=== PATIENT | female | born 1955 | race Caucasian/White ===

== ENCOUNTER → 2016-06-09 | Outpatient (CLI) | payer MEDICARE ==
--- NOTE | 2016-06-10 12:40 | MM ---
Reason for exam: screening (asymptomatic). Last mammogram was performed 1 year and 7 months ago. History: Patient is postmenopausal and history of other cancer. Family history of breast cancer in sister at age 51, breast cancer in maternal aunt at age 50, and breast cancer in maternal aunt at age 40. Physical Findings: A clinical breast exam by your physician is recommended on an annual basis and results should be correlated with mammographic findings. MG 3D Screening Mammo W/Cad Bilateral CC and MLO view(s) were taken. XCCL view(s) were taken of the right breast. Prior study comparison: October 30, 2014, bilateral MG screening mammo w CAD. May 06, 2013, bilateral digital screening mammo w/CAD. There are scattered fibroglandular densities. No significant changes when compared with prior studies. ASSESSMENT: Negative, BI-RAD 1 RECOMMENDATION: Routine screening mammogram of both breasts in 1 year.
== END | disposition home or self-care (01) ==
LOC: RADMAMWWP 07:53
PROVIDERS: ATTEND Internal Medicine
DX: Z12.31 Encounter for screening mammogram for malignant neoplasm of breast (principal)
CPT/HCPCS: 77063; G0202

== ENCOUNTER → 2016-10-27 | Outpatient (CLI) | payer MEDICARE ==
--- NOTE | 2016-10-27 09:38 | MR ---
EXAMINATION TYPE: MR shoulder LT wo con DATE OF EXAM: 10/27/2016 COMPARISON: Outside radiographs 10/12/2016 HISTORY: 61-year-old female with left shoulder pain TECHNIQUE: Multiplanar, multisequence imaging of the left shoulder is performed without contrast. FINDINGS: Intermediate signal within the intracapsular portion of the long head biceps tendon. Possible subtle split tear in the extracapsular portion, coronal image 9. Some heterogeneous signal within the subscapularis tendon which remains intact. Mild degenerative joint space narrowing with marginal spurring and capsular hypertrophy at the acromi oclavicular joint. There is diffuse thickening and heterogeneous signal of the supraspinatus tendon with a small 10 x 9 mm intrasubstance tear at the footprint of the anterior supraspinatus tendon, sagittal image 7 and co mary ann image 10. Some fluid is seen delaminating tear of the bursal sided fibers of the mid supraspina tus tendon. No definite extension to either the bursal or articular surface or full-thickness tear is seen. The infraspinatus tendon appears intact. No atrophy of the rotator cuff musculature. However, there is a moderate effusion within the subacromial/subdeltoid bursa. Evaluation of the glenohumeral joint shows some focal areas of degenerative cartilage loss suggested at the mid glenoid, coronal image. There is some degenerative signal within the superior labrum. No para labral cyst. No glenohumeral georges int effusion. No Hill-Sachs deformity or os acromiale. No suspicious bone marrow replacement. IMPRESSION: 1. Moderate supraspinatus tendinosis with a 10 x 9 mm intrasubstance tear at its anterior footprint. While some fluid delaminates along the bursal sided fibers, no clear communication to either bursal o r articular surface or full-thickness tear is seen at this time. 2. Intracapsular long head biceps tendinosis and possible small split tear of the extracapsular porti on. 3. Moderate subacromial/subdeltoid bursitis. 4. Mild AC joint and GH joint osteoarthrosis.
== END | disposition home or self-care (01) ==
LOC: RADMRIMAIN 08:12
PROVIDERS: ATTEND Orthopaedic Surgery
DX: M75.102 Unspecified rotator cuff tear or rupture of left shoulder, not specified as traumatic (principal); M75.52 Bursitis of left shoulder; M19.012 Primary osteoarthritis, left shoulder; M67.814 Other specified disorders of tendon, left shoulder

== ENCOUNTER → 2016-10-28 | Outpatient (CLI) | payer MEDICARE ==
--- NOTE | 2016-10-28 11:06 | P.BASOAP ---
Subjective Principal diagnosis: Esophageal spasm Patient known to our service. History of prior lap band. She had a 1 mL adjustment approximate 2 months ago. She was recent and started on oral steroids. Over the last 1-2 weeks she has had increased esophageal spasm-like pain. She is known to have these esophageal spasms however its normally when the band is loosened. Mild heartburn at times. No dysphagia. She is requesting the band the emptied. Objective - Exam Abdomen: Soft, nontender, nondistended Assessment/Plan (1) Esophageal spasm Narrative/Plan: Related to the patient's plan at this time. Patient likely not a candidate for future band adjustments because of her ongoing issues. Consider band removal. The patient's lap band port was palpated. The site was aseptically prepped. 1% lidocaine was infiltrated into the subcutaneous tissues through a diabetic syringe. The Santos needle was advanced into the port. Aspiration took place. A total of 1 ml of fluid was evacuated. Pressure was held and a sterile dressing was applied. Plan: Date: Initial Weight: Initial BMI: Current Weight: Current BMI: Type of Surgery: Total Volume in Band: Previous Volume: Volume Removed: Volume Added: Band Size:
[2016-10-28 11:28] VITALS: BP 137/84; PULSE 70; TEMP 97.8; BMI 39.4
== END | disposition home or self-care (01) ==
LOC: BARWHC3 10:49
PROVIDERS: ATTEND Surgery
DX: K22.4 Dyskinesia of esophagus (principal)
CPT/HCPCS: 99212

== ENCOUNTER 2016-12-21 07:54 | Day surgery (SDC) | payer MEDICARE ==
[2016-12-16 14:39] VITALS: BMI 35.4
--- NOTE | 2016-12-20 12:28 | HP ---
HISTORY AND PHYSICAL REASON FOR ADMISSION: Surgery is 12/21/2016. HISTORY OF PRESENT ILLNESS: Eulalia Armstrong is a 61-year-old patient seen with progressive left shoulder pain. We discussed treatment options. She elected to proceed with arthroscopy. Consent was obtained. Medical clearance was prior to Dr. Solis. PAST MEDICAL HISTORY: Hypertension, hyperlipidemia, gastroesophageal reflux disease, hypothyroidism. PAST SURGICAL HISTORY: Right foot surgery, left foot surgery, hysterectomy, left knee arthroscopy, thyroidectomy, tubal ligation. MEDICATIONS: Meloxicam, metoprolol, Prevacid, Synthroid, Xanax and Zomig ALLERGIES: CODEINE, SULFA, DEMEROL. SOCIAL HISTORY: Patient denies current tobacco use. PHYSICAL EXAMINATION: Evaluation of the left shoulder flexion 150 degrees, abduction 110 degrees, external rotation is 55 degrees with some pain and weakness. There is tenderness along the anterior lateral acromion rotator cuff insertion site. Impingement is positive at 90 degrees. Drop-arm sign is positive. Distal neurovascular exam is intact. RADIOGRAPHS: Of the left shoulder revealed a type 2 anterior acromion and cystic changes of the greater tuberosity. An MRI of the left shoulder revealed a partial rotator cuff tear and partial biceps tendon tear. IMPRESSION: Left shoulder impingement with partial rotator cuff tear, partial biceps tendon tear. PLAN: Left shoulder arthroscopy, subacromial decompression, possible arthroscopic rotator cuff repair, probable biceps tenotomy and debridement. Surgery 12/21/2016. MMODL / IJN: [id number] /
[~2016-12-21 07:54] MED LIST: DEXAMETHASONE SOD PHOSPHATE 10 MG/ML 1 ML VIAL IV ONE; HYDROmorphone 0.5 MG/0.5 ML SYRINGE IVP PRN; LACTATED RINGERS 1,000 ML IV SCH; MIDAZOLAM 2 MG/2 ML VIAL IV PRN; ONDANSETRON 4 MG/2 ML VIAL IVP ONE; ceFAZolin IN SWFI 2 GM/20 ML SYRINGE IVP ONE
[2016-12-21] MEDS ORDERED: SCOPOLAMINE 1.5MG/72HR PATCH TRANSDERM STA (08:21)
[2016-12-21] MEDS ORDERED: fentaNYL (PF) 50 MCG/ML 2 ML AMP IV ONE (08:41)
--- NOTE | 2016-12-21 09:05 | P.ONQ ---
Anesthesiology Proc Note - PNB - Peripheral Nerve Block Performed Left Interscalene Single Time Out Performed: Yes Procedure Start Time: 08:45 Indication: Acute Post-Operative Pain, Analgesia Specifically requested for management of pain by DrSelina: Sylvain Granda Sedation Type: Sedate with meaningful contact maintained Preparation: Sterile Prep Position: Supine Catheter: None Needle Types: Other (see comment) (Pajunk) Needle Size: 50mm (2") Needle Gauge: 21 Technique: Ultrasound Injectate: Other (see comment) (15cc 0.5% Ropivicaine+15cc 2% lidocaine) Adjunct: Epinephrine (see comment for dilution ratio) (1:200,000) Blood Aspirated: No Pain Paresthesia on Injection Noted: No Resistance on Injection: Normal Events: Uneventful and Well Tolerated
[2016-12-21] MEDS ORDERED: LIDOCAINE 1% INJ 10MG/ML (20 ML MDV) ONE (09:33)
[2016-12-21] MEDS ORDERED: ROPIVACAINE 5 MG/ML 30 ML VIAL ONE (09:33)
[2016-12-21] MEDS ORDERED: ePHEDrine SULFATE/0.9% NACL/PF 50 MG/5 ML SYRINGE IV ONE (09:33)
[2016-12-21] MEDS ORDERED: MIDAZOLAM 2 MG/2 ML VIAL ONE (09:33)
[2016-12-21] MEDS ORDERED: SUCCINYLCHOLINE CHLORIDE 100 MG/5 ML SYR IV ONE (09:33)
[2016-12-21] MEDS ORDERED: LIDOCAINE 2%-EPI 1:100,000 20 ML VIAL ONE (09:33)
[2016-12-21] MEDS ORDERED: fentaNYL (PF) 50 MCG/ML 2 ML AMP ONE (09:33)
[2016-12-21] MEDS ORDERED: PROPOFOL 10 MG/ML 20 ML VIAL IV ONE (09:33)
[2016-12-21] MEDS ORDERED: ONDANSETRON 4 MG/2 ML VIAL ONE (09:33)
[2016-12-21] MEDS ORDERED: SODIUM CHLORIDE 0.9% 50 ML with ceFAZolin 2,000 MG IV ONE ×2 (09:45)
[2016-12-21 11:29] VITALS: TEMP 96.9
[2016-12-21] MEDS ORDERED: LACTATED RINGERS 1,000 ML IV ONE (11:31)
--- NOTE | 2016-12-21 11:35 | P.OP ---
Date of Procedure: 12/21/16 Preoperative Diagnosis: Left shoulder impingement Postoperative Diagnosis: 1. Left shoulder rotator cuff tear 2. Left shoulder impingement 3. Left shoulder partial long head biceps tendon tear 4. Left shoulder superficial labral tear 5. 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 Left shoulder grade 2 chondromalacia glenoid fossa Procedure(s) Performed: 1. Left shoulder arthroscopic rotator cuff repair 2. Left shoulder arthroscopic subacromial decompression 3. Left shoulder arthroscopic biceps tenotomy 4. Left shoulder arthroscopic debridement labral tear 5. Left shoulder arthroscopic chondroplasty humeral head 6. Left shoulder arthroscopic chondroplasty glenoid fossa Implants: None Anesthesia: GETA, regional (Interscalene block) Surgeon: Sylvain Granda [employer] #1: Vitaliy Dennison Estimated Blood Loss (ml): 10 Pathology: none sent Condition: stable Disposition: PACU Indications for Procedure: 61-year-old patient seen with progressive left shoulder pain. After treatment options were discussed, she elected to proceed with arthroscopy. Operative Findings: see description of procedure Description of Procedure: Patient underwent a shoulder block by department of anesthesia. The patient was then taken to the operative suite. The patient underwent a general anesthetic by the department of anesthesia. The patient was placed into a lateral position and secured. There was appropriate padding of the bony prominence. Left shoulder was then prepped and draped in normal sterile orthopedic fashion. We placed the extremity in 10 pounds of longitudinal traction. A posterior incision was now made for a posterior working portal site. The trocar and cannula were inserted into the glenohumeral joint. Arthroscopy was initiated. Spinal needle was now inserted anteriorly, to ascertain the anterior working portal site. An incision was now made in that area, a trocar was inserted followed by a probe. There was grade 2-3 chondromalacia of the humeral head with osteochondral tears. There was grade 2 chondral malacia anterior aspect only fossa with some osteochondral tears. Superficial tearing of the anterior labrum was present. Partial tearing long head biceps tendon with hyperemia. No loose bodies. I performed a arthroscopic biceps tenotomy. I debrided the labral tears down to stable tissue. I performed a chondroplasty of the humeral head and glenoid fossa down to stable tissue. The residual labrum was probed and found to be stable. Instruments now removed from glenohumeral joint. Utilizing the posterior working portal site, the trocar and cannula were inserted into the subacromial space. Arthroscopy initiated. I made an incision 2 fingerbreadths lateral to the acromion. I introduced my trocar followed by my [employer] ablator. I now began ablating thick subacromial bursal tissue, which exposed the undersurface of the anterior acromion. This was diminished subacromial space. There was a very prominent anterior acromion. A motorized bur was introduced and a subacromial decompression was performed. I also excised some osteophytes off the inferior aspect of the distal clavicle. The AC joint was visualized and noted to be moderately arthritic. I did not think enough toward a Jose procedure. I turned my attention to the rotator cuff tendon. There appeared to be an intrasubstance tear supraspinatus. I debrided the margins down to stable tissue. I passed 2 simple sutures and a side-to- side repair. Residual suture limbs were clipped. The repair was probed and found to be stable. Instruments now removed from the portal sites. All portal sites were approximated with nylon suture. Sterile dressings were applied followed by a shoulder immobilizer. Cosmo LAGUNAS assisted with the procedure. The patient was awakened, transferred to a bed, and taken to recovery in stable condition.
[2016-12-21 13:14] VITALS: BP 136/77; PULSE 93; RESP 18
== END 2016-12-21 14:25 | disposition home or self-care (01) ==
LOC: OR 07:54
PROVIDERS: ATTEND Orthopaedic Surgery
DX: M75.112 Incomplete rotator cuff tear or rupture of left shoulder, not specified as traumatic (principal); S46.112A Strain of muscle, fascia and tendon of long head of biceps, left arm, initial encounter; S43.402A Unspecified sprain of left shoulder joint, initial encounter; X58.XXXA Exposure to other specified factors, initial encounter; M94.212 Chondromalacia, left shoulder; M19.012 Primary osteoarthritis, left shoulder; M25.712 Osteophyte, left shoulder; M75.42 Impingement syndrome of left shoulder; I10 Essential (primary) hypertension; E78.5 Hyperlipidemia, unspecified; I47.1 Supraventricular tachycardia; K21.9 Gastro-esophageal reflux disease without esophagitis; E03.9 Hypothyroidism, unspecified; Z85.850 Personal history of malignant neoplasm of thyroid; F39 Unspecified mood [affective] disorder; Z98.51 Tubal ligation status; Z79.82 Long term (current) use of aspirin; Z79.899 Other long term (current) drug therapy; Z88.2 Allergy status to sulfonamides; Z88.5 Allergy status to narcotic agent; Z88.8 Allergy status to other drugs, medicaments and biological substances
CPT/HCPCS: 64415; 29827; 29826; C1894; C1713; J2250; J1100; J2405; J0690; J2001; J3010; J2795; J0330; J2704

== ENCOUNTER → 2017-03-29 | Outpatient (CLI) | payer MEDICARE ==
--- NOTE | 2017-03-29 10:48 | FL ---
EXAMINATION: Single contrast Cervical and Thoracic Esophagram DATE OF EXAM: 03/29/2017 CLINICAL INDICATION: 61-year-old female with dysphagia, chronic sinusitis, cough, and intermittent se nsation of food sticking in throat since the summer. Lap band placed in 2002. COMPARISON: 01/27/2011 Total Flouroscopy Time: 1 minute 41 seconds. Total images: 78 (primarily last image hold save screens in order to decrease radiation dose) FINDINGS: The swallowing mechanism is normal. There is mild to moderate degenerative disc disease mid to lower cervical spine. Anterior endplate spondylosis minimally impresses on to the posterior wall of the cer vical esophagus but does not contribute to any significant narrowing. Otherwise, the hypopharyngeal a natomy is preserved. The cervical and thoracic portions have a normal course. This was a single contrast exam but there wa s enough air in the esophagus to allow for assessment of the mucosa. The mucosa is normal and no pers isting filling defect is encountered. However, the thoracic esophagus is mildly patulous and there are mild to moderate tertiary peristalti c contractions. When the patient is prone, we note marked blunting of the normal secondary stripping waves as contrast remains pooled in the thoracic esophagus with a intermittent episodes of intraesoph ageal reflux. When the patient is brought upright, contrast passes via gravity. Lap band is present and remains appropriately positioned. There is satisfactory passage of contrast a cross the lap band with only minimal restriction. A tiny sliding hiatal hernia is noted. IMPRESSION: 1. Mild to moderate cervical spondylosis. Endplate spurs minimally impress on the posterior wall of t he cervical the esophagus. There is no significant narrowing. 2. No evidence for lap band prolapse. The lap band provides only minimal restriction to the passage o f contrast. 3. Mildly patulous esophagus with marked blunting of the normal secondary stripping waves. This resul ts in persistent pooling of contrast in the esophagus when the patient is prone/supine. There are int ermittent episodes of intraesophageal reflux and contrast only passes via gravity after the patient i s brought upright. 4. Tiny sliding hiatal hernia.
--- NOTE | 2017-03-29 10:57 | CT ---
EXAMINATION TYPE: CT sinus wo con DATE OF EXAM: 03/29/2017 COMPARISON: NONE HISTORY: 61-year-old female dysphagia, chronic sinusitis, cough CT DLP: 596.5 mGycm Automated exposure control for dose reduction was used. TECHNIQUE: Noncontrast axial views of the paranasal sinuses were obtained. Coronal reconstructions pe rformed. FINDINGS: There is trace mucosal thickening along the floors of the bilateral maxillary sinuses and in the santos on of the left greater than right maxillary antrums. Otherwise, the sphenoid, frontal, and ethmoid sinuses are well pneumatized. There is no air-fluid level. Reactive cricket- osteogenesis is not seen. There is no destruction of the osseous jacob of the paranasal sinuses. There is slight rightward nasal septal deviation. The imaged brain and orbits are normal in appearance. Visualized mastoid air cells and middle ear cavities are well pneumatized. Reformatted images confirm above findings. IMPRESSION: 1. Mild mucosal thickening within the bilateral maxillary sinuses. 2. Slight rightward nasal septal deviation.
--- NOTE | 2017-03-29 13:20 | XR ---
EXAMINATION TYPE: XR chest 2V DATE OF EXAM: 03/29/2017 COMPARISON: Prior chest x-ray 01/26/2015 HISTORY: Cough and sinus congestion, dysphasia TECHNIQUE: Frontal and lateral views of the chest are obtained. FINDINGS: Patient is status post lap band. Cardiac mediastinal silhouette, pulmonary vascularity and zora are stable. No evident airspace disease, pneumothorax, or pleural effusion. The aorta is dense. IMPRESSION: Postop changes.
== END | disposition home or self-care (01) ==
LOC: RADFLWHC 09:46
PROVIDERS: ATTEND Otolaryngology
DX: J34.2 Deviated nasal septum (principal); J34.89 Other specified disorders of nose and nasal sinuses; R05 Cough; K21.9 Gastro-esophageal reflux disease without esophagitis; K44.9 Diaphragmatic hernia without obstruction or gangrene; K22.8 Other specified diseases of esophagus; Z98.890 Other specified postprocedural states
CPT/HCPCS: 70486; 71046; 74220

== ENCOUNTER → 2017-05-09 | Outpatient (CLI) | payer MEDICARE ==
[2017-05-09 14:27] VITALS: BP 138/88; PULSE 86; TEMP 98.2; BMI 40.8
--- NOTE | 2017-05-09 15:55 | P.BASOAP ---
Subjective Progress Note Date: 05/09/17 Principal diagnosis: Morbid obesity Patient returns for bariatric evaluation. Patient still having occasional episodes of dysphagia despite her band being empty. A recent upper GI showed some degree of esophageal dysmotility. The band site was providing minimal restriction. She is interested in gastric bypass. No heartburn currently. Objective - Vital Signs Vital signs: Vital Signs Temp 98.2 F 05/09/17 14:25 Pulse 86 05/09/17 14:25 Resp BP 138/88 05/09/17 14:25 Pulse Ox Intake & Output 05/08/17 05/09/17 05/09/17 18:59 06:59 18:59 Weight 102.92 kg - Exam Abdomen: Soft, nontender, nondistended Assessment/Plan (1) Morbid obesity Narrative/Plan: Given the patient's history of esophageal dilation and reflux with upper GI showing esophageal dysmotility support her decision to proceed with gastric bypass. Even with gastric bypass she is at risk of some degree of chronic reflux issues. Will make appointment for her to see Dr. Dahl. Plan: Date: 05/09/17 Initial Weight: Initial BMI: Current Weight: 102.92 kg Current BMI: 40.8 Type of Surgery: Total Volume in Band: 0 Previous Volume: Volume Removed: Volume Added: Band Size:
== END | disposition home or self-care (01) ==
LOC: BARWHC3 12:49
PROVIDERS: ATTEND Surgery
DX: E66.01 Morbid (severe) obesity due to excess calories (principal); Z68.41 Body mass index [BMI] 40.0-44.9, adult; K22.4 Dyskinesia of esophagus
CPT/HCPCS: 99211

== ENCOUNTER → 2017-05-25 | Outpatient (CLI) | payer MEDICARE ==
[2017-05-25 12:09] LABS: HCT 42.5 % (34.0-46.0); HGB 14.2 gm/dL (11.4-16.0); MCH 27.3 pg (25.0-35.0); MCHC 33.3 g/dL (31.0-37.0); MCV 81.8 fL (80.0-100.0); Platelet Count 312 k/uL (150-450); RBC 5.19 m/uL (3.80-5.40); RDW 13.7 % (11.5-15.5); WBC 7.8 k/uL (3.8-10.6)
[2017-05-25 12:27] LABS: Albumin 4.3 g/dL (3.5-5.0); Total Bilirubin 0.6 mg/dL (0.2-1.3); Total Protein 7.9 g/dL (6.3-8.2)
[2017-05-25 14:15] VITALS: BP 131/81; PULSE 67; TEMP 97.7; BMI 41.8
[2017-05-25 16:48] LABS: Iron Saturation 18.81 (12.00-45.00)
[2017-05-25 16:58] LABS: Vitamin D 25 Hydroxy 92.4 ng/mL (30.0-100.0)
[2017-05-25 17:35] LABS: Hemoglobin A1C 6.1 % (4.0-6.0)
--- NOTE | 2017-06-11 21:34 | P.HPBAR ---
Bariatric H&P - History & Physicial H&P Date: 05/25/17 History & Physicial: Visit/CC: Patient initial contact: Initial weight: Initial weight in pounds: Height: Initial BMI: Last weight: Current weight: Current weight in pounds: Current BMI: [place] body weight (based on NIH guidelines): Excess body weight loss: The patient is a 62 year-old F who presents for Bariatric Assessment. DATE OF SERVICE: 05/25/2017 REASON FOR CONSULTATION: Initial bariatric evaluation HISTORY OF PRESENT ILLNESS: Eulalia Armstrong is a 62-year-old female who comes in with long-standing morbid obesity. She comes in with history of esophageal spasms. She has an adjustable gastric band for over 15 years, 2002. Her highest weight was 220 pounds. Her lowest weight was 150 pounds. She has regained 78 pounds. She reports chronic back pain. She has gastroesophageal reflux disease. She reports trouble with swallowing. Now she presents for further evaluation and management. She reports all fluid out of her band. She has history of chronic pain. She is looking into the gastric bypass. At height of 5 feet 2 inches, her ideal body weight is 135 pounds. She comes in highest weight of 228 pounds. Body mass index is 41.8. She is 93 pounds overweight. PAST MEDICAL HISTORY: 1. Morbid obesity. 2. Body mass index of 41.8, initial. 3. Gastroesophageal reflux disease 4. Coronary artery disease 5. Hypothyroidism 6. Chronic pain syndrome 7. Dysphagia. 8. Hiatal hernia 9. Ischemic cardiomyopathy 10. Osteoarthritis bilateral hips 11. Osteoarthritis bilateral knees 12. Anxiety 13. Angina 14. Supraventricular tachycardia 15. Thyroid cancer 16. Vertigo 17. Migraines 18. Bilateral heel spurs 19. Dysphagia PAST SURGICAL HISTORY: 1. Right knee arthroplasty 2. Thyroidectomy 3. Back surgery 4. Band placement 5. Hysterectomy 6. Left knee arthroscopy 7. Heart catheterization 8. Tumor removed from eye HOME MEDICATIONS: 1. Restasis 2. Exforge 3. Zomig 4. Compazine 5. Zofran 6. Nitrostat 7. Toprol-XL 8. Meloxicam 9. Meclizine 10. Synthroid 11. Prevacid 12. [place] 13. Vitamin D 14. Soma 15. Aspirin 16. Xanax ALLERGIES: 1. Meperidine 2. Sulfa 3. Codeine SOCIAL HISTORY: History of tobacco abuse. FAMILY HISTORY: No family history of ulcerative colitis disease or Crohn's disease. Family history of morbid obesity. No lupus in the family. No reports of stomach or esophageal cancer. Family history of diabetes type 2. REVIEW OF ORGAN SYSTEMS: CONSTITUTIONAL: At height of 5 feet 2 inches, her ideal body weight is 135 pounds. She comes in highest weight of 228 pounds. Body mass index is 41.8. She is 93 pounds overweight. HEENT: Denies any active troubles with vision or hearing. Has troubles with swallowing. ENDOCRINE: No diabetes. Has hypothyroidism. CARDIOVASCULAR: Past heart attack. Has hypertension. RESPIRATORY: Has daytime somnolence. No asthma. Has obstructive sleep apnea. GI: Denies any bright red blood per rectum. No diarrhea or constipation. Has gastroesophageal reflux disease. MUSCULOSKELETAL: Has lower back pain and joint pain. Has osteoarthritis of the knees. NEURO: No headaches. No seizure disorders. PSYCH: Has depression. Has anxiety. No suicidal ideation. RHEUMATOLOGIC: No lupus. No rheumatoid arthritis. HEMATOLOGIC: Denies any abnormal bleeding or bruising. No personal history of DVTs. SKIN: No rash. No skin cancer. PHYSICAL EXAM: VITAL SIGNS: Height 5 foot 2 inches, weight 228 pounds. BMI 41.8 Vital Signs Temp 97.7 F 05/25/17 14:08 Pulse 67 05/25/17 14:08 Resp BP 131/81 05/25/17 14:08 Pulse Ox GENERAL: Well-developed in no acute distress. HEENT: No scleral icterus. Extraocular movements grossly intact. Hears conversational speech. No nasal drainage. NECK: Supple without lymphadenopathy. CHEST: Nonlabored respirations with equal bilateral excursions. CARDIOVASCULAR: Regular rate and regular rhythm. Distal 2+ pulses. ABDOMEN: Obese, soft, nontender, nondistended. MUSCULOSKELETAL: No clubbing, cyanosis. Gross strength 5/5 distal lower extremities. No pre-tibial pitting edema. NEURO: No focal or lateralizing signs. Cranial nerves 2 through 12 grossly within normal limits. PSYCH: Appropriate affect. Alert and oriented to person, place and time. SKIN: Good skin turgor. Well perfused. ASSESSMENT: 1. Morbid obesity. 2. Body mass index of 41.8, initial. 3. Gastroesophageal reflux disease 4. Coronary artery disease 5. Hypothyroidism 6. Chronic pain syndrome 7. Dysphagia. 8. Hiatal hernia 9. Ischemic cardiomyopathy 10. Osteoarthritis bilateral hips 11. Osteoarthritis bilateral knees 12. Anxiety 13. Angina 14. Supraventricular tachycardia 15. Thyroid cancer 16. Vertigo 17. Migraines 18. Bilateral heel spurs 19. Dysphagia PLAN: 1. Surgical options including gastric bypass, sleeve gastrectomy were described in detail. With her symptoms, she swallowing for the gastric bypass. 2. The [place] bariatric surgical collaborative data and outcomes calculator were described with surgical options. 3. Recommend a bariatric metabolic panel to evaluate for micro- including macronutrient deficiencies. 4. For history of daytime somnolence, recommend evaluation and treatment for sleep apnea. 5. Dietary surveillance and counseling was reviewed, I have asked increased protein intake to at least 65 grams daily. 6. Will need cardiac risk assessment. 7. Recommend medical risk assessment. 8. Psych assessment per insurance guidelines. 9. Recommend esophageal manometry for history of dysphagia. 10. Recommend 12-lead EKG with family history of hypertensive heart disease. 11. Recommend upper endoscopy after completion of esophagram. 12. Recommend right upper quadrant ultrasound and HIDA scan for gallbladder 13. Recommend bariatric dietitian evaluation. 14. Recommend esophagram Thank you for this consultation. Laboratory Last Values WBC 7.8 k/uL (3.8-10.6) 05/25/17 11:37 RBC 5.19 m/uL (3.80-5.40) 05/25/17 11:37 Hgb 14.2 gm/dL (11.4-16.0) 05/25/17 11:37 Hct 42.5 % (34.0-46.0) 05/25/17 11:37 MCV 81.8 fL (80.0-100.0) 05/25/17 11:37 MCH 27.3 pg (25.0-35.0) 05/25/17 11:37 MCHC 33.3 g/dL (31.0-37.0) 05/25/17 11:37 RDW 13.7 % (11.5-15.5) 05/25/17 11:37 Plt Count 312 k/uL (150-450) 05/25/17 11:37 Sodium 143 mmol/L (137-145) 05/25/17 11:37 Potassium 5.0 mmol/L (3.5-5.1) 05/25/17 11:37 Chloride 103 mmol/L (98-107) 05/25/17 11:37 Carbon Dioxide 24 mmol/L (22-30) 05/25/17 11:37 Anion Gap 16 mmol/L 05/25/17 11:37 BUN 19 mg/dL (7-17) H 05/25/17 11:37 Creatinine 1.00 mg/dL (0.52-1.04) 05/25/17 11:37 Est GFR (CKD-EPI)AfAm 69 (>60 ml/min/1.73 sqM) 05/25/17 11:37 Est GFR (CKD-EPI)NonAf 60 (>60 ml/min/1.73 sqM) 05/25/17 11:37 Glucose 99 mg/dL (74-99) 05/25/17 11:[address] Glu mg/dL 128 05/25/17 11:37 Hemoglobin A1c 6.1 % (4.0-6.0) H 05/25/17 11:37 Calcium 10.0 mg/dL (8.4-10.2) 05/25/17 11:37 Iron 63 ug/dL (50-170) 05/25/17 11:37 TIBC 335 ug/dL (228-460) 05/25/17 11:37 Iron Saturation 18.81 (12.00-45.00) 05/25/17 11:37 Ferritin 21.7 ng/mL (10.0-291.0) 05/25/17 11:37 Total Bilirubin 0.6 mg/dL (0.2-1.3) 05/25/17 11:37 AST 20 U/L (14-36) 05/25/17 11:37 ALT 22 U/L (9-52) 05/25/17 11:37 Alkaline Phosphatase 116 U/L (38-126) 05/25/17 11:37 Total Protein 7.9 g/dL (6.3-8.2) 05/25/17 11:37 Albumin 4.3 g/dL (3.5-5.0) 05/25/17 11:37 Triglycerides 128 mg/dL (<150) 05/25/17 11:37 Cholesterol 197 mg/dL (<200) 05/25/17 11:37 LDL Cholesterol, Calc 110 mg/dL (0-99) H 05/25/17 11:37 HDL Cholesterol 61 mg/dL (40-60) H 05/25/17 11:37 Vitamin B1 50 ug/L (38-122) 05/25/17 11:37 Vitamin B12 676.0 pg/mL (200.0-944.0) 05/25/17 11:37 Vitamin D 25-Hydroxy 92.4 ng/mL (30.0-100.0) 05/25/17 11:37 Folate 17.0 ng/mL 05/25/17 11:37 TSH 0.329 mIU/L (0.465-4.680) L 05/25/17 11:37 Hemoglobin A1c elevated LDL elevated HDL elevated TSH suppressed Findings consistent with diabetes type 2 Past Medical History Past Medical History: Cancer, Chest Pain / Angina, Hypertension, Supraventricular Tachycardia (SVT), Thyroid Disorder Additional Past Medical History / Comment(s): 02/16/15 Pt admitted to floor s/p total R knee arthroplasty. Other HX: esophagial spasms, thyroid cancer, MIGRAINES. DEGENERATIVE JOINT DISEASE. VERTIGO. History of Any Multi-Drug Resistant Organisms: None Reported Past Surgical History: Back Surgery, Bariatric Surgery, Hysterectomy, Joint Replacement, Orthopedic Surgery, Tubal Ligation Additional Past Surgical History / Comment(s): 02/16/15 Total R knee arthroplasty. Other sx: LAP BAND (2002). HEART CATH-CLEAR, THYROIDECTOMY D/ T CA/, DISCETOMY L5-S1, LT KNEE ARTHROSCOPY, BILATERAL HEEL SPURS. 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 Past Anesthesia/Blood Transfusion Reactions: No Reported Reaction Additional Past Anesthesia/Blood Transfusion Reaction / Comm: MOTHER AND DAUGHTER HAVE PONV Smoking Status: Never smoker - Past Family History Father Family Medical History: Cancer, Diabetes Mellitus, Hypertension Additional Family Medical History / Comment(s): Father had cancer below his eye. He from a MVA. Mother Family Medical History: No Reported History Additional Family Medical History / Comment(s): Mother is healthy and is 80 yrs old. Results - Labs 05/25/17 11:37 05/25/17 11:37 Bariatric Checklist Checklist: Plan: Checklist: EGD: 1. Hiatal hernia: 2. H. Pylori: HgbA1c: Vitamin D: Smoking: Never smoker Primary care physician referral: Psychiatry clearance: Cardiology clearance: Sleep study: Diet journal: VTE risk score: VTE risk level: Rehab needs at discharge:
== END | disposition home or self-care (01) ==
LOC: BARWHC3 09:45
PROVIDERS: ATTEND Surgery Plastic and Reconstructive Surgery
DX: Z09 Encounter for follow-up examination after completed treatment for conditions other than malignant neoplasm (principal); E66.01 Morbid (severe) obesity due to excess calories; K21.9 Gastro-esophageal reflux disease without esophagitis; I25.10 Atherosclerotic heart disease of native coronary artery without angina pectoris; E03.9 Hypothyroidism, unspecified; G89.4 Chronic pain syndrome; K44.9 Diaphragmatic hernia without obstruction or gangrene; I25.5 Ischemic cardiomyopathy; M17.0 Bilateral primary osteoarthritis of knee; M16.0 Bilateral primary osteoarthritis of hip; F41.9 Anxiety disorder, unspecified; I47.1 Supraventricular tachycardia; C73 Malignant neoplasm of thyroid gland; R42 Dizziness and giddiness; G43.909 Migraine, unspecified, not intractable, without status migrainosus; M77.52 Other enthesopathy of left foot and ankle; M77.51 Other enthesopathy of right foot and ankle; I10 Essential (primary) hypertension; E11.9 Type 2 diabetes mellitus without complications; E88.81 Metabolic syndrome and other insulin resistance; E44.0 Moderate protein-calorie malnutrition; E55.9 Vitamin D deficiency, unspecified; G47.30 Sleep apnea, unspecified; Z98.61 Coronary angioplasty status; Z79.899 Other long term (current) drug therapy; Z79.82 Long term (current) use of aspirin; Z79.891 Long term (current) use of opiate analgesic; Z88.2 Allergy status to sulfonamides; Z88.5 Allergy status to narcotic agent; Z98.84 Bariatric surgery status; Z88.8 Allergy status to other drugs, medicaments and biological substances; Z68.41 Body mass index [BMI] 40.0-44.9, adult; Z87.891 Personal history of nicotine dependence; Z79.84 Long term (current) use of oral hypoglycemic drugs
CPT/HCPCS: 84425; 80061; 80053; 82607; 82728; 82746; 83540; 83550; 84443; 85027; 82306; 83036; 36415; G0463; 99211

== ENCOUNTER → 2017-06-12 | Outpatient (CLI) | payer MEDICARE ==
--- NOTE | 2017-06-12 14:09 | MM ---
Reason for exam: screening (asymptomatic). Last mammogram was performed 1 year ago. History: Patient is postmenopausal and history of other cancer. Family history of breast cancer in sister at age 51, breast cancer in maternal aunt at age 50, and breast cancer in maternal aunt at age 40. Physical Findings: A clinical breast exam by your physician is recommended on an annual basis and results should be correlated with mammographic findings. MG 3D Screening Mammo W/Cad Bilateral CC and MLO view(s) were taken. Prior study comparison: June 09, 2016, bilateral MG 3d screening mammo w/cad. October 30, 2014, bilateral MG screening mammo w CAD. There are scattered fibroglandular densities. There is no discrete abnormality. ASSESSMENT: Negative, BI-RAD 1 RECOMMENDATION: Routine screening mammogram of both breasts in 1 year.
== END ==
LOC: RADMAMWWP 08:59
PROVIDERS: ATTEND Internal Medicine
DX: Z12.31 Encounter for screening mammogram for malignant neoplasm of breast (principal)
CPT/HCPCS: 77063; 77067

== ENCOUNTER → 2017-07-05 | Outpatient (CLI) | payer MEDICARE ==
[2017-07-05 15:17] VITALS: BP 118/78; PULSE 96; RESP 14; TEMP 97.8; BMI 41.8
--- NOTE | 2017-07-05 17:13 | P.PN ---
Subjective Progress Note Date: 07/05/17 HPI: The patient presents following history of complications from her adjustable gastric band. She has intolerance to adjustments. Features has been consistent with distal esophageal spasms despite attempts of adjustments. Patient now presents for follow-up. PLAN: 1. Manometry results also consistent with esophageal dysmotility secondary to her adjustable gastric band. 2. Recommend adjustable gastric band removal. 3. Surgical options for weight loss or described including alternatives of the sleeve versus gastric bypass. With her history of esophageal disorder, sleep is contraindicated. Recommendation includes revision to gastric bypass. Objective - Vital Signs Vital signs: Vital Signs Temp 97.8 F 07/05/17 15:06 Pulse 96 07/05/17 15:06 Resp 14 07/05/17 15:06 BP 118/78 07/05/17 15:06 Pulse Ox Intake & Output 07/04/17 07/05/17 07/05/17 18:59 06:59 18:59 Weight 103.873 kg
== END | disposition home or self-care (01) ==
LOC: BARWHC3 15:00
PROVIDERS: ATTEND Surgery Plastic and Reconstructive Surgery
DX: Z09 Encounter for follow-up examination after completed treatment for conditions other than malignant neoplasm (principal); K95.09 Other complications of gastric band procedure; K22.4 Dyskinesia of esophagus; Z98.84 Bariatric surgery status
CPT/HCPCS: 99211

== ENCOUNTER → 2017-08-04 | Outpatient (CLI) | payer MEDICARE ==
[2017-08-04 11:36] LABS: Basophils % (A) 1 %; Eosinophils # (A) 0.2 k/uL (0-0.7); Eosinophils % (A) 2 %; HCT 40.9 % (34.0-46.0); HGB 13.4 gm/dL (11.4-16.0); Lymphocytes # (A) 1.9 k/uL (1.0-4.8); Lymphocytes % (A) 27 %; MCH 27.4 pg (25.0-35.0); MCHC 32.8 g/dL (31.0-37.0); MCV 83.7 fL (80.0-100.0); Mean Platelet Volume 6.7; Monocytes # (A) 0.5 k/uL (0-1.0); Monocytes % (A) 7 %; Neutrophils # (A) 4.3 k/uL (1.3-7.7); Neutrophils % (A) 60 %; Platelet Count 290 k/uL (150-450); RBC 4.89 m/uL (3.80-5.40); RDW 14.1 % (11.5-15.5); WBC 7.1 k/uL (3.8-10.6)
[2017-08-04 12:07] LABS: Albumin 4.2 g/dL (3.5-5.0); Calcium 9.5 mg/dL (8.4-10.2); Potassium 4.9 mmol/L (3.5-5.1); Total Bilirubin 0.5 mg/dL (0.2-1.3); Total Protein 7.3 g/dL (6.3-8.2)
== END | disposition home or self-care (01) ==
LOC: LABPAT 11:04
PROVIDERS: ATTEND Internal Medicine
DX: Z01.812 Encounter for preprocedural laboratory examination (principal); K21.9 Gastro-esophageal reflux disease without esophagitis; R13.19 Other dysphagia; Z79.899 Other long term (current) drug therapy
CPT/HCPCS: 36415; 80053; 85025

== ENCOUNTER 2017-08-14 06:56 | Day surgery (SDC) | payer MEDICARE ==
[2017-08-02 09:49] VITALS: BMI 38.9
--- NOTE | 2017-08-13 16:42 | P.GSHP ---
History of Present Illness H&P Date: 08/14/17 DATE OF SERVICE: 08/14/2017 CHIEF COMPLAINT: Bariatric assessment HISTORY OF PRESENT ILLNESS: Eulalia Armstrong is a 62-year-old female who comes in with long-standing morbid obesity. She comes in with history of esophageal spasms. She has an adjustable gastric band for over 15 years, 2002. Her highest weight is 229 pounds. She reports chronic back pain. She has gastroesophageal reflux disease. She reports trouble with swallowing. She reports all fluid out of her band. She has history of chronic pain. She is looking into the gastric bypass. She presents following history of complications from her adjustable gastric band. She has intolerance to adjustments. Features has been consistent with distal esophageal spasms despite attempts of adjustments. Patient now presents for follow-up. At height of 5 feet 2 inches, her ideal body weight is 135 pounds. She comes in highest weight of 229 pounds, now down to 219 pounds. Body mass index is 42.0 down to 40.2. She is 83 pounds overweight. PAST MEDICAL HISTORY: 1. Morbid obesity. 2. Body mass index of 42.0, initial. 3. Gastroesophageal reflux disease 4. Coronary artery disease 5. Hypothyroidism 6. Chronic pain syndrome 7. Dysphagia. 8. Hiatal hernia 9. Ischemic cardiomyopathy 10. Osteoarthritis bilateral hips 11. Osteoarthritis bilateral knees 12. Anxiety 13. Angina 14. Supraventricular tachycardia 15. Thyroid cancer 16. Vertigo 17. Migraines 18. Bilateral heel spurs PAST SURGICAL HISTORY: 1. Right knee arthroplasty 2. Thyroidectomy 3. Back surgery 4. Band placement 5. Hysterectomy 6. Left knee arthroscopy 7. Heart catheterization 8. Tumor removed from eye HOME MEDICATIONS: 1. Restasis 2. Exforge 3. Zomig 4. Compazine 5. Zofran 6. Nitrostat 7. Toprol-XL 8. Meloxicam 9. Meclizine 10. Synthroid 11. Prevacid 12. [place] 13. Vitamin D 14. Soma 15. Aspirin 16. Xanax ALLERGIES: 1. Meperidine 2. Sulfa 3. Codeine SOCIAL HISTORY: History of tobacco abuse. FAMILY HISTORY: No family history of ulcerative colitis disease or Crohn's disease. Family history of morbid obesity. No lupus in the family. No reports of stomach or esophageal cancer. Family history of diabetes type 2. REVIEW OF ORGAN SYSTEMS: CONSTITUTIONAL: At height of 5 feet 2 inches, her ideal body weight is 135 pounds. She comes in highest weight of 229 pounds now down to 219. Body mass index is 42.0. She is 84 pounds overweight. Her lowest weight was 150 pounds. HEENT: Denies any active troubles with vision or hearing. Has troubles with swallowing. ENDOCRINE: Has hypothyroidism. Now developed diabetes type 2. CARDIOVASCULAR: Past heart attack. Has hypertension. RESPIRATORY: Has daytime somnolence. No asthma. Has obstructive sleep apnea. GI: Denies any bright red blood per rectum. No diarrhea or constipation. Has gastroesophageal reflux disease. MUSCULOSKELETAL: Has lower back pain and joint pain. Has osteoarthritis of the knees. NEURO: No headaches. No seizure disorders. PSYCH: Has depression. Has anxiety. No suicidal ideation. RHEUMATOLOGIC: No lupus. No rheumatoid arthritis. HEMATOLOGIC: Denies any abnormal bleeding or bruising. No personal history of DVTs. SKIN: No rash. No skin cancer. PHYSICAL EXAM: VITAL SIGNS: Height 5 foot 2 inches, weight 219 pounds. BMI 40.2 GENERAL: Well-developed in no acute distress. HEENT: No scleral icterus. Extraocular movements grossly intact. Hears conversational speech. No nasal drainage. NECK: Supple without lymphadenopathy. CHEST: Nonlabored respirations with equal bilateral excursions. CARDIOVASCULAR: Regular rate and regular rhythm. Distal 2+ pulses. ABDOMEN: Obese, soft, nontender, nondistended. MUSCULOSKELETAL: No clubbing, cyanosis. Gross strength 5/5 distal lower extremities. No pre-tibial pitting edema. NEURO: No focal or lateralizing signs. Cranial nerves 2 through 12 grossly within normal limits. PSYCH: Appropriate affect. Alert and oriented to person, place and time. SKIN: Good skin turgor. Well perfused. STUDIES: Manometry results reviewed consistent with ineffective esophageal motility including hypertensive upper esophageal sphincter. ASSESSMENT: 1. Morbid obesity. 2. Body mass index of 42.0 initial. 3. Gastroesophageal reflux disease 4. Coronary artery disease 5. Hypothyroidism 6. Chronic pain syndrome 7. Dysphagia. 8. Hiatal hernia 9. Ischemic cardiomyopathy 10. Osteoarthritis bilateral hips 11. Osteoarthritis bilateral knees 12. Anxiety 13. Angina 14. Supraventricular tachycardia 15. Thyroid cancer 16. Vertigo 17. Migraines 18. Bilateral heel spurs 19. Diabetes type 2, [id number]. 20. 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 Manometry results also consistent with esophageal dysmotility secondary to her adjustable gastric band. 2. Recommend adjustable gastric band removal. 3. She has complications from her gastric band, hence removal proposed. 4. DVT prophylaxis. 5. Antibiotic prophylaxis. 6. Recommend upper endoscopy for hypertensive upper esophageal sphincter. 7. Recommend esophageal bougie for hypertensive upper esophageal sphincter. Past Medical History Past Medical History: Cancer, Chest Pain / Angina, Hypertension, Supraventricular Tachycardia (SVT), Thyroid Disorder Additional Past Medical History / Comment(s): Other HX: esophagial spasms, thyroid cancer, MIGRAINES. DEGENERATIVE JOINT DISEASE. VERTIGO,Precancerous lesions removed from face History of Any Multi-Drug Resistant Organisms: None Reported Past Surgical History: Back Surgery, Bariatric Surgery, Hysterectomy, Joint Replacement, Orthopedic Surgery, Tubal Ligation Additional Past Surgical History / Comment(s): 02/16/15 Total R knee arthroplasty. Other sx: LAP BAND (2002). HEART CATH-CLEAR, THYROIDECTOMY D/ T CA/, DISCETOMY L5-S1, LT KNEE ARTHROSCOPY, BILATERAL HEEL SPURS. 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 MOTHER AND DAUGHTER HAVE PONV,no hx blood transfusion Smoking Status: Never smoker - Past Family History Father Family Medical History: Cancer, Diabetes Mellitus, Hypertension Additional Family Medical History / Comment(s): Father had cancer below his eye. He from a MVA. Mother Family Medical History: AFIB, Cancer, Thyroid Disorder Additional Family Medical History / Comment(s): skin CA Medications and Allergies Home Medications Medication Instructions Recorded Confirmed Type ALPRAZolam [Xanax] 0.5 mg PO BID PRN 06/17/13 08/02/17 History Ergocalciferol [Vitamin D2 50,000 units PO TUFR 06/17/13 08/02/17 History (DRISDOL)] Lansoprazole [Prevacid] 30 mg PO QAM 06/17/13 08/02/17 History Nitroglycerin Sl Tabs [Nitrostat] 0.4 mg PO Q5M PRN 06/17/13 08/02/17 History amLODIPine/VALSARTAN [Exforge 1 tab PO BID 06/17/13 08/02/17 History 5-160 mg Tablet] cycloSPORINE [Restasis] 1 drop BOTH EYES DAILY 06/17/13 08/02/17 History Carisoprodol [Soma] 350 mg PO DAILY PRN 02/09/15 08/02/17 History Levothyroxine Sodium [Synthroid] 100 mcg PO QAM 02/09/15 08/02/17 History Meclizine [Antivert] 25 mg PO DAILY PRN 02/09/15 08/02/17 History Prochlorperazine [Compazine] 10 mg PO DAILY PRN 02/09/15 08/02/17 History ZOLMitriptan [Zomig] 5 mg PO DAILY PRN 02/09/15 08/02/17 History Liothyronine Sodium [Cytomel] 10 mcg PO QAM 02/16/15 08/02/17 History Metoprolol Succinate [Toprol XL] 50 mg PO BID 02/16/15 08/02/17 History Aspirin 325 mg PO DAILY PRN 12/16/16 08/02/17 History Ondansetron HCl [Zofran] 4 mg PO DAILY PRN #20 tablet 12/21/16 08/02/17 Rx Allergies Allergy/AdvReac Type Severity Reaction Status Date / Time Sulfa (Sulfonamide Allergy Severe Rash/Hives Verified 08/02/17 09:35 Antibiotics) codeine AdvReac Severe Nausea & Verified 08/02/17 09:35 Vomiting meperidine HCl [From Demerol] AdvReac Nausea & Verified 08/02/17 09:35 Vomiting
[~2017-08-14 06:56] MED LIST changes: +ACETAMINOPHEN IV (For NPO) 1,000 MG in EMPTY BAG 1 BAG IVPB ONE; +CHLORHEXIDINE GLUCONATE 15 ML CUP MUCOUS MEM ONE; +ENOXAPARIN 40 MG/0.4 ML SYRINGE SQ STA; -HYDROmorphone 0.5 MG/0.5 ML SYRINGE IVP PRN; +PANTOPRAZOLE 40 MG/10 ML VIAL IV STA; +SCOPOLAMINE 1.5MG/72HR PATCH TRANSDERM ONE; +fentaNYL (PF) 50 MCG/ML 2 ML AMP IV PRN
[2017-08-14] MEDS ORDERED: LIDOCAINE 1% 20 ML VIAL (10MG/ML) FOR IV START INTRADERMA ONE (07:50)
[2017-08-14] MEDS ORDERED: ROCURONIUM BROMIDE 10 MG/ML 10 ML VIAL IV ONE (08:06)
[2017-08-14] MEDS ORDERED: GLYCOPYRROLATE 0.2 MG/ML 2 ML VIAL ONE (08:06)
[2017-08-14] MEDS ORDERED: NEOSTIGMINE 1 MG/ML 10 ML VIAL ONE (08:06)
[2017-08-14] MEDS ORDERED: SUCCINYLCHOLINE CHLORIDE 100 MG/5 ML SYR IV ONE (08:06)
[2017-08-14] MEDS ORDERED: PHENYLEPHRINE-0.9% NACL SYG 1 MG/10 ML SYRINGE ONE (08:06)
[2017-08-14] MEDS ORDERED: LIDOCAINE 1% INJ 10MG/ML (20 ML MDV) ONE (08:06)
[2017-08-14] MEDS ORDERED: ePHEDrine SULFATE/0.9% NACL/PF 50 MG/5 ML SYRINGE IV ONE (08:06)
[2017-08-14] MEDS ORDERED: PROPOFOL 10 MG/ML 20 ML VIAL IV ONE (08:06)
[2017-08-14] MEDS ORDERED: MIDAZOLAM 2 MG/2 ML VIAL ONE (08:06)
[2017-08-14] MEDS ORDERED: fentaNYL (PF) 50 MCG/ML 2 ML AMP ONE (08:06)
[2017-08-14] MEDS ORDERED: BUPIVACAINE (PF) 0.5% 30 ML VIAL SQ ONE (08:37)
--- NOTE | 2017-08-14 09:39 | P.OP ---
Date of Procedure: 08/14/17 Description of Procedure: SURGEON: LENNY OTT MD PREOPERATIVE DIAGNOSES: 1. Morbid obesity. 2. Body mass index of 42.0 initial. 3. Gastroesophageal reflux disease 4. Coronary artery disease 5. Hypothyroidism 6. Chronic pain syndrome 7. Dysphagia. 8. Hiatal hernia 9. Ischemic cardiomyopathy 10. Osteoarthritis bilateral hips 11. Osteoarthritis bilateral knees 12. Anxiety 13. Angina 14. Supraventricular tachycardia 15. Thyroid cancer 16. Vertigo 17. Migraines 18. Bilateral heel spurs 19. Diabetes type 2, [id number]. 20. Ineffective esophageal motility 21. Hypertensive upper esophageal sphincter POSTOPERATIVE DIAGNOSES: 1. Morbid obesity. 2. Body mass index of 42.0 initial. 3. Gastroesophageal reflux disease 4. Coronary artery disease 5. Hypothyroidism 6. Chronic pain syndrome 7. Dysphagia. 8. Hiatal hernia 9. Ischemic cardiomyopathy 10. Osteoarthritis bilateral hips 11. Osteoarthritis bilateral knees 12. Anxiety 13. Angina 14. Supraventricular tachycardia 15. Thyroid cancer 16. Vertigo 17. Migraines 18. Bilateral heel spurs 19. Diabetes type 2, [id number]. 20. Ineffective esophageal motility 21. Hypertensive upper esophageal sphincter 22. Intra-abdominal adhesions lower abdomen 23. Adjustable gastric band slippage OPERATION: 1. Laparoscopic removal of adjustable gastric band and all components. 2. Intraoperative esophagogastroduodenoscopy 3. Esophageal dilation using 56-Gambian bougie ANESTHESIA: General with 60mL 0.25% Sensorcaine with epinephrine. ESTIMATED BLOOD LOSS: 2 mL SPECIMENS REMOVED: Adjustable gastric band and components. COMPLICATIONS: None. INDICATIONS: The patient is a 62-year-old [place] who presents with prior history of adjustable gastric band. Diagnostic studies were consistent with complications from adjustable gastric band including esophageal dysmotility, gastroesophageal reflux disease, esophageal spasms, and epigastric abdominal pain. Surgical options were described including revision versus removal of the band. As she has persistent pain and discomfort from the band, she elected for removal of the adjustable gastric band and port including all components. Benefits and risks of the procedure were described. Informed consent was obtained. DESCRIPTION: The patient was brought into the operating room and laid in supine position. Chemical DVT prophylaxis and bilateral SCDs were given. Patient was brought into the operating room, transferred a split-leg table. After general induction, which was uncomplicated, the abdomen was prepped and draped in standard sterile fashion. The abdomen was prepped and draped in standard sterile fashion using ChloraPrep as well as Ioban draping. Prior to incision, a timeout protocol was confirmed with the surgical team regarding patient's name, procedure to be performed, including preoperative medications. A 0 degree 5 mm trocar entry was performed and entered into the peritoneal cavity at the left upper quadrant. The abdomen was insufflated to 15 mmHg pressure, which she tolerated well. Diagnostic laparoscopy demonstrated no hepatomegaly or fatty liver disease. The port was palpated at the lateral left costal margin and the band was found underneath the liver. A 15 mm port was placed along the left lateral costal margin. Next a 5 mm port was placed at the epigastrium. The patient was placed in steep reverse Trendelenburg position. The port was followed with its tubing to the actual band. The gastrohepatic ligament was actually scarred from her prior surgery. An old generation ALLERGAN band without labeling was identified with gastric band slippage. Using electro-Bovie cautery, the cicatrix of the port was incised. The band was then freed. The band was cut. The tubing was cut approximately 5 cm distal to the actual adapter. The band was removed in total without injury to the stomach. Hemostasis was excellent. The port was removed from the abdominal cavity via the 15 mm port. Next, attention was brought to the abdominal wall where the lap band port was palpated. An incision was made over the prominence of the port using a #11 blade. Skin was localized with anesthetic. Electro-Bovie cautery was used to enter the capsule around the port. The sutures were cut and the port was removed in total along with the tubing. Diagnostic laparoscopy demonstrated complete removal of all foreign body. I then went to the head of the bed to perform intraoperative esophagogastroduodenoscopy to evaluate for gastritis and any full thickness injury to the stomach. An Olympus gastroscope was passed from the posterior oropharynx down to the esophagus, where the squamocolumnar junction was found LA grade B erosive esophagitis, chronic changes. The stomach was entered and no bile reflux was found. Chronic gastritis was found along the antrum without gastric ulcers or duodenitis or duodenal ulcers. Retroflexion of the scope confirmed a Hill grade 2 lower esophageal valve. No full-thickness erosion from the prior band was encountered. No blood was found within the stomach. The scope was temporally removed and a 56-Gambian bougie was placed along the posterior oropharynx into the stomach to address her hypertensive upper esophageal sphincter. The scope was reentered into the stomach as the bougie was removed. The stomach was desufflated. The patient tolerated the procedure well. Again, no evidence of leak was encountered from the removal of the band. I then went back to the patient's bedside after re-scrubbing. All instruments and pneumoperitoneum were evacuated from the abdominal cavity. The port extraction site was hemostatic. The port site was irrigated using normal saline and hydrogen peroxide approximately, 50 mL. The rest of the incisions were reapproximated using 4-0 Monocryl in a subcuticular interrupted fashion. Optifoam dressing was placed over the port extraction site. At the end of the procedure, needle, sponge and instrument count was verified correct by the certified surgical first assistant. The patient had tolerated the procedure well. An abdominal binder was placed. The patient was transferred to Postanesthesia Care Unit in stable condition. Postoperative findings were discussed with the patient's family who were pleased with the level of care. FINDINGS: 1. Gastric band slippage 2. LA grade B erosive esophagitis chronic. 3. Hill grade 2 lower esophageal valve. 4. Diaphragmatic hiatal hernia, 3 cm 5. Chronic gastritis of the stomach and gastric polyp 6. Successful upper esophageal sphincter dilation using 56-Gambian bougie hypertensive upper esophageal sphincter 7. Intra-abdominal adhesions lower abdomen. Plan - Discharge Summary Discharge Rx Participant: Yes New Discharge Prescriptions: No Action Nitroglycerin Sl Tabs [Nitrostat] 0.4 mg PO Q5M PRN PRN Reason: Chest Pain Ergocalciferol [Vitamin D2 (DRISDOL)] 50,000 units PO TUFR ALPRAZolam [Xanax] 0.5 mg PO BID PRN PRN Reason: Anxiety cycloSPORINE [Restasis] 1 drop BOTH EYES DAILY Lansoprazole [Prevacid] 30 mg PO QAM amLODIPine/VALSARTAN [Exforge 5-160 mg Tablet] 1 tab PO BID Meclizine [Antivert] 25 mg PO DAILY PRN PRN Reason: Vertigo Carisoprodol [Soma] 350 mg PO DAILY PRN PRN Reason: Muscle Spasm Prochlorperazine [Compazine] 10 mg PO DAILY PRN PRN Reason: Nausea ZOLMitriptan [Zomig] 5 mg PO DAILY PRN PRN Reason: Migraine Headache Levothyroxine Sodium [Synthroid] 100 mcg PO QAM Metoprolol Succinate [Toprol XL] 50 mg PO BID Liothyronine Sodium [Cytomel] 10 mcg PO QAM Aspirin 325 mg PO DAILY PRN PRN Reason: Pain Ondansetron HCl [Zofran] 4 mg PO DAILY PRN #20 tablet PRN Reason: Nausea Discharge Medication List ALPRAZolam [Xanax] 0.5 mg PO BID PRN 06/17/13 [History] Ergocalciferol [Vitamin D2 (DRISDOL)] 50,000 units PO TUFR 06/17/13 [History] Lansoprazole [Prevacid] 30 mg PO QAM 06/17/13 [History] Nitroglycerin Sl Tabs [Nitrostat] 0.4 mg PO Q5M PRN 06/17/13 [History] amLODIPine/VALSARTAN [Exforge 5-160 mg Tablet] 1 tab PO BID 06/17/13 [History] cycloSPORINE [Restasis] 1 drop BOTH EYES DAILY 06/17/13 [History] Carisoprodol [Soma] 350 mg PO DAILY PRN 02/09/15 [History] Levothyroxine Sodium [Synthroid] 100 mcg PO QAM 02/09/15 [History] Meclizine [Antivert] 25 mg PO DAILY PRN 02/09/15 [History] Prochlorperazine [Compazine] 10 mg PO DAILY PRN 02/09/15 [History] ZOLMitriptan [Zomig] 5 mg PO DAILY PRN 02/09/15 [History] Liothyronine Sodium [Cytomel] 10 mcg PO QAM 02/16/15 [History] Metoprolol Succinate [Toprol XL] 50 mg PO BID 02/16/15 [History] Aspirin 325 mg PO DAILY PRN 12/16/16 [History] Ondansetron HCl [Zofran] 4 mg PO DAILY PRN #20 tablet 12/21/16 [Rx]
[2017-08-14 09:40] VITALS: TEMP 96.8
[2017-08-14 09:47] VITALS: RESP 16
[2017-08-14 10:51] VITALS: BP 107/72; PULSE 76
== END 2017-08-14 11:22 | disposition home or self-care (01) ==
LOC: OR 06:56
PROVIDERS: ATTEND Surgery Plastic and Reconstructive Surgery
DX: K95.09 Other complications of gastric band procedure (principal); K21.0 Gastro-esophageal reflux disease with esophagitis; K22.10 Ulcer of esophagus without bleeding; K44.9 Diaphragmatic hernia without obstruction or gangrene; K29.50 Unspecified chronic gastritis without bleeding; K31.7 Polyp of stomach and duodenum; E66.01 Morbid (severe) obesity due to excess calories; Z68.41 Body mass index [BMI] 40.0-44.9, adult; K22.8 Other specified diseases of esophagus; K66.0 Peritoneal adhesions (postprocedural) (postinfection); M54.9 Dorsalgia, unspecified; G89.4 Chronic pain syndrome; I25.5 Ischemic cardiomyopathy; M16.0 Bilateral primary osteoarthritis of hip; M17.0 Bilateral primary osteoarthritis of knee; F41.9 Anxiety disorder, unspecified; I25.119 Atherosclerotic heart disease of native coronary artery with unspecified angina pectoris; I47.1 Supraventricular tachycardia; I10 Essential (primary) hypertension; R42 Dizziness and giddiness; G43.909 Migraine, unspecified, not intractable, without status migrainosus; M77.32 Calcaneal spur, left foot; M77.31 Calcaneal spur, right foot; E11.9 Type 2 diabetes mellitus without complications; E89.0 Postprocedural hypothyroidism; Z85.850 Personal history of malignant neoplasm of thyroid; Z79.1 Long term (current) use of non-steroidal anti-inflammatories (NSAID); Z79.82 Long term (current) use of aspirin; Z79.890 Hormone replacement therapy; Z79.891 Long term (current) use of opiate analgesic; Z79.899 Other long term (current) drug therapy; Z88.5 Allergy status to narcotic agent; Z88.2 Allergy status to sulfonamides
CPT/HCPCS: 43245; 43774; J2250; J1100; J2710; J2405; J2001; J1650; J3010; J0131; J2370; J0330; J2704; C9113; J0690

== ENCOUNTER → 2017-09-27 | Outpatient (CLI) | payer MEDICARE ==
[2017-09-27 14:11] VITALS: BP 159/83; PULSE 85; TEMP 98.2; BMI 41.2
--- NOTE | 2017-09-27 15:10 | P.PN ---
Subjective Progress Note Date: 09/27/17 DATE OF SERVICE: 09/27/2017 CHIEF COMPLAINT: Status post adjustable gastric band removal HISTORY OF PRESENT ILLNESS: Eulalia Armstrong is a 62-year-old female status post adjustable gastric band removal 08/14/17 for complications of her adjustable gastric band including esophageal dysmotility. Dysphagia is resolved. She is feeling much better. She is 1.5 months out. At height of 5 feet 2 inches, her ideal body weight is 135 pounds. Her highest weight is 229 pounds. Body mass index was 41.3. Today she comes in when 229 pounds and unchanged. She is 94 pounds overweight. PHYSICAL EXAM: VITAL SIGNS: Height 5 foot 2 inches, weight 229 pounds. BMI 41.3 Vital Signs Temp 98.2 F 09/27/17 14:02 Pulse 85 09/27/17 14:02 Resp BP 159/83 09/27/17 14:02 Pulse Ox GENERAL: Well-developed in no acute distress. HEENT: No scleral icterus. Extraocular movements grossly intact. Hears conversational speech. No nasal drainage. NECK: Supple without lymphadenopathy. CHEST: Nonlabored respirations with equal bilateral excursions. CARDIOVASCULAR: Regular rate and regular rhythm. Distal 2+ pulses. ABDOMEN: Well healed incision. Obese, soft, nondistended. MUSCULOSKELETAL: No clubbing, cyanosis. Gross strength 5/5 distal lower extremities. No pre-tibial pitting edema. NEURO: No focal or lateralizing signs. Cranial nerves 2 through 12 grossly within normal limits. PSYCH: Appropriate affect. Alert and oriented to person, place and time. SKIN: Good skin turgor. Well perfused. ASSESSMENT: 1. Morbid obesity. 2. Body mass index of 41.3, initial. 3. Gastroesophageal reflux disease 4. Coronary artery disease 5. Hypothyroidism 6. Chronic pain syndrome 7. Dysphagia. 8. Hiatal hernia 9. Ischemic cardiomyopathy 10. Osteoarthritis bilateral hips 11. Osteoarthritis bilateral knees 12. Anxiety 13. Angina 14. Supraventricular tachycardia 15. Thyroid cancer 16. Vertigo 17. Migraines 18. Bilateral heel spurs 19. Diabetes type 2, [id number]. 20. Status post adjustable gastric band removal PLAN: 1. Recommend revision to gastric bypass. 2. Plan for 2 week protein diet. 3. Hiatal hernia findings reviewed. Gastric bypass risks and complications for revisional surgery were also reviewed. Objective - Vital Signs Vital signs: Vital Signs Temp 98.2 F 09/27/17 14:02 Pulse 85 09/27/17 14:02 Resp BP 159/83 09/27/17 14:02 Pulse Ox Intake & Output 09/26/17 09/27/17 09/27/17 18:59 06:59 18:59 Weight 103.963 kg
== END | disposition home or self-care (01) ==
LOC: BARWHC3 13:17
PROVIDERS: ATTEND Surgery Plastic and Reconstructive Surgery
DX: Z48.815 Encounter for surgical aftercare following surgery on the digestive system (principal); K22.4 Dyskinesia of esophagus; K95.09 Other complications of gastric band procedure; E66.01 Morbid (severe) obesity due to excess calories; K21.9 Gastro-esophageal reflux disease without esophagitis; I25.10 Atherosclerotic heart disease of native coronary artery without angina pectoris; E03.9 Hypothyroidism, unspecified; G89.4 Chronic pain syndrome; R13.10 Dysphagia, unspecified; K44.9 Diaphragmatic hernia without obstruction or gangrene; I25.5 Ischemic cardiomyopathy; M16.0 Bilateral primary osteoarthritis of hip; M17.0 Bilateral primary osteoarthritis of knee; F41.9 Anxiety disorder, unspecified; I47.1 Supraventricular tachycardia; C73 Malignant neoplasm of thyroid gland; R42 Dizziness and giddiness; G43.909 Migraine, unspecified, not intractable, without status migrainosus; M77.32 Calcaneal spur, left foot; M77.31 Calcaneal spur, right foot; E11.9 Type 2 diabetes mellitus without complications; Z98.84 Bariatric surgery status; Z68.41 Body mass index [BMI] 40.0-44.9, adult
CPT/HCPCS: 99211

== ENCOUNTER → 2017-11-20 | Outpatient (CLI) | payer MEDICARE ==
[2017-11-20 12:05] VITALS: BMI 43.2
== END | disposition home or self-care (01) ==
LOC: BARWHC3 08:37
PROVIDERS: ATTEND Surgery Plastic and Reconstructive Surgery
DX: E66.01 Morbid (severe) obesity due to excess calories (principal)
CPT/HCPCS: 97804

== ENCOUNTER → 2017-11-23 | Outpatient (CLI) | payer MEDICARE ==
[2017-11-23 10:49] VITALS: BP 150/78; PULSE 80; TEMP 98.2; BMI 43.2
--- NOTE | 2017-11-23 21:49 | P.PN ---
Subjective Progress Note Date: 11/23/17 HPI: She is s/p removal of adjustable gastric band. She has esophageal disorder. She is looking into the gastric bypass ABDOMEN: Unremarkable PLAN: 1. Risks of revisional surgery reviewed including leaks and strictures 2. Robotic approach described. Objective - Vital Signs Vital signs: Vital Signs Temp 98.2 F 11/23/17 10:46 Pulse 80 11/23/17 10:46 Resp BP 150/78 11/23/17 10:46 Pulse Ox Intake & Output 11/23/17 11/23/17 11/24/17 06:59 18:59 06:59 Weight 108.862 kg
== END | disposition home or self-care (01) ==
LOC: BARWHC3 09:47
PROVIDERS: ATTEND Surgery Plastic and Reconstructive Surgery
DX: Z48.815 Encounter for surgical aftercare following surgery on the digestive system (principal); K22.9 Disease of esophagus, unspecified; Z98.84 Bariatric surgery status
CPT/HCPCS: 99211

== ENCOUNTER → 2017-12-01 | Outpatient (CLI) | payer MEDICARE ==
[2017-12-01 14:18] LABS: Basophils # (A) 0.1 k/uL (0-0.2); Basophils % (A) 1 %; Eosinophils # (A) 0.1 k/uL (0-0.7); Eosinophils % (A) 1 %; HCT 41.9 % (34.0-46.0); HGB 14.1 gm/dL (11.4-16.0); Lymphocytes % (A) 26 %; MCH 28.2 pg (25.0-35.0); MCHC 33.7 g/dL (31.0-37.0); MCV 83.6 fL (80.0-100.0); Mean Platelet Volume 6.5; Monocytes # (A) 0.4 k/uL (0-1.0); Monocytes % (A) 6 %; Neutrophils % (A) 64 %; Platelet Count 340 k/uL (150-450); RBC 5.01 m/uL (3.80-5.40); RDW 13.7 % (11.5-15.5); WBC 7.8 k/uL (3.8-10.6)
[2017-12-01 14:30] LABS: INR 1.1 (<1.2); Partial Thromboplastin Time 24.6 sec (22.0-30.0); Prothrombin Time 10.6 sec (9.0-12.0)
[2017-12-01 15:10] LABS: Albumin 4.7 g/dL (3.5-5.0); Potassium 4.9 mmol/L (3.5-5.1); Total Bilirubin 0.9 mg/dL (0.2-1.3); Total Protein 8.4 g/dL (6.3-8.2)
== END | disposition home or self-care (01) ==
LOC: LABWHC1 12:07
PROVIDERS: ATTEND Surgery Plastic and Reconstructive Surgery
DX: Z01.818 Encounter for other preprocedural examination (principal); Z01.812 Encounter for preprocedural laboratory examination; E03.9 Hypothyroidism, unspecified; E55.9 Vitamin D deficiency, unspecified
CPT/HCPCS: 36415; 80053; 80061; 82306; 84443; 84481; 85025; 85610; 85730; 93005

== ENCOUNTER 2017-12-11 07:30 | Inpatient (IN) | payer MEDICARE ==
--- NOTE | 2017-12-11 06:51 | P.GSHP ---
History of Present Illness H&P Date: 12/11/17 CHIEF COMPLAINT: Morbid obesity HISTORY OF PRESENT ILLNESS: Eulalia Armstrong is a 62-year-old female who comes in with long-standing morbid obesity. She comes in with history of esophageal spasms. She had an adjustable gastric band for over 15 years, 2002 that is now removed. She reports chronic back pain. She has gastroesophageal reflux disease. She reports trouble with swallowing. She is looking into the gastric bypass. PAST MEDICAL HISTORY: 1. Morbid obesity. 2. Body mass index of 43.9, initial. 3. Gastroesophageal reflux disease 4. Coronary artery disease 5. Hypothyroidism 6. Chronic pain syndrome 7. Dysphagia. 8. Hiatal hernia 9. Ischemic cardiomyopathy 10. Osteoarthritis bilateral hips 11. Osteoarthritis bilateral knees 12. Anxiety 13. Angina 14. Supraventricular tachycardia 15. Thyroid cancer 16. Vertigo 17. Migraines 18. Bilateral heel spurs PAST SURGICAL HISTORY: 1. Right knee arthroplasty 2. Thyroidectomy 3. Back surgery 4. Band placement 5. Hysterectomy 6. Left knee arthroscopy 7. Heart catheterization 8. Tumor removed from eye HOME MEDICATIONS: 1. Restasis 2. Exforge 3. Zomig 4. Compazine 5. Zofran 6. Nitrostat 7. Toprol-XL 8. Meloxicam 9. Meclizine 10. Synthroid 11. Prevacid 12. [place] 13. Vitamin D 14. Soma 15. Aspirin 16. Xanax ALLERGIES: 1. Meperidine 2. Sulfa 3. Codeine SOCIAL HISTORY: History of tobacco abuse. FAMILY HISTORY: No family history of ulcerative colitis disease or Crohn's disease. Family history of morbid obesity. No lupus in the family. No reports of stomach or esophageal cancer. Family history of diabetes type 2. REVIEW OF ORGAN SYSTEMS: CONSTITUTIONAL: At height of 5 feet 2 inches, her ideal body weight is 135 pounds. She comes in highest weight of 239 pounds. Body mass index is 43.9. HEENT: Denies any active troubles with vision or hearing. Has troubles with swallowing. ENDOCRINE: No diabetes. Has hypothyroidism. CARDIOVASCULAR: Past heart attack. Has hypertension. RESPIRATORY: Has daytime somnolence. No asthma. Has obstructive sleep apnea. GI: Denies any bright red blood per rectum. No diarrhea or constipation. Has gastroesophageal reflux disease. MUSCULOSKELETAL: Has lower back pain and joint pain. Has osteoarthritis of the knees. NEURO: No headaches. No seizure disorders. PSYCH: Has depression. Has anxiety. No suicidal ideation. RHEUMATOLOGIC: No lupus. No rheumatoid arthritis. HEMATOLOGIC: Denies any abnormal bleeding or bruising. No personal history of DVTs. SKIN: No rash. No skin cancer. PHYSICAL EXAM: VITAL SIGNS: Height 5 foot 2 inches, weight 239 pounds. BMI 43.9 GENERAL: Well-developed in no acute distress. HEENT: No scleral icterus. Extraocular movements grossly intact. Hears conversational speech. No nasal drainage. NECK: Supple without lymphadenopathy. CHEST: Nonlabored respirations with equal bilateral excursions. CARDIOVASCULAR: Regular rate and regular rhythm. Distal 2+ pulses. ABDOMEN: Obese, soft, nontender, nondistended. MUSCULOSKELETAL: No clubbing, cyanosis. Gross strength 5/5 distal lower extremities. No pre-tibial pitting edema. NEURO: No focal or lateralizing signs. Cranial nerves 2 through 12 grossly within normal limits. PSYCH: Appropriate affect. Alert and oriented to person, place and time. SKIN: Good skin turgor. Well perfused. ASSESSMENT: 1. Morbid obesity. 2. Body mass index of 43.9, initial. 3. Gastroesophageal reflux disease 4. Coronary artery disease 5. Hypothyroidism 6. Chronic pain syndrome 7. Dysphagia. 8. Hiatal hernia 9. Ischemic cardiomyopathy 10. Osteoarthritis bilateral hips 11. Osteoarthritis bilateral knees 12. Anxiety 13. Angina 14. Supraventricular tachycardia 15. Thyroid cancer 16. Vertigo 17. Migraines 18. Bilateral heel spurs 19. Diabetes type 2, [id number]-tlimfnoan. PLAN: 1. Surgical options for weight loss were described including alternatives of the sleeve versus gastric bypass. With her history of esophageal disorder, sleeve gastrectomy is contraindicated. Recommendation includes revision to gastric bypass. 2. Bariatric options between a sleeve, band and a Renetta-en-Y gastric bypass were reviewed in detail. He elected for a sleeve gastrectomy. Robotic assisted approach described. 3. The [place] [facility] Data was also reviewed with benefits and risks as described. 4. An 8 page second-generation bariatric consent form was reviewed in detail including potential of bleeding, infection, leaks, adequate weight loss, nutritional deficiencies which he demonstrated understanding of the risks. 5. A 2 week high-protein low caloric 800 kcal diet described to address hepatomegaly. 6. Preoperative labs including complete metabolic panel and CBC with type and screen recommended. 7. DVT prophylaxis per [place] [facility]. 8. Antibiotic prophylaxis. 9. Inpatient hospitalization anticipated for more than 2 nights. 10. All questions and concerns were addressed with the patient. Past Medical History Past Medical History: Cancer, Chest Pain / Angina, Hypertension, Supraventricular Tachycardia (SVT), Thyroid Disorder Additional Past Medical History / Comment(s): Other HX: esophagial spasms, thyroid cancer, MIGRAINES. DEGENERATIVE JOINT DISEASE. VERTIGO,Precancerous lesions removed from face History of Any Multi-Drug Resistant Organisms: None Reported Past Surgical History: Back Surgery, Bariatric Surgery, Hysterectomy, Joint Replacement, Orthopedic Surgery, Tubal Ligation Additional Past Surgical History / Comment(s): 02/16/15 Total R knee arthroplasty. Other sx: LAP BAND (2002). HEART CATH-CLEAR, THYROIDECTOMY D/ T CA/, DISCETOMY L5-S1, LT KNEE ARTHROSCOPY, BILATERAL HEEL SPURS. BENIGN TUMOR REMOVED FROM LEFT EYE,Lt Rot Cuff,sinuplasty lap band removal 08-14-17 Past Anesthesia/Blood Transfusion Reactions: Motion Sickness, Postoperative Nausea & Vomiting (PONV) Additional Past Anesthesia/Blood Transfusion Reaction / Comment(s): Hx Esophageal spasms,. MOTHER AND DAUGHTER HAVE PONV,no hx blood transfusion Past Psychological History: No Psychological Hx Reported - Past Family History Father Family Medical History: Cancer, Diabetes Mellitus, Hypertension Additional Family Medical History / Comment(s): Father had cancer below his eye. He from a MVA. Mother Family Medical History: AFIB, Cancer, Thyroid Disorder Additional Family Medical History / Comment(s): skin CA Medications and Allergies Home Medications Medication Instructions Recorded Confirmed Type ALPRAZolam [Xanax] 0.5 mg PO BID PRN 06/17/13 11/30/17 History Ergocalciferol [Vitamin D2 50,000 units PO TUFR 06/17/13 11/30/17 History (DRISDOL)] Lansoprazole [Prevacid] 30 mg PO QAM 06/17/13 11/30/17 History Nitroglycerin Sl Tabs [Nitrostat] 0.4 mg PO Q5M PRN 06/17/13 11/30/17 History amLODIPine/VALSARTAN [Exforge 1 tab PO DAILY 06/17/13 11/30/17 History 5-160 mg Tablet] cycloSPORINE [Restasis] 1 drop BOTH EYES DAILY 06/17/13 11/30/17 History Carisoprodol [Soma] 350 mg PO DAILY PRN 02/09/15 11/30/17 History Levothyroxine Sodium [Synthroid] 100 mcg PO QAM 02/09/15 11/30/17 History Meclizine [Antivert] 25 mg PO DAILY PRN 02/09/15 11/30/17 History Prochlorperazine [Compazine] 10 mg PO DAILY PRN 02/09/15 11/30/17 History ZOLMitriptan [Zomig] 5 mg PO DAILY PRN 02/09/15 11/30/17 History Liothyronine Sodium [Cytomel] 10 mcg PO QAM 02/16/15 11/30/17 History Metoprolol Succinate [Toprol XL] 50 mg PO BID 02/16/15 11/30/17 History Aspirin 325 mg PO DAILY PRN 12/16/16 11/30/17 History Ondansetron HCl [Zofran] 4 mg PO DAILY PRN #20 tablet 12/21/16 11/30/17 Rx Allergies Allergy/AdvReac Type Severity Reaction Status Date / Time Sulfa (Sulfonamide Allergy Severe Rash/Hives Verified 11/30/17 14:04 Antibiotics) codeine AdvReac Severe Nausea & Verified 11/30/17 14:04 Vomiting meperidine HCl [From Demerol] AdvReac Nausea & Verified 11/30/17 14:04 Vomiting
[~2017-12-11 07:30] MED LIST changes: -ACETAMINOPHEN IV (For NPO) 1,000 MG in EMPTY BAG 1 BAG IVPB ONE; -LACTATED RINGERS 1,000 ML IV SCH
[2017-12-11] MEDS ORDERED: LIDOCAINE 1% 20 ML VIAL (10MG/ML) FOR IV START INTRADERMA ONE (10:27)
[2017-12-11] MEDS: LACTATED RINGERS 1,000 ML IV SCH (10:27)
[2017-12-11] MEDS ORDERED: LIDOCAINE 1% INJ 10MG/ML (20 ML MDV) ONE (12:01)
[2017-12-11] MEDS ORDERED: NEOSTIGMINE 1 MG/ML 10 ML VIAL ONE (12:01)
[2017-12-11] MEDS ORDERED: GLYCOPYRROLATE 0.2 MG/ML 2 ML VIAL ONE (12:01)
[2017-12-11] MEDS ORDERED: PROPOFOL 10 MG/ML 20 ML VIAL IV ONE (12:01)
[2017-12-11] MEDS ORDERED: DEXAMETHASONE SOD PHOS (MDV) 100 MG/10 ML VIAL ONE (12:01)
[2017-12-11] MEDS ORDERED: fentaNYL (PF) 50 MCG/ML 2 ML AMP ONE (12:01)
[2017-12-11] MEDS ORDERED: PHENYLEPHRINE-0.9% NACL SYG 1 MG/10 ML SYRINGE ONE (12:01)
[2017-12-11] MEDS ORDERED: MIDAZOLAM 2 MG/2 ML VIAL ONE (12:01)
[2017-12-11] MEDS ORDERED: ROCURONIUM BROMIDE 10 MG/ML 10 ML VIAL IV ONE (12:01)
[2017-12-11] MEDS ORDERED: BUPIVACAIN-EPI 0.25%-1:200,000 30 ML VIAL SQ ONE (12:32)
[2017-12-11] MEDS ORDERED: LACTATED RINGERS 1,000 ML IV ONE (13:08)
[2017-12-11] MEDS ORDERED: HYDROcodone/APAP 15 ML SOLUTION PO PRN (16:22)
[2017-12-11] MEDS ORDERED: NALOXONE 0.4 MG/ML 1 ML VIAL IV PRN (16:22)
--- NOTE | 2017-12-11 16:22 | P.OP ---
Date of Procedure: 12/11/17 Preoperative Diagnosis: Estimated Blood Loss (ml): 20 Condition: stable Description of Procedure: SURGEON: LENNY OTT MD PREOPERATIVE DIAGNOSES: 1. Morbid obesity. 2. Body mass index of 43.9, initial. 3. Gastroesophageal reflux disease 4. Coronary artery disease 5. Hypothyroidism 6. Chronic pain syndrome 7. Dysphagia. 8. Hiatal hernia 9. Ischemic cardiomyopathy 10. Osteoarthritis bilateral hips 11. Osteoarthritis bilateral knees 12. Anxiety 13. Angina 14. Supraventricular tachycardia 15. Thyroid cancer 16. Vertigo 17. Migraines 18. Bilateral heel spurs 19. Diabetes type 2, [id number]. POSTOPERATIVE DIAGNOSES: 1. Morbid obesity. 2. Body mass index of 43.9, initial. 3. Gastroesophageal reflux disease 4. Coronary artery disease 5. Hypothyroidism 6. Chronic pain syndrome 7. Dysphagia. 8. Hiatal hernia 9. Ischemic cardiomyopathy 10. Osteoarthritis bilateral hips 11. Osteoarthritis bilateral knees 12. Anxiety 13. Angina 14. Supraventricular tachycardia 15. Thyroid cancer 16. Vertigo 17. Migraines 18. Bilateral heel spurs 19. Diabetes type 2, [id number]-zpukoqhdh. 20. Peritoneal adhesions from prior adjustable gastric band, epigastrium 21. Large posterior gastric prolapse from previous adjustable gastric band OPERATION: 1. Robotic assisted da Mo Xi laparoscopic lysis of adhesions, over 30 minutes. 2. REVISIONAL Robotic assisted da Mo Xi laparoscopic Alfred-en-Y gastric bypass , 125 cm biliopancreatic limb with 75 cm Alfred limb antecolic antegastric Alfred limb, with 25 mm EEA. 3. Robotic assisted da Mo Xi laparoscopic reduction and repair of incarcerated diaphragmatic paraesophageal midline hiatal hernia 6 x 4 cm without mesh 4. Intraoperative esophagogastrojejunoscopy. ANESTHESIA: GETA and local ESTIMATED BLOOD LOSS: 20 mL SPECIMENS REMOVED: None. COMPLICATIONS: NONE. INDICATIONS: Eulalia Armstrong is a 62-year-old female who comes in with long- standing morbid obesity. She comes in with history of esophageal spasms. She had an adjustable gastric band for over 15 years, 2002 that is now removed. She reports chronic back pain. She has gastroesophageal reflux disease. She reports trouble with swallowing. She is looking into the gastric bypass. At height of 5 feet 2 inches, her ideal body weight is 135 pounds. Her highest weight was 239 pounds. Body mass index was 43.9. Today she comes in weighing 222 pounds. She has lost 17 pounds. She now presents to undergo robotic assisted gastric bypass. A second-generation bariatric consent form was described in detail including the possibility of protein malnutrition, leaks, gastrojejunal stricture, venous thrombosis, need for further surgery for which she demonstrated understanding. Benefits and risks of the procedure were described at length. Informed consent was obtained. DESCRIPTION: The patient was brought into the operating room theater. She was placed supine. She had received Lovenox subcutaneously for DVT prophylaxis. Additionally she Peridex oral solution as an oral decontaminant was placed per anesthesia. After general induction, the abdomen was prepped and draped in standard sterile fashion. Ioban draping was placed along the abdomen. A robotic da Mo Xi system was prepped and primed. The xiphoid to umbilicus was measured of 16 cm. Incisions were proposed at 15 cm from the xiphoid. Proposed port sites were marked with indelible marker along the anterior axillary line bilaterally, mid clavicular line bilaterally with each port marked 10 cm from each other. The robotic stapler port was marked for the right midclavicular line including along the left midclavicular line. A 5 mm 0 degrees laparoscopic trocar entry was performed along the left upper quadrant. The abdomen was insufflated to 15 mmHg pressure, which she tolerated well. Diagnostic laparoscopy demonstrated no injury to bowel, viscera, or mesentery. Moderate adhesions along the epigastrium and midline was identified from previous adjustable gastric band. An 8 mm camera port was placed left lateral to the umbilicus at the epigastrium , 15 cm distal to the xiphoid. Next, 12-mm robot stapler port was placed along the right mid abdomen. An 12 mm port was exchanged along the left upper quadrant. An 8 mm port was placed on the left lateral abdominal wall under direct visualization Please note that the ports were placed 18 to 20 cm away from the target anatomy of the stomach. Care was taken to check that each robotic arm was safely away from collision with the bed or the patient. At the epigastrium, a medium sized Shanon liver retractor was placed under direct visualization with the [employer] Helper placed under the right shoulder of the patient. The patient was repositioned in reverse Trendelenburg position at 14-degrees after lowering the bed. The robot was docked over the patient. Using grasper for arm 3, a grasper for arm 1, including vessel sealer for arm 4 , the robotic system was docked and primed as described. Instruments were interchanged by the inventory assistant including endoscissors, the needle regional flatbed truck driver, and stapler. I had sat at the console. Attention was made to the midline adhesions which were addressed using vessel sealer for over 30 minutes greater omentum to the anterior abdominal wall. No bowel involvement was identified. Evidence of transverse colon diverticulosis was identified. The transverse mesocolon was hypertrophic and thick from previous inflammation. Initially the jejunum was divided using 45 mm white staple loads at the left upper quadrant after elevating the dense transverse mesocolon. The divided jejunum was followed retrograde to the ligament of Treitz and 125 cm confirmed for the biliopancreatic limb and marked using 3-0 Silk. The Alfred limb was measured 75 cm in an antegrade fashion to avoid tension along the proposed gastrojejunal anastomosis. At 75 cm along the anti-mesenteric border of the Alfred limb, a jejunojejunostomy was proposed whereby enterotomies were created along the biliopancreatic limb including the Alfred limb using a Bovie cautery. A stay suture of 3-0 Slik was placed to align and create the anastomosis. The enterotomies along the anti-mesenteric borders were created followed by unidirectional fire from the patient's right side using 1 - 45 mm white load Smart technology robotic stapler. The jejunojejunostomy was found to be hemostatic. The enterotomy was closed after horizontal mattress stitch of 3-0 silk used to elevate the enterotomy followed by closure with the robotic stapler white load. The jejunal limb was temporarily tacked along the left upper quadrant. Attention was now brought to the creation of the gastrojejunostomy. A incarcerated fat-containing hiatal hernia was identified along the anterior hiatus. The gastrohepatic ligament was scarred from her previous adjustable gastric band. Next, the phrenoesophageal ligament was mobilized and the distal esophagus was mobilized with care of to the bilateral vagi nerves. The left and right crura was identified. A moderate sized midline large hiatal hernia and sac was found incarcerated into the mediastinum. Extended dissection occurred for at least another 1 hour as the superior iposterior axis of the stomach was densely adherent and causing moderate rotation of the stomach. The measured defect was consistent with 6 cm axial length and 4 cm in width. After extensive dissection, the distal esophagus at least 2 cm was brought into the abdominal cavity. Along the lesser curvature of the stomach between the second and third veins, dissection was made along the retrogastric space to allow first firing of the robotic staple. Next, along the greater curvature of the stomach window was created with direct transection of the gastric cardia from the rest of the stomach. Green loads of 45 mm staplers were used to divide the stomach to create the gastric pouch. Moderate redundancy of the superior pole of the stomach was confirmed from her adjustable gastric band including moderate sized posterior gastric prolapse which was mobilized using vessel sealer. The patient was then prepared for placement of a Orvil. The patient was Mallampati 2. A 25-mm Orvil was selected for placement by the nurse bulk station operator. The Orvil tubing was placed posterior to the staple line of the gastric pouch and brought out through the left inferior lateral port. I re-scrubbed into the case. The robotic arms were temporarily undocked. The Orvil was then carefully and successfully navigated with the help of the nurse bulk station operator into the gastric pouch. The sutures were identified and divided. The tubing was from the 25 mm anvil. As the Orvil had been placed, the blind jejunal limb was brought proximally into the upper abdomen. No torsion was found upon the Alfred limb. No tension was identified as the limb was brought along the upper abdomen. The blind jejunal limb was previously opened using endo -scissors with cautery. The 25-mm EEA stapler was brought through the left anterior lateral port site from the left side. The EEA stapler was brought through the open jejunal limb and its needle was deployed at the antimesenteric border where the anvil were mated for approximately 1 minute upon firing. The stapler was removed after irrigating the shaft of the instrument with warm normal saline. Donuts were found to be intact and on both sides. The Fluxi Xi robot arms were then re-docked. I sat at the console. The open jejunal limb defect was closed using 45 mm blue load after releasing any tension from the blind jejunal limb. Care was taken to avoid any long blind limb to avoid candycane syndrome. Reinforcement sutures were placed along the gastrojejunal anastomosis and placed along the 9:00 and 3 o'clock position. The Lujan and jejunojejunostomy mesenteric defects were obliterated by her intra-abdominal fat. The hiatus was reviewed still demonstrating a large diaphragmatic hiatal hernia. Once the hiatus and crura was dissected, 2-0 VLOC suture was placed initially with a vyrolp-[id number] suture to reapproximate the diaphragmatic hiatus anteriorly. I then went to the head of the bed to perform the esophagogastrojejunoscopy and a leak test. An Olympus gastroscope was passed along the posterior oropharynx which was unremarkable for any injury to the vocal cords. The scope was passed down to the proximal portion of the pouch, whereby no active bleeding was encountered. Excellent visualization of the gastrojejunostomy anastomosis, including the Alfred limb was encountered with endoscopic image obtained. The anastomosis was found to be patent. The gastrointestinal tract was desufflated. No evidence of intraoperative leak was encountered as the gastric pouch and anastomosis were submerged under normal saline solution. The robot was then undocked. I then went back to the bedside of the patient, whereby with coordinated effort of the inventory assistant, irrigation was aspirated from the upper abdominal cavity. Tisseel was placed circumferentially over the anastomosis of the gastrojejunostomy. The fascial defect of the EEA stapler was explored with less than 8 mm size fascial defect. All instruments and pneumoperitoneum were evacuated from the abdominal cavity. The port correlating with the EEA stapler device was cleansed with normal saline solution and hydrogen peroxide. The rest of incisions were reapproximated using 4-0 Monocryl in an interrupted subcuticular fashion. Local anesthetic was infiltrated along the skin for postop analgesia. Liquid glue was applied to the skin. OptiFoam dressing was placed along the EEA stapler site. At the end of the procedure, needle, sponge and instrument count had been verified correct by the certified surgical assistant. She had tolerated the procedure well and was extubated and taken to the postanesthesia unit in stable condition. Intraoperative findings were described to the patient's family who were very pleased with the level of care. Total console time 163 minutes Operative Findings: 1. Biliopancreatic limb 125 cm 2. Bypass performed using 75 cm alfred limb secondary to avoid increased tension at 150 cm. 3. Hale defect and jejunojejunostomy defect obliterated by moderate intra- abdominal fat. 4. Leak test negative with gastrojejunal anastomosis patent and hemostatic. 5. Robotic staplers total of 11 combined: Green 4 jacki for gastric pouch 6. Reinforcement sutures were placed along the gastrojejunal anastomosis 7. Severe adhesions along the midline 8. Paraesophageal hiatal hernia 9. Large posterior gastric prolapse 10. Lysis of adhesions from perigastric adhesions 11. Hiatal hernia closure 6 x 4 cm with 2-0 VLOC
[2017-12-11] MEDS ORDERED: ACETAMINOPHEN IV (For NPO) 1,000 MG in EMPTY BAG 1 BAG IVPB ONE (18:00)
[2017-12-11] MEDS: SIMETHICONE 40 MG/0.6 ML DROPS 2,000 MG/30 ML BOTTLE PO SCH (19:08)
[2017-12-11] MEDS: HYOSCYAMINE ORAL DROPS 1.875 MG/15 ML BOTTLE PO SCH (19:08)
[2017-12-11 19:38] VITALS: BMI 40.1
[2017-12-11] MEDS: AMPICILLIN-SULBACTAM 3 GM in SODIUM CHLORIDE 0.9% 100 ML IVPB SCH (19:39)
[2017-12-11] MEDS: 0.9% NACL WITH KCL 20 MEQ/L 1,000 ML IV SCH (19:39)
[2017-12-11] MEDS: ALBUTEROL NEBULIZED 2.5 MG/3 ML INHALATION SCH (20:48)
[2017-12-12] MEDS: SIMETHICONE 40 MG/0.6 ML DROPS 2,000 MG/30 ML BOTTLE PO SCH ×5 (00:25→23:56)
[2017-12-12] MEDS: HYOSCYAMINE ORAL DROPS 1.875 MG/15 ML BOTTLE PO SCH ×5 (00:25→23:56)
[2017-12-12] MEDS: ONDANSETRON 4 MG/2 ML VIAL IVP SCH ×4 (00:26→23:56)
[2017-12-12] MEDS: AMPICILLIN-SULBACTAM 3 GM in SODIUM CHLORIDE 0.9% 100 ML IVPB SCH (00:26)
[2017-12-12] MEDS: 0.9% NACL WITH KCL 20 MEQ/L 1,000 ML IV SCH ×4 (02:52→19:29)
[2017-12-12] MEDS: HYDROmorphone 1 MG/ML 1 ML SYRINGE IVP PRN ×4 (02:55→20:04)
[2017-12-12] MEDS: LACTATED RINGERS 1,000 ML IV SCH (07:25)
[2017-12-12] MEDS: PANTOPRAZOLE 40 MG/10 ML VIAL IV SCH (08:24)
[2017-12-12] MEDS: ENOXAPARIN 40 MG/0.4 ML SYRINGE SQ SCH (08:24)
[2017-12-12 08:27] LABS: Basophils % (A) 0 %; Eosinophils % (A) 0 %; HCT 36.3 % (34.0-46.0); HGB 11.6 gm/dL (11.4-16.0); Lymphocytes # (A) 0.8 k/uL (1.0-4.8); Lymphocytes % (A) 5 %; MCH 27.4 pg (25.0-35.0); MCV 85.4 fL (80.0-100.0); Mean Platelet Volume 7.2; Monocytes # (A) 0.6 k/uL (0-1.0); Monocytes % (A) 4 %; Neutrophils # (A) 14.1 k/uL (1.3-7.7); Neutrophils % (A) 90 %; Platelet Count 238 k/uL (150-450); RBC 4.25 m/uL (3.80-5.40); RDW 14.3 % (11.5-15.5); WBC 15.7 k/uL (3.8-10.6)
[2017-12-12 08:31] LABS: Calcium 9.2 mg/dL (8.4-10.2); Magnesium 1.9 mg/dL (1.6-2.3); Phosphorus 2.9 mg/dL (2.5-4.5); Potassium 4.9 mmol/L (3.5-5.1)
[2017-12-12] MEDS ORDERED: DEXAMETHASONE SOD PHOSPHATE 10 MG/ML 1 ML VIAL IV STA ×2 (09:23→19:35)
[2017-12-12] MEDS: ALBUTEROL NEBULIZED 2.5 MG/3 ML INHALATION SCH ×4 (09:26→21:05)
--- NOTE | 2017-12-12 19:22 | P.PN ---
Subjective Progress Note Date: 12/12/17 HISTORY OF PRESENT ILLNESS: The patient presents with history of morbid obesity. She reports doing fairly well. She is postop day 1 status post revision gastric bypass. She has mild nausea. She is tolerating ice chips. No reports of chest pain. GENERAL: Well developed and in no acute distress. Pleasant. HEENT: No sclera icterus. Extraocular movements grossly intact. Moist buccal mucosa. Head is atraumatic, normocephalic. Hears conversational speech. No nasal drainage. NECK: Supple without lymphadenopathy. CHEST: Non-labored respirations and equal bilateral excursions. CARDIOVASCULAR: Regular rate and rhythm. Palpable 2+ radial pulses. ABDOMEN: Dressing clean dry and intact. No peritonitis. MUSCULOSKELETAL: No clubbing, cyanosis or edema. NEUROLOGIC: No focal or lateralizing signs. PSYCH: Appropriate affect. Alert and oriented to person, place and time. SKIN: Good skin turgor. Well perfused. LABS: Reviewed Assessment: 1. Morbid obesity 2. Status post gastric bypass Plan: 1. She had a contaminated case continue with antibiotics beyond 24 hour 2. Blood pressure control. Hypertensive medications held. 3. Bariatric clear liquid diet. 4. Likely discharge tomorrow Objective - Vital Signs Vital signs: Vital Signs Temp 97.8 F 12/12/17 15:00 Pulse 90 12/12/17 17:11 Resp 16 12/12/17 17:11 BP 114/70 12/12/17 15:00 Pulse Ox 93 L 12/12/17 17:03 Intake & Output 12/12/17 12/12/17 12/13/17 06:59 18:59 06:59 Intake Total 1800 300 Output Total 750 450 Balance 1050 -150 Weight 101.1 kg 101.1 kg Intake: Intake, IV Titration 1800 300 Amount 0.9% NaCl with KCl 20 Meq 1200 300 /l 1,000 ml @ 150 mls/hr IV .[id number] [facility] Rx#: [id number] Ampicillin-Sulbactam 3 gm 600 In Sodium Chloride 0.9% 100 ml @ 200 mls/hr IVPB Q6HR [facility] Rx#:[id number] Output: Urine 750 450 Uretheral (Mena) 100 Other: Voiding Method Indwelling Catheter Toilet # Voids 1 - Labs CBC & Chem 7: 12/12/17 07:02 12/12/17 07:02 Labs: Abnormal Lab Results - Last 24 Hours (Table) 12/12/17 12/12/17 Range/Units 07:02 07:02 WBC 15.7 H (3.8-10.6) k/uL Neutrophils # 14.1 H (1.3-7.7) k/uL Lymphocytes # 0.8 L (1.0-4.8) k/uL Chloride 110 H (98-107) mmol/L Assessment and Plan (1) S/P gastric bypass Current Visit: Yes Status: Acute Code(s): Z98.84 - BARIATRIC SURGERY STATUS SNOMED Code(s): 964559739 (2) Migraine Current Visit: Yes Status: Acute Code(s): G43.909 - MIGRAINE, UNSP, NOT INTRACTABLE, WITHOUT STATUS MIGRAINOSUS SNOMED Code(s): 73572178 (3) Morbid obesity Current Visit: No Status: Acute Code(s): E66.01 - MORBID (SEVERE) OBESITY DUE TO EXCESS CALORIES SNOMED Code(s): 437060009
[2017-12-12] MEDS ORDERED: ACETAMINOPHEN TAB 325 MG TAB PO PRN (19:36)
[2017-12-12] MEDS ORDERED: NITROGLYCERIN SL TABS 0.4 MG TAB SUBLINGUAL PRN (19:40)
[2017-12-12] MEDS ORDERED: ALPRAZolam 0.5 MG TAB PO PRN (19:40)
[2017-12-12] MEDS ORDERED: ACETAMINOPHEN ORAL SUSP 160 MG/5 ML CUP PO PRN (19:42)
[2017-12-12] MEDS: PIPERACILLIN-TAZOBACTAM 3.375 GM in SODIUM CHLORIDE 0.9% 100 ML IVPB SCH (20:03)
[2017-12-13] MEDS: PIPERACILLIN-TAZOBACTAM 3.375 GM in SODIUM CHLORIDE 0.9% 100 ML IVPB SCH ×3 (03:39→23:50)
[2017-12-13] MEDS: 0.9% NACL WITH KCL 20 MEQ/L 1,000 ML IV SCH ×2 (03:39→13:57)
[2017-12-13] MEDS: HYOSCYAMINE ORAL DROPS 1.875 MG/15 ML BOTTLE PO SCH ×4 (05:42→23:50)
[2017-12-13] MEDS: SIMETHICONE 40 MG/0.6 ML DROPS 2,000 MG/30 ML BOTTLE PO SCH ×4 (05:43→23:50)
[2017-12-13] MEDS: LEVOTHYROXINE 100 MCG TAB PO SCH (05:43)
[2017-12-13] MEDS: ENOXAPARIN 40 MG/0.4 ML SYRINGE SQ SCH (07:09)
[2017-12-13] MEDS: ALBUTEROL NEBULIZED 2.5 MG/3 ML INHALATION SCH ×4 (07:09→20:02)
[2017-12-13] MEDS: LIOTHYRONINE SODIUM 5 MCG TAB PO SCH (07:10)
[2017-12-13] MEDS: PANTOPRAZOLE 40 MG/10 ML VIAL IV SCH (07:10)
[2017-12-13] MEDS: ONDANSETRON 4 MG/2 ML VIAL IVP SCH ×3 (07:11→23:49)
[2017-12-13] MEDS: cycloSPORINE 0.05% OPHTH 0.4 ML DROPERETTE BOTH EYES SCH (07:11)
[2017-12-13] MEDS: HYDROmorphone 1 MG/ML 1 ML SYRINGE IVP PRN ×2 (07:12→15:57)
[2017-12-13] MEDS: METOPROLOL TARTRATE 50 MG TAB PO SCH ×2 (08:56→20:23)
[2017-12-13 09:39] LABS: Basophils % (A) 0 %; Eosinophils % (A) 0 %; HCT 33.6 % (34.0-46.0); HGB 10.8 gm/dL (11.4-16.0); Lymphocytes # (A) 0.8 k/uL (1.0-4.8); Lymphocytes % (A) 6 %; MCH 27.7 pg (25.0-35.0); MCHC 32.2 g/dL (31.0-37.0); MCV 86.2 fL (80.0-100.0); Mean Platelet Volume 7.7; Monocytes # (A) 0.5 k/uL (0-1.0); Monocytes % (A) 4 %; Neutrophils # (A) 13.1 k/uL (1.3-7.7); Neutrophils % (A) 90 %; Platelet Count 211 k/uL (150-450); RBC 3.91 m/uL (3.80-5.40); RDW 15.2 % (11.5-15.5); WBC 14.5 k/uL (3.8-10.6)
--- NOTE | 2017-12-13 10:02 | XR ---
EXAMINATION TYPE: XR chest 2V DATE OF EXAM: 12/13/2017 COMPARISON: 03/29/2017 TECHNIQUE: PA and lateral views submitted. HISTORY: Shortness of breath FINDINGS: Bilateral subsegmental areas of consolidation are noted. No pleural effusion or pneumothorax. Mild pr ominence of interstitium. Heart size stable. Atherosclerotic change aorta. IMPRESSION: 1. Interval development of bilateral perihilar and lower lobe areas of infiltrate or atelectasis, cor relate clinically.
[2017-12-13 14:55] LABS: Basophils % (A) 0 %; Eosinophils % (A) 0 %; HCT 32.9 % (34.0-46.0); HGB 10.7 gm/dL (11.4-16.0); Lymphocytes # (A) 0.7 k/uL (1.0-4.8); Lymphocytes % (A) 4 %; MCH 27.9 pg (25.0-35.0); MCHC 32.3 g/dL (31.0-37.0); MCV 86.3 fL (80.0-100.0); Mean Platelet Volume 7.7; Monocytes # (A) 0.8 k/uL (0-1.0); Monocytes % (A) 5 %; Neutrophils # (A) 16.2 k/uL (1.3-7.7); Neutrophils % (A) 90 %; Platelet Count 239 k/uL (150-450); RBC 3.82 m/uL (3.80-5.40); RDW 15.2 % (11.5-15.5)
--- NOTE | 2017-12-13 21:51 | P.PN ---
Subjective Progress Note Date: 12/13/17 HISTORY OF PRESENT ILLNESS: The patient is a 62-year-old female postop day 2 following revisional gastric bypass surgery. She denies any palpitations. She does have pre-existing tachycardia and has been placed on beta blockers as a result. She reports increased fatigue today. She is tolerating diet. No reports of chest pain. No reports of dyspnea on exertion. She denies nausea. GENERAL: Well developed and in no acute distress. Pleasant. HEENT: No sclera icterus. Extraocular movements grossly intact. Moist buccal mucosa. Head is atraumatic, normocephalic. Hears conversational speech. No nasal drainage. NECK: Supple without lymphadenopathy. CHEST: Non-labored respirations and equal bilateral excursions. CARDIOVASCULAR: Regular rate and rhythm. Palpable 2+ radial pulses. ABDOMEN: Soft with mild distention. Nontender. Minimal distention. No peritonitis. No cellulitis. MUSCULOSKELETAL: No clubbing, cyanosis or edema. NEUROLOGIC: No focal or lateralizing signs. PSYCH: Appropriate affect. Alert and oriented to person, place and time. SKIN: Good skin turgor. Well perfused. LABS: Reviewed Assessment: 1. Morbid obesity 2. Status post gastric bypass Plan: 1. Chest x-ray obtaibed for oxygen desaturation. Incentive spirometry use advised to treat atelectasis. 2. Repeat CBC performed. 3. Recommend continue hospitalization and adjustment of antibiotics for contamination from small bowel enteric fluid. 4. Repeat evaluation in the evening demonstrates that she is passing flatus. Objective - Vital Signs Vital signs: Vital Signs Temp 98 F 12/13/17 15:31 Pulse 80 12/13/17 20:12 Resp 16 12/13/17 15:31 BP 116/75 12/13/17 15:31 Pulse Ox 91 L 12/13/17 15:31 Intake & Output 12/13/17 12/13/17 12/14/17 06:59 18:59 06:59 Intake Total 1200 470 Balance 1200 470 Intake: Intake, IV Titration 1200 350 Amount 0.9% NaCl with KCl 20 Meq 400 300 /l 1,000 ml @ 100 mls/hr IV .Q10H [facility] Rx#: [id number] Piperacillin-Tazobactam 3 800 50 .375 gm In Sodium Chloride 0.9% 100 ml @ 25 mls/hr IVPB Q8H [facility] Rx#: [id number] Oral 120 Other: Voiding Method Toilet Toilet # Voids 2 2 - Labs CBC & Chem 7: 12/13/17 14:35 12/12/17 07:02 Labs: Abnormal Lab Results - Last 24 Hours (Table) 12/13/17 12/13/17 Range/Units 07:47 14:35 WBC 14.5 H 18.0 H (3.8-10.6) k/uL Hgb 10.8 L 10.7 L (11.4-16.0) gm/dL Hct 33.6 L 32.9 L (34.0-46.0) % Neutrophils # 13.1 H 16.2 H (1.3-7.7) k/uL Lymphocytes # 0.8 L 0.7 L (1.0-4.8) k/uL - Imaging and Cardiology Chest x-ray: image reviewed (Bilateral atelectasis) Assessment and Plan (1) S/P gastric bypass Current Visit: Yes Status: Acute Code(s): Z98.84 - BARIATRIC SURGERY STATUS SNOMED Code(s): 865049371 (2) Migraine Current Visit: Yes Status: Acute Code(s): G43.909 - MIGRAINE, UNSP, NOT INTRACTABLE, WITHOUT STATUS MIGRAINOSUS SNOMED Code(s): 52236257 (3) Morbid obesity Current Visit: No Status: Acute Code(s): E66.01 - MORBID (SEVERE) OBESITY DUE TO EXCESS CALORIES SNOMED Code(s): 375188678 (4) Atelectasis of both lungs Current Visit: Yes Status: Acute Code(s): J98.11 - ATELECTASIS SNOMED Code (s): 05565853
[2017-12-13] MEDS: metroNIDAZOLE-NS PMX 500 MG in SALINE 1 100ML.BAG IVPB SCH (21:58)
[2017-12-14] MEDS: 0.9% NACL WITH KCL 20 MEQ/L 1,000 ML IV SCH ×3 (01:59→20:36)
[2017-12-14] MEDS: metroNIDAZOLE-NS PMX 500 MG in SALINE 1 100ML.BAG IVPB SCH ×5 (01:59→23:53)
[2017-12-14] MEDS: PIPERACILLIN-TAZOBACTAM 3.375 GM in SODIUM CHLORIDE 0.9% 100 ML IVPB SCH ×3 (03:31→20:36)
[2017-12-14] MEDS: LEVOTHYROXINE 100 MCG TAB PO SCH (05:39)
[2017-12-14] MEDS: LIOTHYRONINE SODIUM 5 MCG TAB PO SCH (05:40)
[2017-12-14] MEDS: SIMETHICONE 40 MG/0.6 ML DROPS 2,000 MG/30 ML BOTTLE PO SCH ×4 (05:47→23:53)
[2017-12-14] MEDS: HYOSCYAMINE ORAL DROPS 1.875 MG/15 ML BOTTLE PO SCH ×4 (05:47→23:52)
[2017-12-14 07:25] LABS: Basophils % (A) 0 %; Eosinophils % (A) 0 %; HCT 34.7 % (34.0-46.0); HGB 11.2 gm/dL (11.4-16.0); Lymphocytes # (A) 1.7 k/uL (1.0-4.8); Lymphocytes % (A) 11 %; MCH 27.9 pg (25.0-35.0); MCHC 32.2 g/dL (31.0-37.0); MCV 86.8 fL (80.0-100.0); Mean Platelet Volume 7.2; Monocytes # (A) 0.9 k/uL (0-1.0); Monocytes % (A) 6 %; Neutrophils # (A) 12.9 k/uL (1.3-7.7); Neutrophils % (A) 82 %; Platelet Count 233 k/uL (150-450); RDW 15.3 % (11.5-15.5); WBC 15.8 k/uL (3.8-10.6)
[2017-12-14] MEDS: ALBUTEROL NEBULIZED 2.5 MG/3 ML INHALATION SCH ×4 (08:20→22:08)
[2017-12-14] MEDS: METOPROLOL TARTRATE 50 MG TAB PO SCH ×2 (09:48→20:36)
[2017-12-14] MEDS: ENOXAPARIN 40 MG/0.4 ML SYRINGE SQ SCH (09:48)
[2017-12-14] MEDS: PANTOPRAZOLE 40 MG/10 ML VIAL IV SCH (09:48)
[2017-12-14] MEDS: ONDANSETRON 4 MG/2 ML VIAL IVP SCH ×3 (09:48→23:52)
[2017-12-14] MEDS: cycloSPORINE 0.05% OPHTH 0.4 ML DROPERETTE BOTH EYES SCH (09:49)
[2017-12-14] MEDS: HYDROmorphone 1 MG/ML 1 ML SYRINGE IVP PRN (10:02)
--- NOTE | 2017-12-14 13:09 | P.PN ---
<Vida Webstersmith Jarvis - Last Filed: 12/14/17 13:01> Subjective Progress Note Date: 12/14/17 62-year-old female seen at bedside. Patient states she did ambulate in the hallway this morning. Currently is taking bariatric clear diet and tolerating. Patient denies any dizziness lightheadedness shortness of breath or chest pain. Denies any nausea. Patient's postop day 3 revisional gastric bypass surgery The white count is down to 15.8 it was 18 the day before heart rate in the 70s currently on room air no wheezing noted Postop December 11 Robotic assisted da Mo Xi laparoscopic lysis of adhesions, over 30 minutes. REVISIONAL Robotic assisted da Mo Xi laparoscopic Renetta-en-Y gastric bypass, 125 cm biliopancreatic limb with 75 cm Renetta limb antecolic antegastric Renetta limb , with 25 mm EEA. Robotic assisted da Mo Xi laparoscopic reduction and repair of incarcerated diaphragmatic paraesophageal midline hiatal hernia 6 x 4 cm without mesh . Intraoperative esophagogastrojejunoscopy. Objective - Vital Signs Vital signs: Vital Signs Temp 98.4 F 12/14/17 08:10 Pulse 78 12/14/17 12:10 Resp 20 12/14/17 11:14 BP 128/80 12/14/17 08:10 Pulse Ox 90 L 12/14/17 03:03 Intake & Output 12/13/17 12/14/17 12/14/17 18:59 06:59 18:59 Intake Total 470 1000 Output Total 700 Balance 470 300 Intake: Intake, IV Titration 350 1000 Amount 0.9% NaCl with KCl 20 Meq 300 800 /l 1,000 ml @ 100 mls/hr IV .Q10H [facility] Rx#: [id number] Piperacillin-Tazobactam 3 50 100 .375 gm In Sodium Chloride 0.9% 100 ml @ 25 mls/hr IVPB Q8H [facility] Rx#: [id number] metroNIDAZOLE-NS PMX 500 100 mg In Saline 1 100ml.bag @ 100 mls/hr IVPB Q6HR [facility]AC[facility] Rx#:[id number] Oral 120 Output: Urine 700 Other: Voiding Method Toilet Toilet # Voids 2 - Exam Physical exam 62-year-old female sitting up taking a bariatric clear diet tolerating with no nausea vomiting lungs adequate air movement bilaterally no wheezing noted no shortness of breath Heart S1 S2 audible and regular heart rate 70s to 80s denies chest pain Abdomen obese soft surgical dressing sites dry surgical tenderness appropriate no nausea no vomiting states not passing gas no stool Extremities no edema - Labs CBC & Chem 7: 12/14/17 06:47 12/12/17 07:02 Labs: Abnormal Lab Results - Last 24 Hours (Table) 12/13/17 12/14/17 Range/Units 14:35 06:47 WBC 18.0 H 15.8 H (3.8-10.6) k/uL Hgb 10.7 L 11.2 L (11.4-16.0) gm/dL Hct 32.9 L (34.0-46.0) % Neutrophils # 16.2 H 12.9 H (1.3-7.7) k/uL Lymphocytes # 0.7 L (1.0-4.8) k/uL Assessment and Plan Assessment: Impression Morbid obesity BMI 40 Gastroesophageal reflux disease Type 2 diabetes [id number] Osteoarthritis bilateral hips and knees Supraventricular tachycardia Chronic pain syndrome Large posterior gastric prolapse from previous adjustable gastric band Robotic assisted da Mo Xi laparoscopic lysis of adhesions, over 30 minutes. Done on December 11 REVISIONAL Robotic assisted da Mo Xi laparoscopic Renetta-en-Y gastric bypass, 125 cm biliopancreatic limb with 75 cm Renetta limb antecolic antegastric Renetta limb , with 25 mm EEA. Done on December 11 . Robotic assisted da Mo Xi laparoscopic reduction and repair of incarcerated diaphragmatic paraesophageal midline hiatal hernia 6 x 4 cm without mesh . Done on December 11 Intraoperative esophagogastrojejunoscopy. Plan Continue postop bariatric care Continue hospitalization adjustment of antibiotics for contamination of small bowel enteric fluid Pain control Repeat labs in the morning DVT and GI prophylaxis further recommendations pending Encourage the use of incentive spirometer The above impression and plan of care have been discussed and directed by signing physician. Beatriz Webster nurse practitioner acting as scribe for signing physician. <Nadeen Gross - Last Filed: 12/15/17 03:29> Objective - Vital Signs Vital signs: Vital Signs Temp 98.1 F 12/15/17 00:12 Pulse 87 12/15/17 00:12 Resp 16 12/15/17 00:12 BP 122/76 12/15/17 00:12 Pulse Ox 90 L 12/15/17 00:12 Intake & Output 12/14/17 12/14/17 12/15/17 06:59 18:59 06:59 Intake Total 1000 900 400 Output Total 700 Balance 300 900 400 Weight 101.1 kg Intake: Intake, IV Titration 1000 900 400 Amount 0.9% NaCl with KCl 20 Meq 800 700 400 /l 1,000 ml @ 100 mls/hr IV .Q10H [facility] Rx#: [id number] Piperacillin-Tazobactam 3 100 100 .375 gm In Sodium Chloride 0.9% 100 ml @ 25 mls/hr IVPB Q8H [facility] Rx#: [id number] metroNIDAZOLE-NS PMX 500 100 100 mg In Saline 1 100ml.bag @ 100 mls/hr IVPB Q6HR [facility] Rx#:[id number] Output: Urine 700 Other: Voiding Method Toilet Toilet - Labs CBC & Chem 7: 12/14/17 06:47 12/12/17 07:02 Labs: Abnormal Lab Results - Last 24 Hours (Table) 12/14/17 Range/Units 06:47 WBC 15.8 H (3.8-10.6) k/uL Hgb 11.2 L (11.4-16.0) gm/dL Neutrophils # 12.9 H (1.3-7.7) k/uL Assessment and Plan (1) S/P gastric bypass Current Visit: Yes Status: Acute Code(s): Z98.84 - BARIATRIC SURGERY STATUS SNOMED Code(s): 317662400 (2) Migraine Current Visit: Yes Status: Acute Code(s): G43.909 - MIGRAINE, UNSP, NOT INTRACTABLE, WITHOUT STATUS MIGRAINOSUS SNOMED Code(s): 13915382 (3) Morbid obesity Current Visit: No Status: Acute Code(s): E66.01 - MORBID (SEVERE) OBESITY DUE TO EXCESS CALORIES SNOMED Code(s): 497110848 (4) Atelectasis of both lungs Current Visit: Yes Status: Acute Code(s): J98.11 - ATELECTASIS SNOMED Code (s): 96306379
[2017-12-15 01:07] VITALS: RESP 16
--- NOTE | 2017-12-15 03:29 | P.PN ---
Progress Note - Text Progress Note Date: 12/14/17 Abdominal distention is improved. She is passing flatus. No reports of abdominal pain. She is using her incentive spirometer. Plan to continue antibiotics post discharge for history of contaminated case due to small bowel enteric contents. Anticipated discharge in 24 hours. Follow-up in the bariatric center in 5 days. Medical reconciliation described and reviewed.
[2017-12-15] MEDS: PIPERACILLIN-TAZOBACTAM 3.375 GM in SODIUM CHLORIDE 0.9% 100 ML IVPB SCH (03:44)
[2017-12-15] MEDS: SIMETHICONE 40 MG/0.6 ML DROPS 2,000 MG/30 ML BOTTLE PO SCH (05:29)
[2017-12-15] MEDS: HYOSCYAMINE ORAL DROPS 1.875 MG/15 ML BOTTLE PO SCH (05:29)
[2017-12-15] MEDS: 0.9% NACL WITH KCL 20 MEQ/L 1,000 ML IV SCH (05:29)
[2017-12-15] MEDS: metroNIDAZOLE-NS PMX 500 MG in SALINE 1 100ML.BAG IVPB SCH (05:29)
[2017-12-15] MEDS: LEVOTHYROXINE 100 MCG TAB PO SCH (05:30)
[2017-12-15] MEDS: LIOTHYRONINE SODIUM 5 MCG TAB PO SCH (05:30)
[2017-12-15 07:02] LABS: Basophils % (A) 0 %; Eosinophils # (A) 0.2 k/uL (0-0.7); Eosinophils % (A) 3 %; HCT 33.9 % (34.0-46.0); HGB 10.7 gm/dL (11.4-16.0); Lymphocytes # (A) 1.3 k/uL (1.0-4.8); Lymphocytes % (A) 16 %; MCH 27.1 pg (25.0-35.0); MCHC 31.6 g/dL (31.0-37.0); MCV 85.8 fL (80.0-100.0); Mean Platelet Volume 7.3; Monocytes # (A) 0.5 k/uL (0-1.0); Monocytes % (A) 6 %; Neutrophils # (A) 6.2 k/uL (1.3-7.7); Neutrophils % (A) 74 %; Platelet Count 220 k/uL (150-450); RBC 3.95 m/uL (3.80-5.40); RDW 14.9 % (11.5-15.5); WBC 8.5 k/uL (3.8-10.6)
[2017-12-15] MEDS: ALBUTEROL NEBULIZED 2.5 MG/3 ML INHALATION SCH (08:34)
[2017-12-15] MEDS: PANTOPRAZOLE 40 MG/10 ML VIAL IV SCH (08:57)
[2017-12-15] MEDS: ONDANSETRON 4 MG/2 ML VIAL IVP SCH (08:57)
[2017-12-15] MEDS: METOPROLOL TARTRATE 50 MG TAB PO SCH (08:57)
[2017-12-15] MEDS: cycloSPORINE 0.05% OPHTH 0.4 ML DROPERETTE BOTH EYES SCH (08:58)
[2017-12-15] MEDS: ENOXAPARIN 40 MG/0.4 ML SYRINGE SQ SCH (08:59)
[2017-12-15 09:08] VITALS: BP 162/88; PULSE 73; TEMP 97.4
--- NOTE | 2017-12-15 09:15 | P.DS ---
Providers Date of admission: 12/11/17 09:20 Expected date of discharge: 12/15/17 Attending physician: Nadeen Gross Primary care physician: Randell Solis - Discharge Diagnosis(es) (1) S/P gastric bypass Status: Acute (2) Migraine Status: Acute (3) Morbid obesity Status: Acute (4) Atelectasis of both lungs Status: Acute (5) GERD (gastroesophageal reflux disease) Status: Acute (6) HTN (hypertension), benign Status: Acute Hospital Course: POSTOPERATIVE DIAGNOSES: 1. Morbid obesity. 2. Body mass index of 43.9, initial. 3. Gastroesophageal reflux disease 4. Coronary artery disease 5. Hypothyroidism 6. Chronic pain syndrome 7. Dysphagia. 8. Hiatal hernia 9. Ischemic cardiomyopathy 10. Osteoarthritis bilateral hips 11. Osteoarthritis bilateral knees 12. Anxiety 13. Angina 14. Supraventricular tachycardia 15. Thyroid cancer 16. Vertigo 17. Migraines 18. Bilateral heel spurs 19. Diabetes type 2, [id number]. 20. Peritoneal adhesions from prior adjustable gastric band, epigastrium 21. Large posterior gastric prolapse from previous adjustable gastric band INDICATIONS: Eulalia Armstrong is a 62-year-old female who comes in with long- standing morbid obesity. She comes in with history of esophageal spasms. She had an adjustable gastric band for over 15 years, 2002 that is now removed. She reports chronic back pain. She has gastroesophageal reflux disease. She reports trouble with swallowing. She is looking into the gastric bypass. At height of 5 feet 2 inches, her ideal body weight is 135 pounds. Her highest weight was 239 pounds. Body mass index was 43.9. Today she comes in weighing 222 pounds. She has lost 17 pounds. She now presents to undergo robotic assisted gastric bypass. A second-generation bariatric consent form was described in detail including the possibility of protein malnutrition, leaks, gastrojejunal stricture, venous thrombosis, need for further surgery for which she demonstrated understanding. Benefits and risks of the procedure were described at length. Informed consent was obtained. Postprocedure, she had low oxygen saturation. Incentive spirometry was addressed. Her case was contaminated due to small bowel enteric contents. Continue antibiotics was placed. Prior to discharge, she was tolerating diet. She was passing flatus. Bariatric diet was reviewed. Pertinent Studies: Chest x-ray demonstrated bilateral atelectasis Procedures: OPERATION: 1. Robotic assisted da Mo Xi laparoscopic lysis of adhesions, over 30 minutes. 2. REVISIONAL Robotic assisted da Mo Xi laparoscopic Renetta-en-Y gastric bypass , 125 cm biliopancreatic limb with 75 cm Renetta limb antecolic antegastric Renetta limb, with 25 mm EEA. 3. Robotic assisted da Mo Xi laparoscopic reduction and repair of incarcerated diaphragmatic paraesophageal midline hiatal hernia 6 x 4 cm without mesh 4. Intraoperative esophagogastrojejunoscopy. ANESTHESIA: GETA and local ESTIMATED BLOOD LOSS: 20 mL SPECIMENS REMOVED: None. COMPLICATIONS: NONE. Patient Condition at Discharge: Good Plan - Discharge Summary Discharge Rx Participant: Yes New Discharge Prescriptions: New Bisacodyl [Dulcolax] 5 mg PO DAILY PRN #10 tablet. PRN Reason: Constipation Fluconazole [Diflucan] 100 mg PO DAILY #7 tablet HYDROcodone/APAP 7.5-325MG [[place] 7.5-325] 1 tab PO Q4H PRN 3 Days #18 tab PRN Reason: Pain Ondansetron Odt [Zofran Odt] 4 mg PO Q8HR PRN #9 tab PRN Reason: Nausea Simethicone 40 mg/0.6 ml Drops [Mylicon Drops] 40 mg PO PCHS PRN #30 ml PRN Reason: Gas Omeprazole 40 mg PO DAILY #30 capsule.dr Ro-Elisa Clav 875-125Mg [Augmentin 875-125] 1 tab PO Q12HR #10 tablet Continue Nitroglycerin Sl Tabs [Nitrostat] 0.4 mg PO Q5M PRN PRN Reason: Chest Pain ALPRAZolam [Xanax] 0.5 mg PO BID PRN PRN Reason: Anxiety cycloSPORINE [Restasis] 1 drop BOTH EYES DAILY amLODIPine/VALSARTAN [Exforge 5-160 mg Tablet] 1 tab PO DAILY Meclizine [Antivert] 25 mg PO DAILY PRN PRN Reason: Vertigo Carisoprodol [Soma] 350 mg PO DAILY PRN PRN Reason: Muscle Spasm ZOLMitriptan [Zomig] 5 mg PO DAILY PRN PRN Reason: Migraine Headache Liothyronine Sodium [Cytomel] 10 mcg PO QAM amLODIPine BESYLATE 5 mg PO DAILY Levothyroxine Sodium [Synthroid] 100 mcg PO DAILY Metoprolol Tartrate [Lopressor] 50 mg PO BID Discontinued Ergocalciferol [Vitamin D2 (DRISDOL)] 50,000 units PO TUFR Lansoprazole [Prevacid] 30 mg PO QAM Prochlorperazine [Compazine] 10 mg PO DAILY PRN PRN Reason: Nausea Aspirin 325 mg PO DAILY PRN PRN Reason: Pain Ondansetron HCl [Zofran] 4 mg PO DAILY PRN #20 tablet PRN Reason: Nausea Discharge Medication List ALPRAZolam [Xanax] 0.5 mg PO BID PRN 06/17/13 [History] Nitroglycerin Sl Tabs [Nitrostat] 0.4 mg PO Q5M PRN 06/17/13 [History] amLODIPine/VALSARTAN [Exforge 5-160 mg Tablet] 1 tab PO DAILY 06/17/13 [History] cycloSPORINE [Restasis] 1 drop BOTH EYES DAILY 06/17/13 [History] Carisoprodol [Soma] 350 mg PO DAILY PRN 02/09/15 [History] Meclizine [Antivert] 25 mg PO DAILY PRN 02/09/15 [History] ZOLMitriptan [Zomig] 5 mg PO DAILY PRN 02/09/15 [History] Liothyronine Sodium [Cytomel] 10 mcg PO QAM 02/16/15 [History] Levothyroxine Sodium [Synthroid] 100 mcg PO DAILY 12/11/17 [History] Metoprolol Tartrate [Lopressor] 50 mg PO BID 12/11/17 [History] amLODIPine BESYLATE 5 mg PO DAILY 12/11/17 [History] Amoxic-Pot Clav 875-125Mg [Augmentin 875-125] 1 tab PO Q12HR #10 tablet [Rx] Bisacodyl [Dulcolax] 5 mg PO DAILY PRN #10 tablet. 12/15/17 [Rx] Fluconazole [Diflucan] 100 mg PO DAILY #7 tablet 12/15/17 [Rx] HYDROcodone/APAP 7.5-325MG [[place] 7.5-325] 1 tab PO Q4H PRN 3 Days #18 tab 12/15 [Rx] Omeprazole 40 mg PO DAILY #30 capsule. 12/15/17 [Rx] Ondansetron Odt [Zofran Odt] 4 mg PO Q8HR PRN #9 tab 12/15/17 [Rx] Simethicone 40 mg/0.6 ml Drops [Mylicon Drops] 40 mg PO PCHS PRN #30 ml [Rx] Follow up Appointment(s)/Referral(s): [facility]ric Center,. [NON-STAFF] - 12/18/17 2:20 pm Patient Instructions/Handouts: Nutrition after Bariatric Surgery (DC), Renetta-en- Y Gastric Bypass (DC) Activity/Diet/Wound Care/Special Instructions: No lifting over 4 pounds in 4 weeks. May shower. No bathtub soaks. Protein shake diet starts Monday. Please crush or open capsules for medications bigger than the size of a tic-tac. Discharge Disposition: HOME SELF-CARE
== END 2017-12-15 10:35 | disposition home or self-care (01) | DRG 620 ==
LOC: 2ORMAIN 09:20 → 4SSUR 17:15
PROVIDERS: ADMIT Surgery Plastic and Reconstructive Surgery; ATTEND Surgery Plastic and Reconstructive Surgery
PROC: 0D160ZA Bypass Stomach to Jejunum, Open Approach (ICD-10-PCS; principal; 2017-12-11 11:20)
PROC: 0DNU0ZZ Release Omentum, Open Approach (ICD-10-PCS; principal; 2017-12-11 11:20)
PROC: 0BQT0ZZ Repair Diaphragm, Open Approach (ICD-10-PCS; principal; 2017-12-11 11:20)
PROC: 8E0W0CZ Robotic Assisted Procedure of Trunk Region, Open Approach (ICD-10-PCS; principal; 2017-12-11 11:20)
PROC: 0DN60ZZ Release Stomach, Open Approach (ICD-10-PCS; principal; 2017-12-11 11:20)
DX: E66.01 Morbid (severe) obesity due to excess calories (principal); I47.1 Supraventricular tachycardia; J98.11 Atelectasis; K95.09 Other complications of gastric band procedure; E11.9 Type 2 diabetes mellitus without complications; E89.0 Postprocedural hypothyroidism; F41.9 Anxiety disorder, unspecified; G43.909 Migraine, unspecified, not intractable, without status migrainosus; G89.4 Chronic pain syndrome; I10 Essential (primary) hypertension; I25.119 Atherosclerotic heart disease of native coronary artery with unspecified angina pectoris; I25.5 Ischemic cardiomyopathy; K21.9 Gastro-esophageal reflux disease without esophagitis; K44.9 Diaphragmatic hernia without obstruction or gangrene; K57.30 Diverticulosis of large intestine without perforation or abscess without bleeding; K66.0 Peritoneal adhesions (postprocedural) (postinfection); M16.0 Bilateral primary osteoarthritis of hip; M17.0 Bilateral primary osteoarthritis of knee; M77.32 Calcaneal spur, left foot; M77.31 Calcaneal spur, right foot; Z96.651 Presence of right artificial knee joint; K31.89 Other diseases of stomach and duodenum; Z68.41 Body mass index [BMI] 40.0-44.9, adult; Z79.82 Long term (current) use of aspirin; Z80.9 Family history of malignant neoplasm, unspecified; Z82.49 Family history of ischemic heart disease and other diseases of the circulatory system; Z83.3 Family history of diabetes mellitus; Z85.850 Personal history of malignant neoplasm of thyroid; Z87.891 Personal history of nicotine dependence; Z90.710 Acquired absence of both cervix and uterus; Z79.890 Hormone replacement therapy; Z79.891 Long term (current) use of opiate analgesic; Z79.899 Other long term (current) drug therapy; Z88.5 Allergy status to narcotic agent; Z88.2 Allergy status to sulfonamides; Z88.8 Allergy status to other drugs, medicaments and biological substances
CPT/HCPCS: 71046; 80051; 82310; 82565; 83735; 84100; 84520; 85025; 86850; 86900; 86901; 94640; 94760; 94762

== ENCOUNTER → 2017-12-18 | Outpatient (CLI) | payer MEDICARE ==
[2017-12-18 15:28] VITALS: BMI 39.9
[2017-12-18 15:31] VITALS: BP 157/87; PULSE 87; TEMP 97.7
--- NOTE | 2017-12-18 15:47 | P.PN ---
Subjective Progress Note Date: 12/18/17 She reports diarrhea from her antibiotics otherwise she is tolerating liquids. Pain is well-controlled. Abdomen: Dressing discontinued. No signs of infection or cellulitis. Plan: Follow-up in 2 weeks. Finish course of antibiotics Objective - Vital Signs Vital signs: Vital Signs Temp 97.7 F 12/18/17 15:28 Pulse 87 12/18/17 15:28 Resp BP 157/87 12/18/17 15:28 Pulse Ox Intake & Output 12/17/17 12/18/17 12/18/17 18:59 06:59 18:59 Weight 100.652 kg
== END | disposition home or self-care (01) ==
LOC: BARWHC3 14:15
PROVIDERS: ATTEND Surgery Plastic and Reconstructive Surgery
DX: K52.1 Toxic gastroenteritis and colitis (principal); E66.01 Morbid (severe) obesity due to excess calories; Z98.890 Other specified postprocedural states; Z68.39 Body mass index [BMI] 39.0-39.9, adult
CPT/HCPCS: 97804; G0463; 99211

== ENCOUNTER → 2018-01-16 | Outpatient (CLI) | payer MEDICARE ==
[2018-01-16 09:08] LABS: INR 1.1 (<1.2); Partial Thromboplastin Time 24.4 sec (22.0-30.0); Prothrombin Time 10.6 sec (9.0-12.0)
[2018-01-16 09:14] LABS: MCH 28.3 pg (25.0-35.0); MCHC 33.5 g/dL (31.0-37.0); MCV 84.6 fL (80.0-100.0); Mean Platelet Volume 7.4; Platelet Count 232 k/uL (150-450); RBC 4.96 m/uL (3.80-5.40); RDW 15.3 % (11.5-15.5)
[2018-01-16 16:07] LABS: Parathyroid Hormone Intact 51.8 pg/mL (14.0-72.0)
[2018-01-16 17:01] LABS: Albumin 4.4 g/dL (3.80-4.90); Albumin/Globulin Ratio 1.69 (1.20-2.10); Calcium 9.7 mg/dL (8.7-10.3); Globulin 2.6 g/dL (2.1-3.7); LDL Cholesterol,Calculated 87.8 mg/dL (0.0-131.0); Magnesium 1.8 mg/dL (1.5-2.4); Phosphorus 3.3 mg/dL (2.4-5.1); VLDL Calculation 18.2 mg/dL (5.00-40.00)
[2018-01-16 18:12] LABS: Iron Saturation 22.91 (12.00-45.00)
[2018-01-16 18:34] LABS: Folate, Serum 14.4 ng/mL; Vitamin D 25 Hydroxy 109.9 ng/mL (30.0-100.0)
[2018-01-16 21:14] LABS: Hemoglobin A1C 5.6 % (4.0-6.0)
[2018-01-17 13:33] LABS: Zinc, Serum 92 ug/dL (60-130)
[2018-01-17 14:46] LABS: Vitamin A 25 ug/dL (38-106)
[2018-01-18 07:40] LABS: Vitamin B1 40 ug/L (38-122)
== END ==
LOC: LABWHC1 08:23
PROVIDERS: ATTEND Surgery Plastic and Reconstructive Surgery
DX: Z48.815 Encounter for surgical aftercare following surgery on the digestive system (principal); E66.01 Morbid (severe) obesity due to excess calories; E21.1 Secondary hyperparathyroidism, not elsewhere classified; E89.1 Postprocedural hypoinsulinemia; D50.8 Other iron deficiency anemias; K90.89 Other intestinal malabsorption; E55.9 Vitamin D deficiency, unspecified; K74.1 Hepatic sclerosis; T56.894A Toxic effect of other metals, undetermined, initial encounter; K90.9 Intestinal malabsorption, unspecified; Z98.84 Bariatric surgery status
CPT/HCPCS: 36415; 80053; 80061; 82306; 82525; 82607; 82728; 82746; 83036; 83540; 83550; 83735; 83970; 84100; 84134; 84255; 84425; 84443; 84590; 84630; 85027; 85610; 85730

== ENCOUNTER → 2018-02-28 | Outpatient (CLI) | payer MEDICARE ==
--- NOTE | 2018-02-28 13:44 | P.PN ---
Subjective Progress Note Date: 02/28/18 DATE OF SERVICE: 02/28/2018 CHIEF COMPLAINT: Status post gastric bypass HISTORY OF PRESENT ILLNESS: Eulalia Armstrong is a 62-year-old female status post gastric bypass 12/11/2017. She is less than 3 months out. No gastroesophageal reflux disease. She feels great. She has lost over 40+ pounds. She can eat more than before. At height of 5 feet 2 inches, her ideal body weight is 135 pounds. Her highest weight is 240 pounds. Today she comes in weighing, 197 pounds. She has lost 25 pounds in less than 3 months. Total weight loss is 43 pounds. Body mass index is reduced from 44.0 to 36.0. Percent excess weight loss is 41%. PHYSICAL EXAM: VITAL SIGNS: Height 5 foot 2 inches, weight 197 pounds. BMI 36.0 Vital Signs Temp 98.1 F 02/28/18 14:11 Pulse 67 02/28/18 14:11 Resp BP 145/87 02/28/18 14:11 Pulse Ox GENERAL: Well-developed in no acute distress. HEENT: No scleral icterus. Extraocular movements grossly intact. Hears conversational speech. No nasal drainage. NECK: Supple without lymphadenopathy. CHEST: Nonlabored respirations with equal bilateral excursions. CARDIOVASCULAR: Regular rate and regular rhythm. Distal 2+ pulses. ABDOMEN: Obese, soft, nondistended MUSCULOSKELETAL: No clubbing, cyanosis. Gross strength 5/5 distal lower extremities. No pre-tibial pitting edema. NEURO: No focal or lateralizing signs. Cranial nerves 2 through 12 grossly within normal limits. PSYCH: Appropriate affect. Alert and oriented to person, place and time. SKIN: Good skin turgor. Well perfused. ASSESSMENT: 1. Morbid obesity due to excess calories 2. Body mass index of 44.0 initial, now 36.0 3. Gastroesophageal reflux disease 4. Coronary artery disease 5. Hypothyroidism 6. Chronic pain syndrome 7. Dysphagia. 8. Hiatal hernia 9. Ischemic cardiomyopathy 10. Osteoarthritis bilateral hips 11. Osteoarthritis bilateral knees 12. Anxiety 13. Angina 14. Supraventricular tachycardia 15. Thyroid cancer 16. Vertigo 17. Migraines 18. Bilateral heel spurs 19. Diabetes type 2, [id number]. 20. Status post adjustable gastric band removal 21. Status post gastric bypass PLAN: 1. Labs reviewed. 2. Symptoms of stricture described 3. Follow up 6 months post op June 2018
[2018-02-28 14:13] VITALS: BP 145/87; PULSE 67; TEMP 98.1; BMI 35.4
== END ==
LOC: BARWHC3 12:44
PROVIDERS: ATTEND Surgery Plastic and Reconstructive Surgery
DX: Z48.815 Encounter for surgical aftercare following surgery on the digestive system (principal); E66.01 Morbid (severe) obesity due to excess calories; K21.9 Gastro-esophageal reflux disease without esophagitis; I25.10 Atherosclerotic heart disease of native coronary artery without angina pectoris; E03.9 Hypothyroidism, unspecified; G89.4 Chronic pain syndrome; R13.10 Dysphagia, unspecified; K44.9 Diaphragmatic hernia without obstruction or gangrene; M16.0 Bilateral primary osteoarthritis of hip; M17.0 Bilateral primary osteoarthritis of knee; F41.9 Anxiety disorder, unspecified; C73 Malignant neoplasm of thyroid gland; G43.909 Migraine, unspecified, not intractable, without status migrainosus; E11.9 Type 2 diabetes mellitus without complications; Z98.84 Bariatric surgery status; I25.5 Ischemic cardiomyopathy; I20.9 Angina pectoris, unspecified; I47.1 Supraventricular tachycardia; R42 Dizziness and giddiness; Z68.36 Body mass index [BMI] 36.0-36.9, adult
CPT/HCPCS: 97803; G0463; 99211

== ENCOUNTER → 2018-03-15 | Outpatient (CLI) | payer MEDICARE ==
[2018-03-15 10:26] LABS: HCT 42.2 % (34.0-46.0); HGB 13.8 gm/dL (11.4-16.0); MCH 28.2 pg (25.0-35.0); MCHC 32.7 g/dL (31.0-37.0); MCV 86.2 fL (80.0-100.0); Mean Platelet Volume 6.8; Platelet Count 307 k/uL (150-450); RDW 14.3 % (11.5-15.5); WBC 7.4 k/uL (3.8-10.6)
[2018-03-15 10:33] LABS: Partial Thromboplastin Time 25.6 sec (22.0-30.0); Prothrombin Time 10.7 sec (9.0-12.0)
[2018-03-15 16:46] LABS: Parathyroid Hormone Intact 48.4 pg/mL (14.0-72.0)
[2018-03-15 17:12] LABS: Albumin 4.5 g/dL (3.80-4.90); Albumin/Globulin Ratio 1.67 (1.20-2.10); Anion Gap 10.8 mmol/L (4.00-12.00); Calcium 9.6 mg/dL (8.7-10.3); Carbon Dioxide 25.2 mmol/L (21.6-31.8); Globulin 2.7 g/dL (1.6-3.3); Phosphorus 3.8 mg/dL (2.4-5.1); Total Bilirubin 0.8 mg/dL (0.2-1.2); Total Protein 7.2 g/dL (6.2-8.2)
[2018-03-15 17:15] LABS: Iron Saturation 22.38 (12.00-45.00)
[2018-03-15 17:42] LABS: Folate, Serum 15.9 ng/mL; Vitamin B12 >4000.0 pg/mL (211-911)
[2018-03-16 12:39] LABS: Vitamin A 45 ug/dL (38-106)
[2018-03-16 13:28] LABS: Zinc, Serum 78 ug/dL (60-130)
[2018-03-16 14:27] LABS: Hemoglobin A1C 5.9
[2018-03-19 09:37] LABS: Vit B1(Thiamine) 67 ug/L (38-122)
== END | disposition home or self-care (01) ==
LOC: LABWHC1 10:01
PROVIDERS: ATTEND Surgery Plastic and Reconstructive Surgery
DX: E66.01 Morbid (severe) obesity due to excess calories (principal); E21.1 Secondary hyperparathyroidism, not elsewhere classified; E89.1 Postprocedural hypoinsulinemia; D50.9 Iron deficiency anemia, unspecified; K90.9 Intestinal malabsorption, unspecified; E55.9 Vitamin D deficiency, unspecified; K74.1 Hepatic sclerosis; N19 Unspecified kidney failure; K50.90 Crohn's disease, unspecified, without complications
CPT/HCPCS: 36415; 80053; 80061; 82306; 82525; 82607; 82728; 82746; 83036; 83540; 83550; 83735; 83970; 84100; 84134; 84255; 84425; 84443; 84590; 84630; 85027; 85610; 85730

== ENCOUNTER → 2018-07-02 | Outpatient (CLI) | payer MEDICARE ==
--- NOTE | 2018-07-03 08:59 | BD ---
EXAMINATION TYPE: Axial Bone Density DATE OF EXAM: 07/02/2018 COMPARISON: 2013 exam CLINICAL HISTORY: Screening for osteoporosis Height: 5 FT 2 1/2 IN Weight: 182 FRAX RISK QUESTIONS: History of Fracture in Adulthood: YES Secondary Osteoporosis: 3. Menopause before 45: YES RISK FACTORS HISTORY OF: Surgery to Spine/Hip(right/left)/Wrist (right/left): LUMBAR SURG When: 1998 Family History of Osteoporosis: YES Active: YES Postmenopausal woman: TOTAL HYST AGE 37 MEDICATIONS: Thyroid Medications: YES Which medication: SYNTHROID, CYTOMEL How Lon Additional Medications: SYNTHROID, CYTOMEL Additional History: EXAM MEASUREMENTS: Bone mineral density about the R hip (g/cm2): 0.835 Bone mineral density about the L hip (g/cm2): 0.813 T Score values are as follows: -----R Neck: -1.5 -----L Neck: -1.6 -----R Total: -1.3 -----L Total: -1.1 Bone mineral density has: DECREASED -6.4 % SINCE STUDY OF 2013 Bone mineral density about the L Wrist (g/cm2): 0.500 T Score values are as follows: -----Dist. R+U: -3.8 -----Prox. R+U: -2.2 -----Radius total: -2.9 WRIST NOT DONE BEORE IMPRESSION: Osteoporosis (T Score less than -2.5). There is increased fracture risk and therapy is usually indicated based on age. Re-Screen 1-2 years. NOTE: T-SCORE=SD OF THE YOUNG ADULT MEAN.
--- NOTE | 2018-07-04 09:25 | MM ---
Reason for exam: screening (asymptomatic). Last mammogram was performed 1 year and 1 month ago. History: Patient is postmenopausal and has history of other cancer at age 53. Family history of breast cancer in sister at age 51, breast cancer in maternal aunt at age 50, and breast cancer in maternal aunt at age 40. Physical Findings: A clinical breast exam by your physician is recommended on an annual basis and results should be correlated with mammographic findings. MG 3D Screening Mammo W/Cad Bilateral CC and MLO view(s) were taken. Prior study comparison: June 12, 2017, bilateral MG 3d screening mammo w/cad. June 09, 2016, bilateral MG 3d screening mammo w/cad. There are scattered fibroglandular densities. There is chronic nodularity in the left breast. No significant changes when compared with prior studies. ASSESSMENT: Benign, BI-RAD 2 RECOMMENDATION: Routine screening mammogram of both breasts in 1 year.
== END ==
LOC: RADMAMWWP 10:06
PROVIDERS: ATTEND Obstetrics & Gynecology
DX: Z12.31 Encounter for screening mammogram for malignant neoplasm of breast (principal); M81.0 Age-related osteoporosis without current pathological fracture
CPT/HCPCS: 77063; 77067; 77080

== ENCOUNTER → 2018-07-26 | Outpatient (CLI) | payer MEDICARE ==
[2018-07-26 08:48] VITALS: BP 132/84; PULSE 83; TEMP 97.8; BMI 32.8
--- NOTE | 2018-07-26 09:15 | P.PN ---
Subjective Progress Note Date: 07/26/18 HPI: She reports low calcium and vitamin D. She reports low bone density. No issues otherwise. Protein daily is over 60 grams and not enough. ABDOMEN: No hernia. ASSESSMENT: 1. Osteoporosis 2. Morbid obesity PLAN: 1. Increase vitamin D and Calcium 2. Start weight training 3. Needs current labs 4. Prescription for the Y 5. Bariatric Advantage 6. Follow up in 3 months. 7. MyFitness Pal Objective - Vital Signs Vital signs: Vital Signs Temp 97.8 F 07/26/18 08:44 Pulse 83 07/26/18 08:44 Resp BP 132/84 07/26/18 08:44 Pulse Ox Intake & Output 07/25/18 07/26/18 07/26/18 18:59 06:59 18:59 Weight 82.735 kg
[2018-07-26 10:17] LABS: HCT 42.2 % (34.0-46.0); HGB 13.7 gm/dL (11.4-16.0); MCH 27.5 pg (25.0-35.0); MCHC 32.5 g/dL (31.0-37.0); MCV 84.6 fL (80.0-100.0); Mean Platelet Volume 6.7; Platelet Count 284 k/uL (150-450); RBC 4.99 m/uL (3.80-5.40); RDW 14.3 % (11.5-15.5); WBC 7.8 k/uL (3.8-10.6)
[2018-07-26 10:22] LABS: INR 0.9 (<1.2); Partial Thromboplastin Time 24.5 sec (22.0-30.0); Prothrombin Time 10.1 sec (9.0-12.0)
[2018-07-26 16:41] LABS: Parathyroid Hormone Intact 63.6 pg/mL (14.0-72.0)
[2018-07-26 16:59] LABS: Iron Saturation 28.99 (12.00-45.00)
[2018-07-26 17:09] LABS: Vitamin D 25 Hydroxy 74.4 ng/mL (30.0-100.0)
[2018-07-26 18:18] LABS: Folate, Serum >24.0 ng/mL; Vitamin B12 >4000.0 pg/mL (211-911)
[2018-07-26 18:47] LABS: African American GFR (CKD) 77.8 (60.0-200.0); Albumin 4.5 g/dL (3.80-4.90); Albumin/Globulin Ratio 1.45 (1.60-3.17); Anion Gap 10.6 mmol/L (4.00-12.00); Calcium 9.4 mg/dL (8.7-10.3); Carbon Dioxide 23.4 mmol/L (21.6-31.8); Globulin 3.1 g/dL (1.6-3.3); LDL Cholesterol,Calculated 97.8 mg/dL (0.0-131.0); Magnesium 2.2 mg/dL (1.5-2.4); Phosphorus 4.1 mg/dL (2.4-5.1); Potassium 4.2 mmol/L (3.5-5.5); Total Bilirubin 0.7 mg/dL (0.3-1.2); Total Protein 7.6 g/dL (6.2-8.2); VLDL Calculation 12.2 mg/dL (5.00-40.00)
[2018-07-26 19:06] LABS: Hemoglobin A1C 5.9 % (4.0-6.0)
[2018-07-27 14:10] LABS: Zinc, Serum 77 ug/dL (60-130)
== END | disposition home or self-care (01) ==
LOC: BARWHC3 08:21
PROVIDERS: ATTEND Surgery Plastic and Reconstructive Surgery
DX: E66.01 Morbid (severe) obesity due to excess calories (principal); M81.0 Age-related osteoporosis without current pathological fracture; E21.1 Secondary hyperparathyroidism, not elsewhere classified; E89.1 Postprocedural hypoinsulinemia; D50.9 Iron deficiency anemia, unspecified; K90.9 Intestinal malabsorption, unspecified; E55.9 Vitamin D deficiency, unspecified; K76.9 Liver disease, unspecified; N19 Unspecified kidney failure; K50.90 Crohn's disease, unspecified, without complications; Z68.32 Body mass index [BMI] 32.0-32.9, adult
CPT/HCPCS: 84255; 84134; 84425; 80061; 80053; 82607; 82728; 82525; 82746; 83540; 83550; 83735; 84100; 84443; 84590; 84630; 85027; 85610; 85730; 82306; 83970; 83036; 97803; G0463; 99211

== ENCOUNTER → 2018-08-23 | Outpatient (CLI) | payer MEDICARE ==
[2018-08-23 10:29] VITALS: BP 136/83; PULSE 65; TEMP 97.8; BMI 32.5
--- NOTE | 2018-08-23 11:44 | P.PN ---
Subjective Progress Note Date: 08/23/18 HPI: She comes in with new reflux. She has been taking NSAIDS for her pain. No dysphagia. No dark stools. She is 9 months out from her revision of band to bypass. PLAN: 1. EGD for upper scope 2. Recommend Tylenol for pain 3. Omeprazole Objective - Vital Signs Vital signs: Vital Signs Temp 97.8 F 08/23/18 10:22 Pulse 65 08/23/18 10:22 Resp BP 136/83 08/23/18 10:22 Pulse Ox Intake & Output 08/22/18 08/23/18 08/23/18 18:59 06:59 18:59 Weight 82.1 kg
== END ==
LOC: BARWHC3 09:49
PROVIDERS: ATTEND Surgery Plastic and Reconstructive Surgery
DX: K21.9 Gastro-esophageal reflux disease without esophagitis (principal); Z79.1 Long term (current) use of non-steroidal anti-inflammatories (NSAID); Z79.899 Other long term (current) drug therapy
CPT/HCPCS: 99211

== ENCOUNTER → 2018-09-07 | Outpatient (CLI) | payer MEDICARE ==
[2018-09-07 09:01] LABS: HCT 39.2 % (34.0-46.0); HGB 12.4 gm/dL (11.4-16.0); INR 0.9 (<1.2); MCH 27.1 pg (25.0-35.0); MCHC 31.5 g/dL (31.0-37.0); MCV 85.9 fL (80.0-100.0); Mean Platelet Volume 7.1; Platelet Count 271 k/uL (150-450); RBC 4.56 m/uL (3.80-5.40); RDW 14.7 % (11.5-15.5); WBC 7.8 k/uL (3.8-10.6)
[2018-09-07 17:09] LABS: Iron Saturation 19.82 (12.00-45.00)
[2018-09-07 17:18] LABS: Vitamin D 25 Hydroxy 56.3 ng/mL (30.0-100.0)
[2018-09-07 17:24] LABS: African American GFR (CKD) 68.5 (60.0-200.0); Albumin 4.3 g/dL (3.80-4.90); Albumin/Globulin Ratio 1.59 (1.60-3.17); Anion Gap 10.3 mmol/L (4.00-12.00); Calcium 9.5 mg/dL (8.7-10.3); Carbon Dioxide 26.7 mmol/L (21.6-31.8); Folate, Serum 22.2 ng/mL; Globulin 2.7 g/dL (1.6-3.3); LDL Cholesterol,Calculated 88.8 mg/dL (0.0-131.0); Magnesium 2.1 mg/dL (1.5-2.4); Phosphorus 4.2 mg/dL (2.4-5.1); Total Bilirubin 0.5 mg/dL (0.3-1.2); VLDL Calculation 18.2 mg/dL (5.00-40.00)
[2018-09-07 18:47] LABS: Hemoglobin A1C 5.8 % (4.0-6.0)
[2018-09-10 15:32] LABS: Zinc, Serum 69 ug/dL (60-130)
[2018-09-11 06:21] LABS: Vitamin A 50 ug/dL (38-106)
[2018-09-11 12:54] LABS: Vit B1(Thiamine) 78 ug/L (38-122)
== END | disposition home or self-care (01) ==
LOC: LABWHC1 08:21
PROVIDERS: ATTEND Surgery Plastic and Reconstructive Surgery
DX: E21.1 Secondary hyperparathyroidism, not elsewhere classified (principal); D50.9 Iron deficiency anemia, unspecified; K90.9 Intestinal malabsorption, unspecified; E44.0 Moderate protein-calorie malnutrition; E55.9 Vitamin D deficiency, unspecified; K74.1 Hepatic sclerosis; N19 Unspecified kidney failure; K50.90 Crohn's disease, unspecified, without complications
CPT/HCPCS: 36415; 80053; 80061; 82306; 82525; 82607; 82728; 82746; 83036; 83540; 83550; 83735; 83970; 84100; 84134; 84255; 84425; 84443; 84590; 84630; 85027; 85610; 85730

== ENCOUNTER 2018-09-10 06:19 | Inpatient (IN) | payer MEDICARE ==
[2018-09-10] MEDS ORDERED: LACTATED RINGERS 1,000 ML IV ONE (06:32)
[2018-09-10] MEDS ORDERED: LIDOCAINE 1% INJ 10MG/ML (20 ML MDV) ONE (07:01)
[2018-09-10] MEDS ORDERED: PROPOFOL 10 MG/ML 20 ML VIAL IV ONE (07:01)
--- NOTE | 2018-09-10 07:04 | P.GSHP ---
History of Present Illness H&P Date: 09/10/18 CHIEF COMPLAINT: GERD HISTORY OF PRESENT ILLNESS: The patient is a 63-year-old female who presents reports gastroesophageal reflux disease. Upper endoscopy was offered for further evaluation and management. PAST MEDICAL HISTORY: Please see list. PAST SURGICAL HISTORY: Please see list. MEDICATIONS: Please see list. ALLERGIES: Please see list. SOCIAL HISTORY: No illicit drug use FAMILY HISTORY: No reports of Crohn disease or ulcerative colitis. REVIEW OF ORGAN SYSTEMS: CONSTITUTIONAL: No reports of fevers or chills. GI: Denies any blood in stools or constipation. PHYSICAL EXAM: VITAL SIGNS: Stable GENERAL: Well-developed and pleasant in no acute distress. HEENT: No scleral icterus. Extraocular movements grossly intact. Moist buccal mucosa. NECK: Supple without lymphadenopathy. CHEST: Unlabored respirations. Equal bilateral excursions. CARDIOVASCULAR: Regular rate and rhythm. Distal 2+ pulses. ABDOMEN: Soft, nondistended. MUSCULOSKELETAL: No clubbing, cyanosis, or edema. ASSESSMENT: 1. Gastroesophageal reflux disease PLAN: 1. Recommend proceeding with an upper endoscopy Past Medical History Past Medical History: Cancer, Chest Pain / Angina, Hypertension, Supraventricular Tachycardia (SVT), Thyroid Disorder Additional Past Medical History / Comment(s): Other HX: esophagial spasms, thyroid cancer, MIGRAINES. DEGENERATIVE JOINT DISEASE. VERTIGO,Precancerous lesions removed from face History of Any Multi-Drug Resistant Organisms: None Reported Past Surgical History: Back Surgery, Bariatric Surgery, Hysterectomy, Joint Replacement, Orthopedic Surgery, Tubal Ligation Additional Past Surgical History / Comment(s): 02/16/15 Total R knee arthroplasty. Other sx: LAP BAND (2002). HEART CATH-CLEAR, THYROIDECTOMY D/T CA/, DISCETOMY L5-S1, LT KNEE ARTHROSCOPY, BILATERAL HEEL SPURS. BENIGN TUMOR REMOVED FROM LEFT EYE,Lt Rot Cuff,sinuplasty lap band removal 08-14-17 gastric bypass 12-11-17 Past Anesthesia/Blood Transfusion Reactions: Motion Sickness, Postoperative Nausea & Vomiting (PONV) Additional Past Anesthesia/Blood Transfusion Reaction / Comment(s): Hx Esophageal spasms,. MOTHER AND DAUGHTER HAVE PONV,no hx blood transfusion Past Psychological History: No Psychological Hx Reported Additional Psychological History / Comment(s): Pt resides with her spouse. She is independent. She drives. Smoking Status: Never smoker Past Alcohol Use History: None Reported Past Drug Use History: None Reported - Past Family History Father Family Medical History: Cancer, Diabetes Mellitus, Hypertension Additional Family Medical History / Comment(s): Father had cancer below his eye. He from a MVA. Mother Family Medical History: AFIB, Cancer, Thyroid Disorder Additional Family Medical History / Comment(s): skin CA Medications and Allergies Home Medications Medication Instructions Recorded Confirmed Type ALPRAZolam [Xanax] 0.5 mg PO BID PRN 06/17/13 09/10/18 History Nitroglycerin Sl Tabs [Nitrostat] 0.4 mg PO Q5M PRN 06/17/13 09/10/18 History cycloSPORINE [Restasis] 1 drop BOTH EYES DAILY 06/17/13 09/10/18 History Carisoprodol [Soma] 350 mg PO DAILY PRN 02/09/15 09/10/18 History Meclizine [Antivert] 25 mg PO DAILY PRN 02/09/15 09/10/18 History ZOLMitriptan [Zomig] 5 mg PO DAILY PRN 02/09/15 09/10/18 History Liothyronine Sodium [Cytomel] 10 mcg PO QAM 02/16/15 09/10/18 History Levothyroxine Sodium [Synthroid] 100 mcg PO DAILY 12/11/17 09/10/18 History Metoprolol Tartrate [Lopressor] 50 mg PO BID 12/11/17 09/10/18 History Calcium Citrate/Vitamin D3 600 mg PO BID 07/26/18 09/10/18 History [Calcitrate + Vit D Caplet] Omeprazole 40 mg PO DAILY #90 capsule. 08/23/18 09/10/18 Rx Allergies Allergy/AdvReac Type Severity Reaction Status Date / Time Sulfa (Sulfonamide Allergy Severe Rash/Hives Verified 09/10/18 06:44 Antibiotics) codeine AdvReac Severe Nausea & Verified 09/10/18 06:44 Vomiting meperidine HCl [From Demerol] AdvReac Nausea & Verified 09/10/18 06:44 Vomiting Surgical - Exam Vital Signs Temp Pulse Resp BP Pulse Ox 98.4 F 75 14 120/70 93 L 09/10/18 06:50 09/10/18 06:50 09/10/18 06:50 09/10/18 06:50 09/10/18 06:50
[2018-09-10] MEDS ORDERED: NALOXONE 0.4 MG/ML 1 ML VIAL IV PRN (07:25)
[2018-09-10] MEDS ORDERED: ONDANSETRON 4 MG/2 ML VIAL IVP PRN (07:25)
--- NOTE | 2018-09-10 07:25 | P.PCN ---
Date of Procedure: 09/10/18 Description of Procedure: PREOPERATIVE DIAGNOSIS: Gastroesophageal reflux disease. POSTOPERATIVE DIAGNOSIS: Gastric stenosis with complete obstruction Gastroesophageal reflux disease. Moderate retained food stuff OPERATION: Esophagogastrojejunoscopy SURGEON: Nadeen Gross MD ANESTHESIA: MAC. INDICATIONS: The patient is a 63-year-old female who presents with a history of reflux disease including gastric bypass. Benefits and risks of the procedure were described. Informed consent was obtained. DESCRIPTION: The patient was brought into the endoscopy suite and laid in the left lateral decubitus position. An Olympus gastroscope was passed along the posterior oropharynx down to the distal esophagus and into the gastric pouch where moderate retained bile and food stuff was identified. The gastric pouch were suctioned however moderate retained bile was still present. The lumen of the anastomosis was obscured by moderate bile and food. During the procedure, she had regurgitation. The scope was advanced into the gastric pouch with moderate suction of the gastric contents with still retained foodstuff. As a result of transient oxygen desaturation during the procedure and moderate retained food in the gastric pouch, the procedure was curtailed. Her O2 sat did improve to over 92%. Given the severity of obstruction, chest x-ray including admission advised. FINDINGS: Moderate retained food and bile and gastric pouch Regurgitation during procedure Obstruction of anastomosis from retained food RECOMMENDATIONS: 1. Admission with chest x-ray for aspiration precautions 2. Will keep nothing by mouth with IV fluid hydration
--- NOTE | 2018-09-10 07:31 | P.HPADDEND ---
H&P Addendum H&P Addendum Date: 09/10/18 Patient has acute gastric outlet obstruction with regurgitation of risk for aspiration. Admission advised. Nothing by mouth and placement of nasogastric tube also advised.
--- NOTE | 2018-09-10 08:15 | XR ---
EXAMINATION TYPE: XR chest 1V portable DATE OF EXAM: 09/10/2018 COMPARISON: Prior chest x-ray 12/13/2017 HISTORY: Aspiration TECHNIQUE: Single frontal view of the chest is obtained. FINDINGS: There is interval increased gastric bubble size in the left upper quadrant. Lumbar interve rtebral lobe, patient is rotated. No pneumothorax. Patchy density at the left lung base is improved s omewhat in the interval. Aorta is dense. Heart size is stable. IMPRESSION: Elevated left hemidiaphragm with prominence of the gastric air bubble. Difficult to excl ude lower lobe pneumonia or atelectasis, PA and lateral chest x-ray likely would be of benefit.
[2018-09-10] MEDS ORDERED: LIDOCAINE 1% 20 ML VIAL (10MG/ML) FOR IV START INTRADERMA PRN (08:54)
[2018-09-10 10:09] VITALS: BMI 32.5
[2018-09-10] MEDS: LACTATED RINGERS 1,000 ML IV SCH (11:21)
[2018-09-10] MEDS: 0.9% NACL WITH KCL 20 MEQ/L 1,000 ML IV SCH ×3 (12:04→22:34)
[2018-09-10] MEDS: BENZOCAINE/MENTHOL LOZENG 1 EACH LOZENGE MUCOUS MEM PRN ×2 (14:06→18:09)
--- NOTE | 2018-09-10 14:30 | XR ---
EXAMINATION TYPE: XR chest 2V DATE OF EXAM: 09/10/2018 COMPARISON: 09/10/2018 TECHNIQUE: PA and lateral views submitted. HISTORY: NG tube placement FINDINGS: The lungs are clear and there is no pneumothorax, pleural effusion, or focal pneumonia. NG tube see n with the tip near the region of the gastric fundus. No overt failure. Hypertrophic change of the sp ine. IMPRESSION: 1. NG tube seen with the tip in the region of the gastric fundus. 2. Mild prominence of the right suprahilar region. This could be related to the ascending aorta and c orrelation with CT chest recommended.
[2018-09-11] MEDS: BENZOCAINE/MENTHOL LOZENG 1 EACH LOZENGE MUCOUS MEM PRN ×2 (00:12→15:58)
[2018-09-11] MEDS: 0.9% NACL WITH KCL 20 MEQ/L 1,000 ML IV SCH ×4 (00:43→23:57)
[2018-09-11] MEDS: LACTATED RINGERS 1,000 ML IV SCH ×2 (07:29→15:57)
[2018-09-11 08:46] LABS: Basophils % (A) 0 %; Eosinophils # (A) 0.2 k/uL (0-0.7); Eosinophils % (A) 3 %; HCT 36.6 % (34.0-46.0); HGB 11.7 gm/dL (11.4-16.0); Lymphocytes # (A) 1.9 k/uL (1.0-4.8); Lymphocytes % (A) 23 %; MCH 27.2 pg (25.0-35.0); MCV 85.2 fL (80.0-100.0); Mean Platelet Volume 6.7; Monocytes # (A) 0.6 k/uL (0-1.0); Monocytes % (A) 7 %; Neutrophils # (A) 5.4 k/uL (1.3-7.7); Neutrophils % (A) 64 %; Platelet Count 267 k/uL (150-450); RDW 13.9 % (11.5-15.5); WBC 8.4 k/uL (3.8-10.6)
[2018-09-11] MEDS: DEXAMETHASONE SOD PHOSPHATE 4 MG/ML 1 ML VIAL IV SCH ×3 (12:02→23:56)
--- NOTE | 2018-09-11 12:24 | P.PN ---
Subjective Progress Note Date: 09/11/18 CHIEF COMPLAINT: Gastric obstruction HISTORY OF PRESENT ILLNESS: 63-year-old female who underwent EGD yesterday revealing gastric stenosis with complete obstruction. NG tube was placed. Currently with about 400cc light brownish tirado drainage with possible food particles in cannister. Denies abdominal pain. 3 BC 8.4. Hemoglobin 11.7. PHYSICAL EXAM: VITAL SIGNS: Currently stable. GENERAL: Well-developed in no acute distress. HEENT: NG tube to low intermittent suction. No sclera icterus. Extraocular movements grossly intact. Moist buccal mucosa. Head is atraumatic, normocephalic. Hears conversational speech. No nasal dr ainage. NECK: Supple without lymphadenopathy. CHEST: Non-labored respirations and equal bilateral excursions. CARDIOVASCULAR: Regular rate with regular rhythm. Palpable 2+ radial pulses. ABDOMEN: Soft. Nondistended. Nontender. MUSCULOSKELETAL: No clubbing, cyanosis or edema. NEUROLOGIC: No focal or lateralizing signs. Cranial nerves II through XII grossly intact. PSYCH: Appropriate affect. Alert and oriented to person, place and time. SKIN: Well perfused. Good skin turgor. ASSESSMENT: 1. Gastric stenosis with complete obstruction 2. History of lap band with subsequent removal and revision to gastric bypass PLAN: 1. Continue NG to LIS 2. NPO except for ice chips. Strict nothing by mouth after midnight. Continue IV fluids 3. Begin Decadron 4 mg IV every 6 hours 4. Patient to undergo repeat EGD tomorrow with dilation with Dr. Gross Nurse practitioner note has been reviewed by physician. Signing provider agrees with the documented findings, assessment, and plan of care. Objective - Vital Signs Vital signs: Vital Signs Temp 98.3 F 09/11/18 07:00 Pulse 78 09/11/18 07:00 Resp 16 09/11/18 07:00 BP 137/82 09/11/18 07:00 Pulse Ox 97 09/11/18 10:52 Intake & Output 09/10/18 09/11/18 09/11/18 18:59 06:59 18:59 Intake Total 750 700 Output Total 1350 700 500 Balance -600 -700 200 Weight 80.739 kg Intake: IV 750 0.9% NaCl with KCl 20 Meq 450 /l 1,000 ml @ 100 mls/hr IV .Q10H STACIA Rx#: [id number] Intake, IV Titration 700 Amount 0.9% NaCl with KCl 20 Meq 700 /l 1,000 ml @ 100 mls/hr IV .Q10H STACIA Rx#: [id number] Output: Gastric Drainage 150 350 Urine 1200 350 500 Other: Voiding Method Toilet - Labs CBC & Chem 7: 09/11/18 07:37 Assessment and Plan (1) Gastric outlet obstruction Current Visit: Yes Status: Acute Code(s): K31.1 - ADULT HYPERTROPHIC PYLORIC STENOSIS SNOMED Code(s): 784821759 (2) GERD (gastroesophageal reflux disease) Current Visit: No Status: Acute Code(s): K21.9 - GASTRO-ESOPHAGEAL REFLUX DISEASE WITHOUT ESOPHAGITIS SNOMED Code(s): 770404901
[2018-09-11] MEDS ORDERED: LIDOCAINE 1% 20 ML VIAL (10MG/ML) FOR IV START INTRADERMA PRN (12:38)
[2018-09-12] MEDS: DEXAMETHASONE SOD PHOSPHATE 4 MG/ML 1 ML VIAL IV SCH ×4 (05:11→23:19)
[2018-09-12] MEDS ORDERED: LIDOCAINE 1% INJ 10MG/ML (20 ML MDV) ONE (11:09)
[2018-09-12] MEDS ORDERED: SODIUM CHLORIDE 0.9% 500 ML 500 ML IV ONE (11:09)
[2018-09-12] MEDS ORDERED: PROPOFOL 10 MG/ML 20 ML VIAL IV ONE (11:09)
--- NOTE | 2018-09-12 11:17 | P.HPADDEND ---
H&P Addendum H&P Addendum Date: 09/12/18 Patient out of her nasogastric tube put out over 350 mL on initial case an additional 500 mL with moderate gastric reservoir. We'll proceed with upper endoscopy with attempted dilation of anastomosis otherwise will need revision of gastrojejunostomy
[2018-09-12] MEDS ORDERED: IOPAMIDOL-300 CONTRAST 30 ML VIAL (ORAL USE) PO PRN (11:34)
--- NOTE | 2018-09-12 11:34 | P.PCN ---
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 SURGEON: Nadeen Gross MD ANESTHESIA: MAC. INDICATIONS: The patient is a 63-year-old female who presents with a history of acute gastric obstruction with regurgitation. Benefits and risks of the procedure were described. Informed consent was obtained. DESCRIPTION: The patient was brought into the endoscopy suite and laid in the left lateral decubitus position. After a timeout was confirmed, the procedure was initiated. An Olympus gastroscope was passed along the posterior oropharynx down to the distal esophagus where the squamocolumnar junction was unremarkable. The gastric pouch was entered. A gastrojejunal stricture of 12 mm was found as the adult gastroscope was 9.5 mm in size. A Pinocular balloon dilator was placed through the scope. Final insufflation up to 20 mm was performed with a total of 2 minutes. The scope was advanced up to 60 cm from the incisors into the Renetta limb. The mucosa of the gastrojejunal anastomosis was intact. However chronic gastrojejunal marginal ulcer was encountered. No full-thickness injury was encountered. The GI tract was desufflated. The nasogastric tube was discontinued. The patient tolerated the procedure well. FINDINGS: Squamocolumnar junction unremarkable at 37 cm. Stricture of approximately 12 mm encountered. Chronic gastrojejunal ulceration encountered. Successful balloon dilatation to 20 mm. Diaphragmatic hiatus at 40 cm. Recurrent diaphragmatic hiatal hernia, 4 cm Moderately enlarged gastric pouch with retained gastric cardia and fundus RECOMMENDATIONS: Will need immediate revision of gastric pouch and gastrojejunal anastomosis for acute gastric obstruction
--- NOTE | 2018-09-12 13:07 | CT ---
EXAMINATION TYPE: CT abdomen pelvis w con DATE OF EXAM: 09/12/2018 COMPARISON: NONE HISTORY: 63-year-old female abdominal pain, Esophageal obstruction TECHNIQUE: Contiguous axial scanning of the abdomen and pelvis following administration of 100 ml Iso allen 300 IV contrast. Delayed images through the kidneys and coronal/sagittal reconstructions perform ed. CT DLP: 862.9 mGycm Automated exposure control for dose reduction was used. FINDINGS: Heart normal size without pericardial effusion. Strandy atelectasis lower lungs without pleural effus ion. Circumferential wall thickening distal esophagus could reflect underlying small hiatal hernia or wall thickening. Postsurgical changes of Renetta-en-Y gastric bypass. There is prominent distention of the stomach after the esophagus which may be normal in this patient. The gastrojejunostomy is seen on coronal series an d does not appear to be particularly narrowed. Gallbladder is borderline distended up to 3.8 cm without surrounding inflammation. No focal liver lesion Adrenal glands, left kidney, spleen with hilar splenule, and atrophic pancreas show no gross abnormal ity. Subcentimeter hypodensity lateral cortex right kidney too small for accurate CT characterization, lik howard cyst. Soft tissue nodularity along the left paramedian anterior abdominal wall probably corresponds to scar tissue at the site of a prior port. No dilated small bowel, free fluid, or free air. Mild stool in the right side of the abdomen. Normal appendix. Sigmoid diverticulosis. No pericolonic inflammatory change. Bladder partially distended. Uterus surgically absent. Some thickening along the pelvic sidewalls cou ld represent postsurgical change or small ovaries. Trace cul-de-sac free fluid is noted. Bones: Facet arthropathy and degenerative disc disease lower lumbar spine. IMPRESSION: 1. CIRCUMFERENTIAL WALL THICKENING DISTAL ESOPHAGUS COULD REFLECT UNDERLYING SMALL HIATAL HERNIA OR W ALL THICKENING SUCH RELATING TO ESOPHAGITIS. CORRELATE TO THE NEED FOR DIRECT VISUALIZATION. 2. POSTSURGICAL CHANGE OF RENETTA-EN-Y GASTRIC BYPASS. THE PORTION OF THE STOMACH PRIOR TO THE GASTROJEJ UNOSTOMY IS SOMEWHAT DISTENDED WITH AIR AND SOME LAYERING CONTRAST/FLUID. THIS MAY BE CHRONIC FOR THE PATIENT. A RELATIVE STENOSIS AT THE GASTROJEJUNOSTOMY IS ALSO A POSSIBILITY THOUGH THE ANASTOMOSIS A PPEARS TO BE RELATIVELY PATENT ON CORONAL SERIES. 3. SIGMOID DIVERTICULOSIS WITHOUT ACUTE DIVERTICULITIS. 4. TRACE CUL-DE-SAC FREE FLUID, ABNORMAL IN A POSTMENOPAUSAL FEMALE. QUERY ANY FLUID OVERLOAD STATE.
[2018-09-12] MEDS: LACTATED RINGERS 1,000 ML IV SCH ×2 (17:52)
[2018-09-12] MEDS: 0.9% NACL WITH KCL 20 MEQ/L 1,000 ML IV SCH ×2 (19:41→23:19)
--- NOTE | 2018-09-12 20:40 | P.PN ---
Progress Note - Text Progress Note Date: 09/12/18 Patient seen and reevaluated after upper endoscopy including dilation and computed tomography scan. No further ports of gastro esophageal reflux disease. She had her computed tomography scan. Computed tomography scan results reviewed with her demonstrating distended gastric pouch with small recurrent hiatal hernia. New finding of moderately distended gallbladder. Otherwise she denies any abdominal pain. Recommend ultrasound of the gallbladder. Start bariatric clear liquid diet with potential discharge in 24 hours. At some point, patient may benefit from revision of her gastric pouch. Previous operative records and findings confirmed moderate size gastric prolapse from her prior gastric band which resulted in a large gastric pouch for her bypass. These findings were shared with her. Will re-evaluate in the bariatric center for any further surgical intervention including possible cholecystectomy and revision of gastrojejunostomy.
--- NOTE | 2018-09-12 22:34 | US ---
EXAMINATION TYPE: US gallbladder DATE OF EXAM: 09/12/2018 COMPARISON: CT 2019 CLINICAL HISTORY: gallstones. R/O gallstones. Acid reflux. EXAM MEASUREMENTS: Liver Length: 13.3 cm Gallbladder Wall: 0.26 cm CBD: 0.42 cm Right Kidney: 9.5 x 5.0 x 5.1 cm Pancreas: appears wnl, slightly limited Liver: appears wnl Gallbladder: transverse diameter measures: 3.7 cm. appears anechoic. Evidence for sonographic Tian's sign: no CBD: appears wnl Right Kidney: No hydronephrosis or masses seen IMPRESSION: No acute process.
[2018-09-13 01:34] VITALS: TEMP 97.7
[2018-09-13] MEDS: DEXAMETHASONE SOD PHOSPHATE 4 MG/ML 1 ML VIAL IV SCH ×2 (05:24→12:06)
[2018-09-13 07:32] VITALS: BP 126/82; PULSE 79; RESP 16
--- NOTE | 2018-09-13 14:10 | P.DS ---
Providers Date of admission: 09/10/18 09:13 Expected date of discharge: 09/13/18 Attending physician: Nadeen Gross Primary care physician: Randell Solis - Discharge Diagnosis(es) (1) Gastric outlet obstruction Current Visit: Yes Status: Acute (2) GERD (gastroesophageal reflux disease) Current Visit: No Status: Acute Hospital Course: 63-year-old female who underwent EGD on 09/10/2018 secondary to gastric esophageal reflux disease. EGD revealed gastric stenosis with complete obstruction. NG tube was placed and patient was admitted to the hospital. Patient underwent repeat EGD on 09/12/2017 with balloon dilation from 12 to 20mm. Patient underwent computed tomography scan revealing distended gastric pouch with small recurrent hiatal hernia and new finding of moderately distended gallbladder. Ultrasound of gallbladder was completed which was negative for an acute process. No dilated common bile duct or gallbladder wall. No signs of acute cholecystitis. NG tube was discontinued and patient was started on liquid diet. She has been tolerating well without complaints of reflux. Patient is cleared for discharge today per Dr. Gross. She is to follow up next week in the bariatric center for further evaluation of possible revision of gastrojeju nostomy. Please see EMR for further hospital course details. Discharge Diagnosis: 1. Gastric stenosis with complete obstruction 2. History of lap band with subsequent removal and revision to gastric bypass Nurse practitioner note has been reviewed by physician. Signing provider agrees with the documented findings, assessment, and plan of care. Patient Condition at Discharge: Stable Plan - Discharge Summary Discharge Rx Participant: Yes New Discharge Prescriptions: Continue Nitroglycerin Sl Tabs [Nitrostat] 0.4 mg PO Q5M PRN PRN Reason: Chest Pain ALPRAZolam [Xanax] 0.5 mg PO BID PRN PRN Reason: Anxiety cycloSPORINE [Restasis] 1 drop BOTH EYES DAILY Meclizine [Antivert] 25 mg PO DAILY PRN PRN Reason: Vertigo Carisoprodol [Soma] 350 mg PO DAILY PRN PRN Reason: Muscle Spasm ZOLMitriptan [Zomig] 5 mg PO DAILY PRN PRN Reason: Migraine Headache Liothyronine Sodium [Cytomel] 10 mcg PO QAM Levothyroxine Sodium [Synthroid] 100 mcg PO DAILY Metoprolol Tartrate [Lopressor] 50 mg PO BID Calcium Citrate/Vitamin D3 [Calcitrate + Vit D Caplet] 600 mg PO BID Omeprazole 40 mg PO DAILY #90 capsule. Discharge Medication List ALPRAZolam [Xanax] 0.5 mg PO BID PRN 06/17/13 [History] Nitroglycerin Sl Tabs [Nitrostat] 0.4 mg PO Q5M PRN 06/17/13 [History] cycloSPORINE [Restasis] 1 drop BOTH EYES DAILY 06/17/13 [History] Carisoprodol [Soma] 350 mg PO DAILY PRN 02/09/15 [History] Meclizine [Antivert] 25 mg PO DAILY PRN 02/09/15 [History] ZOLMitriptan [Zomig] 5 mg PO DAILY PRN 02/09/15 [History] Liothyronine Sodium [Cytomel] 10 mcg PO QAM 02/16/15 [History] Levothyroxine Sodium [Synthroid] 100 mcg PO DAILY 12/11/17 [History] Metoprolol Tartrate [Lopressor] 50 mg PO BID 12/11/17 [History] Calcium Citrate/Vitamin D3 [Calcitrate + Vit D Caplet] 600 mg PO BID 07/26/18 [History] Omeprazole 40 mg PO DAILY #90 capsule. 08/23/18 [Rx] Follow up Appointment(s)/Referral(s): [facility],. [NON-STAFF] - 09/19/18 (please schedule appt for patient)
== END 2018-09-13 17:22 | disposition home or self-care (01) | DRG 381 ==
LOC: ORWHC2ENDO 06:19 → 4SSUR 09:13
PROVIDERS: ADMIT Surgery Plastic and Reconstructive Surgery; ATTEND Surgery Plastic and Reconstructive Surgery
PROC: 0DJ08ZZ Inspection of Upper Intestinal Tract, Via Natural or Artificial Opening Endoscopic (ICD-10-PCS; 2018-09-12)
PROC: 0D778ZZ Dilation of Stomach, Pylorus, Via Natural or Artificial Opening Endoscopic (ICD-10-PCS; principal; 2018-09-12 10:40)
DX: K31.1 Adult hypertrophic pyloric stenosis (principal); K44.0 Diaphragmatic hernia with obstruction, without gangrene; K28.7 Chronic gastrojejunal ulcer without hemorrhage or perforation; K82.8 Other specified diseases of gallbladder; E89.0 Postprocedural hypothyroidism; I10 Essential (primary) hypertension; K21.9 Gastro-esophageal reflux disease without esophagitis; Z79.890 Hormone replacement therapy; Z79.899 Other long term (current) drug therapy; Z80.9 Family history of malignant neoplasm, unspecified; Z82.49 Family history of ischemic heart disease and other diseases of the circulatory system; Z83.3 Family history of diabetes mellitus; Z85.850 Personal history of malignant neoplasm of thyroid; Z90.710 Acquired absence of both cervix and uterus; Z96.651 Presence of right artificial knee joint; Z98.84 Bariatric surgery status; R11.10 Vomiting, unspecified
CPT/HCPCS: 43235; 43249; 71045; 71046; 74177; 76705; 85025

== ENCOUNTER → 2018-09-19 | Outpatient (CLI) | payer MEDICARE ==
[2018-09-19 14:26] VITALS: BP 138/85; PULSE 72; RESP 16; TEMP 98.1; BMI 32.2
--- NOTE | 2018-09-19 14:52 | P.PN ---
Subjective Progress Note Date: 09/19/18 Principal diagnosis: HPI: She is doing well. No more reflux. No abdominal pain. ABDOMEN: No abdominal pain ASSESSMENT: 1. Morbid obesity PLAN: 1. Will need revision of gastrojenostomy Oct 22. 2. She is due for colon cancer screeing and has high risk family history. 3. Scope to be done prior to her procedure Objective - Vital Signs Vital signs: Vital Signs Temp 98.1 F 09/19/18 14:23 Pulse 72 09/19/18 14:23 Resp 16 09/19/18 14:23 BP 138/85 09/19/18 14:23 Pulse Ox Intake & Output 09/18/18 09/19/18 09/19/18 18:59 06:59 18:59 Weight 81.193 kg
== END ==
LOC: BARWHC3 13:35
PROVIDERS: ATTEND Surgery Plastic and Reconstructive Surgery
DX: E66.01 Morbid (severe) obesity due to excess calories (principal); Z68.32 Body mass index [BMI] 32.0-32.9, adult
CPT/HCPCS: 99211

== ENCOUNTER 2018-10-03 10:01 | Day surgery (SDC) | payer MEDICARE ==
[2018-10-01 10:50] VITALS: BMI 31.6
--- NOTE | 2018-10-03 09:21 | P.GSHP ---
History of Present Illness H&P Date: 10/03/18 CHIEF COMPLAINT: Colon screen HISTORY OF PRESENT ILLNESS: The patient is a 63-year-old female who presents for colon screen. Lower endoscopy was offered for further evaluation and management. PAST MEDICAL HISTORY: Please see list. PAST SURGICAL HISTORY: Please see list. MEDICATIONS: Please see list. ALLERGIES: Please see list. SOCIAL HISTORY: No illicit drug use FAMILY HISTORY: No reports of Crohn disease or ulcerative colitis. REVIEW OF ORGAN SYSTEMS: CONSTITUTIONAL: No reports of fevers or chills. PHYSICAL EXAM: VITAL SIGNS: Stable GENERAL: Well-developed pleasant in no acute distress. HEENT: No scleral icterus. Extraocular movements grossly intact. Moist buccal mucosa. NECK: Supple without lymphadenopathy. CHEST: Unlabored respirations. Equal bilateral excursions. CARDIOVASCULAR: Regular rate and rhythm. Distal 2+ pulses. ABDOMEN: Soft, nontender, nondistended. MUSCULOSKELETAL: No clubbing, cyanosis, or edema. ASSESSMENT: 1. Colon screen. PLAN: 1. Recommend proceeding with a lower endoscopy Past Medical History Past Medical History: Cancer, Chest Pain / Angina, Hypertension, Supraventricular Tachycardia (SVT), Thyroid Disorder Additional Past Medical History / Comment(s): Other HX: esophaeal spasms, thyroid cancer, MIGRAINES. DEGENERATIVE JOINT DISEASE. VERTIGO,Precancerous lesions removed from face, RECENT INPT FOR GASTRIC BYPASS OBSTRUCTION History of Any Multi-Drug Resistant Organisms: None Reported Past Surgical History: Back Surgery, Bariatric Surgery, Hysterectomy, Joint Replacement, Orthopedic Surgery, Tubal Ligation Additional Past Surgical History / Comment(s): 02/16/15 Total R knee arthroplasty. Other sx: LAP BAND (2002). HEART CATH-CLEAR X 2, THYROIDECTOMY D/T CA/, DISCETOMY L5-S1, LT KNEE ARTHROSCOPY, BILATERAL HEEL SPURS. BENIGN TUMOR REMOVED FROM LEFT EYE,Lt Rot Cuff,sinuplasty lap band removal 08-14-17 gastric bypass 12-11-17, EGD X 2 FOR GASTRIC OBSTRUCTION Past Anesthesia/Blood Transfusion Reactions: Motion Sickness, Postoperative Nausea & Vomiting (PONV) Additional Past Anesthesia/Blood Transfusion Reaction / Comment(s): Hx Esophageal spasms,. MOTHER AND DAUGHTER HAVE PONV,no hx blood transfusion Smoking Status: Never smoker - Past Family History Father Family Medical History: Cancer, Diabetes Mellitus, Hypertension Additional Family Medical History / Comment(s): Father had cancer below his eye. He from a MVA. Mother Family Medical History: AFIB, Cancer, Thyroid Disorder Additional Family Medical History / Comment(s): skin CA Medications and Allergies Home Medications Medication Instructions Recorded Confirmed Type ALPRAZolam [Xanax] 0.5 mg PO BID PRN 06/17/13 10/01/18 History Nitroglycerin Sl Tabs [Nitrostat] 0.4 mg PO Q5M PRN 06/17/13 10/01/18 History cycloSPORINE [Restasis] 1 drop BOTH EYES DAILY 06/17/13 10/01/18 History Carisoprodol [Soma] 350 mg PO DAILY PRN 02/09/15 10/01/18 History Meclizine [Antivert] 25 mg PO DAILY PRN 02/09/15 10/01/18 History ZOLMitriptan [Zomig] 5 mg PO DAILY PRN 02/09/15 10/01/18 History Metoprolol Tartrate [Lopressor] 50 mg PO BID 12/11/17 10/01/18 History Calcium Citrate/Vitamin D3 600 mg PO BID 07/26/18 10/01/18 History [Calcitrate + Vit D Caplet] Levothyroxine Sodium [Synthroid] 137 mcg PO DAILY 09/19/18 10/01/18 History Allergies Allergy/AdvReac Type Severity Reaction Status Date / Time Sulfa (Sulfonamide Allergy Severe Rash/Hives Verified 10/01/18 10:38 Antibiotics) codeine AdvReac Severe Nausea & Verified 10/01/18 10:38 Vomiting meperidine HCl [From Demerol] AdvReac Nausea & Verified 10/01/18 10:38 Vomiting
[~2018-10-03 10:01] MED LIST changes: -CHLORHEXIDINE GLUCONATE 15 ML CUP MUCOUS MEM ONE; -DEXAMETHASONE SOD PHOSPHATE 10 MG/ML 1 ML VIAL IV ONE; -ENOXAPARIN 40 MG/0.4 ML SYRINGE SQ STA; +LACTATED RINGERS 1,000 ML IV SCH; +LIDOCAINE 1% 20 ML VIAL (10MG/ML) FOR IV START INTRADERMA PRN; -MIDAZOLAM 2 MG/2 ML VIAL IV PRN; -ONDANSETRON 4 MG/2 ML VIAL IVP ONE; -PANTOPRAZOLE 40 MG/10 ML VIAL IV STA; -SCOPOLAMINE 1.5MG/72HR PATCH TRANSDERM ONE; -ceFAZolin IN SWFI 2 GM/20 ML SYRINGE IVP ONE; -fentaNYL (PF) 50 MCG/ML 2 ML AMP IV PRN
[2018-10-03 10:33] VITALS: TEMP 98.4
[2018-10-03] MEDS ORDERED: ONDANSETRON 4 MG/2 ML VIAL IVP ONE (10:48)
[2018-10-03] MEDS ORDERED: LIDOCAINE 1% INJ 10MG/ML (20 ML MDV) ONE (10:54)
[2018-10-03] MEDS ORDERED: PROPOFOL 10 MG/ML 20 ML VIAL IV ONE (10:54)
--- NOTE | 2018-10-03 11:29 | P.PCN ---
Date of Procedure: 10/03/18 Description of Procedure: PREOPERATIVE DIAGNOSIS: Colonoscopy screening Family history of colon polyps Personal history colon polyps POSTOPERATIVE DIAGNOSIS: Colonoscopy screening Family history of colon polyps Personal history colon polyps Severe sigmoid diverticulosis OPERATION: Colonoscopy to the ileocecal valve and appendiceal orifice. SURGEON: Nadeen Gross MD. ANESTHESIA: MAC. INDICATIONS: The patient is a 63-year-old female who presents for colonoscopy screening. Last colonoscopy 5 years ago. Benefits and risks were described and informed consent was obtained. DESCRIPTION OF PROCEDURE: The patient had undergone Suprep. She had been brought into the operating room and laid in the left lateral decubitus position. After adequate intravenous sedation, the rectum was examined with 2% lidocaine jelly. No external hemorrhoids were encountered. The rectal tone was within normal limits. No lesions were palpated in the rectal vault. An Olympus colonoscope was advanced until the ileocecal valve and appendiceal orifice were clearly viewed. The prep was excellent with clear visualization of the mucosal folds. Severe sigmoid diverticulosis was encountered. No colonic polyps were found. No evidence of focal colitis was found. Retroflexion of the scope demonstrated grade 1 internal hemorrhoids without active bleeding or inflammation. The colon was desufflated. The patient had tolerated the procedure well. Withdrawal time was over 6 minutes. FINDINGS: Aronchick preparation quality scale 1 (1-5) Internal hemorrhoids, grade 1 No external prolapsed hemorrhoids. No arteriovenous malformations. No adenomatous polyps. No focal colitis. Severe sigmoid diverticulosis 20 cm to 15 cm from the anal verge RECOMMENDATIONS: Lower endoscopy in 5 years, 2023 Plan - Discharge Summary Discharge Rx Participant: No New Discharge Prescriptions: No Action Nitroglycerin Sl Tabs [Nitrostat] 0.4 mg PO Q5M PRN PRN Reason: Chest Pain ALPRAZolam [Xanax] 0.5 mg PO BID PRN PRN Reason: Anxiety cycloSPORINE [Restasis] 1 drop BOTH EYES DAILY Meclizine [Antivert] 25 mg PO DAILY PRN PRN Reason: Vertigo Carisoprodol [Soma] 350 mg PO DAILY PRN PRN Reason: Muscle Spasm ZOLMitriptan [Zomig] 5 mg PO DAILY PRN PRN Reason: Migraine Headache Metoprolol Tartrate [Lopressor] 50 mg PO BID Calcium Citrate/Vitamin D3 [Calcitrate + Vit D Caplet] 600 mg PO BID Levothyroxine Sodium [Synthroid] 137 mcg PO DAILY Discharge Medication List ALPRAZolam [Xanax] 0.5 mg PO BID PRN 06/17/13 [History] Nitroglycerin Sl Tabs [Nitrostat] 0.4 mg PO Q5M PRN 06/17/13 [History] cycloSPORINE [Restasis] 1 drop BOTH EYES DAILY 06/17/13 [History] Carisoprodol [Soma] 350 mg PO DAILY PRN 02/09/15 [History] Meclizine [Antivert] 25 mg PO DAILY PRN 02/09/15 [History] ZOLMitriptan [Zomig] 5 mg PO DAILY PRN 02/09/15 [History] Metoprolol Tartrate [Lopressor] 50 mg PO BID 12/11/17 [History] Calcium Citrate/Vitamin D3 [Calcitrate + Vit D Caplet] 600 mg PO BID 07/26/18 [History] Levothyroxine Sodium [Synthroid] 137 mcg PO DAILY 09/19/18 [History] Follow up Appointment(s)/Referral(s): Nadeen Gross MD [STAFF PHYSICIAN] - As Needed Patient Instructions/Handouts: Diverticulosis Diet (GEN), Diverticulosis (GEN) Activity/Diet/Wound Care/Special Instructions: Repeat colonoscopy 5 years, 2023 Discharge Disposition: HOME SELF-CARE
[2018-10-03 11:50] VITALS: BP 110/68; PULSE 68; RESP 16
== END 2018-10-03 12:10 | disposition home or self-care (01) ==
LOC: ORWHC2ENDO 10:01
PROVIDERS: ATTEND Surgery Plastic and Reconstructive Surgery
DX: Z12.11 Encounter for screening for malignant neoplasm of colon (principal); Z83.71 Family history of colonic polyps; Z86.010 Personal history of colon polyps; K57.30 Diverticulosis of large intestine without perforation or abscess without bleeding; K64.0 First degree hemorrhoids; Z88.5 Allergy status to narcotic agent; I10 Essential (primary) hypertension; Z85.850 Personal history of malignant neoplasm of thyroid; Z98.84 Bariatric surgery status; Z79.890 Hormone replacement therapy; Z79.899 Other long term (current) drug therapy; Z96.651 Presence of right artificial knee joint; E89.0 Postprocedural hypothyroidism
CPT/HCPCS: J2405; J2001; J2704; G0105

== ENCOUNTER → 2018-10-17 | Outpatient (CLI) | payer MEDICARE ==
[2018-10-17 10:54] LABS: Basophils # (A) 0.1 k/uL (0-0.2); Basophils % (A) 1 %; Eosinophils # (A) 0.2 k/uL (0-0.7); Eosinophils % (A) 2 %; HCT 40.2 % (34.0-46.0); HGB 12.8 gm/dL (11.4-16.0); Lymphocytes # (A) 1.8 k/uL (1.0-4.8); Lymphocytes % (A) 21 %; MCH 27.1 pg (25.0-35.0); MCHC 31.8 g/dL (31.0-37.0); MCV 85.5 fL (80.0-100.0); Mean Platelet Volume 7.1; Monocytes # (A) 0.5 k/uL (0-1.0); Monocytes % (A) 5 %; Neutrophils # (A) 5.9 k/uL (1.3-7.7); Neutrophils % (A) 69 %; Platelet Count 287 k/uL (150-450); RDW 14.2 % (11.5-15.5); WBC 8.6 k/uL (3.8-10.6)
[2018-10-17 11:08] LABS: Calcium 9.4 mg/dL (8.4-10.2); Potassium 4.4 mmol/L (3.5-5.1); Total Bilirubin 0.5 mg/dL (0.2-1.3); Total Protein 7.2 g/dL (6.3-8.2)
== END | disposition home or self-care (01) ==
LOC: LABPAT 08:52
PROVIDERS: ATTEND Surgery Plastic and Reconstructive Surgery
DX: Z01.812 Encounter for preprocedural laboratory examination (principal); K28.9 Gastrojejunal ulcer, unspecified as acute or chronic, without hemorrhage or perforation
CPT/HCPCS: 36415; 80053; 85025

== ENCOUNTER 2018-10-22 07:21 | Inpatient (IN) | payer MEDICARE ==
--- NOTE | 2018-10-21 17:54 | P.GSHP ---
History of Present Illness H&P Date: 10/22/18 DATE: 10/22/2018 CHIEF COMPLAINT: Morbid obesity HISTORY OF PRESENT ILLNESS: Eulalia Armstrong is a 63-year-old female who had an adjustable gastric band for over 15 years, 2002 that is removed. Then, she had a gastric bypass 1 year ago. 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 She had symptoms of dysphagia including epigastric abdominal pain. Now she presents for revision of her gastric pouch. She has lost 63 pounds lifetime. Her percent excess weight loss is 61%. Her current BMI is 32.2 from 43.9. PAST MEDICAL HISTORY: 1. Morbid obesity. 2. Body mass index of 43.9, initial. 3. Gastroesophageal reflux disease 4. Coronary artery disease 5. Hypothyroidism 6. Chronic pain syndrome 7. Dysphagia. 8. Hiatal hernia 9. Ischemic cardiomyopathy 10. Osteoarthritis bilateral hips 11. Osteoarthritis bilateral knees 12. Anxiety 13. Angina 14. Supraventricular tachycardia 15. Thyroid cancer 16. Vertigo 17. Migraines 18. Bilateral heel spurs PAST SURGICAL HISTORY: 1. Right knee arthroplasty 2. Thyroidectomy 3. Back surgery 4. Band placement 5. Hysterectomy 6. Left knee arthroscopy 7. Heart catheterization 8. Tumor removed from eye 9. Gastric bypass HOME MEDICATIONS: ALLERGIES: Home Medications Medication Instructions Recorded Confirmed ALPRAZolam [Xanax] 0.5 mg PO BID PRN 06/17/13 10/11/18 cycloSPORINE [Restasis] 1 drop BOTH EYES DAILY 06/17/13 10/11/18 Carisoprodol [Soma] 350 mg PO DAILY PRN 02/09/15 10/11/18 Meclizine [Antivert] 25 mg PO DAILY PRN 02/09/15 10/11/18 ZOLMitriptan [Zomig] 5 mg PO DAILY PRN 02/09/15 10/11/18 Metoprolol Tartrate [Lopressor] 50 mg PO BID 12/11/17 10/11/18 Calcium Citrate/Vitamin D3 600 mg PO BID 07/26/18 10/11/18 [Calcitrate + Vit D Caplet] Levothyroxine Sodium [Synthroid] 137 mcg PO QAM 09/19/18 10/11/18 Omeprazole [PriLOSEC] 40 mg PO QAM PRN 10/11/18 10/11/18 Allergies Allergy/AdvReac Type Severity Reaction Status Date / Time Sulfa (Sulfonamide Allergy Severe Rash/Hives Verified 10/11/18 12:21 Antibiotics) codeine AdvReac Severe Nausea & Verified 10/11/18 12:21 Vomiting meperidine HCl [From Demerol] AdvReac Nausea & Verified 10/11/18 12:21 Vomiting SOCIAL HISTORY: History of tobacco abuse. FAMILY HISTORY: No family history of ulcerative colitis disease or Crohn's disease. Family history of morbid obesity. No lupus in the family. No reports of stomach or esophageal cancer. Family history of diabetes type 2. REVIEW OF ORGAN SYSTEMS: CONSTITUTIONAL: At height of 5 feet 2 inches, her ideal body weight is 135 pounds. She comes in highest weight of 239 pounds. Body mass index was 43.9. HEENT: Denies any active troubles with vision or hearing. Has troubles with swallowing. ENDOCRINE: No diabetes. Has hypothyroidism. CARDIOVASCULAR: Past heart attack. Has hypertension. RESPIRATORY: Has daytime somnolence. No asthma. Has obstructive sleep apnea. GI: Denies any bright red blood per rectum. No diarrhea or constipation. Has gastroesophageal reflux disease. MUSCULOSKELETAL: Has lower back pain and joint pain. Has osteoarthritis of the knees. NEURO: No headaches. No seizure disorders. PSYCH: Has depression. Has anxiety. No suicidal ideation. RHEUMATOLOGIC: No lupus. No rheumatoid arthritis. HEMATOLOGIC: Denies any abnormal bleeding or bruising. No personal history of DVTs. SKIN: No rash. No skin cancer. PHYSICAL EXAM: VITAL SIGNS: Height 5 foot 2 inches, weight 176 pounds. BMI 43.9 GENERAL: Well-developed in no acute distress. HEENT: No scleral icterus. Extraocular movements grossly intact. Hears conversational speech. No nasal drainage. NECK: Supple without lymphadenopathy. CHEST: Nonlabored respirations with equal bilateral excursions. CARDIOVASCULAR: Regular rate and regular rhythm. Distal 2+ pulses. ABDOMEN: Obese, soft, nontender, nondistended. MUSCULOSKELETAL: No clubbing, cyanosis. Gross strength 5/5 distal lower extremities. No pre-tibial pitting edema. NEURO: No focal or lateralizing signs. Cranial nerves 2 through 12 grossly within normal limits. PSYCH: Appropriate affect. Alert and oriented to person, place and time. SKIN: Good skin turgor. Well perfused. ASSESSMENT: 1. Morbid obesity. 2. Body mass index of 43.9, initial. 3. Gastroesophageal reflux disease 4. Coronary artery disease 5. Hypothyroidism 6. Chronic pain syndrome 7. Dysphagia. 8. Hiatal hernia 9. Ischemic cardiomyopathy 10. Osteoarthritis bilateral hips 11. Osteoarthritis bilateral knees 12. Anxiety 13. Angina 14. Supraventricular tachycardia 15. Thyroid cancer 16. Vertigo 17. Migraines 18. Bilateral heel spurs 19. Diabetes type 2, [id number]. PLAN: 1. Recommend revision of her gastric bypass at the gastrojejunal anastomosis. A 2 week high-protein low caloric 800 kcal diet described to address hepatomegaly. 2. Preoperative labs including complete metabolic panel and CBC with type and screen recommended. 3. DVT prophylaxis per [place] [facility]. 4. Antibiotic prophylaxis. 5. Inpatient hospitalization anticipated for more than 2 nights. 6. She presents with increased elias-operative risks with multiple abdominal surgeries. Past Medical History Past Medical History: Cancer, Chest Pain / Angina, Hypertension, Supraventricular Tachycardia (SVT), Thyroid Disorder Additional Past Medical History / Comment(s): Other HX: esophagial spasms, thyroid cancer, MIGRAINES. DEGENERATIVE JOINT DISEASE. VERTIGO,Precancerous lesions removed from face History of Any Multi-Drug Resistant Organisms: None Reported Past Surgical History: Back Surgery, Bariatric Surgery, Hysterectomy, Joint Replacement, Orthopedic Surgery, Tubal Ligation Additional Past Surgical History / Comment(s): 02/16/15 Total R knee arthroplasty. Other sx: LAP BAND (2002). HEART CATH-CLEAR X 2, THYROIDECTOMY D/T CA/, DISCETOMY L5-S1, LT KNEE ARTHROSCOPY, BILATERAL HEEL SPURS. BENIGN TUMOR REMOVED FROM LEFT EYE,Lt Rot Cuff,sinuplasty lap band removal 08-14-17 gastric bypass 12-11-17 Past Anesthesia/Blood Transfusion Reactions: Motion Sickness, Postoperative Nausea & Vomiting (PONV) Additional Past Anesthesia/Blood Transfusion Reaction / Comment(s): Hx Esophageal spasms,. MOTHER AND DAUGHTER HAVE PONV,no hx blood transfusion Smoking Status: Never smoker - Past Family History Father Family Medical History: Cancer, Diabetes Mellitus, Hypertension Additional Family Medical History / Comment(s): Father had cancer below his eye. He from a MVA. Mother Family Medical History: AFIB, Cancer, Thyroid Disorder Additional Family Medical History / Comment(s): skin CA Medications and Allergies Home Medications Medication Instructions Recorded Confirmed Type ALPRAZolam [Xanax] 0.5 mg PO BID PRN 06/17/13 10/11/18 History cycloSPORINE [Restasis] 1 drop BOTH EYES DAILY 06/17/13 10/11/18 History Carisoprodol [Soma] 350 mg PO DAILY PRN 02/09/15 10/11/18 History Meclizine [Antivert] 25 mg PO DAILY PRN 02/09/15 10/11/18 History ZOLMitriptan [Zomig] 5 mg PO DAILY PRN 02/09/15 10/11/18 History Metoprolol Tartrate [Lopressor] 50 mg PO BID 12/11/17 10/11/18 History Calcium Citrate/Vitamin D3 600 mg PO BID 07/26/18 10/11/18 History [Calcitrate + Vit D Caplet] Levothyroxine Sodium [Synthroid] 137 mcg PO QAM 09/19/18 10/11/18 History Omeprazole [PriLOSEC] 40 mg PO QAM PRN 10/11/18 10/11/18 History Allergies Allergy/AdvReac Type Severity Reaction Status Date / Time Sulfa (Sulfonamide Allergy Severe Rash/Hives Verified 10/11/18 12:21 Antibiotics) codeine AdvReac Severe Nausea & Verified 10/11/18 12:21 Vomiting meperidine HCl [From Demerol] AdvReac Nausea & Verified 10/11/18 12:21 Vomiting
[~2018-10-22 07:21] MED LIST changes: +CHLORHEXIDINE GLUCONATE 15 ML CUP MUCOUS MEM ONE; +DEXAMETHASONE SOD PHOSPHATE 10 MG/ML 1 ML VIAL IV ONE; +HEPARIN SODIUM,PORCINE 5,000 UNIT/ML 1 ML VIAL SQ ONE; -LACTATED RINGERS 1,000 ML IV SCH; -LIDOCAINE 1% 20 ML VIAL (10MG/ML) FOR IV START INTRADERMA PRN; +MIDAZOLAM 2 MG/2 ML VIAL IV PRN; +PANTOPRAZOLE 40 MG/10 ML VIAL IV ONE
[2018-10-22] MEDS: LACTATED RINGERS 1,000 ML IV SCH (07:47)
[2018-10-22] MEDS: ONDANSETRON 4 MG/2 ML VIAL IVP ONE ×2 (07:48→15:41)
[2018-10-22] MEDS ORDERED: LIDOCAINE 1% 20 ML VIAL (10MG/ML) FOR IV START INTRADERMA ONE (07:48)
[2018-10-22] MEDS ORDERED: SCOPOLAMINE 1.5MG/72HR PATCH TRANSDERM ONE (07:49)
[2018-10-22] MEDS ORDERED: ePHEDrine SULFATE/0.9% NACL/PF 50 MG/5 ML SYRINGE IV ONE (07:51)
[2018-10-22] MEDS ORDERED: KETOROLAC 30 MG/ML 1 ML VIAL ONE (07:51)
[2018-10-22] MEDS ORDERED: fentaNYL (PF) 50 MCG/ML 2 ML AMP ONE (07:51)
[2018-10-22] MEDS ORDERED: LIDOCAINE 1% INJ 10MG/ML (20 ML MDV) ONE (07:51)
[2018-10-22] MEDS ORDERED: PROPOFOL 10 MG/ML 20 ML VIAL IV ONE (07:51)
[2018-10-22] MEDS ORDERED: SUCCINYLCHOLINE CHLORIDE 100 MG/5 ML SYR IV ONE (07:51)
[2018-10-22] MEDS ORDERED: VECURONIUM 10 MG VIAL IV ONE (07:51)
[2018-10-22] MEDS ORDERED: HYDROmorphone (PF) 1 MG/ML ONE (07:51)
[2018-10-22] MEDS ORDERED: NEOSTIGMINE 1 MG/ML 10 ML VIAL ONE (07:51)
[2018-10-22] MEDS ORDERED: GLYCOPYRROLATE 0.2 MG/ML 2 ML VIAL ONE (07:51)
[2018-10-22] MEDS ORDERED: MIDAZOLAM 2 MG/2 ML VIAL ONE (07:51)
[2018-10-22] MEDS ORDERED: BUPIVACAIN-EPI 0.25%-1:200,000 30 ML VIAL SQ ONE (08:31)
[2018-10-22] MEDS ORDERED: LACTATED RINGERS 1,000 ML IV ONE ×3 (08:52→12:25)
[2018-10-22] MEDS ORDERED: NALOXONE 0.4 MG/ML 1 ML VIAL IV PRN ×2 (12:53→18:26)
[2018-10-22] MEDS ORDERED: diphenhydrAMINE 50 MG/ML 1 ML VIAL IVP PRN (12:53)
[2018-10-22] MEDS: fentaNYL (PF) 50 MCG/ML 2 ML AMP IV PRN ×2 (14:16→14:57)
[2018-10-22] MEDS ORDERED: ACETAMINOPHEN IV (For NPO) 1,000 MG in EMPTY BAG 1 BAG IVPB ONE (16:00)
[2018-10-22] MEDS: ALBUTEROL NEBULIZED 2.5 MG/3 ML INHALATION SCH ×2 (16:32→20:25)
[2018-10-22] MEDS: SIMETHICONE 40 MG/0.6 ML DROPS 2,000 MG/30 ML BOTTLE PO SCH ×2 (17:36→23:17)
--- NOTE | 2018-10-22 18:31 | P.PCN ---
Date of Procedure: 10/22/18 Description of Procedure: Date of Procedure: 10/22/18 SURGEON: LENNY OTT MD PREOPERATIVE DIAGNOSES: 1. Gastrojejunal outlet obstruction 2. Morbid obesity due to excess calories 3. Body mass index of 43.9, initial to 32.0. 4. Gastroesophageal reflux disease 5. Coronary artery disease 6. Hypothyroidism 7. Chronic pain syndrome 8. Dysphagia. 9. Ischemic cardiomyopathy 10. Osteoarthritis bilateral hips 11. Osteoarthritis bilateral knees 12. Anxiety 13. Angina 14. Supraventricular tachycardia 15. History of thyroid cancer 16. Vertigo 17. Migraines 18. Bilateral heel spurs POSTOPERATIVE DIAGNOSES: 1. Gastrojejunal outlet obstruction 2. Morbid obesity due to excess calories 3. Body mass index of 43.9, initial to 32.0. 4. Gastroesophageal reflux disease 5. Coronary artery disease 6. Hypothyroidism 7. Chronic pain syndrome 8. Dysphagia. 9. Ischemic cardiomyopathy 10. Osteoarthritis bilateral hips 11. Osteoarthritis bilateral knees 12. Anxiety 13. Angina 14. Supraventricular tachycardia 15. History of thyroid cancer 16. Vertigo 17. Migraines 18. Bilateral heel spurs OPERATION: 1. Robotic assisted da Mo Xi laparoscopic revision of gastrojejunal anastomosis with 21 mm EEA 2. Robotic assisted da Mo Xi laparoscopic partial gastrecotmy 3. Intraoperative esophagogastrojejunoscopy. Anesthesia: GETA, local Estimated Blood Loss (ml): 100 Pathology: none sent Condition: stable Disposition: floor COMPLICATIONS: NONE. Operative Findings: 1. Large gastric pouch resected for partial gastrectomy 2. Revision of gastrojejunostomy to 21 mm anvil 3. Mechanical failure of stapler requiring revision of gastrojejunal anastomosis 4. No recurrent hiatal hernia 5. Negative leak test 6. Reinforcement of anastomosis at 9, 12 and 3-o'clock INDICATIONS: The patient is a 63-year-old female who comes in with gastric outlet obstruction of her gastrojejunal anastomosis. She presents for revision of her gastrojejunostomy. Benefits and risks of the procedure were described at length. Informed consent was obtained. DESCRIPTION: The patient was brought into the operating room theater. She was placed supine. She had received heparin subcutaneously for DVT prophylaxis. Additionally she Peridex oral solution as an oral decontaminant was placed per anesthesia. After general induction, the abdomen was prepped and draped in standard sterile fashion. Ioban draping was placed along the abdomen. A robotic da Mo Xi system was prepped and primed. Incisions were proposed at 15 cm from the xiphoid. Proposed port sites were marked with indelible marker along the anterior axillary line bilaterally, mid clavicular line bilaterally with each port marked 10 cm from each other. The robotic stapler port was marked for the right midclavicular line including along the left midclavicular line. A 5 mm 0 degrees laparoscopic trocar entry was performed along the left upper quadrant. The abdomen was insufflated to 15 mmHg pressure, which she tolerated well. Diagnostic laparoscopy demonstrated no injury to bowel, viscera, or mesentery. The liver was smooth and unremarkable. An 8 mm camera port was placed left lateral to the umbilicus at the epigastrium, 15 cm distal to the xiphoid. Next, 12-mm robot stapler port was placed along the right mid abdomen. An 12 mm port was exchanged along the left upper quadrant. An 8 mm port was placed on the left lateral abdominal wall under direct visualization. Please note that the ports were placed 18 to 20 cm away from the target anatomy of the stomach. Care was taken to check that each robotic arm was safely away from collision with the bed or the patient. At the epigastrium, a medium sized Shanon liver retractor was placed under direct visualization with the Iron Dat Instructor placed over the right shoulder of the patient. The patient was repositioned in reverse Trendelenburg position at 16-degrees after lowering the bed. The robot was docked over the patient. Using grasper for arm 3, a grasper for arm 1, including vessel sealer for arm 4, the robotic system was docked and primed as described. Instruments were interchanged by the assistant reading teacher including endoscissors, the needle maintenance truck driver, and stapler. I had sat at the console. Attention was now brought to the gastrojejunostomy. The alfred limb was resected at the gastrojejunal anastomosis after dissecting free from the surrounding tissues. A 60-mm blue staple load was fired. The alfred limb was tagged to the left upper abdomen. The gastric pouch was dissected free and re-sized. The extra gastric pouch was resected using 60-mm green staple loads. The patient was then prepared for placement of a Orvil. The patient was Mallampati 2. A 21-mm Orvil was prepared for placement by the nurse processing lead. The Orvil tubing was placed anterior to the staple line of the gastric pouch and brought out through the left inferior lateral port. I re-scrubbed into the case. The robotic arms were temporarily undocked. The Orvil was then carefully and successfully navigated with the help of the nurse processing lead into the gastric pouch. The sutures were identified and divided. The tubing was from the anvil. As the Orvil had been placed, the blind jejunal limb was brought proximally into the upper abdomen after being opened. No torsion was found upon the Alfred limb. The blind jejunal limb was previously opened using cautery. The 25-mm EEA stapler was brought through the left anterior lateral port site from the left side. The EEA stapler was brought through the open jejunal limb and its needle was deployed at the antimesenteric border where the anvil were mated for approximately 1 minute upon firing. A mis-fire was identified as the anastomosis was not completed. The anvil and stapler were resected from the surrounding tissue with bleeding controlled with vessel sealer. I re-sat at the console. The gastric pouch was re-fashioned and resected using 60-mm green staple loads. Additionally, the blind jejunal limb was also re-fashioned and resected. A 21-mm Orvil was placed anterior to the staple line. The Orvil tubing was placed anterior to the staple line of the gastric pouch and brought out through the left inferior lateral port. I re-scrubbed into the case. The robotic arms were temporarily undocked. The Orvil was then carefully and successfully navigated with the help of the nurse processing lead into the gastric pouch. The sutures were identified and divided. The tubing was from the 21 mm anvil. As the Orvil had been placed, the blind jejunal limb was brought proximally into the upper abdomen. The stapler was removed after irrigating the shaft of the instrument with warm normal saline. Donuts were intact on the jejunum side but thin along the stomach side. The da Om Xi robot arms were then re-docked. I sat at the console. The open jejunal limb defect was closed using 45 mm white load after releasing a ny tension from the blind jejunal limb. Care was taken to avoid any long blind limb to avoid candycane syndrome. Reinforcement sutures were placed along the gastrojejunal anastomosis and placed along the 9:00, 12:00 and 3 o'clock position using 3-0 Vicryl. I then went to the head of the bed to perform the esophagogastrojejunoscopy and a leak test. An Olympus gastroscope was passed along the posterior oropharynx which was unremarkable for any injury to the vocal cords. The scope was passed down to the proximal portion of the pouch, whereby no active bleeding was encountered. Excellent visualization of the gastrojejunostomy anastomosis, including the Alfred limb was encountered with endoscopic image obtained. The anastomosis was found to be patent. The gastrointestinal tract was desufflated. No evidence of intraoperative leak was encountered as the gastric pouch and anastomosis were submerged under normal saline solution. The robot was then undocked. I then went back to the bedside of the patient, whereby with coordinated effort of the assistant reading teacher, irrigation was aspirated from the upper abdominal cavity. Tisseel was placed circumferentially over the anastomosis of the gastrojej unostomy. The fascial defect of the EEA stapler was closed using Pacheco Britton and 0 Vicryl. All instruments and pneumoperitoneum were evacuated from the abdominal cavity. The port correlating with the EEA stapler device was cleansed with normal saline solution and hydrogen peroxide. The rest of incisions were reapproximated using 4-0 Monocryl in an interrupted subcuticular fashion. Local anesthetic was infiltrated along the skin for postop analgesia. Liquid glue was applied to the skin. OptiFoam dressing was placed along the EEA stapler site. At the end of the procedure, needle, sponge and instrument count had been verified correct by the surgical scrub technologist. He had tolerated the procedure well and was extubated and taken to the postanesthesia unit in stable condition. Intraoperative findings were described to the patient's family.
[2018-10-22] MEDS ORDERED: ONDANSETRON 4 MG/2 ML VIAL IVP PRN (18:44)
[2018-10-22] MEDS ORDERED: HYDROmorphone 1 MG/ML 1 ML SYRINGE IVP PRN (18:45)
[2018-10-22] MEDS: ONDANSETRON 4 MG/2 ML VIAL IVP PRN (19:13)
[2018-10-22] MEDS: 0.9% NACL WITH KCL 20 MEQ/L 1,000 ML IV SCH ×2 (20:00→21:59)
[2018-10-22] MEDS: HEPARIN SODIUM,PORCINE 5,000 UNIT/ML 1 ML VIAL SQ SCH (20:00)
[2018-10-22] MEDS: fentaNYL PCA 500 MCG/50 ML BAG IV PRN (20:01)
[2018-10-22] MEDS ORDERED: METOPROLOL TARTRATE 50 MG TAB PO SCH (21:00)
[2018-10-22] MEDS: HYOSCYAMINE ORAL DROPS 1.875 MG/15 ML BOTTLE PO PRN (23:34)
[2018-10-23] MEDS: ONDANSETRON 4 MG/2 ML VIAL IVP PRN ×4 (01:57→22:15)
[2018-10-23] MEDS: 0.9% NACL WITH KCL 20 MEQ/L 1,000 ML IV SCH ×4 (04:16→22:50)
[2018-10-23] MEDS: LACTATED RINGERS 1,000 ML IV SCH (04:16)
[2018-10-23] MEDS: SIMETHICONE 40 MG/0.6 ML DROPS 2,000 MG/30 ML BOTTLE PO SCH ×3 (06:08→16:43)
[2018-10-23] MEDS: HYOSCYAMINE ORAL DROPS 1.875 MG/15 ML BOTTLE PO PRN (06:08)
[2018-10-23 07:05] LABS: HCT 35.6 % (34.0-46.0); HGB 11.6 gm/dL (11.4-16.0); MCH 27.8 pg (25.0-35.0); MCHC 32.6 g/dL (31.0-37.0); MCV 85.2 fL (80.0-100.0); Mean Platelet Volume 6.7; Platelet Count 241 k/uL (150-450); RBC 4.18 m/uL (3.80-5.40); RDW 14.3 % (11.5-15.5); WBC 7.1 k/uL (3.8-10.6)
[2018-10-23 07:34] LABS: Calcium 8.6 mg/dL (8.4-10.2); Magnesium 1.8 mg/dL (1.6-2.3); Phosphorus 3.2 mg/dL (2.5-4.5)
[2018-10-23] MEDS: PANTOPRAZOLE 40 MG/10 ML VIAL IV SCH (08:03)
[2018-10-23] MEDS: HEPARIN SODIUM,PORCINE 5,000 UNIT/ML 1 ML VIAL SQ SCH ×2 (08:03→20:35)
[2018-10-23] MEDS: cycloSPORINE 0.05% OPHTH 0.4 ML DROPERETTE BOTH EYES SCH (08:03)
[2018-10-23] MEDS: ALBUTEROL NEBULIZED 2.5 MG/3 ML INHALATION SCH ×4 (08:41→19:21)
[2018-10-23 09:09] VITALS: BMI 31.9
[2018-10-23 10:45] LABS: Band Neutrophils % 13 %; Lymphocytes # (M) 0.71 k/uL (1.0-4.8); Monocytes # (M) 0.14 k/uL (0-1.0); Neutrophils % (M) 76 %; Nucleated Red Blood Cells 0 /100 WBC (0-0); Total Cells Counted 200
[2018-10-23] MEDS ORDERED: ACETAMINOPHEN IV (For NPO) 1,000 MG in EMPTY BAG 1 BAG IVPB PRN (13:16)
--- NOTE | 2018-10-23 13:24 | P.PN ---
<Sun Brian A - Last Filed: 10/23/18 13:22> Subjective Progress Note Date: 10/23/18 CHIEF COMPLAINT: morbid obesity HISTORY OF PRESENT ILLNESS: Patient is s/p robotic revision of gastrojejunal anastomosis and partial gastrectomy performed on 10/22/18. POD #1. Patient examined at the bedside this morning. Her pain is controlled with Fentanyl PILE DRIVING SETTER pump and Tylenol. Denies nausea. Vital signs are stable. Heart rate mildly elevated this morning. She is afebrile. Tolerating ice chips. PHYSICAL EXAM: VITAL SIGNS: Reviewed. GENERAL: Well-developed in no acute distress. HEENT: No sclera icterus. Extraocular movements grossly intact. Moist buccal mucosa. Head is atraumatic, normocephalic. Hears conversational speech. No nasal drainage. NECK: Supple without lymphadenopathy. CHEST: Non-labored respirations and equal bilateral excursions. CARDIOVASCULAR: Regular rate with regular rhythm. Palpable 2+ radial pulses. ABDOMEN: Soft. Nondistended. Appropriate surgical tenderness. Surgical incision sites clean dry intact without drainage or signs of infection. MUSCULOSKELETAL: No clubbing, cyanosis or edema. NEUROLOGIC: No focal or lateralizing signs. Cranial nerves II through XII grossly intact. PSYCH: Appropriate affect. Alert and oriented to person, place and time. SKIN: Well perfused. Good skin turgor. ASSESSMENT: 1. Morbid obesity, s/p robotic revision of gastrojejunal anastomosis and partial gastrectomy 2. Body mass index of 43.9, initial. 3. Gastroesophageal reflux disease 4. Coronary artery disease 5. Hypothyroidism 6. Chronic pain syndrome 7. Dysphagia. 8. Hiatal hernia 9. Ischemic cardiomyopathy 10. Osteoarthritis bilateral hips 11. Osteoarthritis bilateral knees 12. Anxiety 13. Angina 14. Supraventricular tachycardia 15. Thyroid cancer 16. Vertigo 17. Migraines 18. Bilateral heel spurs 19. Diabetes type 2, [id number]. PLAN: 1. NPO except ice chips today. No oral medications. Continue IV fluids. Will re- eval tomorrow for possible liquid diet 2. Pain control. Continue Fentanyl PILE DRIVING SETTER pump and IV Tylenol PRN 3. Incentive spirometer 10 times an hour 4. Activity as tolerated 5. Discontinue urinary catheter Nurse practitioner note has been reviewed by physician. Signing provider agrees with the documented findings, assessment, and plan of care. Objective - Vital Signs Vital signs: Vital Signs Temp 98.6 F 10/23/18 07:00 Pulse 110 H 10/23/18 07:00 Resp 16 10/23/18 07:00 BP 129/82 10/23/18 07:00 Pulse Ox 94 L 10/23/18 08:34 Intake & Output 10/22/18 10/23/18 10/23/18 18:59 06:59 18:59 Intake Total 2350 1840 Output Total 375 800 Balance 1975 1040 Weight 80.603 kg Intake: IV 2350 Intake, IV Titration 1500 Amount 0.9% NaCl with KCl 20 Meq 1500 /l 1,000 ml @ 150 mls/hr IV .[id number] [facility] Rx#: [id number] Oral 340 Output: Urine 300 800 Estimated Blood Loss 75 Other: Voiding Method Indwelling Catheter Indwelling Catheter - Labs CBC & Chem 7: 10/23/18 06:22 10/23/18 06:22 Labs: Abnormal Lab Results - Last 24 Hours (Table) 10/23/18 Range/Units 06:22 Lymphocytes # (Manual) 0.71 L (1.0-4.8) k/uL Assessment and Plan (1) S/P gastric surgery Current Visit: Yes Status: Acute Code(s): Z98.890 - OTHER SPECIFIED POSTPROCEDURAL STATES SNOMED Code(s): 595268641 (2) GERD (gastroesophageal reflux disease) Current Visit: No Status: Acute Code(s): K21.9 - GASTRO-ESOPHAGEAL REFLUX DISEASE WITHOUT ESOPHAGITIS SNOMED Code(s): 475750023 (3) Morbid obesity Current Visit: No Status: Acute Code(s): E66.01 - MORBID (SEVERE) OBESITY DUE TO EXCESS CALORIES SNOMED Code(s): 368871491 (4) S/P gastric bypass Current Visit: No Status: Acute Code(s): Z98.84 - BARIATRIC SURGERY STATUS SNOMED Code(s): 813772538 <Nadeen Gross - Last Filed: 10/24/18 00:55> Subjective Continue hospitalization. Urine dark. May need more fluids. Continue NPO for now. Objective - Vital Signs Vital signs: Vital Signs Temp 98.5 F 10/23/18 19:33 Pulse 121 H 10/24/18 00:50 Resp 18 10/23/18 19:33 BP 145/83 10/23/18 19:33 Pulse Ox 93 L 10/23/18 19:33 Intake & Output 10/23/18 10/23/18 10/24/18 06:59 18:59 06:59 Intake Total 1840 Output Total 800 700 Balance 1040 -700 Weight 80.603 kg Intake: Intake, IV Titration 1500 Amount 0.9% NaCl with KCl 20 Meq 1500 /l 1,000 ml @ 150 mls/hr IV .Q6H40M [facility] Rx#: [id number] Oral 340 Output: Urine 800 700 Other: Voiding Method Indwelling Catheter Indwelling Catheter - Labs CBC & Chem 7: 10/23/18 23:37 10/24/18 00:16 Labs: Abnormal Lab Results - Last 24 Hours (Table) 10/23/18 10/23/18 10/23/18 Range/Units 06:22 23:37 23:37 RBC 3.54 L (3.80-5.40) m/uL Hgb 10.3 L (11.4-16.0) gm/dL Hct 30.4 L (34.0-46.0) % Lymphocytes # (Manual) 0.71 L 0.36 L (1.0-4.8) k/uL D-Dimer 7.25 H (<0.60) mg/L FEU Sodium (137-145) mmol/L Chloride (98-107) mmol/L Carbon Dioxide (22-30) mmol/L Glucose (74-99) mg/dL Plasma Lactic Acid Hubert (0.7-2.0) mmol/L Calcium (8.4-10.2) mg/dL 10/23/18 10/24/18 Range/Units 23:37 00:16 RBC (3.80-5.40) m/uL Hgb (11.4-16.0) gm/dL Hct (34.0-46.0) % Lymphocytes # (Manual) (1.0-4.8) k/uL D-Dimer (<0.60) mg/L FEU Sodium 135 L (137-145) mmol/L Chloride 108 H (98-107) mmol/L Carbon Dioxide 19 L (22-30) mmol/L Glucose 117 H (74-99) mg/dL Plasma Lactic Acid Hubert 2.9 H* (0.7-2.0) mmol/L Calcium 7.8 L (8.4-10.2) mg/dL
[2018-10-23] MEDS: METOPROLOL TARTRATE 50 MG TAB PO SCH (20:35)
[2018-10-23] MEDS: fentaNYL PCA 500 MCG/50 ML BAG IV PRN (23:09)
[2018-10-23] MEDS ORDERED: SODIUM CHLORIDE 0.9% 2,000 ML IV ONE (23:52)
[2018-10-24 00:02] LABS: Glucose,Whole Blood 95 mg/dL (75-99)
[2018-10-24 00:10] LABS: HCT 30.4 % (34.0-46.0); HGB 10.3 gm/dL (11.4-16.0); Hypochromasia Slight; MCH 29.2 pg (25.0-35.0); MCHC 33.9 g/dL (31.0-37.0); MCV 85.9 fL (80.0-100.0); Mean Platelet Volume 8.6; Platelet Count 220 k/uL (150-450); Poikilocytosis Slight; RBC 3.54 m/uL (3.80-5.40); RDW 15.4 % (11.5-15.5); WBC 4.5 k/uL (3.8-10.6)
[2018-10-24 00:51] LABS: Band Neutrophils % 21 %; Lymphocytes # (M) 0.36 k/uL (1.0-4.8); Monocytes # (M) 0.05 k/uL (0-1.0); Neutrophils % (M) 71 %; Nucleated Red Blood Cells 0 /100 WBC (0-0); Total Cells Counted 200
[2018-10-24 00:53] LABS: Calcium 7.8 mg/dL (8.4-10.2); Magnesium 1.7 mg/dL (1.6-2.3)
--- NOTE | 2018-10-24 01:01 | P.PN ---
Progress Note - Text Progress Note Date: 10/24/18 Overnight events communicated with nursing. Studies personally reviewed with my personally findings of moderate compressive bilateral atelectasis. Presence of post-surgical changes including pneumoperitoneum consistent with recent surgery. No pulmonary embolism found. Lactic acid elevated. Incentive spirometry education. IV fluid bolus for dehydration. Continue Metoprolol home medications. Continue bedrest. Continue NPO.
[2018-10-24] MEDS: SIMETHICONE 40 MG/0.6 ML DROPS 2,000 MG/30 ML BOTTLE PO SCH ×5 (02:06→23:57)
[2018-10-24 03:56] LABS: HCT 31.7 % (34.0-46.0); HGB 10.2 gm/dL (11.4-16.0); MCH 28.6 pg (25.0-35.0); MCHC 32.3 g/dL (31.0-37.0); MCV 88.7 fL (80.0-100.0); Platelet Count 235 k/uL (150-450); RBC 3.57 m/uL (3.80-5.40); RDW 15.5 % (11.5-15.5); WBC 6.8 k/uL (3.8-10.6)
[2018-10-24 04:07] LABS: African American GFR (CKD) >90 (>60 ml/min/1.73 sqM); Anion Gap 8 mmol/L; Blood Urea Nitrogen 13 mg/dL (7-17); Calcium 8.1 mg/dL (8.4-10.2); Carbon Dioxide 19 mmol/L (22-30); Chloride 110 mmol/L (98-107); Glucose 106 mg/dL (74-99); Potassium 3.9 mmol/L (3.5-5.1); Sodium 137 mmol/L (137-145)
--- NOTE | 2018-10-24 04:16 | CT ---
EXAM: CT Angiography Chest With Intravenous Contrast CLINICAL HISTORY: ITS.REASON CT Reason: ATEAM TECHNIQUE: Axial computed tomographic angiography images of the chest with intravenous contrast using pulmonary embolism protocol. CTDI is 12.3 mGy and DLP is 434.2 mGy-cm. This CT exam was performed using one or more of the following dose reduction techniques: automated exposure control, adjustment of the mA and/or kV according to patient size, and/or use of iterative reconstruction technique. MIP reconstructed images were created and reviewed. COMPARISON: No relevant prior studies available. FINDINGS: Limitations: Suboptimal bolus timing limits evaluation. Pulmonary arteries: No definitive evidence of PE. Main pulmonary artery measures up to 3.6 cm suggesting pulmonary hypertension. Aorta: No acute findings. No thoracic aortic aneurysm. Lungs: Consolidations involving both lower lobes and the lingula. Pleural space: Trace bilateral pleural effusions. No pneumothorax. Heart: Heart is at upper limits of normal. No significant pericardial effusion. No evidence of RV dysfunction. Bones/joints: No acute fracture. No dislocation. Soft tissues: Unremarkable. Lymph nodes: Shotty mediastinal and bilateral hilar lymph nodes, likely reactive. IMPRESSION: 1. No definitive evidence of PE. Main pulmonary artery measures up to 3. 6 cm suggesting pulmonary hypertension. 2. Consolidations involving both lower lobes and the lingula. Attention on follow-up after treatment is suggested to assure resolution. 3. Trace bilateral pleural effusions. <MYCVCSECTION> Critical Value Communications 10/24/18 04:28 Call Doctor Regarding Bowel Perforation with Free Air, called Dr. Anderson on 10/24 04:28 (-04:00)
--- NOTE | 2018-10-24 04:32 | CT ---
EXAM: CT Angiography Abdomen With Intravenous Contrast CLINICAL HISTORY: ITS.REASON CT Reason: ATEAM TECHNIQUE: Axial computed tomographic angiography images of the abdomen with intravenous contrast. CTDI is 15.3 mGy and DLP is 668.1 mGy-cm. This CT exam was performed using one or more of the following dose reduction techniques: automated exposure control, adjustment of the mA and/or kV according to patient size, and/or use of iterative reconstruction technique. 3D and MIP reconstructed images were created and reviewed. COMPARISON: CT of the abdomen/pelvis dated 09/12/2018. Abdominal ultrasound dated 09/12/2018. FINDINGS: Aorta: Mild vascular calcifications involving the intra-abdominal aorta. No abdominal aortic aneurysm. No dissection. Celiac trunk and mesenteric arteries: No acute findings. No occlusion or significant stenosis. Renal arteries: No acute findings. No occlusion or significant stenosis. Inferior vena cava: Flattening of the IVC suggesting hypovolemia. Liver: Hepatomegaly, measuring up to 17.8 cm in greatest craniocaudad dimension, with steatosis. Gallbladder and bile ducts: The gallbladder is distended, which may reactive. No calcified stones. No ductal dilation. Pancreas: Unremarkable. No ductal dilation. No mass. Spleen: Unremarkable. No splenomegaly. Adrenals: Unremarkable. No mass. Kidneys and ureters: Unremarkable. No hydronephrosis. No solid mass. Stomach and bowel: Patient appears to be status post gastric bypass surgery with associated postoperative changes noted in the left hemiabdomen. Small/moderate amount of intra-abdominal free air, which may be postoperative, although bowel perforation cannot be definitively excluded. Fluid is seen throughout the visualized bowel with multisegmental areas of wall thickening involving the small bowel and colon raising concern for infectious versus inflammatory enterocolitis. Colonic diverticulosis. No obstruction. Intraperitoneal space: Small/moderate amount of intra-abdominal free fluid. Bones/joints: No acute fracture. No dislocation. Soft tissues: Unremarkable. No mass. Lymph nodes: No significant lymphadenopathy. IMPRESSION: 1. Patient appears to be status post gastric bypass surgery with associated postoperative changes noted in the left hemiabdomen. Small/moderate amount of intra-abdominal free air, which may be postoperative, although bowel perforation cannot be definitively excluded. Correlate clinically. 2. Fluid is seen throughout the visualized bowel with multisegmental areas of wall thickening involving the small bowel and colon raising concern for infectious versus inflammatory enterocolitis. 3. Small/moderate amount of intra-abdominal free fluid. 4. The gallbladder is distended, which may reactive. Right upper quadrant ultrasound recommended for further evaluation, if clinically indicated. 5. Colonic diverticulosis. 6. Flattening of the IVC suggesting hypovolemia. 7. Hepatomegaly with steatosis. <MYCVCSECTION> Critical Value Communications 10/24/18 04:28 Call Doctor Regarding Bowel Perforation with Free Air, called Dr. Anderson on 10/24 04:28 (-04:00)
[2018-10-24 04:44] LABS: Band Neutrophils % 14 %; Lymphocytes # (M) 0.68 k/uL (1.0-4.8); Monocytes # (M) 0.34 k/uL (0-1.0); Neutrophils % (M) 71 %; Nucleated Red Blood Cells 0 /100 WBC (0-0); Total Cells Counted 200
[2018-10-24] MEDS ORDERED: SODIUM CHLORIDE 0.9% 2,000 ML IV ONE (05:44)
[2018-10-24] MEDS: ACETAMINOPHEN IV (For NPO) 1,000 MG in EMPTY BAG 1 BAG IVPB SCH ×4 (06:01→22:59)
[2018-10-24] MEDS: ALBUTEROL NEBULIZED 2.5 MG/3 ML INHALATION SCH ×4 (08:47→20:30)
[2018-10-24] MEDS: cycloSPORINE 0.05% OPHTH 0.4 ML DROPERETTE BOTH EYES SCH (09:00)
[2018-10-24] MEDS: HEPARIN SODIUM,PORCINE 5,000 UNIT/ML 1 ML VIAL SQ SCH ×2 (09:00→20:22)
[2018-10-24] MEDS: PANTOPRAZOLE 40 MG/10 ML VIAL IV SCH (09:00)
[2018-10-24] MEDS: METOPROLOL TARTRATE 50 MG TAB PO SCH ×2 (09:01→20:22)
[2018-10-24] MEDS: MAGNESIUM SULFATE-D5W PMX 1 GM in DEXTROSE/WATER 1 100ML.BAG IVPB SCH ×2 (09:55→11:04)
--- NOTE | 2018-10-24 13:38 | P.PN ---
<Sun Brian A - Last Filed: 10/24/18 13:26> Subjective Progress Note Date: 10/24/18 CHIEF COMPLAINT: morbid obesity HISTORY OF PRESENT ILLNESS: Patient is s/p robotic revision of gastrojejunal anastomosis and partial gastrectomy performed on 10/22/18. POD #2. Patient developed respiratory distress yesterday evening. She underwent CTA negative for PE, but did reveal bilateral atelectasis. Patient examined this morning at the bedside. She reports feeling better than yesterday evening but still unwell this morning. She complains of pain 5/10. Using Fentanyl PHYSICAL INTEGRATION PRACTITIONER pump along with IV Tylenol. Denies nausea or vomiting. Tolerating ice chips. She states she has no appetite and is not interested in advancing her diet at this time. She is currently on 4L NC. She is receiving albuterol nebulizer treatments QID. She is using incentive spirometer. Pulling 500cc. Encouraged use 10 times an hour. Patient states she has been ambulating to the bathroom. She is going to get into the chair later this morning. Vital signs stable. She is afebrile. Heart rate low 90s. Receiving Metoprolol 50mg PO BID. PHYSICAL EXAM: VITAL SIGNS: Reviewed. GENERAL: Well-developed in no acute distress. Slightly diaphoretic. HEENT: No sclera icterus. Extraocular movements grossly intact. Moist buccal mucosa. Head is atraumatic, normocephalic. Hears conversational speech. No nasal drainage. NECK: Supple without lymphadenopathy. CHEST: Non-labored respirations and equal bilateral excursions. On 4L NC. CARDIOVASCULAR: Regular rate with regular rhythm. Palpable 2+ radial pulses. ABDOMEN: Soft. Nondistended. Appropriate surgical tenderness. Surgical incision sites clean dry intact without drainage or signs of infection. MUSCULOSKELETAL: No clubbing, cyanosis or edema. NEUROLOGIC: No focal or lateralizing signs. Cranial nerves II through XII grossly intact. PSYCH: Appropriate affect. Alert and oriented to person, place and time. SKIN: Well perfused. Good skin turgor. ASSESSMENT: 1. Morbid obesity, s/p robotic revision of gastrojejunal anastomosis and partial gastrectomy 2. Body mass index of 43.9, initial. 3. Gastroesophageal reflux disease 4. Coronary artery disease 5. Hypothyroidism 6. Chronic pain syndrome 7. Dysphagia. 8. Hiatal hernia 9. Ischemic cardiomyopathy 10. Osteoarthritis bilateral hips 11. Osteoarthritis bilateral knees 12. Anxiety 13. Angina 14. Supraventricular tachycardia 15. Thyroid cancer 16. Vertigo 17. Migraines 18. Bilateral heel spurs 19. Diabetes type 2, [id number] 20. Acute hypoxic respiratory failure requiring supplemental oxygen secondary to postoperative bilateral atelectasis PLAN: 1. NPO except ice chips and medications today. UGI tomorrow morning. 2. Pain control. Continue Fentanyl PHYSICAL INTEGRATION PRACTITIONER pump and IV Tylenol PRN 3. Incentive spirometer 10 times an hour. RN and RT to re-educate patient on proper use of IS. Wean oxygen as tolerated to maintain O2 greater than 92%. Continue Albuterol treatments 4. Activity as tolerated 5. 2L fluid bolus ordered this AM. Continue maintenance IV fluids 6. Strict I&O 7. Replace magnesium 2 gram Nurse practitioner note has been reviewed by physician. Signing provider agrees with the documented findings, assessment, and plan of care. Objective - Vital Signs Vital signs: Vital Signs Temp 98 F 10/24/18 08:07 Pulse 92 10/24/18 11:52 Resp 16 10/24/18 08:07 BP 114/73 10/24/18 08:07 Pulse Ox 92 L 10/24/18 11:55 Intake & Output 10/23/18 10/24/18 10/24/18 18:59 06:59 18:59 Output Total 700 Balance -700 Weight 80.603 kg Output: Urine 700 Other: Voiding Method Indwelling Catheter # Voids 2 - Labs CBC & Chem 7: 10/24/18 03:38 10/24/18 03:38 Labs: Abnormal Lab Results - Last 24 Hours (Table) 10/23/18 10/23/18 10/23/18 Range/Units 23:37 23:37 23:37 RBC 3.54 L (3.80-5.40) m/uL Hgb 10.3 L (11.4-16.0) gm/dL Hct 30.4 L (34.0-46.0) % Lymphocytes # (Manual) 0.36 L (1.0-4.8) k/uL D-Dimer 7.25 H (<0.60) mg/L FEU Sodium (137-145) mmol/L Chloride (98-107) mmol/L Carbon Dioxide (22-30) mmol/L Glucose (74-99) mg/dL Plasma Lactic Acid Hubert 2.9 H* (0.7-2.0) mmol/L Calcium (8.4-10.2) mg/dL 10/24/18 10/24/18 10/24/18 Range/Units 00:16 03:38 03:38 RBC 3.57 L (3.80-5.40) m/uL Hgb 10.2 L (11.4-16.0) gm/dL Hct 31.7 L (34.0-46.0) % Lymphocytes # (Manual) 0.68 L (1.0-4.8) k/uL D-Dimer (<0.60) mg/L FEU Sodium 135 L (137-145) mmol/L Chloride 108 H 110 H (98-107) mmol/L Carbon Dioxide 19 L 19 L (22-30) mmol/L Glucose 117 H 106 H (74-99) mg/dL Plasma Lactic Acid Hubert (0.7-2.0) mmol/L Calcium 7.8 L 8.1 L (8.4-10.2) mg/dL Assessment and Plan (1) S/P gastric surgery Current Visit: Yes Status: Acute Code(s): Z98.890 - OTHER SPECIFIED POSTPROCEDURAL STATES SNOMED Code(s): 875037665 (2) GERD (gastroesophageal reflux disease) Current Visit: No Status: Acute Code(s): K21.9 - GASTRO-ESOPHAGEAL REFLUX DISEASE WITHOUT ESOPHAGITIS SNOMED Code(s): 409840445 (3) Morbid obesity Current Visit: No Status: Acute Code(s): E66.01 - MORBID (SEVERE) OBESITY DUE TO EXCESS CALORIES SNOMED Code(s): 850786698 (4) S/P gastric bypass Current Visit: No Status: Acute Code(s): Z98.84 - BARIATRIC SURGERY STATUS SNOMED Code(s): 474270562 <Nadeen Gross - Last Filed: 10/24/18 17:09> Subjective Patient seen and evaluated and feeling better today than yesterday. Nausea now resolved. Fever curve improved. Patient asked to demonstrate incentive spirometry use with some difficulty with performance. More education advised. CT of the chest, abdomen, and pelvis personally reviewed and discussed with radiologist. At the time of the study, radiologist was not aware of recent laparoscopic surgery for which residual pneumoperitoneum is expected. Patient has responded to IV fluid boluses consistent with moderate dehydration. She had reflexive tachycardia for missed dose of metoprolol over 2 days. No peritonitis on exam. Plan for UGI tomorrow prior to start of bariatric clears. Hold Heparin for history of diffuse oozing during surgery. Mechanical DVT prophylaxis. Objective - Vital Signs Vital signs: Vital Signs Temp 97.5 F L 10/24/18 14:50 Pulse 100 10/24/18 16:59 Resp 15 10/24/18 14:50 BP 95/58 10/24/18 14:50 Pulse Ox 95 10/24/18 14:50 Intake & Output 10/23/18 10/24/18 10/24/18 18:59 06:59 18:59 Output Total 700 200 Balance -700 -200 Weight 80.603 kg Output: Urine 700 200 Other: Voiding Method Indwelling Catheter # Voids 2 - Labs CBC & Chem 7: 10/24/18 03:38 10/24/18 03:38 Labs: Abnormal Lab Results - Last 24 Hours (Table) 10/23/18 10/23/18 10/23/18 Range/Units 23:37 23:37 23:37 RBC 3.54 L (3.80-5.40) m/uL Hgb 10.3 L (11.4-16.0) gm/dL Hct 30.4 L (34.0-46.0) % Lymphocytes # (Manual) 0.36 L (1.0-4.8) k/uL D-Dimer 7.25 H (<0.60) mg/L FEU Sodium (137-145) mmol/L Chloride (98-107) mmol/L Carbon Dioxide (22-30) mmol/L Glucose (74-99) mg/dL Plasma Lactic Acid Hubert 2.9 H* (0.7-2.0) mmol/L Calcium (8.4-10.2) mg/dL 10/24/18 10/24/18 10/24/18 Range/Units 00:16 03:38 03:38 RBC 3.57 L (3.80-5.40) m/uL Hgb 10.2 L (11.4-16.0) gm/dL Hct 31.7 L (34.0-46.0) % Lymphocytes # (Manual) 0.68 L (1.0-4.8) k/uL D-Dimer (<0.60) mg/L FEU Sodium 135 L (137-145) mmol/L Chloride 108 H 110 H (98-107) mmol/L Carbon Dioxide 19 L 19 L (22-30) mmol/L Glucose 117 H 106 H (74-99) mg/dL Plasma Lactic Acid Hubert (0.7-2.0) mmol/L Calcium 7.8 L 8.1 L (8.4-10.2) mg/dL
--- NOTE | 2018-10-24 14:42 | CDI ---
Documentation Clarification Form Date: 10/24/2018 2:15:06 PM From: Odette Madrigal CCS, CCDS Admit Date: 10/22/2018 7:21:00 AM Patient Name: Eulalia Armstrong Visit Number: [id number] Discharge Date: ATTENTION: The Clinical Documentation Specialists (CDI) and [facility] Coding Staff appreciate your assistance in clarifying documentation. Please respond to the clarification below the line at the bottom and electronically sign. The CDI & [facility] Coding staff will review the response and follow-up if needed. Please note: Queries are made part of the Legal Health Record. If you have any questions, please contact the author of this message via ITS. Dr. Nadeen Gross: On POD #2, the patient developed respiratory distress yesterday evening. CT chest revealed bilateral atelectasis. Per the 911 Surgery Progress Note: Acute hypoxic respiratory failure requiring supplemental oxygen secondary to postoperative bilateral atelectasis. Patients Admitting Diagnosis: Morbid Obesity Post-Operative Diagnosis: Same Procedure performed: Robotic revision of gastrojejunal anastomosis & partial gastrectomy. History/Risk Factors: Morbid obesity w/prev BMI 43.9, GERD, CAD, Hypothyroidism, Chronic pain syndrome, Hiatal hernia, Ischemic Cardiomyopathy, OA bilateral hips & knees, Anxiety, Angina, SVT, Thyroid CA, Migraines, NIDDM II. Clinical Indicators: VS: PO 91 on 911 on 8L high flow O2, Temp 100.2^, P 122^, R 17 (shallow) Treatment: O2 high flow 6-8L nc, IV Tylenol, IV fluid bolus, IV Mag/Sulfate, IV Iron In order to accurately reflect this patients severity of illness, please clarify if the post-operative acute hypoxic respiratory failure is: An expected post-procedural or post-surgical condition, please specify reason or related comorbidity. An unexpected post-procedural or post-surgical condition related to surgical care (a complication of care) An unexpected post-procedural or post-surgical condition, related to the patients underlying medical comorbidities Other, please specify Unable to determine (Last Revision: May 2018) A pO2 less than 60 mm Hg measured by arterial blood gas (ABG) on room air is the gold standard for the diagnosis of acute hypoxemic respiratory failure (excluding patients with chronic respiratory failure whose baseline pO2 is often less than 60 mm Hg) ABG was not obtained. Patient is not mechanically ventilated I DO NOT AGREE WITH ABOVE DIAGNOSIS ABOVE. Atelectasis is common elias-operative especially when patient's do not use their incentive spirometer as prescribed. Atelectasis risk associated with patient condition not using incentive spirometry and consistent with risks of morbid obesity. RADHA 10/24/18 17:40 ELANAD
[2018-10-24] MEDS: SODIUM FERRIC GLUCONAT-SUCROSE 125 MG in SODIUM CHLORIDE 0.9% 100 ML IVPB SCH (15:28)
[2018-10-24] MEDS: 0.9% NACL WITH KCL 20 MEQ/L 1,000 ML IV SCH ×2 (15:29→23:49)
[2018-10-24] MEDS: LACTATED RINGERS 1,000 ML IV SCH (19:46)
[2018-10-24] MEDS: fentaNYL PCA 500 MCG/50 ML BAG IV PRN (23:16)
[2018-10-25] MEDS: 0.9% NACL WITH KCL 20 MEQ/L 1,000 ML IV SCH ×2 (02:51→12:48)
--- NOTE | 2018-10-25 03:56 | P.PN ---
Progress Note - Text Progress Note Date: 10/25/18 patient was asleep at time of evaluation, i spoke with RN, currently patient seems to be resting , and oxygen saturation is stable with high flow oxygen at 6-7 Lpm patient will be reevaluated in AM by morning team
[2018-10-25] MEDS: SIMETHICONE 40 MG/0.6 ML DROPS 2,000 MG/30 ML BOTTLE PO SCH ×3 (05:43→17:53)
[2018-10-25] MEDS: PANTOPRAZOLE 40 MG/10 ML VIAL IV SCH (07:30)
[2018-10-25] MEDS: HEPARIN SODIUM,PORCINE 5,000 UNIT/ML 1 ML VIAL SQ SCH (07:31)
[2018-10-25] MEDS: METOPROLOL TARTRATE 50 MG TAB PO SCH ×2 (07:31→20:39)
[2018-10-25 07:34] LABS: Basophils % (A) 0 %; Eosinophils % (A) 0 %; HCT 28.2 % (34.0-46.0); HGB 9.3 gm/dL (11.4-16.0); Lymphocytes # (A) 0.5 k/uL (1.0-4.8); Lymphocytes % (A) 5 %; MCH 28.7 pg (25.0-35.0); MCV 87.1 fL (80.0-100.0); Mean Platelet Volume 7.6; Monocytes # (A) 0.3 k/uL (0-1.0); Monocytes % (A) 3 %; Neutrophils # (A) 7.8 k/uL (1.3-7.7); Neutrophils % (A) 89 %; Platelet Count 200 k/uL (150-450); RBC 3.24 m/uL (3.80-5.40); RDW 15.1 % (11.5-15.5); WBC 8.8 k/uL (3.8-10.6)
[2018-10-25 08:00] LABS: African American GFR (CKD) >90 (>60 ml/min/1.73 sqM); Anion Gap 6 mmol/L; Blood Urea Nitrogen 13 mg/dL (7-17); Calcium 8.1 mg/dL (8.4-10.2); Carbon Dioxide 20 mmol/L (22-30); Chloride 113 mmol/L (98-107); Glucose 92 mg/dL (74-99); Potassium 4.2 mmol/L (3.5-5.1); Sodium 139 mmol/L (137-145)
[2018-10-25] MEDS ORDERED: PIPERACILLIN-TAZOBACTAM 3.375 GM in SODIUM CHLORIDE 0.9% 100 ML IVPB SCH (08:00)
[2018-10-25] MEDS: ALBUTEROL NEBULIZED 2.5 MG/3 ML INHALATION SCH ×4 (08:04→19:17)
[2018-10-25] MEDS ORDERED: SODIUM FERRIC GLUCONAT-SUCROSE 125 MG in SODIUM CHLORIDE 0.9% 100 ML IVPB SCH (09:00)
--- NOTE | 2018-10-25 09:59 | FL ---
EXAMINATION TYPE: FL UGI w esophagus DATE OF EXAM: 10/25/2018 COMPARISON: CTA abdomen and pelvis [address] September 12, 2018 HISTORY: Complex history of lap band for 16 years. Lap band removed August last year with gastric bypas s surgery November last year. Patient had surgical revision of bypass 3 days ago due to prominent pouc h. Only symptoms of weakness currently. TECHNIQUE: A single contrast UGI study is performed. A total of 56 seconds of fluoroscopic time was utilized during procedure. Isovue 370 is given. 60 images are saved. FINDINGS: Generation Engineer image of the abdomen was not performed. The esophagus shows some dysmotility with diffuse dilatation and suboptimal peristalsis. There is goo d flow of contrast at diaphragmatic hiatus as site of surgery into gastric remnant. There is good sara w of contrast through anastomosis into the efferent small bowel loop study. There is no evidence of l eak. Small amount of pneumoperitoneum below right hemidiaphragm correlates with history of recent umberto oral 3 days earlier and correlates with CT 2 days earlier. IMPRESSION: No evidence of leak or obstruction status post gastric bypass revision 3 days earlier.
[2018-10-25] MEDS: SODIUM FERRIC GLUCONAT-SUCROSE 125 MG in SODIUM CHLORIDE 0.9% 100 ML IVPB SCH (10:04)
[2018-10-25] MEDS: ONDANSETRON 4 MG/2 ML VIAL IVP PRN (10:12)
--- NOTE | 2018-10-25 11:20 | XR ---
EXAMINATION TYPE: XR chest 1V portable DATE OF EXAM: 10/25/2018 COMPARISON: CT 10/23/2018 HISTORY: Shortness of breath TECHNIQUE: Single frontal view of the chest is obtained. FINDINGS: Bibasilar increased density persists, there is blunting of the costophrenic angles. No frank dent pneumothorax. Heart is obscured, there are air bronchograms in the retrocardiac region. Aorta is dense. Pneumoperitoneum is thought to persist. IMPRESSION: Pneumoperitoneum. Bibasilar effusions and associated atelectasis, correlate to exclude pn eumonia.
--- NOTE | 2018-10-25 11:51 | P.CONS ---
History of Present Illness - Reason for Consult Consult date: 10/25/18 Medical management Requesting physician: Nadeen Gross - Chief Complaint Shortness of breath - History of Present Illness 63-year-old female with history of obesity status post gastric sleeve with removal and revision, GERD, history of SVT, thyroid cancer on Synthroid presents to [facility] for revision of her gastric pouch. 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 Patient underwent robotic revision of gastrojejunal anastomosis and partial gastrectomy on 10/22/2018. [facility] has been consulted for medical management of this patient. Patient was seen and examined. No acute events overnight. Patient reports shortness of breath since getting her procedure. Patient reports feeling dyspneic during her previous 2 surgical admissions as well due to aspiration and atelectasis. Patient states that her breathing is worsened with exertion. Patient also complains of left-sided abdominal pain, 5 out of 10 in severity. She is currently nothing by mouth on ice chips. Patient denies any headache or lower extremity edema. She reports some nausea but no vomiting. Patient reports fever that was on Monday night along with chills but no further episodes since. She denies any cough, chest pain or palpitations. No problems with urination. Patient reports no bowel movement since Monday, neither passing gas. She describes some lightheadedness when standing up too quickly. Review of Systems Pertinent positives and negatives as discussed in HPI, a complete review of systems was performed and all other systems are negative. Past Medical History Past Medical History: Cancer, Chest Pain / Angina, Hypertension, Supraventricular Tachycardia (SVT), Thyroid Disorder Additional Past Medical History / Comment(s): Other HX: esophagial spasms, thyroid cancer, MIGRAINES. DEGENERATIVE JOINT DISEASE. VERTIGO,Precancerous lesions removed from face History of Any Multi-Drug Resistant Organisms: None Reported Past Surgical History: Back Surgery, Bariatric Surgery, Hysterectomy, Joint Replacement, Orthopedic Surgery, Tubal Ligation Additional Past Surgical History / Comment(s): 02/16/15 Total R knee arthroplasty. Other sx: LAP BAND (2002). HEART CATH-CLEAR X 2, THYROIDECTOMY D/T CA/, DISCETOMY L5-S1, LT KNEE ARTHROSCOPY, BILATERAL HEEL SPURS. BENIGN TUMOR REMOVED FROM LEFT EYE,Lt Rot Cuff,sinuplasty lap band removal 08-14-17 gastric bypass 12-11-17 Past Anesthesia/Blood Transfusion Reactions: Motion Sickness, Postoperative Nausea & Vomiting (PONV) Additional Past Anesthesia/Blood Transfusion Reaction / Comm: Hx Esophageal spasms,. MOTHER AND DAUGHTER HAVE PONV,no hx blood transfusion Past Psychological History: No Psychological Hx Reported Additional Psychological History / Comment(s): Pt resides with her spouse. She is independent. She drives. Smoking Status: Never smoker Past Alcohol Use History: None Reported Past Drug Use History: None Reported - Past Family History Father Family Medical History: Cancer, Diabetes Mellitus, Hypertension Additional Family Medical History / Comment(s): Father had cancer below his eye. He from a MVA. Mother Family Medical History: AFIB, Cancer, Thyroid Disorder Additional Family Medical History / Comment(s): skin CA Medications and Allergies Home Medications Medication Instructions Recorded Confirmed Type ALPRAZolam [Xanax] 0.5 mg PO BID PRN 06/17/13 10/22/18 History cycloSPORINE [Restasis] 1 drop BOTH EYES DAILY 06/17/13 10/22/18 History Carisoprodol [Soma] 350 mg PO DAILY PRN 02/09/15 10/22/18 History Meclizine [Antivert] 25 mg PO DAILY PRN 02/09/15 10/22/18 History ZOLMitriptan [Zomig] 5 mg PO DAILY PRN 02/09/15 10/22/18 History Metoprolol Tartrate [Lopressor] 50 mg PO BID 12/11/17 10/22/18 History Calcium Citrate/Vitamin D3 600 mg PO BID 07/26/18 10/22/18 History [Calcitrate + Vit D Caplet] Levothyroxine Sodium [Synthroid] 137 mcg PO QAM 09/19/18 10/22/18 History Omeprazole [PriLOSEC] 40 mg PO QAM PRN 10/11/18 10/22/18 History Allergies Allergy/AdvReac Type Severity Reaction Status Date / Time Sulfa (Sulfonamide Allergy Severe Rash/Hives Verified 10/22/18 18:29 Antibiotics) codeine AdvReac Severe Nausea & Verified 10/22/18 18:29 Vomiting meperidine HCl [From Demerol] AdvReac Nausea & Verified 10/22/18 18:29 Vomiting Physical Exam Vitals: Vital Signs Temp Pulse Pulse Resp BP Pulse Ox 10/25/18 10:13 107 H 96 10/25/18 08:15 88 10/25/18 08:04 88 96 10/25/18 07:46 110 H 10/25/18 07:37 107 H 94 L 10/25/18 07:00 97.5 F L 125 H 16 122/76 92 L 10/25/18 01:06 97.7 F 92 16 99/65 92 L 10/24/18 23:59 106 H 10/24/18 23:58 96 10/24/18 22:39 92 L 10/24/18 22:38 92 L 10/24/18 20:50 115 H 10/24/18 20:32 117 H 10/24/18 19:04 97.5 F L 120 H 20 111/68 88 L 10/24/18 17:59 97.9 F 124 H 18 104/66 92 L 10/24/18 17:46 93 L 10/24/18 16:59 100 10/24/18 16:41 100 10/24/18 14:50 97.5 F L 110 H 15 95/58 95 10/24/18 12:05 101 H 10/24/18 11:55 92 L 10/24/18 11:52 99 Intake and Output 10/24/18 10/25/18 10/25/18 22:59 06:59 14:59 Intake Total 240 Output Total 500 400 Balance -500 240 -400 Intake: Oral 240 Output: Urine 500 400 Other: Voiding Method Toilet # Voids 1 2 General: [non toxic], [mild distress on 4 L NC], [appears at stated age] Derm: [warm], [dry] Head: [atraumatic], [normocephalic], [symmetric] Eyes: [EOMI], [no lid lag], [anicteric sclera] Mouth: [no lip lesion], [mucus membranes moist] Cardiovascular: [S1S2 reg], [tachycardia], [positive DP pulse bilateral], Lungs: [CTA bilateral], [no rhonchi, no rales] , [no accessory muscle use] Abdominal: [soft], [tenderness to palpation in the left lower quadrant without rebound], [no guarding], [no appreciable organomegaly] Ext: [no gross muscle atrophy], [no edema], [no contractures] Neuro: [no focal neuro deficits] Psych: [Alert], [oriented], [appropriate affect] Results CBC & Chem 7: 10/25/18 06:53 10/25/18 06:53 Labs: Abnormal Lab Results - Last 24 Hours (Table) 10/25/18 10/25/18 Range/Units 06:53 06:53 RBC 3.24 L (3.80-5.40) m/uL Hgb 9.3 L (11.4-16.0) gm/dL Hct 28.2 L (34.0-46.0) % Neutrophils # 7.8 H (1.3-7.7) k/uL Lymphocytes # 0.5 L (1.0-4.8) k/uL Chloride 113 H (98-107) mmol/L Carbon Dioxide 20 L (22-30) mmol/L Calcium 8.1 L (8.4-10.2) mg/dL Microbiology - Last 24 Hours (Table) 10/24/18 00:22 Blood Culture - Preliminary Blood No Growth after 24 hours Assessment and Plan Assessment: Assessment and Plan Hypoxia post surgery likely related to atelectasis Tachycardia likely related to pain and hypoxia, history of SVT Fever of 100.2 Fahrenheit on 10/24/2018, afebrile since Hypothyroidism Status post robotic revision of gastrojejunal anastomosis and partial gastrectomy Resolved: Lactic acidosis Currently mid 90s on 4 L NC. Elevated d-dimer, CTA chest rules out PE. Chest x-ray this morning shows bibasilar effusions and associated atelectasis. Plans: Albuterol neb scheduled. Incentive spirometry. Will discontinue IVF and encourage hydration. O2 per NC to maintain O2 saturation greater than 92%. Attempt to wean oxygen. Follow pulmonology consultation. Heart rate 107. History of SVT. Plans: Adequate pain management. Continue metoprolol. Follow EKG. T-max 100.2 10/24/2018, afebrile since. Tachycardic during admission. No leukocytosis. Lactic acid 2.9-0.9. CT abdomen and pelvis shows wall thickening concerns for enterocolitis, distention of gallbladder may be reactive. Does not meet sepsis criteria. On Cefazolin over the last 3 days, switched to Zosyn today. Blood cultures prelim negative at 24 hours. Plans: Possibly reactive and not related to infection. Continue Zosyn, antibiotics per surgery. Follow final blood cultures. Plans: Resume Synthroid when able to eat. POD 3. Barium swallow done today shows no evidence of leak or obstruction. Plans: Management as per surgery. Zofran as needed for nausea or vomiting. Continue Protonix IV. Simethicone for bloating. Patient names her Conrad Armstrong decision-maker in the case that she can't make decisions for himself. Patient reiterates wanting to remain full code at this time. Thank you for this consult. Please call with any additional questions or concerns.
--- NOTE | 2018-10-25 12:30 | P.PN ---
<Sun Brian A - Last Filed: 10/25/18 12:25> Subjective Progress Note Date: 10/25/18 CHIEF COMPLAINT: morbid obesity HISTORY OF PRESENT ILLNESS: Patient is s/p robotic revision of gastrojejunal anastomosis and partial gastrectomy performed on 10/22/18. POD #3. Patient examined this morning. She is sitting up in the chair. She reports feeling slightly better than yesterday. Pain controlled with Fentanyl SAS DEVELOPER ANALYST and IV Tylenol. Rating pain 4 or 5 out of 10. She remains on NC. Currently on 5L. Using IS. Pulling 500cc. Voiding without difficulty. Esophagram completed this mornin g negative for leak or obstruction. She's been tolerating ice chips. Denies nausea or vomiting. WBC 8.8. Hemoglobin 9.3. Potassium 4.2. PHYSICAL EXAM: VITAL SIGNS: Reviewed. GENERAL: Well-developed in no acute distress. HEENT: No sclera icterus. Extraocular movements grossly intact. Moist buccal mucosa. Head is atraumatic, normocephalic. Hears conversational speech. No nasal drainage. NECK: Supple without lymphadenopathy. CHEST: Non-labored respirations and equal bilateral excursions. On 5L NC. CARDIOVASCULAR: Regular rate with regular rhythm. Palpable 2+ radial pulses. ABDOMEN: Soft. Nondistended. Appropriate surgical tenderness. Surgical incision sites clean dry intact without drainage or signs of infection. MUSCULOSKELETAL: No clubbing, cyanosis or edema. NEUROLOGIC: No focal or lateralizing signs. Cranial nerves II through XII grossly intact. PSYCH: Appropriate affect. Alert and oriented to person, place and time. SKIN: Well perfused. Good skin turgor. ASSESSMENT: 1. Morbid obesity, s/p robotic revision of gastrojejunal anastomosis and partial gastrectomy 2. Body mass index of 43.9, initial. 3. Gastroesophageal reflux disease 4. Coronary artery disease 5. Hypothyroidism 6. Chronic pain syndrome 7. Dysphagia. 8. Hiatal hernia 9. Ischemic cardiomyopathy 10. Osteoarthritis bilateral hips 11. Osteoarthritis bilateral knees 12. Anxiety 13. Angina 14. Supraventricular tachycardia 15. Thyroid cancer 16. Vertigo 17. Migraines 18. Bilateral heel spurs 19. Diabetes type 2, [id number] 20. Hypoxia requiring supplemental oxygen secondary to postoperative bilateral atelectasis PLAN: 1. Begin bariatric clear liquid diet 2. Pain control. Continue Fentanyl SAS DEVELOPER ANALYST pump and IV Tylenol PRN 3. Incentive spirometer 10 times an hour. Wean oxygen as tolerated to maintain O2 greater than 92%. Continue Albuterol treatments. Pulmonary consulted for further evaluation. 4. Activity as tolerated 5. Continue maintenance IV fluids 6. Strict I&O Nurse practitioner note has been reviewed by physician. Signing provider agrees with the documented findings, assessment, and plan of care. Objective - Vital Signs Vital signs: Vital Signs Temp 97.5 F L 10/25/18 07:00 Pulse 107 H 10/25/18 10:13 Resp 16 10/25/18 07:00 BP 122/76 10/25/18 07:00 Pulse Ox 96 10/25/18 10:13 Intake & Output 10/24/18 10/25/18 10/25/18 18:59 06:59 18:59 Intake Total 240 Output Total 200 300 400 Balance -200 -60 -400 Intake: Oral 240 Output: Urine 200 300 400 Other: Voiding Method Toilet # Voids 2 - Labs CBC & Chem 7: 10/25/18 06:53 10/25/18 06:53 Labs: Abnormal Lab Results - Last 24 Hours (Table) 10/25/18 10/25/18 Range/Units 06:53 06:53 RBC 3.24 L (3.80-5.40) m/uL Hgb 9.3 L (11.4-16.0) gm/dL Hct 28.2 L (34.0-46.0) % Neutrophils # 7.8 H (1.3-7.7) k/uL Lymphocytes # 0.5 L (1.0-4.8) k/uL Chloride 113 H (98-107) mmol/L Carbon Dioxide 20 L (22-30) mmol/L Calcium 8.1 L (8.4-10.2) mg/dL Microbiology - Last 24 Hours (Table) 10/24/18 00:22 Blood Culture - Preliminary Blood No Growth after 24 hours Assessment and Plan (1) S/P gastric surgery Current Visit: Yes Status: Acute Code(s): Z98.890 - OTHER SPECIFIED POSTPROCEDURAL STATES SNOMED Code(s): 149355279 (2) GERD (gastroesophageal reflux disease) Current Visit: No Status: Acute Code(s): K21.9 - GASTRO-ESOPHAGEAL REFLUX DISEASE WITHOUT ESOPHAGITIS SNOMED Code(s): 762721535 (3) Morbid obesity Current Visit: No Status: Acute Code(s): E66.01 - MORBID (SEVERE) OBESITY DUE TO EXCESS CALORIES SNOMED Code(s): 281536354 (4) S/P gastric bypass Current Visit: No Status: Acute Code(s): Z98.84 - BARIATRIC SURGERY STATUS SNOMED Code(s): 120127909 <Nadeen Gross N - Last Filed: 10/25/18 23:35> Subjective Additional consultants obtained including medicine and pulmonary for medical care. Antibiotics switched to Zosyn. Incentive spirometry education advised. Objective - Vital Signs Vital signs: Vital Signs Temp 98.4 F 10/25/18 20:10 Pulse 135 H 10/25/18 20:10 Resp 16 10/25/18 20:10 BP 141/82 10/25/18 20:10 Pulse Ox 91 L 10/25/18 20:10 Intake & Output 10/25/18 10/25/18 10/26/18 06:59 18:59 06:59 Intake Total 240 480 Output Total 300 1100 Balance -60 -1100 480 Intake: Oral 240 480 Output: Urine 300 1100 Other: Voiding Method Toilet Toilet # Voids 2 - Labs CBC & Chem 7: 10/25/18 06:53 10/25/18 06:53 Labs: Abnormal Lab Results - Last 24 Hours (Table) 10/25/18 10/25/18 Range/Units 06:53 06:53 RBC 3.24 L (3.80-5.40) m/uL Hgb 9.3 L (11.4-16.0) gm/dL Hct 28.2 L (34.0-46.0) % Neutrophils # 7.8 H (1.3-7.7) k/uL Lymphocytes # 0.5 L (1.0-4.8) k/uL Chloride 113 H (98-107) mmol/L Carbon Dioxide 20 L (22-30) mmol/L Calcium 8.1 L (8.4-10.2) mg/dL Microbiology - Last 24 Hours (Table) 10/24/18 00:22 Blood Culture - Preliminary Blood No Growth after 24 hours
[2018-10-25] MEDS: PIPERACILLIN-TAZOBACTAM 3.375 GM in SODIUM CHLORIDE 0.9% 100 ML IVPB SCH ×2 (12:40→20:39)
--- NOTE | 2018-10-25 15:52 | P.CNPUL ---
History of Present Illness Consult date: 10/25/18 Requesting physician: Nadeen Gross Reason for consult: dyspnea, hypoxemia, abnormal CXR/CT Chief complaint: Shortness of breath, hypoxemia History of present illness: This is a 63-year-old white female patient with past medical history of morbid obesity, previous history of lab banding and subsequent removal, gastric bypass surgery 1 year ago, and patient has recently developed gastrojejunal stricture with large retained gastric pouch and complete gastric obstruction requiring gastric decompression and balloon dilation. On 10/22/2018 patient underwent robotic revision of gastrojejunal anastomosis and partial gastrectomy. In the postoperative period patient had developed shortness of breath, and acute hypoxemic respiratory failure requiring supplemental oxygen. Denied any chest pain, and there has only been one episode of low-grade fever of 100.2F, it was an isolated event. CTA chest showed suboptimal bolus timing which limited evaluation, however there was no evidence of pulmonary embolism, did show extensive atelectasis involving both lower lobes and the lingula and trace bilateral pleural effusions, no pneumothorax. Her lab work is without any evidence of leukocytosis, today's white blood cell count is 8.8, it was 6.8 yesterday. Hemoglobin today is 9.3, serum sodium is 139, potassium is 4.2, chloride is 113, CO2 is 20, BUN is 13, creatinine 0.72, possible lactic acid was drawn yesterday and came back normal at 0.9, troponin was negative at 0.012. Since and says spirometer effort is suboptimal, and patient is only achieving 500 mL. No fever or chills, no cough or congestion, no hemoptysis. Breathing treatments have been added, and patient is on fentanyl HEEL COVERER MACHINE OPERATOR for pain control. She has been covered with the empiric antibiotics in the form of Zosyn. Review of Systems All systems: negative Constitutional: Denies chills, Denies fever Eyes: denies blurred vision, denies pain Ears, nose, mouth and throat: Denies headache, Denies sore throat Cardiovascular: Denies chest pain, Denies shortness of breath Respiratory: Reports dyspnea, Denies cough Gastrointestinal: Reports bloating, Denies abdominal pain, Denies diarrhea, Denies nausea, Denies vomiting Genitourinary: Denies dysuria, Denies hematuria Musculoskeletal: Denies myalgias Integumentary: Denies pruritus, Denies rash Neurological: Denies numbness, Denies weakness Psychiatric: Denies anxiety, Denies depression Endocrine: Denies fatigue, Denies weight change Past Medical History Past Medical History: Cancer, Chest Pain / Angina, Hypertension, Supraventricular Tachycardia (SVT), Thyroid Disorder Additional Past Medical History / Comment(s): Other HX: esophagial spasms, thyroid cancer, MIGRAINES. DEGENERATIVE JOINT DISEASE. VERTIGO,Precancerous lesions removed from face History of Any Multi-Drug Resistant Organisms: None Reported Past Surgical History: Back Surgery, Bariatric Surgery, Hysterectomy, Joint Replacement, Orthopedic Surgery, Tubal Ligation Additional Past Surgical History / Comment(s): 02/16/15 Total R knee arthroplasty. Other sx: LAP BAND (2002). HEART CATH-CLEAR X 2, THYROIDECTO MY D/T CA/, DISCETOMY L5-S1, LT KNEE ARTHROSCOPY, BILATERAL HEEL SPURS. BENIGN TUMOR REMOVED FROM LEFT EYE,Lt Rot Cuff,sinuplasty lap band removal 08-14-17 gastric bypass 12-11-17 Past Anesthesia/Blood Transfusion Reactions: Motion Sickness, Postoperative Nausea & Vomiting (PONV) Additional Past Anesthesia/Blood Transfusion Reaction / Comment(s): Hx Esophageal spasms,. MOTHER AND DAUGHTER HAVE PONV,no hx blood transfusion Past Psychological History: No Psychological Hx Reported Additional Psychological History / Comment(s): Pt resides with her spouse. She is independent. She drives. Smoking Status: Never smoker Past Alcohol Use History: None Reported Past Drug Use History: None Reported - Past Family History Father Family Medical History: Cancer, Diabetes Mellitus, Hypertension Additional Family Medical History / Comment(s): Father had cancer below his eye. He from a MVA. Mother Family Medical History: AFIB, Cancer, Thyroid Disorder Additional Family Medical History / Comment(s): skin CA Medications and Allergies Home Medications Medication Instructions Recorded Confirmed Type ALPRAZolam [Xanax] 0.5 mg PO BID PRN 06/17/13 10/22/18 History cycloSPORINE [Restasis] 1 drop BOTH EYES DAILY 06/17/13 10/22/18 History Carisoprodol [Soma] 350 mg PO DAILY PRN 02/09/15 10/22/18 History Meclizine [Antivert] 25 mg PO DAILY PRN 02/09/15 10/22/18 History ZOLMitriptan [Zomig] 5 mg PO DAILY PRN 02/09/15 10/22/18 History Metoprolol Tartrate [Lopressor] 50 mg PO BID 12/11/17 10/22/18 History Calcium Citrate/Vitamin D3 600 mg PO BID 07/26/18 10/22/18 History [Calcitrate + Vit D Caplet] Levothyroxine Sodium [Synthroid] 137 mcg PO QAM 09/19/18 10/22/18 History Omeprazole [PriLOSEC] 40 mg PO QAM PRN 10/11/18 10/22/18 History Allergies Allergy/AdvReac Type Severity Reaction Status Date / Time Sulfa (Sulfonamide Allergy Severe Rash/Hives Verified 10/22/18 18:29 Antibiotics) codeine AdvReac Severe Nausea & Verified 10/22/18 18:29 Vomiting meperidine HCl [From Demerol] AdvReac Nausea & Verified 10/22/18 18:29 Vomiting Physical Exam Vitals: Vital Signs Temp Pulse Pulse Resp BP Pulse Ox 10/25/18 15:00 98.2 F 114 H 15 126/75 90 L 10/25/18 12:55 119 H 10/25/18 12:45 108 H 10/25/18 10:13 107 H 96 10/25/18 08:15 88 10/25/18 08:04 88 96 10/25/18 07:46 110 H 10/25/18 07:37 107 H 94 L 10/25/18 07:00 97.5 F L 125 H 16 122/76 92 L 10/25/18 01:06 97.7 F 92 16 99/65 92 L 10/24/18 23:59 106 H 10/24/18 23:58 96 10/24/18 22:39 92 L 10/24/18 22:38 92 L 10/24/18 20:50 115 H 10/24/18 20:32 117 H 10/24/18 19:04 97.5 F L 120 H 20 111/68 88 L 10/24/18 17:59 97.9 F 124 H 18 104/66 92 L 10/24/18 17:46 93 L 10/24/18 16:59 100 10/24/18 16:41 100 Intake and Output 10/25/18 10/25/18 10/25/18 06:59 14:59 22:59 Intake Total 240 Output Total 700 Balance 240 -700 Intake: Oral 240 Output: Urine 700 Other: # Voids 2 GENERAL EXAM: Alert, pleasant, obese 63-year-old white female on 4 L of oxygen comfortable in no apparent distress. HEAD: Normocephalic/atraumatic. EYES: Normal reaction of pupils, equal size. Conjunctiva pink, sclera white. NOSE: Clear with pink turbinates. THROAT: No erythema or exudates. NECK: No masses, no JVD, no thyroid enlargement, no adenopathy. CHEST: No chest wall deformity. Symmetrical expansion. LUNGS: Diminished air entry with no crackles, wheeze, rhonchi or dullness. CVS: Regular rate and rhythm, normal S1 and S2, no gallops, no murmurs, no rubs ABDOMEN: Soft, nontender. No hepatosplenomegaly, normal bowel sounds, no guarding or rigidity. EXTREMITIES: No clubbing, no edema, no cyanosis, 2+ pulses and upper and lower extremities. MUSCULOSKELETAL: Muscle strength and tone normal. SPINE: No scoliosis or deformity SKIN: No rashes CENTRAL NERVOUS SYSTEM: Alert and oriented -3. No focal deficits, tone is normal in all 4 extremities. PSYCHIATRIC: Alert and oriented -3. Appropriate affect. Intact judgment and insight. Results - Laboratory Findings CBC and BMP: 10/25/18 06:53 10/25/18 06:53 PT/INR, D-dimer D-Dimer 7.25 mg/L FEU (<0.60) H 10/23/18 23:37 Abnormal lab findings: Abnormal Labs 10/23/18 10/23/18 10/23/18 06:22 23:37 23:37 RBC 3.54 L Hgb 10.3 L Hct 30.4 L Neutrophils # Lymphocytes # Lymphocytes # (Manual) 0.71 L 0.36 L D-Dimer 7.25 H Sodium Chloride Carbon Dioxide Glucose Plasma Lactic Acid Hubert Calcium 10/23/18 10/24/18 10/24/18 23:37 00:16 03:38 RBC 3.57 L Hgb 10.2 L Hct 31.7 L Neutrophils # Lymphocytes # Lymphocytes # (Manual) 0.68 L D-Dimer Sodium 135 L Chloride 108 H Carbon Dioxide 19 L Glucose 117 H Plasma Lactic Acid Hubert 2.9 H* Calcium 7.8 L 10/24/18 10/25/18 10/25/18 03:38 06:53 06:53 RBC 3.24 L Hgb 9.3 L Hct 28.2 L Neutrophils # 7.8 H Lymphocytes # 0.5 L Lymphocytes # (Manual) D-Dimer Sodium Chloride 110 H 113 H Carbon Dioxide 19 L 20 L Glucose 106 H Plasma Lactic Acid Hubert Calcium 8.1 L 8.1 L - Diagnostic Findings Chest x-ray: report reviewed, image reviewed CT scan - chest: report reviewed, image reviewed Assessment and Plan Plan: Assessment: #1. Acute hypoxemic respiratory failure related to atelectasis involving bilateral lower bases and the lingula #2. Gastrojejunal stricture status post robotic version of gastrojejunal anastomosis, and partial gastrectomy, postop day 3 #3. Morbid obesity, status post lap banding and subsequent removal of the LAP- BAND, gastric bypass surgery in 2018 #4. Thyroidism #5. GERD/reflux #6. Osteoarthritis #7. Possible underlying sleep apnea #8. Migraine headaches #9. History of supraventricular tachycardia Plan: Continue aggressive pulmonary toileting, and deep breathing and coughing, incentive spirometry use, may use BiPAP with pressures of 12/5 if need be. CTA chest has been reviewed by Dr. Velazquez, patient has been seen and evaluated by Dr. Velazquez, patient has already been empirically covered by Zosyn, doubt underlying pneumonia, but extensive atelectasis involving both lower lobes and the lingula. Continue breathing treatments. Weaning FiO2, will follow I performed a history & physical examination of the patient and discussed their management with my nurse practitioner, Marylu Ferreira. I reviewed the nurse gadiel todd's note and agree with the documented findings and plan of care. Lung sounds are positive for diminished breath sounds throughout the lung rojas. The findings and the impression was discussed with the patient. I attest to the documentation by the nurse practitioner. Time with Patient: Greater than 30
[2018-10-25] MEDS: cycloSPORINE 0.05% OPHTH 0.4 ML DROPERETTE BOTH EYES SCH (17:53)
[2018-10-25] MEDS ORDERED: METOPROLOL TARTRATE 25 MG TAB PO SCH (21:00)
[2018-10-25] MEDS: fentaNYL PCA 500 MCG/50 ML BAG IV PRN (23:37)
[2018-10-26] MEDS: SIMETHICONE 40 MG/0.6 ML DROPS 2,000 MG/30 ML BOTTLE PO SCH ×5 (02:09→23:30)
[2018-10-26] MEDS: PIPERACILLIN-TAZOBACTAM 3.375 GM in SODIUM CHLORIDE 0.9% 100 ML IVPB SCH ×3 (04:29→21:14)
[2018-10-26 07:08] LABS: Anisocytosis Slight; Basophils % (A) 0 %; Eosinophils # (A) 0.1 k/uL (0-0.7); Eosinophils % (A) 1 %; HCT 27.6 % (34.0-46.0); Lymphocytes # (A) 0.8 k/uL (1.0-4.8); Lymphocytes % (A) 6 %; MCH 28.2 pg (25.0-35.0); MCHC 32.4 g/dL (31.0-37.0); MCV 86.8 fL (80.0-100.0); Mean Platelet Volume 7.3; Monocytes # (A) 0.5 k/uL (0-1.0); Monocytes % (A) 3 %; Neutrophils # (A) 12.6 k/uL (1.3-7.7); Neutrophils % (A) 89 %; Platelet Count 238 k/uL (150-450); RBC 3.18 m/uL (3.80-5.40); WBC 14.2 k/uL (3.8-10.6)
[2018-10-26 07:10] LABS: Calcium 8.1 mg/dL (8.4-10.2)
[2018-10-26] MEDS: ALBUTEROL NEBULIZED 2.5 MG/3 ML INHALATION SCH ×4 (07:26→20:01)
[2018-10-26] MEDS: METOPROLOL TARTRATE 50 MG TAB PO SCH ×3 (08:18→21:14)
[2018-10-26] MEDS: PANTOPRAZOLE 40 MG/10 ML VIAL IV SCH (08:22)
[2018-10-26] MEDS ORDERED: METOPROLOL TARTRATE 25 MG TAB PO SCH (09:00)
[2018-10-26] MEDS: LEVOTHYROXINE 137 MCG TAB PO SCH (09:45)
[2018-10-26] MEDS: SODIUM FERRIC GLUCONAT-SUCROSE 125 MG in SODIUM CHLORIDE 0.9% 100 ML IVPB SCH (09:48)
--- NOTE | 2018-10-26 11:22 | P.PN ---
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 On 10/22/2018 patient underwent robotic revision of gastrojejunal anastomosis and partial gastrectomy. In the postoperative period patient had developed shortness of breath, and acute hypoxemic respiratory failure requiring supplemental oxygen. Denied any chest pain, and there has only been one episode of low-grade fever of 100.2F, it was an isolated event. CTA chest showed suboptimal bolus timing which limited evaluation, however there was no evidence of pulmonary embolism, did show extensive atelectasis involving both lower lobes and the lingula and trace bilateral pleural effusions, no pneumothorax. Her lab work is without any evidence of leukocytosis, today's white blood cell count is 8.8, it was 6.8 yesterday. Hemoglobin today is 9.3, serum sodium is 139, potassium is 4.2, chloride is 113, CO2 is 20, BUN is 13, creatinine 0.72, possible lactic acid was drawn yesterday and came back normal at 0.9, troponin was negative at 0.012. Since and says spirometer effort is suboptimal, and patient is only achieving 500 mL. No fever or chills, no cough or congestion, no hemoptysis. Breathing treatments have been added, and patient is on fentanyl IP ATTORNEY for pain control. She has been covered with the empiric antibiotics in the form of Zosyn. On 10/26/2018 patient seen in follow-up on medical surgical floor. She states her breathing is easier today, her incentive spirometry effort is still very suboptimal, at times patient is able to achieve 750, most of the time she is only doing about 500 mL. Lung sounds are diminished at the bases, with scattered rales, occasional cough, with no significant sputum production. She is on 4 L of oxygen her pulse ox is 92%, she still tachycardic at 120, afebrile. She is covered with Zosyn for empiric antibiotic coverage, breathing treatments. No hemoptysis, no significant chest congestion. She states she is fairly comfortable at rest, some slight incisional discomfort abdominal discomfort with moving around, and for the most part her pain is well controlled, incisions are clean dry and intact. She is passing bowel movements, passing gas, tolerating oral diet. His labs reviewed, showing white blood cell count of 14.2, hemoglobin of 9.0, sodium of 140, potassium 4.0, chloride is 110, CO2 is 22, BUN was 14. And creatinine is 0.82. Blood culture showed no growth. Yesterday upper GI series showed no evidence of leak or obstruction status post gastric bypass revision Objective - Vital Signs Vital signs: Vital Signs Temp 98.1 F 10/26/18 07:00 Pulse 120 H 10/26/18 07:00 Resp 15 10/26/18 07:45 BP 127/78 10/26/18 07:00 Pulse Ox 92 L 10/26/18 07:00 Intake & Output 10/25/18 10/26/18 10/26/18 18:59 06:59 18:59 Intake Total 480 Output Total 1100 Balance -1100 480 Intake: Oral 480 Output: Urine 1100 Other: Voiding Method Toilet Toilet # Voids 1 - Exam GENERAL EXAM: Alert, pleasant, obese 63-year-old white female on 4 L of oxygen comfortable in no apparent distress. HEAD: Normocephalic/atraumatic. EYES: Normal reaction of pupils, equal size. Conjunctiva pink, sclera white. NOSE: Clear with pink turbinates. THROAT: No erythema or exudates. NECK: No masses, no JVD, no thyroid enlargement, no adenopathy. CHEST: No chest wall deformity. Symmetrical expansion. LUNGS: Diminished air entry with no crackles, wheeze, rhonchi or dullness. CVS: Regular rate and rhythm, normal S1 and S2, no gallops, no murmurs, no rubs ABDOMEN: Soft, nontender. No hepatosplenomegaly, normal bowel sounds, no guarding or rigidity. EXTREMITIES: No clubbing, no edema, no cyanosis, 2+ pulses and upper and lower extremities. MUSCULOSKELETAL: Muscle strength and tone normal. SPINE: No scoliosis or deformity SKIN: No rashes CENTRAL NERVOUS SYSTEM: Alert and oriented -3. No focal deficits, tone is normal in all 4 extremities. PSYCHIATRIC: Alert and oriented -3. Appropriate affect. Intact judgment and insight. - Labs CBC & Chem 7: 10/26/18 06:43 10/26/18 06:43 Labs: Abnormal Lab Results - Last 24 Hours (Table) 10/26/18 10/26/18 Range/Units 06:43 06:43 WBC 14.2 H (3.8-10.6) k/uL RBC 3.18 L (3.80-5.40) m/uL Hgb 9.0 L (11.4-16.0) gm/dL Hct 27.6 L (34.0-46.0) % RDW 16.0 H (11.5-15.5) % Neutrophils # 12.6 H (1.3-7.7) k/uL Lymphocytes # 0.8 L (1.0-4.8) k/uL Chloride 110 H (98-107) mmol/L Calcium 8.1 L (8.4-10.2) mg/dL Microbiology - Last 24 Hours (Table) 10/24/18 00:22 Blood Culture - Preliminary Blood No Growth after 48 hours Assessment and Plan Plan: Assessment: #1. Acute hypoxemic respiratory failure related to atelectasis involving bilateral lower bases and the lingula #2. 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 Morbid obesity, status post lap banding and subsequent removal of the LAP- BAND, gastric bypass surgery in 2018 #4. Hypothyroidism #5. GERD/reflux #6. Osteoarthritis #7. Possible underlying sleep apnea #8. Migraine headaches #9. History of supraventricular tachycardia Plan: Continue current medical treatment, antibiotics, nebulized bronchodilators, continue aggressive pulmonary toileting, GERD incentive spirometry use, ambulation. Follow-up chest x-ray tomorrow morning. We'll continue to follow. I performed a history & physical examination of the patient and discussed their management with my nurse practitioner, Marylu Ferreira. I reviewed the nurse practitioner's note and agree with the documented findings and plan of care. Lung sounds are positive for diminished breath sounds throughout the lung rojas. The findings and the impression was discussed with the patient. I attest to the documentation by the nurse practitioner. Time with Patient: Less than 30
[2018-10-26] MEDS ORDERED: ACETAMINOPHEN TAB 325 MG TAB PO PRN (11:54)
--- NOTE | 2018-10-26 12:01 | ECHOF ---
Referral Reason:lv function, tachycardia MEASUREMENTS -------- HEIGHT: 158.8 cm WEIGHT: 80.3 kg BP: 127/78 RVIDd: 3.0 cm (< 3.3) IVSd: 1.2 cm (0.6 - 1.1) LVIDd: 4.1 cm (3.9 - 5.3) LVPWd: 1.1 cm (0.6 - 1.1) IVSs: 1.4 cm LVIDs: 3.0 cm LVPWs: 1.6 cm LA Diam: 3.4 cm (2.7 - 3.8) LAESV Index (A-L): 29.76 ml/m Ao Diam: 3.3 cm (2.0 - 3.7) AV Cusp: 2.3 cm (1.5 - 2.6) MV EXCURSION: 14.273 mm (> 18.000) MV EF SLOPE: 88 mm/s (70 - 150) EPSS: 0.7 cm MV E Cristian: 1.14 m/s MV DecT: 175 ms MV A Cristian: 1.06 m/s MV E/A Ratio: 1.08 RAP: 5.00 mmHg RVSP: 39.79 mmHg FINDINGS -------- Sinus rhythm. This was a technically adequate study. The left ventricular size is normal. There is borderline concentric left ventricular hypertrophy. Overall left ventricular systolic function is low-normal with, an EF between 50 - 55 %. The right ventricle is normal in size. LA is midly dilated 29-33ml/m2. The right atrium is normal in size. Interatrial and interventricular septum intact. The aortic valve is trileaflet and appears structurally normal. Mild mitral regurgitation is present. Moderate tricuspid regurgitation present. There is mild pulmonary hypertension. The right ventric ular systolic pressure, as measured by Doppler, is 39.79mmHg. Trace/mild (physiologic) pulmonic regurgitation. The aortic root size is normal. IVC Not well visulized. There is no pericardial effusion. CONCLUSIONS -------- 1. Sinus rhythm. 2. This was a technically adequate study. 3. The left ventricular size is normal. 4. There is borderline concentric left ventricular hypertrophy. 5. Overall left ventricular systolic function is low-normal with, an EF between 50 - 55 %. 6. The right ventricle is normal in size. 7. LA is midly dilated 29-33ml/m2. 8. The right atrium is normal in size. 9. Interatrial and interventricular septum intact. 10. The aortic valve is trileaflet and appears structurally normal. 11. Mild mitral regurgitation is present. 12. Moderate tricuspid regurgitation present. 13. There is mild pulmonary hypertension. 14. The right ventricular systolic pressure, as measured by Doppler, is 39.79mmHg. 15. Trace/mild (physiologic) pulmonic regurgitation. 16. The aortic root size is normal. 17. IVC Not well visulized. 18. There is no pericardial effusion. CARDIAC REHABILITATION PROGRAM DIRECTOR: Isadora Guevara RDCS
--- NOTE | 2018-10-26 12:06 | P.PN ---
<Sun Brian Christelle - Last Filed: 10/26/18 12:05> Subjective Progress Note Date: 10/26/18 CHIEF COMPLAINT: morbid obesity HISTORY OF PRESENT ILLNESS: Patient is s/p robotic revision of gastrojejunal anastomosis and partial gastrectomy performed on 10/22/18. POD #4. Patient examined this morning. She is sitting up in the chair. She reports she took a shower this morning and overall feels better today compared to yesterday. Pain controlled with Fentanyl VISUAL MERCHANDISING COORDINATOR and Tylenol. She remains on 5L NC. Using incentive spirometer. Only pulling 500cc. Tolerating clear liquid diet. Denies nausea. Passing flatus. Reports two loose bowel movements this morning. WBC 14.2. Hemoglobin 9.0. PHYSICAL EXAM: VITAL SIGNS: Reviewed. GENERAL: Well-developed in no acute distress. HEENT: No sclera icterus. Extraocular movements grossly intact. Moist buccal mucosa. Head is atraumatic, normocephalic. Hears conversational speech. No nasal drainage. NECK: Supple without lymphadenopathy. CHEST: Non-labored respirations and equal bilateral excursions. On 5L NC. CARDIOVASCULAR: Tachycardic. Regular rate with regular rhythm. Palpable 2+ radial pulses. ABDOMEN: Soft. Nondistended. Appropriate surgical tenderness. Surgical incision sites clean dry intact without drainage or signs of infection. MUSCULOSKELETAL: No clubbing, cyanosis or edema. NEUROLOGIC: No focal or lateralizing signs. Cranial nerves II through XII grossly intact. PSYCH: Appropriate affect. Alert and oriented to person, place and time. SKIN: Well perfused. Good skin turgor. ASSESSMENT: 1. Morbid obesity, s/p robotic revision of gastrojejunal anastomosis and parti al gastrectomy 2. Body mass index of 43.9, initial. 3. Gastroesophageal reflux disease 4. Coronary artery disease 5. Hypothyroidism 6. Chronic pain syndrome 7. Dysphagia. 8. Hiatal hernia 9. Ischemic cardiomyopathy 10. Osteoarthritis bilateral hips 11. Osteoarthritis bilateral knees 12. Anxiety 13. Angina 14. Supraventricular tachycardia 15. Thyroid cancer 16. Vertigo 17. Migraines 18. Bilateral heel spurs 19. Diabetes type 2, [id number] 20. Hypoxia requiring supplemental oxygen secondary to postoperative bilateral atelectasis PLAN: 1. Continue bariatric clear liquid diet 2. Pain control. Continue Fentanyl VISUAL MERCHANDISING COORDINATOR. Continue Tylenol. Will switch Tylenol to oral 3. Incentive spirometer 10 times an hour. Wean oxygen as tolerated to maintain O2 greater than 92%. Continue Albuterol treatments. Pulmonary following. CXR ordered for tomorrow morning. 4. Activity as tolerated 5. Metroprolol increased again secondary to persistent tachycardia. Will obtain Echo and consult cardiology for further evaluation 6. Resume home dose of Synthroid 7. Monitor WBC. Repeat in AM. Continue antibiotics Nurse practitioner note has been reviewed by physician. Signing provider agrees with the documented findings, assessment, and plan of care. Objective - Vital Signs Vital signs: Vital Signs Temp 98.1 F 10/26/18 07:00 Pulse 120 H 10/26/18 11:30 Resp 15 10/26/18 07:45 BP 127/78 10/26/18 07:00 Pulse Ox 92 L 10/26/18 07:00 Intake & Output 10/25/18 10/26/18 10/26/18 18:59 06:59 18:59 Intake Total 480 Output Total 1100 Balance -1100 480 Intake: Oral 480 Output: Urine 1100 Other: Voiding Method Toilet Toilet # Voids 1 - Labs CBC & Chem 7: 10/26/18 06:43 10/26/18 06:43 Labs: Abnormal Lab Results - Last 24 Hours (Table) 10/26/18 10/26/18 Range/Units 06:43 06:43 WBC 14.2 H (3.8-10.6) k/uL RBC 3.18 L (3.80-5.40) m/uL Hgb 9.0 L (11.4-16.0) gm/dL Hct 27.6 L (34.0-46.0) % RDW 16.0 H (11.5-15.5) % Neutrophils # 12.6 H (1.3-7.7) k/uL Lymphocytes # 0.8 L (1.0-4.8) k/uL Chloride 110 H (98-107) mmol/L Calcium 8.1 L (8.4-10.2) mg/dL Microbiology - Last 24 Hours (Table) 10/24/18 00:22 Blood Culture - Preliminary Blood No Growth after 48 hours Assessment and Plan (1) S/P gastric surgery Current Visit: Yes Status: Acute Code(s): Z98.890 - OTHER SPECIFIED POSTPROCEDURAL STATES SNOMED Code(s): 652678338 (2) GERD (gastroesophageal reflux disease) Current Visit: No Status: Acute Code(s): K21.9 - GASTRO-ESOPHAGEAL REFLUX DISEASE WITHOUT ESOPHAGITIS SNOMED Code(s): 993311232 (3) Morbid obesity Current Visit: No Status: Acute Code(s): E66.01 - MORBID (SEVERE) OBESITY DUE TO EXCESS CALORIES SNOMED Code(s): 406940888 (4) S/P gastric bypass Current Visit: No Status: Acute Code(s): Z98.84 - BARIATRIC SURGERY STATUS SNOMED Code(s): 676624726 <Nadeen Gross N - Last Filed: 10/26/18 17:08> Subjective She reports feeling better in the last several days. She is passing flatus and having multiple bowel movements. Bowel movements happened after lab draws this morning. No further ports of abdominal pain. She reports some difficulty with breathing. Pulmonary is seeing her. Separately, with history of supraventricular tachycardia, cardiology consultation was obtained. Repeat lactic acid level is normal and negative for sepsis. Continue with pulmonary toilet. We'll slowly restart medications. Appreciate consultants recommendations. Also, patient had increase in white count following switch of antibiotics, request for infections disease evaluation discussed. Objective - Vital Signs Vital signs: Vital Signs Temp 97.9 F 10/26/18 14:48 Pulse 116 H 10/26/18 17:03 Resp 15 10/26/18 14:48 BP 128/75 10/26/18 14:48 Pulse Ox 93 L 10/26/18 14:48 Intake & Output 10/25/18 10/26/18 10/26/18 18:59 06:59 18:59 Intake Total 480 Output Total 1100 Balance -1100 480 Weight 80.603 kg Intake: Oral 480 Output: Urine 1100 Other: Voiding Method Toilet Toilet # Voids 1 3 # Bowel Movements 2 - Labs CBC & Chem 7: 10/26/18 06:43 10/26/18 06:43 Labs: Abnormal Lab Results - Last 24 Hours (Table) 10/26/18 10/26/18 10/26/18 Range/Units 06:43 06:43 06:43 WBC 14.2 H (3.8-10.6) k/uL RBC 3.18 L (3.80-5.40) m/uL Hgb 9.0 L (11.4-16.0) gm/dL Hct 27.6 L (34.0-46.0) % RDW 16.0 H (11.5-15.5) % Neutrophils # 12.6 H (1.3-7.7) k/uL Lymphocytes # 0.8 L (1.0-4.8) k/uL D-Dimer (<0.60) mg/L FEU Chloride 110 H (98-107) mmol/L Calcium 8.1 L (8.4-10.2) mg/dL TSH 4.780 H (0.465-4.680) mIU/L Free T4 0.74 L (0.78-2.19) ng/dL 10/26/18 Range/Units 11:26 WBC (3.8-10.6) k/uL RBC (3.80-5.40) m/uL Hgb (11.4-16.0) gm/dL Hct (34.0-46.0) % RDW (11.5-15.5) % Neutrophils # (1.3-7.7) k/uL Lymphocytes # (1.0-4.8) k/uL D-Dimer 4.81 H (<0.60) mg/L FEU Chloride (98-107) mmol/L Calcium (8.4-10.2) mg/dL TSH (0.465-4.680) mIU/L Free T4 (0.78-2.19) ng/dL Microbiology - Last 24 Hours (Table) 10/24/18 00:22 Blood Culture - Preliminary Blood No Growth after 48 hours
[2018-10-26 12:35] LABS: T4, Free (Free Thyroxine) 0.74 ng/dL (0.78-2.19)
--- NOTE | 2018-10-26 12:59 | P.CRDCN ---
History of Present Illness History of present illness: This is a pleasant 63-year-old female past medical history significant for hypertension and hypothyroidism. She denies coronary artery disease. She has undergone a cardiac catheterization in the past with Dr. Sykes in 2008 revealing normal coronary arteries with no obstuctive disease and normal LVEDP and LV systolic function. She does not follow in the office. We have been asked to see her in consultation for post-operative tachycardia. The patient is seen and examined sitting up in the chair. She complains of shortness of breath and cough. She states she has been told in the past she has SVT and is maintained on lopressor. She underwent robotic revision of gastrojejunal anastomosis and partial gastrectomy. She has an episode of hypoxia and was requiring high flow oxygen post-operatively. Currently maintained on IV zosyn, Chest xray obtained yesterday reveals pneumoperitoneum with bibasilar effusions and atelectasis. She denies chest pain, dizziness or palpitations. EKG reveals Laboratory data reviewed, WBC 14.2, hgb 9.0, plt 238, sodium 140, potassium 4.0, creatinine 0.82. Currently maintained on lopressor 75 mg TID. At the time of my exam: CONSTITUTIONAL: Denies fever. Denies chills. EYES: Denies blurred vision. Denies vision changes. Denies eye pain. EARS, NOSE, MOUTH & THROAT: Denies headache. Denies sore throat. Denies ear pain. CARDIOVASCULAR: Denies chest pain. Complains of shortness of breath. Denies orthopnea. Denies PND. Denies palpitations. RESPIRATORY: Complains of cough. GASTROINTESTINAL: Denies abdominal pain. Denies diarrhea. Denies constipation. Denies nausea. Denies vomiting. MUSCULOSKELETAL: Denies myalgias. INTEGUMENTARY: Denies pruitis. Denies rash. NEUROLOGIC: Denies numbness. Denies tingling. Denies weakness. PSYCHIATRIC: Denies anxiety. Denies depression. ENDOCRINE: Denies fatigue. Denies weight change. Denies polydipsia. Denies polyurina. GENITOURINARY: Denies burning, hematuria or urgency with micturation. HEMATOLOGIC: Denies history of anemia. Denies bleeding. Blood pressure 127/78 heart rate 120 afebrile maintaining oxygen saturation on nasal cannula. GENERAL: This is a 63-year-old female in no apparent distress at the time of my examination. HEENT: Head is atraumatic, normocephalic. Pupils are equal, round. Sclerae anicteric. Conjunctivae are clear. Mucous membranes of the mouth are moist. Neck is supple. There is no jugular venous distention. No carotid bruit is heard. LUNGS: Clear to auscultation no wheezes, rales or rhonchi. No chest wall tenderness is noted on palpation or with deep breathing. HEART: Regular rate and rhythm without murmurs, rubs or gallops. S1 and S2 heard. Diminished bilaterally. ABDOMEN: Soft, nontender. Bowel sounds are heard. No organomegaly noted. EXTREMITIES: No evidence of peripheral edema and no calf tenderness noted. VASCULAR: Radial and dorsalis pedis pulses palpated, no evidence of clubbing. NEUROLOGIC: Patient is awake, alert and oriented x3. ASSESSMENT Sinus tachycardia Febrile illness Leukocytosis Hypertension Hypothyroidism PLAN Echocardiogram has been obtained per surgery and reveals preserved LV systolic function with ejection fraction 50-55%, moderate tricuspid regurgitation and mild pulmonary hypertension with an RVSP of 39 mmHg. There is no documented coronary artery disease or cardiomyopathy in the past. Will request records from Dr. Gross regarding these diagnoses documented in her H&P. The patient denies prior history of stent placement or bypass surgery as well. Check thyroid function and proBNP. Also would recommend consideration for post- op PE. Will check d-dimer. Decrease metoprolol to 50 mg 3 times a day. Sinus tachycardia secondary to underlying infectious process with leukocytosis, fever and cough. Thank you kindly for this consultation. Nurse Practitioner note has been reviewed, I agree with a documented findings and plan of care. Patient was seen and examined. Past Medical History Past Medical History: Cancer, Chest Pain / Angina, Hypertension, Supraventric ular Tachycardia (SVT), Thyroid Disorder Additional Past Medical History / Comment(s): Other HX: esophagial spasms, thyroid cancer, MIGRAINES. DEGENERATIVE JOINT DISEASE. VERTIGO,Precancerous lesions removed from face History of Any Multi-Drug Resistant Organisms: None Reported Past Surgical History: Back Surgery, Bariatric Surgery, Hysterectomy, Joint Replacement, Orthopedic Surgery, Tubal Ligation Additional Past Surgical History / Comment(s): 02/16/15 Total R knee arthroplasty. Other sx: LAP BAND (2002). HEART CATH-CLEAR X 2, THYROIDECTOMY D/T CA/, DISCETOMY L5-S1, LT KNEE ARTHROSCOPY, BILATERAL HEEL SPURS. BENIGN TUMOR REMOVED FROM LEFT EYE,Lt Rot Cuff,sinuplasty lap band removal 08-14-17 gastric bypass 12-11-17 Past Anesthesia/Blood Transfusion Reactions: Motion Sickness, Postoperative Nausea & Vomiting (PONV) Additional Past Anesthesia/Blood Transfusion Reaction / Comment(s): Hx Esophageal spasms,. MOTHER AND DAUGHTER HAVE PONV,no hx blood transfusion Past Psychological History: No Psychological Hx Reported Additional Psychological History / Comment(s): Pt resides with her spouse. She is independent. She drives. Smoking Status: Never smoker Past Alcohol Use History: None Reported Past Drug Use History: None Reported - Past Family History Father Family Medical History: Cancer, Diabetes Mellitus, Hypertension Additional Family Medical History / Comment(s): Father had cancer below his eye. He from a MVA. Mother Family Medical History: AFIB, Cancer, Thyroid Disorder Additional Family Medical History / Comment(s): skin CA Medications and Allergies Home Medications Medication Instructions Recorded Confirmed Type ALPRAZolam [Xanax] 0.5 mg PO BID PRN 06/17/13 10/22/18 History cycloSPORINE [Restasis] 1 drop BOTH EYES DAILY 06/17/13 10/22/18 History Carisoprodol [Soma] 350 mg PO DAILY PRN 02/09/15 10/22/18 History Meclizine [Antivert] 25 mg PO DAILY PRN 02/09/15 10/22/18 History ZOLMitriptan [Zomig] 5 mg PO DAILY PRN 02/09/15 10/22/18 History Metoprolol Tartrate [Lopressor] 50 mg PO BID 12/11/17 10/22/18 History Calcium Citrate/Vitamin D3 600 mg PO BID 07/26/18 10/22/18 History [Calcitrate + Vit D Caplet] Levothyroxine Sodium [Synthroid] 137 mcg PO QAM 09/19/18 10/22/18 History Omeprazole [PriLOSEC] 40 mg PO QAM PRN 10/11/18 10/22/18 History Allergies Allergy/AdvReac Type Severity Reaction Status Date / Time Sulfa (Sulfonamide Allergy Severe Rash/Hives Verified 10/22/18 18:29 Antibiotics) codeine AdvReac Severe Nausea & Verified 10/22/18 18:29 Vomiting meperidine HCl [From Demerol] AdvReac Nausea & Verified 10/22/18 18:29 Vomiting Physical Exam Vitals: Vital Signs Temp Pulse Pulse Resp BP Pulse Ox 10/26/18 07:00 98.1 F 120 H 15 127/78 92 L 10/26/18 02:34 98.1 F 122 H 20 138/84 92 L 10/25/18 20:10 98.4 F 135 H 16 141/82 91 L 10/25/18 19:34 128 H 10/25/18 19:19 117 H 10/25/18 17:59 133 H 22 90 L 10/25/18 16:23 119 H 10/25/18 16:09 123 H 10/25/18 16:00 15 10/25/18 15:00 98.2 F 114 H 15 126/75 90 L 10/25/18 12:55 119 H 10/25/18 12:45 108 H Intake and Output 10/25/18 10/26/18 10/26/18 22:59 06:59 14:59 Intake Total 480 Output Total 400 Balance 80 Intake: Oral 480 Output: Urine 400 Other: Voiding Method Toilet # Voids 1 Results 10/26/18 06:43 10/26/18 06:43 CBC 10/26/18 Range/Units 06:43 WBC 14.2 H (3.8-10.6) k/uL RBC 3.18 L (3.80-5.40) m/uL Hgb 9.0 L (11.4-16.0) gm/dL Hct 27.6 L (34.0-46.0) % Plt Count 238 (150-450) k/uL Comprehensive Metabolic Panel 10/26/18 Range/Units 06:43 Sodium 140 (137-145) mmol/L Potassium 4.0 (3.5-5.1) mmol/L Chloride 110 H (98-107) mmol/L Carbon Dioxide 22 (22-30) mmol/L BUN 14 (7-17) mg/dL Creatinine 0.82 (0.52-1.04) mg/dL Glucose 91 (74-99) mg/dL Calcium 8.1 L (8.4-10.2) mg/dL Current Medications Generic Name Dose Route Start Last Admin Trade Name Freq PRN Reason Stop Dose Admin Albuterol Sulfate 2.5 mg 10/22/18 16:00 10/25/18 19:17 Ventolin Nebulized INHALATION 2.5 mg RT-QID STACIA Administration Cyclosporine 1 drops 10/25/18 21:00 10/25/18 17:53 Restasis 0.05% Ophth Soln BOTH EYES 1 drops HS STACIA Administration Diphenhydramine HCl 25 mg 10/22/18 12:53 Benadryl IVP Q6HR PRN Itching Fentanyl Citrate 500 mcg 10/22/18 18:26 10/25/18 23:37 Fentanyl Calculator Operator IV 500 mcg PER PROTOCOL PRN Administration Pain Control Protocol Piperacillin Sod/Tazobactam 100 mls @ 25 mls/hr 10/25/18 12:00 10/26/18 04:29 Sod 3.375 gm/ Sodium Chloride IVPB 25 mls/hr Q8H STACIA Administration Levothyroxine Sodium 137 mcg 10/26/18 09:00 10/26/18 09:45 Synthroid PO 137 mcg DAILY@0630 STACIA Administration Metoprolol Tartrate 50 mg 10/25/18 22:00 10/26/18 08:18 Lopressor PO 50 mg TID STACIA Administration Metoprolol Tartrate 25 mg 10/26/18 09:00 10/26/18 08:18 Lopressor PO 25 mg TID STACIA Administration Naloxone HCl 0.2 mg 10/22/18 12:53 Narcan IV Q2M PRN Opioid Reversal Ondansetron HCl 4 mg 10/22/18 18:25 10/25/18 10:12 Zofran IVP 4 mg Q6HR PRN Administration Nausea And Vomiting Ondansetron HCl 4 mg 10/22/18 18:44 Zofran IVP Q6HR PRN Nausea And Vomiting Pantoprazole Sodium 40 mg 10/23/18 09:00 10/26/18 08:22 Protonix IV 40 mg DAILY STACIA Administration Simethicone 40 mg 10/22/18 18:00 10/26/18 05:20 Mylicon Drops PO 40 mg Q6HR STACIA Administration Intake and Output 10/25/18 10/26/18 10/26/18 22:59 06:59 14:59 Intake Total 480 Output Total 400 Balance 80 Intake: Oral 480 Output: Urine 400 Other: Voiding Method Toilet # Voids 1 10/26/18 06:43 10/26/18 06:43
--- NOTE | 2018-10-26 13:48 | P.PN ---
Subjective Progress Note Date: 10/26/18 Principal diagnosis: Shortness of breath Patient was seen and examined. No acute events overnight. Patient reports no changes in her overall condition since yesterday. She continues to complain of shortness of breath. States that she has been using her incentive spirometer r egularly but can only get upwards of 750, usually 500. She denies any chest pain or palpitations. No nausea or vomiting. No fever or chills. Objective - Vital Signs Vital signs: Vital Signs Temp 98.1 F 10/26/18 07:00 Pulse 120 H 10/26/18 11:30 Resp 15 10/26/18 07:45 BP 127/78 10/26/18 07:00 Pulse Ox 92 L 10/26/18 07:00 Intake & Output 10/25/18 10/26/18 10/26/18 18:59 06:59 18:59 Intake Total 480 Output Total 1100 Balance -1100 480 Intake: Oral 480 Output: Urine 1100 Other: Voiding Method Toilet Toilet # Voids 1 - Exam General: [non toxic], [mild distress on 4 L NC], [appears at stated age] Derm: [warm], [dry] Head: [atraumatic], [normocephalic], [symmetric] Eyes: [EOMI], [no lid lag], [anicteric sclera] Mouth: [no lip lesion], [mucus membranes moist] Cardiovascular: [S1S2 reg], [tachycardia], [positive DP pulse bilateral], Lungs: [CTA bilateral, decreased breath sounds at the bases], [no rhonchi, no rales] , [no accessory muscle use] Abdominal: [soft], [no tenderness to palpation], [no guarding], [no appreciable organomegaly] Ext: [no gross muscle atrophy], [no edema], [no contractures] Neuro: [no focal neuro deficits] Psych: [Alert], [oriented], [appropriate affect] - Labs CBC & Chem 7: 10/26/18 06:43 10/26/18 06:43 Labs: Abnormal Lab Results - Last 24 Hours (Table) 10/26/18 10/26/18 10/26/18 Range/Units 06:43 06:43 06:43 WBC 14.2 H (3.8-10.6) k/uL RBC 3.18 L (3.80-5.40) m/uL Hgb 9.0 L (11.4-16.0) gm/dL Hct 27.6 L (34.0-46.0) % RDW 16.0 H (11.5-15.5) % Neutrophils # 12.6 H (1.3-7.7) k/uL Lymphocytes # 0.8 L (1.0-4.8) k/uL D-Dimer (<0.60) mg/L FEU Chloride 110 H (98-107) mmol/L Calcium 8.1 L (8.4-10.2) mg/dL TSH 4.780 H (0.465-4.680) mIU/L Free T4 0.74 L (0.78-2.19) ng/dL 10/26/18 Range/Units 11:26 WBC (3.8-10.6) k/uL RBC (3.80-5.40) m/uL Hgb (11.4-16.0) gm/dL Hct (34.0-46.0) % RDW (11.5-15.5) % Neutrophils # (1.3-7.7) k/uL Lymphocytes # (1.0-4.8) k/uL D-Dimer 4.81 H (<0.60) mg/L FEU Chloride (98-107) mmol/L Calcium (8.4-10.2) mg/dL TSH (0.465-4.680) mIU/L Free T4 (0.78-2.19) ng/dL Microbiology - Last 24 Hours (Table) 10/24/18 00:22 Blood Culture - Preliminary Blood No Growth after 48 hours Assessment and Plan Assessment: Assessment and Plan Hypoxia post surgery likely related to atelectasis Tachycardia likely related to pain and hypoxia, history of SVT Fever of 100.2 Fahrenheit on 10/24/2018, with new leukocytosis Hypothyroidism Status post robotic revision of gastrojejunal anastomosis and partial gastrectomy Resolved: Lactic acidosis Currently mid 90s on 5 L NC. Elevated d-dimer, CTA chest rules out PE. Chest x-ray this morning yesterday shows bibasilar effusions and associated atelectasis. Plans: Albuterol neb scheduled. Incentive spirometry. Pulmonology consulted, recommends BiPAP, patient would rather stick with incentive spirometry. O2 per NC to maintain O2 saturation greater than 92%. Attempt to wean oxygen. Follow pulmonology consultation. Follow chest x-ray in the morning. Heart rate 120. History of SVT. Plans: Adequate pain management. Continue metoprolol. EKG shows sinus tachycardia. Echocardiogram ordered shows EF 50- 55%. Plans: Metoprolol increased from twice a day to 3 times a day. Follow cardiology consultation. T-max 100.2 10/24/2018, afebrile since. Tachycardic with new leukocytosis of 14 this morning. Lactic acid 2.9-0.9. CT abdomen and pelvis shows wall thickening concerns for enterocolitis, distention of gallbladder may be reactive. Does not meet sepsis criteria. On Cefazolin over the last 3 days, switched to Zosyn yesterday. Blood cultures prelim negative at 48 hours. Plans: Possibly reactive and not related to infection. Continue Zosyn, antibiotics per surgery. Follow final blood cultures. Follow ID consultation. Plans: Resume Synthroid. POD 4. Barium swallow done today shows no evidence of leak or obstruction. Plans: Management as per surgery. Zofran as needed for nausea or vomiting. Continue Protonix IV. Simethicone for bloating.
--- NOTE | 2018-10-26 15:17 | XR ---
EXAMINATION TYPE: XR chest 1V portable DATE OF EXAM: 10/26/2018 COMPARISON: Prior chest x-ray 09/10/2018 HISTORY: Shortness of breath TECHNIQUE: Single frontal view of the chest is obtained. FINDINGS: Lung volumes are low. Heart is thought to be possibly enlarged. Bibasilar increased densit y is noted, there is blunting of the costophrenic angles. No evident pneumothorax. Central vascularit y appears prominently. Aorta is dense. IMPRESSION: Possible bibasilar effusions and associated edema versus atelectasis or pneumonia, corre late to exclude congestive heart failure.
[2018-10-26] MEDS: fentaNYL PCA 500 MCG/50 ML BAG IV PRN (15:31)
[2018-10-26] MEDS ORDERED: FUROSEMIDE 10 MG/ML 2 ML VIAL IV STA (16:07)
[2018-10-26] MEDS: cycloSPORINE 0.05% OPHTH 0.4 ML DROPERETTE BOTH EYES SCH (21:14)
--- NOTE | 2018-10-26 23:37 | P.CONS ---
History of Present Illness - Reason for Consult Consult date: 10/26/18 - Chief Complaint recurrent nausea - History of Present Illness 63-year-old woman who has a history of prior obesity who had a LAP-BAND procedure performed years ago. She difficulties with that and that was removed. Afterward she did undergo a gastric bypass which is allowed her to have some we ight loss and was doing relatively well until a year ago she started having some difficulties and interventions were required, it appears that she did have dilatations performed. Did have an episode of what appeared to be obstruction with aspiration pneumonia which resolved. During the summer she again was ill required NG tube to be placed and likely aspirated again. She now presents with more complete obstruction of the need for surgical correction. She's had a revision of the gastrojejunostomy in general he is feeling better since procedure but has been having some ongoing shortness of breath. She's been evaluated in this had a CT angiogram without evidence of pulmonary emboli. Echocardiogram reveals evidence of preserved LV function, but likely has some excessive fluid and likely has pulmonary hypertension. Receiving some diuresis and feeling slightly better but did have a fever and with her ongoing discomfort and leukocytosis consultation was requested. Review of Systems HEENT:Denies headache or acute visual change. Denies sinus or mouth discom forts. Denies neck stiffness or pain. Denies significant oral cavity pain. Denies difficulty on swallowing. Lungs: As noted has some shortness of breath no significant coughand production or hemoptysis Cardiovascular: Denies chest pain, chest wall pain, orthopnea,or syncope, does have dyspnea with exertion Gastrointestinal:He has nausea without emesis, abdominal pain is improved, passing flatus, no hematemesis melena or hematochezia. Musculoskeletal: denies significant myalgias or arthralgias. No new joint swelling. Denies new back pain. Skin: Denies new rash or lesions. No new ulcers or wounds are related.. Neuro: Denies headache or visual change. Denies any new onset weakness or difficulty with ambulation. Denies falls or seizures. Psychiatric:Denies anxiety or depression. Endocrine: Denies significant fatigue, denies significant weight loss or weight gain. Past Medical History Past Medical History: Cancer, Chest Pain / Angina, Hypertension, Supraventricular Tachycardia (SVT), Thyroid Disorder Additional Past Medical History / Comment(s): Other HX: esophagial spasms, thyroid cancer, MIGRAINES. DEGENERATIVE JOINT DISEASE. VERTIGO,Precancerous lesions removed from face History of Any Multi-Drug Resistant Organisms: None Reported Past Surgical History: Back Surgery, Bariatric Surgery, Hysterectomy, Joint Replacement, Orthopedic Surgery, Tubal Ligation Additional Past Surgical History / Comment(s): 02/16/15 Total R knee arthroplasty. Other sx: LAP BAND (2002). HEART CATH-CLEAR X 2, THYROIDECTOMY D/T CA/, DISCETOMY L5-S1, LT KNEE ARTHROSCOPY, BILATERAL HEEL SPURS. BENIGN TUMOR REMOVED FROM LEFT EYE,Lt Rot Cuff,sinuplasty lap band removal 08-14-17 gastric bypass 12-11-17 Past Anesthesia/Blood Transfusion Reactions: Motion Sickness, Postoperative Nausea & Vomiting (PONV) Additional Past Anesthesia/Blood Transfusion Reaction / Comm: Hx Esophageal spasms,. MOTHER AND DAUGHTER HAVE PONV,no hx blood transfusion Past Psychological History: No Psychological Hx Reported Additional Psychological History / Comment(s): Pt resides with her spouse. She is independent. She drives. retired. No experience. No animals at home. No other change in the home environ Smoking Status: Never smoker Past Alcohol Use History: None Reported Past Drug Use History: None Reported - Past Family History Father Family Medical History: Cancer, Diabetes Mellitus, Hypertension Additional Family Medical History / Comment(s): Father had cancer below his eye. He from a MVA. Mother Family Medical History: AFIB, Cancer, Thyroid Disorder Additional Family Medical History / Comment(s): skin CA Medications and Allergies Home Medications and Allergies Comment(s): Laboratory Results WBC 14.2 k/uL (3.8-10.6) H 10/26/18 06:43 RBC 3.18 m/uL (3.80-5.40) L 10/26/18 06:43 Hgb 9.0 gm/dL (11.4-16.0) L 10/26/18 06:43 Hct 27.6 % (34.0-46.0) L 10/26/18 06:43 MCV 86.8 fL (80.0-100.0) 10/26/18 06:43 MCH 28.2 pg (25.0-35.0) 10/26/18 06:43 MCHC 32.4 g/dL (31.0-37.0) 10/26/18 06:43 RDW 16.0 % (11.5-15.5) H 10/26/18 06:43 Plt Count 238 k/uL (150-450) 10/26/18 06:43 Neutrophils % 89 % 10/26/18 06:43 Neutrophils % (Manual) 71 % 10/24/18 03:38 Band Neutrophils % 14 % 10/24/18 03:38 Lymphocytes % 6 % 10/26/18 06:43 Lymphocytes % (Manual) 10 % 10/24/18 03:38 Monocytes % 3 % 10/26/18 06:43 Monocytes % (Manual) 5 % 10/24/18 03:38 Eosinophils % 1 % 10/26/18 06:43 Basophils % 0 % 10/26/18 06:43 Neutrophils # 12.6 k/uL (1.3-7.7) H 10/26/18 06:43 Neutrophils # (Manual) 5.70 k/uL (1.3-7.7) 10/24/18 03:38 Lymphocytes # 0.8 k/uL (1.0-4.8) L 10/26/18 06:43 Lymphocytes # (Manual) 0.68 k/uL (1.0-4.8) L 10/24/18 03:38 Monocytes # 0.5 k/uL (0-1.0) 10/26/18 06:43 Monocytes # (Manual) 0.34 k/uL (0-1.0) 10/24/18 03:38 Eosinophils # 0.1 k/uL (0-0.7) 10/26/18 06:43 Basophils # 0.0 k/uL (0-0.2) 10/26/18 06:43 Nucleated RBCs 0 /100 WBC (0-0) 10/24/18 03:38 Manual Slide Review Performed 10/24/18 03:38 RBC Morphology Normal 10/23/18 06:22 Hypochromasia Slight 10/23/18 23:37 Poikilocytosis Slight 10/23/18 23:37 Anisocytosis Slight 10/26/18 06:43 D-Dimer 4.81 mg/L FEU (<0.60) H 10/26/18 11:26 Sodium 140 mmol/L (137-145) 10/26/18 06:43 Potassium 4.0 mmol/L (3.5-5.1) 10/26/18 06:43 Chloride 110 mmol/L (98-107) H 10/26/18 06:43 Carbon Dioxide 22 mmol/L (22-30) 10/26/18 06:43 Anion Gap 8 mmol/L 10/26/18 06:43 BUN 14 mg/dL (7-17) 10/26/18 06:43 Creatinine 0.82 mg/dL (0.52-1.04) 10/26/18 06:43 Est GFR (CKD-EPI)AfAm 87 (>60 ml/min/1.73 sqM) 10/26/18 06:43 Est GFR (CKD-EPI)NonAf 75 (>60 ml/min/1.73 sqM) 10/26/18 06:43 Glucose 91 mg/dL (74-99) 10/26/18 06:43 POC Glucose (mg/dL) 95 mg/dL (75-99) 10/23/18 23:32 POC Glu Optical Assistant ID Marleen Jiang 10/23/18 23:32 Lactic Ac Sepsis Rflx Y 10/24/18 00:18 Plasma Lactic Acid Hubert 0.9 mmol/L (0.7-2.0) 10/26/18 11:26 Calcium 8.1 mg/dL (8.4-10.2) L 10/26/18 06:43 Phosphorus 3.2 mg/dL (2.5-4.5) 10/23/18 06:22 Magnesium 1.8 mg/dL (1.6-2.3) 10/24/18 08:33 Troponin I 0.012 ng/mL (0.000-0.034) 10/23/18 23:47 NT-Pro-B Natriuret Pep 1140 pg/mL 10/26/18 06:43 TSH 4.780 mIU/L (0.465-4.680) H 10/26/18 06:43 Free T4 0.74 ng/dL (0.78-2.19) L 10/26/18 06:43 Blood Type O Negative 10/17/18 09:20 Blood Type Recheck O Neg 10/17/18 09:20 Bld Type Recheck Status No 10/17/18 09:20 Antibody Screen NEGATIVE 10/17/18 09:20 Spec Expiration Date 10/24/2018 10/17/18 09:20 Home Medications Medication Instructions Recorded Confirmed Type ALPRAZolam [Xanax] 0.5 mg PO BID PRN 06/17/13 10/22/18 History cycloSPORINE [Restasis] 1 drop BOTH EYES DAILY 06/17/13 10/22/18 History Carisoprodol [Soma] 350 mg PO DAILY PRN 02/09/15 10/22/18 History Meclizine [Antivert] 25 mg PO DAILY PRN 02/09/15 10/22/18 History ZOLMitriptan [Zomig] 5 mg PO DAILY PRN 02/09/15 10/22/18 History Metoprolol Tartrate [Lopressor] 50 mg PO BID 12/11/17 10/22/18 History Calcium Citrate/Vitamin D3 600 mg PO BID 07/26/18 10/22/18 History [Calcitrate + Vit D Caplet] Levothyroxine Sodium [Synthroid] 137 mcg PO QAM 09/19/18 10/22/18 History Omeprazole [PriLOSEC] 40 mg PO QAM PRN 10/11/18 10/22/18 History Allergies Allergy/AdvReac Type Severity Reaction Status Date / Time Sulfa (Sulfonamide Allergy Severe Rash/Hives Verified 10/22/18 18:29 Antibiotics) codeine AdvReac Severe Nausea & Verified 10/22/18 18:29 Vomiting meperidine HCl [From Demerol] AdvReac Nausea & Verified 10/22/18 18:29 Vomiting Physical Exam Vitals: Vital Signs Temp Pulse Pulse Resp BP BP Pulse Ox 10/26/18 20:14 88 10/26/18 20:02 88 10/26/18 19:13 99.1 F 109 H 18 117/72 95 10/26/18 17:15 110 H 10/26/18 17:03 116 H 10/26/18 14:48 97.9 F 119 H 15 128/75 93 L 10/26/18 11:30 120 H 10/26/18 11:16 114 H 10/26/18 07:45 15 10/26/18 07:00 98.1 F 120 H 15 127/78 92 L 10/26/18 02:34 98.1 F 122 H 20 138/84 92 L Intake and Output 0910/26/18 10/27/18 14:59 22:59 06:59 Other: Voiding Method Toilet Toilet # Voids 3 1 # Bowel Movements 2 Weight 80.603 kg HEENT: Anicteric conjunctiva are pink and moist nasal mucosa grossly intact without significant lesions, there is no thrush. Neck: The neck is supple without significant lymphadenopathy or thyromegaly. Lungs: symmetrical bilateral air entry is noted, basilar crackles Heart: Regular rate and rhythm with an audible S1-S2, no S3 no S4. There is no significant murmur click or rub, PMI was nondisplaced. Abdomen: Abdomen is postoperative, and surgical incisions have been glued and her healing well without erythema, crepitance or tenderness. The abdomen is generally nontender. There is no palpable mass or organomegaly. Extremities: The upper extremities have excellent pulses they are symmetric, no significant petechiae or telangiectasia. No splinter hemorrhages were noted. The lower extremities are free from significant edema. The peripheral pulses were 2+ and symmetric. Neuro: Awake alert oriented to person place and time. There are no acute new gross focal sensory motor deficits. Results CBC & Chem 7: 10/26/18 06:43 10/26/18 06:43 Labs: Abnormal Lab Results - Last 24 Hours (Table) 10/26/18 10/26/18 10/26/18 Range/Units 06:43 06:43 06:43 WBC 14.2 H (3.8-10.6) k/uL RBC 3.18 L (3.80-5.40) m/uL Hgb 9.0 L (11.4-16.0) gm/dL Hct 27.6 L (34.0-46.0) % RDW 16.0 H (11.5-15.5) % Neutrophils # 12.6 H (1.3-7.7) k/uL Lymphocytes # 0.8 L (1.0-4.8) k/uL D-Dimer (<0.60) mg/L FEU Chloride 110 H (98-107) mmol/L Calcium 8.1 L (8.4-10.2) mg/dL TSH 4.780 H (0.465-4.680) mIU/L Free T4 0.74 L (0.78-2.19) ng/dL 10/26/18 Range/Units 11:26 WBC (3.8-10.6) k/uL RBC (3.80-5.40) m/uL Hgb (11.4-16.0) gm/dL Hct (34.0-46.0) % RDW (11.5-15.5) % Neutrophils # (1.3-7.7) k/uL Lymphocytes # (1.0-4.8) k/uL D-Dimer 4.81 H (<0.60) mg/L FEU Chloride (98-107) mmol/L Calcium (8.4-10.2) mg/dL TSH (0.465-4.680) mIU/L Free T4 (0.78-2.19) ng/dL Microbiology - Last 24 Hours (Table) 10/24/18 00:22 Blood Culture - Preliminary Blood No Growth after 48 hours Laboratory Results WBC 14.2 k/uL (3.8-10.6) H 10/26/18 06:43 RBC 3.18 m/uL (3.80-5.40) L 10/26/18 06:43 Hgb 9.0 gm/dL (11.4-16.0) L 10/26/18 06:43 Hct 27.6 % (34.0-46.0) L 10/26/18 06:43 MCV 86.8 fL (80.0-100.0) 10/26/18 06:43 MCH 28.2 pg (25.0-35.0) 10/26/18 06:43 MCHC 32.4 g/dL (31.0-37.0) 10/26/18 06:43 RDW 16.0 % (11.5-15.5) H 10/26/18 06:43 Plt Count 238 k/uL (150-450) 10/26/18 06:43 Neutrophils % 89 % 10/26/18 06:43 Neutrophils % (Manual) 71 % 10/24/18 03:38 Band Neutrophils % 14 % 10/24/18 03:38 Lymphocytes % 6 % 10/26/18 06:43 Lymphocytes % (Manual) 10 % 10/24/18 03:38 Monocytes % 3 % 10/26/18 06:43 Monocytes % (Manual) 5 % 10/24/18 03:38 Eosinophils % 1 % 10/26/18 06:43 Basophils % 0 % 10/26/18 06:43 Neutrophils # 12.6 k/uL (1.3-7.7) H 10/26/18 06:43 Neutrophils # (Manual) 5.70 k/uL (1.3-7.7) 10/24/18 03:38 Lymphocytes # 0.8 k/uL (1.0-4.8) L 10/26/18 06:43 Lymphocytes # (Manual) 0.68 k/uL (1.0-4.8) L 10/24/18 03:38 Monocytes # 0.5 k/uL (0-1.0) 10/26/18 06:43 Monocytes # (Manual) 0.34 k/uL (0-1.0) 10/24/18 03:38 Eosinophils # 0.1 k/uL (0-0.7) 10/26/18 06:43 Basophils # 0.0 k/uL (0-0.2) 10/26/18 06:43 Nucleated RBCs 0 /100 WBC (0-0) 10/24/18 03:38 Manual Slide Review Performed 10/24/18 03:38 RBC Morphology Normal 10/23/18 06:22 Hypochromasia Slight 10/23/18 23:37 Poikilocytosis Slight 10/23/18 23:37 Anisocytosis Slight 10/26/18 06:43 D-Dimer 4.81 mg/L FEU (<0.60) H 10/26/18 11:26 Sodium 140 mmol/L (137-145) 10/26/18 06:43 Potassium 4.0 mmol/L (3.5-5.1) 10/26/18 06:43 Chloride 110 mmol/L (98-107) H 10/26/18 06:43 Carbon Dioxide 22 mmol/L (22-30) 10/26/18 06:43 Anion Gap 8 mmol/L 10/26/18 06:43 BUN 14 mg/dL (7-17) 10/26/18 06:43 Creatinine 0.82 mg/dL (0.52-1.04) 10/26/18 06:43 Est GFR (CKD-EPI)AfAm 87 (>60 ml/min/1.73 sqM) 10/26/18 06:43 Est GFR (CKD-EPI)NonAf 75 (>60 ml/min/1.73 sqM) 10/26/18 06:43 Glucose 91 mg/dL (74-99) 10/26/18 06:43 POC Glucose (mg/dL) 95 mg/dL (75-99) 10/23/18 23:32 POC Glu Optical Assistant ID Marleen Jiang 10/23/18 23:32 Lactic Ac Sepsis Rflx Y 10/24/18 00:18 Plasma Lactic Acid Hubert 0.9 mmol/L (0.7-2.0) 10/26/18 11:26 Calcium 8.1 mg/dL (8.4-10.2) L 10/26/18 06:43 Phosphorus 3.2 mg/dL (2.5-4.5) 10/23/18 06:22 Magnesium 1.8 mg/dL (1.6-2.3) 10/24/18 08:33 Troponin I 0.012 ng/mL (0.000-0.034) 10/23/18 23:47 NT-Pro-B Natriuret Pep 1140 pg/mL 10/26/18 06:43 TSH 4.780 mIU/L (0.465-4.680) H 10/26/18 06:43 Free T4 0.74 ng/dL (0.78-2.19) L 10/26/18 06:43 Blood Type O Negative 10/17/18 09:20 Blood Type Recheck O Neg 10/17/18 09:20 Bld Type Recheck Status No 10/17/18 09:20 Antibody Screen NEGATIVE 10/17/18 09:20 Spec Expiration Date 10/24/2018 10/17/18 09:20 Microbiology 10/24/18 00:22 Blood Blood Culture - Preliminary No Growth after 48 hours Assessment and Plan (1) S/P gastric surgery Current Visit: Yes Status: Acute Code(s): Z98.890 - OTHER SPECIFIED POSTPROCEDURAL STATES SNOMED Code(s): 086669329 (2) Atelectasis of both lungs Narrative/Plan: 63 -year-old woman presents to Hospital with ongoing difficulties of her gastrojejunostomy stricture and need for revision which has now occurred. Postoperatively she developed some shortness of breath and no is developed an increasing leukocytosis. CT angiogram without evidence of pulmonary embolus but does have evidence of infiltrates. With prior history of aspiration this is of concern and antibiotic therapy has been initiated. Zosyn is an excellent choice as it covers intra-abdominal as well as pulmonary pathogens. She [place] is not having high-grade fever although she had a fever earlier. Leukocytosis will be monitored. Cultures will help further direct therapy but hopefully will be able to de-escalate relatively quickly as she improves. Importance of her incentive spirometry and ambulation are again stressed as well as protein intake to help her healing. Current Visit: No Status: Acute Code(s): J98.11 - ATELECTASIS SNOMED Code(s): 23974757
[2018-10-27] MEDS: PIPERACILLIN-TAZOBACTAM 3.375 GM in SODIUM CHLORIDE 0.9% 100 ML IVPB SCH ×3 (04:23→21:35)
[2018-10-27] MEDS: LEVOTHYROXINE 137 MCG TAB PO SCH (05:19)
[2018-10-27] MEDS: SIMETHICONE 40 MG/0.6 ML DROPS 2,000 MG/30 ML BOTTLE PO SCH ×3 (05:19→17:04)
--- NOTE | 2018-10-27 07:46 | XR ---
EXAMINATION TYPE: XR chest 2V DATE OF EXAM: 10/27/2018 HISTORY: shortness of breath. REFERENCE: Previous study dated 10/26/2018. FINDINGS: There is bibasilar atelectasis. There are small, bilateral effusions. The heart does not ap pear enlarged. IMPRESSION: NO SIGNIFICANT INTERVAL CHANGE IN THE APPEARANCE OF THE CHEST.
[2018-10-27] MEDS: METOPROLOL TARTRATE 50 MG TAB PO SCH ×3 (07:52→21:35)
[2018-10-27] MEDS: PANTOPRAZOLE 40 MG/10 ML VIAL IV SCH (07:52)
[2018-10-27 08:12] LABS: Basophils # (A) 0.2 k/uL (0-0.2); Basophils % (A) 1 %; Eosinophils # (A) 0.1 k/uL (0-0.7); Eosinophils % (A) 1 %; HCT 27.1 % (34.0-46.0); HGB 8.5 gm/dL (11.4-16.0); Lymphocytes # (A) 0.6 k/uL (1.0-4.8); Lymphocytes % (A) 5 %; MCH 26.9 pg (25.0-35.0); MCHC 31.6 g/dL (31.0-37.0); MCV 85.3 fL (80.0-100.0); Mean Platelet Volume 7.1; Monocytes # (A) 0.7 k/uL (0-1.0); Monocytes % (A) 6 %; Neutrophils # (A) 10.4 k/uL (1.3-7.7); Neutrophils % (A) 85 %; Platelet Count 238 k/uL (150-450); RBC 3.18 m/uL (3.80-5.40); RDW 15.4 % (11.5-15.5); WBC 12.2 k/uL (3.8-10.6)
[2018-10-27] MEDS: ALBUTEROL NEBULIZED 2.5 MG/3 ML INHALATION SCH ×4 (09:37→19:41)
[2018-10-27] MEDS: fentaNYL PCA 500 MCG/50 ML BAG IV PRN (10:15)
--- NOTE | 2018-10-27 12:37 | P.PN ---
Subjective Progress Note Date: 10/27/18 Principal diagnosis: Shortness of breath Patient was seen and examined. No acute events overnight. Patient reports considerable improvement in her breathing since yesterday. States that she is finally starting to feel better. Complains of fatigue likely related to the increased work of breathing. She denies any chest pain or palpitations. No nausea or vomiting. No fever or chills. Objective - Vital Signs Vital signs: Vital Signs Temp 98.2 F 10/27/18 07:00 Pulse 89 10/27/18 09:49 Resp 16 10/27/18 09:49 BP 109/65 10/27/18 07:00 Pulse Ox 96 10/27/18 09:37 Intake & Output 10/26/18 10/27/18 10/27/18 18:59 06:59 18:59 Intake Total 480 Balance 480 Weight 80.603 kg Intake: Oral 480 Other: Voiding Method Toilet Toilet # Voids 3 4 1 # Bowel Movements 2 - Exam General: [non toxic], [no distress on 4 L NC], [appears at stated age] Derm: [warm], [dry] Head: [atraumatic], [normocephalic], [symmetric] Eyes: [EOMI], [no lid lag], [anicteric sclera] Mouth: [no lip lesion], [mucus membranes moist] Cardiovascular: [S1S2 reg], [no murmur], [positive DP pulse bilateral], Lungs: [CTA bilateral, decreased breath sounds at the bases], [no rhonchi, no rales] , [no accessory muscle use] Abdominal: [soft], [no tenderness to palpation], [no guarding], [no appreciable organomegaly] Ext: [no gross muscle atrophy], [no edema], [no contractures] Neuro: [no focal neuro deficits] Psych: [Alert], [oriented], [appropriate affect] - Labs CBC & Chem 7: 10/27/18 07:25 10/26/18 06:43 Labs: Abnormal Lab Results - Last 24 Hours (Table) 10/26/18 10/27/18 Range/Units 06:43 07:25 WBC 12.2 H (3.8-10.6) k/uL RBC 3.18 L (3.80-5.40) m/uL Hgb 8.5 L (11.4-16.0) gm/dL Hct 27.1 L (34.0-46.0) % Neutrophils # 10.4 H (1.3-7.7) k/uL Lymphocytes # 0.6 L (1.0-4.8) k/uL Free T4 0.74 L (0.78-2.19) ng/dL Microbiology - Last 24 Hours (Table) 10/24/18 00:22 Blood Culture - Preliminary Blood No Growth after 72 hours Assessment and Plan Assessment: Assessment and Plan Hypoxia post surgery likely related to atelectasis Tachycardia likely related to pain and hypoxia, history of SVT Fever of 100.2 Fahrenheit on 10/24/2018, with new leukocytosis Hypothyroidism Status post robotic revision of gastrojejunal anastomosis and partial gastrectomy Resolved: Lactic acidosis Currently mid 90s on 5 L NC. Elevated d-dimer, CTA chest rules out PE. Chest x-ray this morning yesterday shows bibasilar effusions and associated atelectasis. Plans: Albuterol neb scheduled. Incentive spirometry. P ulmonology consulted, recommends BiPAP, patient would rather stick with incentive spirometry. O2 per NC to maintain O2 saturation greater than 92%. Attempt to wean oxygen. Follow pulmonology consultation. Follow chest x-ray in the morning. Heart rate 120, within normal limits today. History of SVT. Plans: Adequate pain management. EKG shows sinus tachycardia. Echocardiogram ordered shows EF 50-55%. Plans: Metoprolol increased from twice a day to 3 times a day. Follow cardiology consultation. T-max 100.2 10/24/2018, afebrile since. Tachycardic with new leukocytosis of 14.2-12.2 this morning. Lactic acid 2.9-0.9. CT abdomen and pelvis shows wall thickening concerns for enterocolitis, distention of gallbladder may be reactive. Does not meet sepsis criteria. On Cefazolin over the last 3 days, switched to Zosyn. Blood cultures prelim negative at 72 hours. Plans: Possibly reactive and not related to infection. Continue Zosyn, antibiotics per surgery. Follow final blood cultures. Follow ID consultation. Plans: Resume Synthroid. POD 5. Barium swallow done today shows no evidence of leak or obstruction. Plans: Management as per surgery. Zofran as needed for nausea or vomiting. Continue Protonix IV. Simethicone for bloating. [Patient's tachycardia has improved. Continue incentive spirometry. Pending clinical improvement. Cardiology and pulmonology on board.]
--- NOTE | 2018-10-27 13:31 | P.PN ---
Subjective Progress Note Date: 10/27/18 CHIEF COMPLAINT: Gastrojejunal obstruction HISTORY OF PRESENT ILLNESS: The patient is a 63-year-old female postop day 5 status post revision of gastrojejunal anastomosis. She reports feeling better to day than yesterday. She was given Lasix x 1 dose per pulmonary. She feels fatigued from barely sleeping last night from the diuretic. She is passing more flatus and continues to have bowel movements. She reports abdominal soreness from moving up and down from the bec. ROS: No reports of nausea and vomiting. Had bowel movements. No fevers or chills. No new chest pain. No productive sputum PHYSICAL EXAM: VITAL SIGNS: Reviewed CONSTITUTIONAL: Well developed and in no acute distress. EYES: Conjuctivae without sclera icterus. Extraocular movements grossly intact. HEAD, EARS, NOSE, THROAT: Moist buccal mucosa. Head is atraumatic, normocephalic. Hears conversational speech. No nasal drainage. NECK: Supple. No thyroidomegaly. RESPIRATORY: Decreased labored breathing. CARDIOVASCULAR: Palpable 2+ radial pulses. Regular rate. Regular rhythm. ABDOMEN: Incisions clean dry and intact. Soft. No peritonitis. MUSCULOSKELETAL: No gross deformity of the lower extremities noted. No clubbing. No cyanosis. SKIN: Good skin turgor. Well perfused. NEUROLOGIC: Cranial nerves I through XII grossly intact. No focal or lateralizing signs. PSYCH: Appropriate affect. Alert and oriented to person, place and time. CLINCAL LABS: White blood cell count improved from 14,000 and 12,000 RADIOLOGY: Chest xray independently reviewed shows increased lung rojas. No further pneumoperitoneum ASSESSMENT: 1. Gastrojejunal obstruction status post revision 2. Atelectasis, bilateral with oxygen desaturation 3. Tachycardia improved PLAN: 1. Continue antibiotics with Zosyn 2. Continue incentive spirometer use 3. No adjustments of Metroprolol 50 mg TID noted 4. Diuretics per software security consultant 5. Continue hospitalization Objective - Vital Signs Vital signs: Vital Signs Temp 98.2 F 10/27/18 07:00 Pulse 89 10/27/18 09:49 Resp 16 10/27/18 09:49 BP 109/65 10/27/18 07:00 Pulse Ox 96 10/27/18 09:37 Intake & Output 10/26/18 10/27/18 10/27/18 18:59 06:59 18:59 Intake Total 480 Balance 480 Weight 80.603 kg Intake: Oral 480 Other: Voiding Method Toilet Toilet # Voids 3 4 1 # Bowel Movements 2 - Labs CBC & Chem 7: 10/27/18 07:25 10/26/18 06:43 Labs: Abnormal Lab Results - Last 24 Hours (Table) 10/26/18 10/26/18 10/27/18 Range/Units 06:43 11:26 07:25 WBC 12.2 H (3.8-10.6) k/uL RBC 3.18 L (3.80-5.40) m/uL Hgb 8.5 L (11.4-16.0) gm/dL Hct 27.1 L (34.0-46.0) % Neutrophils # 10.4 H (1.3-7.7) k/uL Lymphocytes # 0.6 L (1.0-4.8) k/uL D-Dimer 4.81 H (<0.60) mg/L FEU TSH 4.780 H (0.465-4.680) mIU/L Free T4 0.74 L (0.78-2.19) ng/dL Microbiology - Last 24 Hours (Table) 10/24/18 00:22 Blood Culture - Preliminary Blood No Growth after 72 hours Assessment and Plan (1) Gastrojejunal ulcer, with obstruction Current Visit: Yes Status: Acute Code(s): K28.9 - GASTROJEJUNAL ULCER, UNSP ACUTE OR CHR, W/O HEMOR OR PERF SNOMED Code(s): 04892785 (2) S/P gastric surgery Current Visit: Yes Status: Acute Code(s): Z98.890 - OTHER SPECIFIED POSTPROCEDURAL STATES SNOMED Code(s): 519168530 (3) Atelectasis of both lungs Current Visit: No Status: Acute Code(s): J98.11 - ATELECTASIS SNOMED Code(s): 60204310 (4) GERD (gastroesophageal reflux disease) Current Visit: No Status: Acute Code(s): K21.9 - GASTRO-ESOPHAGEAL REFLUX DISEASE WITHOUT ESOPHAGITIS SNOMED Code(s): 335955673 (5) Morbid obesity Current Visit: No Status: Acute Code(s): E66.01 - MORBID (SEVERE) OBESITY DUE TO EXCESS CALORIES SNOMED Code(s): 884390760 (6) Tachycardia Current Visit: Yes Status: Acute Code(s): R00.0 - TACHYCARDIA, UNSPECIFIED SNOMED Code(s): 9946380 (7) Pleural effusion due to CHF (congestive heart failure) Current Visit: Yes Status: Acute Code(s): I50.9 - HEART FAILURE, UNSPECIFIED SNOMED Code(s): 81735453
--- NOTE | 2018-10-27 14:59 | P.PN ---
Subjective Progress Note Date: 10/27/18 Principal diagnosis: Acute hypoxic respiratory failure secondary to atelectasis. 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 On 10/22/2018 patient underwent robotic revision of gastrojejunal anastomosis and partial gastrectomy. In the postoperative period patient had developed shortness of breath, and acute hypoxemic respiratory failure requiring supplemental oxygen. Denied any chest pain, and there has only been one episode of low-grade fever of 100.2F, it was an isolated event. CTA chest showed suboptimal bolus timing which limited evaluation, however there was no evidence of pulmonary embolism, did show extensive atelectasis involving both lower lobes and the lingula and trace bilateral pleural effusions, no pneumothorax. Her lab work is without any evidence of leukocytosis, today's white blood cell count is 8.8, it was 6.8 yesterday. Hemoglobin today is 9.3, serum sodium is 139, potassium is 4.2, chloride is 113, CO2 is 20, BUN is 13, creatinine 0.72, possible lactic acid was drawn yesterday and came back normal at 0.9, troponin was negative at 0.012. Since and says spirometer effort is suboptimal, and patient is only achieving 500 mL. No fever or chills, no cough or congestion, no hemoptysis. Breathing treatments have been added, and patient is on fentanyl SOLVENT RECOVERER for pain control. She has been covered with the empiric antibiotics in the form of Zosyn. On 10/26/2018 patient seen in follow-up on medical surgical floor. She states her breathing is easier today, her incentive spirometry effort is still very suboptimal, at times patient is able to achieve 750, most of the time she is only doing about 500 mL. Lung sounds are diminished at the bases, with scattered rales, occasional cough, with no significant sputum production. She is on 4 L of oxygen her pulse ox is 92%, she still tachycardic at 120, afebrile. She is covered with Zosyn for empiric antibiotic coverage, breathing treatments. No hemoptysis, no significant chest congestion. She states she is fairly comfortable at rest, some slight incisional discomfort abdominal discomfort with moving around, and for the most part her pain is well controlled, incisions are clean dry and intact. She is passing bowel movements, passing gas, tolerating oral diet. His labs reviewed, showing white blood cell count of 14.2, hemoglobin of 9.0, sodium of 140, potassium 4.0, chloride is 110, CO2 is 22, BUN was 14. And creatinine is 0.82. Blood culture showed no growth. Yesterday upper GI series showed no evidence of leak or obstruction status post gastric bypass revision Patient is seen today 10/27/2018 in follow-up on the regular medical floor. She is currently resting comfortably in bed. She had been up in the chair at the bedside for several hours. She denies any worsening shortness of breath, cough or congestion. Breathing a bit easier today as compared to yesterday. Still working with the incentive spirometer. Pulling 750 MLS only. He is on 5 L high flow nasal cannula and maintaining O2 saturation in the mid 90s. She's been afebrile. Hemodynamically stable. A culture reveals no growth. White count 12.2. Hemoglobin 8.5. Currently on bronchodilators and Zosyn. Asked x-ray continues to show by basilar atelectasis and small bilateral pleural effusions. Objective - Vital Signs Vital signs: Vital Signs Temp 98.2 F 10/27/18 07:00 Pulse 91 10/27/18 12:58 Resp 18 10/27/18 12:58 BP 109/65 10/27/18 07:00 Pulse Ox 96 10/27/18 09:37 Intake & Output 10/26/18 10/27/18 10/27/18 18:59 06:59 18:59 Intake Total 480 Balance 480 Weight 80.603 kg Intake: Oral 480 Other: Voiding Method Toilet Toilet # Voids 3 4 1 # Bowel Movements 2 - Exam GENERAL EXAM: Alert, pleasant, obese 63-year-old male patient on 5 L of high flow oxygen, comfortable in no apparent distress. HEAD: Normocephalic/atraumatic. EYES: Normal reaction of pupils, equal size. Conjunctiva pink, sclera white. NOSE: Clear with pink turbinates. THROAT: No erythema or exudates. NECK: No masses, no JVD, no thyroid enlargement, no adenopathy. CHEST: No chest wall deformity. Symmetrical expansion. LUNGS: Diminished air entry with no crackles, wheeze, rhonchi or dullness. CVS: Regular rate and rhythm, normal S1 and S2, no gallops, no murmurs, no rubs ABDOMEN: Soft, nontender. No hepatosplenomegaly, normal bowel sounds, no guarding or rigidity. EXTREMITIES: No clubbing, no edema, no cyanosis, 2+ pulses and upper and lower extremities. MUSCULOSKELETAL: Muscle strength and tone normal. SPINE: No scoliosis or deformity SKIN: No rashes CENTRAL NERVOUS SYSTEM: No focal deficits, tone is normal in all 4 extremities. PSYCHIATRIC: Alert and oriented -3. Appropriate affect. Intact judgment and insight. - Labs CBC & Chem 7: 10/27/18 07:25 10/26/18 06:43 Labs: Abnormal Lab Results - Last 24 Hours (Table) 10/27/18 Range/Units 07:25 WBC 12.2 H (3.8-10.6) k/uL RBC 3.18 L (3.80-5.40) m/uL Hgb 8.5 L (11.4-16.0) gm/dL Hct 27.1 L (34.0-46.0) % Neutrophils # 10.4 H (1.3-7.7) k/uL Lymphocytes # 0.6 L (1.0-4.8) k/uL Microbiology - Last 24 Hours (Table) 10/24/18 00:22 Blood Culture - Preliminary Blood No Growth after 72 hours Assessment and Plan Assessment: Assessment: #1. Acute hypoxemic respiratory failure related to atelectasis involving bilateral lower bases and the lingula #2. 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 Morbid obesity, status post lap banding and subsequent removal of the LAP- BAND, gastric bypass surgery in 2018 #4. Hypothyroidism #5. GERD/reflux #6. Osteoarthritis #7. Possible underlying sleep apnea #8. Migraine headaches #9. History of supraventricular tachycardia Plan: The patient was seen and evaluated by Dr. Allen. Chest x-ray reviewed. She is encouraged regarding the increased use the incentive spirometer and cough and deep breathing exercises. Increase her activity as tolerated. We will continue to follow and make further recommendations based on her clinical status. I, the cosigning physician, performed a history & physical examination of the patient. Lungs sounds crackles in the bilateral posterior bases. Maintaining good O2 saturations in the 90s on 5 L high flow nasal cannula. I discussed the assessment and plan of care with my nurse practitioner, Blanca Carter. I attest to the above note as dictated by her.
[2018-10-27] MEDS: cycloSPORINE 0.05% OPHTH 0.4 ML DROPERETTE BOTH EYES SCH (21:35)
[2018-10-28] MEDS: SIMETHICONE 40 MG/0.6 ML DROPS 2,000 MG/30 ML BOTTLE PO SCH ×4 (00:25→17:16)
[2018-10-28] MEDS: PIPERACILLIN-TAZOBACTAM 3.375 GM in SODIUM CHLORIDE 0.9% 100 ML IVPB SCH ×3 (05:46→21:52)
[2018-10-28] MEDS: LEVOTHYROXINE 137 MCG TAB PO SCH (05:47)
[2018-10-28 07:47] LABS: African American GFR (CKD) >90 (>60 ml/min/1.73 sqM); Anion Gap 9 mmol/L; Blood Urea Nitrogen 10 mg/dL (7-17); Calcium 7.8 mg/dL (8.4-10.2); Carbon Dioxide 25 mmol/L (22-30); Chloride 101 mmol/L (98-107); Glucose 86 mg/dL (74-99); Potassium 3.1 mmol/L (3.5-5.1); Sodium 135 mmol/L (137-145)
[2018-10-28] MEDS ORDERED: Potassium Replacement Protocol 1 EACH MISC MISCELLANE PRN (07:52)
[2018-10-28 07:54] LABS: HCT 26.7 % (34.0-46.0); HGB 8.8 gm/dL (11.4-16.0); MCH 27.5 pg (25.0-35.0); MCHC 32.8 g/dL (31.0-37.0); Mean Platelet Volume 7.5; Platelet Count 279 k/uL (150-450); RBC 3.18 m/uL (3.80-5.40); RDW 15.4 % (11.5-15.5); WBC 13.7 k/uL (3.8-10.6)
[2018-10-28] MEDS: ALBUTEROL NEBULIZED 2.5 MG/3 ML INHALATION SCH ×4 (08:39→20:18)
[2018-10-28] MEDS: PANTOPRAZOLE 40 MG/10 ML VIAL IV SCH (08:40)
[2018-10-28] MEDS: METOPROLOL TARTRATE 50 MG TAB PO SCH ×3 (08:40→21:55)
[2018-10-28 08:42] LABS: Band Neutrophils % 1 %; Eosinophils # (M) 0.14 k/uL (0-0.7); Metamyelocytes # (M) 0.55 k/uL (0); Metamyelocytes % 4 %; Myelocytes # (M) 0.27 k/uL (0); Myelocytes % 2 %; Neutrophils % (M) 77 %; Nucleated Red Blood Cells 0 /100 WBC (0-0); Total Cells Counted 200
[2018-10-28] MEDS: POTASSIUM CHLORIDE ER 20 MEQ TAB.ER PO SCH ×2 (08:49→10:57)
--- NOTE | 2018-10-28 10:46 | P.PN ---
Subjective Progress Note Date: 10/28/18 Principal diagnosis: Shortness of breath Patient was seen and examined. No acute events overnight. Patient reports slight improvement in her breathing since yesterday. States that she is ready to go home. She denies any chest pain or palpitations. No nausea or vomiting. No fever or chills. Able to take a shower this morning without any difficulties. O2 saturation is 93-94% on room air. Objective - Vital Signs Vital signs: Vital Signs Temp 98.7 F 10/28/18 07:00 Pulse 101 H 10/28/18 08:59 Resp 14 10/28/18 07:00 BP 134/72 10/28/18 07:00 Pulse Ox 93 L 10/28/18 08:36 Intake & Output 10/27/18 10/28/18 10/28/18 18:59 06:59 18:59 Intake Total 500 400 Output Total 5 1 Balance 500 -5 399 Intake: Oral 500 400 Output: Urine 3 Stool 2 1 Other: Voiding Method Toilet Toilet Toilet # Voids 1 1 # Bowel Movements 3 - Exam General: [non toxic], [94% on room air], [appears at stated age] Derm: [warm], [dry] Head: [atraumatic], [normocephalic], [symmetric] Eyes: [EOMI], [no lid lag], [anicteric sclera] Mouth: [no lip lesion], [mucus membranes moist] Cardiovascular: [S1S2 reg], [tachycardic to 100], [positive DP pulse bilateral], Lungs: [CTA bilateral, decreased breath sounds at the bases], [no rhonchi, no rales] , [no accessory muscle use] Abdominal: [soft], [no tenderness to palpation], [no guarding], [no appreciable organomegaly] Ext: [no gross muscle atrophy], [no edema], [no contractures] Neuro: [no focal neuro deficits] Psych: [Alert], [oriented], [appropriate affect] - Labs CBC & Chem 7: 10/28/18 06:50 10/28/18 06:50 Labs: Abnormal Lab Results - Last 24 Hours (Table) 10/28/18 10/28/18 Range/Units 06:50 06:50 WBC 13.7 H (3.8-10.6) k/uL RBC 3.18 L (3.80-5.40) m/uL Hgb 8.8 L (11.4-16.0) gm/dL Hct 26.7 L (34.0-46.0) % Neutrophils # (Manual) 10.60 H (1.3-7.7) k/uL Monocytes # (Manual) 1.10 H (0-1.0) k/uL Metamyelocytes # (Man) 0.55 H (0) k/uL Myelocytes # (Manual) 0.27 H (0) k/uL Sodium 135 L (137-145) mmol/L Potassium 3.1 L (3.5-5.1) mmol/L Calcium 7.8 L (8.4-10.2) mg/dL Microbiology - Last 24 Hours (Table) 10/24/18 00:22 Blood Culture - Preliminary Blood No Growth after 96 hours Assessment and Plan Assessment: Assessment and Plan Hypoxia post surgery likely related to atelectasis Hypokalemia Tachycardia likely related to pain and hypoxia, history of SVT Fever of 100.2 Fahrenheit on 10/24/2018, with new leukocytosis Hypothyroidism Status post robotic revision of gastrojejunal anastomosis and partial gastrectomy Resolved: Lactic acidosis Currently 94% on room air. Elevated d-dimer, CTA chest rules out PE. Chest x- ray this morning yesterday shows bibasilar effusions and associated atelectasis. Plans: Albuterol neb scheduled. Incentive spirometry. Pulmonology consulted, recommends BiPAP, patient would rather stick with incentive spirometry. O2 per NC to maintain O2 saturation greater than 92%. Discussed with nursing, plans for 6 minute walk test to check for oxygen requirements prior to possible discharge. Follow pulmonology consultation. Potassium 3.1. Plans: Replace via protocol Heart rate around 100. History of SVT. EKG shows sinus tachycardia. Echocardiogram shows EF 50-55%. Plans: Adequate pain management. Plans: Metoprolol increased from twice a day to 3 times a day. Follow cardiology consultation. T-max 100.2 10/24/2018, afebrile since. Tachycardic with new leukocytosis of 14.2-12.2-13.7. Lactic acid 2.9-0.9. CT abdomen and pelvis shows wall thickening concerns for enterocolitis, distention of gallbladder may be reactive. Does not meet sepsis criteria. On Cefazolin over the last 3 days, switched to Zosyn. Blood cultures prelim negative at 96 hours. Plans: Possibly reactive and not related to infection. Continue Zosyn, antibiotics per surgery. Follow final blood cultures. Follow ID consultation. Plans: Resume Synthroid. POD 6. Barium swallow done today shows no evidence of leak or obstruction. Plans: Management as per surgery. Zofran as needed for nausea or vomiting. Continue Protonix IV. Simethicone for bloating. [Patient's tachycardia has improved. Check 6 minute walk test for oxygen requirement. DC planning as per surgery.]
[2018-10-28] MEDS: SODIUM FERRIC GLUCONAT-SUCROSE 125 MG in SODIUM CHLORIDE 0.9% 100 ML IVPB SCH (11:51)
--- NOTE | 2018-10-28 12:52 | P.PN ---
Subjective Progress Note Date: 10/28/18 Principal diagnosis: Shortness of breath This is a 63-year-old white female patient with past medical history of morbid obesity, previous history of lab banding and subsequent removal, gastric bypass surgery 1 year ago, and patient has recently developed gastrojejunal stricture w ith large retained gastric pouch and complete gastric obstruction requiring gastric decompression and balloon dilation. On 10/22/2018 patient underwent robotic revision of gastrojejunal anastomosis and partial gastrectomy. In the postoperative period patient had developed shortness of breath, and acute hypoxemic respiratory failure requiring supplemental oxygen. Denied any chest pain, and there has only been one episode of low-grade fever of 100.2F, it was an isolated event. CTA chest showed suboptimal bolus timing which limited evaluation, however there was no evidence of pulmonary embolism, did show extensive atelectasis involving both lower lobes and the lingula and trace bilateral pleural effusions, no pneumothorax. Her lab work is without any evidence of leukocytosis, today's white blood cell count is 8.8, it was 6.8 yesterday. Hemoglobin today is 9.3, serum sodium is 139, potassium is 4.2, chloride is 113, CO2 is 20, BUN is 13, creatinine 0.72, possible lactic acid was drawn yesterday and came back normal at 0.9, troponin was negative at 0.012. Since and says spirometer effort is suboptimal, and patient is only achieving 500 mL. No fever or chills, no cough or congestion, no hemoptysis. Breathing treatments have been added, and patient is on fentanyl LUMBER SCALER for pain control. She has been covered with the empiric antibiotics in the form of Zosyn. On 10/26/2018 patient seen in follow-up on medical surgical floor. She states her breathing is easier today, her incentive spirometry effort is still very suboptimal, at times patient is able to achieve 750, most of the time she is only doing about 500 mL. Lung sounds are diminished at the bases, with scattered rales, occasional cough, with no significant sputum production. She is on 4 L of oxygen her pulse ox is 92%, she still tachycardic at 120, afebrile. She is covered with Zosyn for empiric antibiotic coverage, breathing treatments. No hemoptysis, no significant chest congestion. She states she is fairly comfortable at rest, some slight incisional discomfort abdominal discomfort with moving around, and for the most part her pain is well controlled, incisions are clean dry and intact. She is passing bowel movements, passing gas, tolerating oral diet. His labs reviewed, showing white blood cell count of 14.2, hemoglobin of 9.0, sodium of 140, potassium 4.0, chloride is 110, CO2 is 22, BUN was 14. And creatinine is 0.82. Blood culture showed no growth. Yesterday upper GI series showed no evidence of leak or obstruction status post gastric bypass revision On 10/28/2018 patient is seen in follow-up on medical surgical floor. She is awake and alert, in no acute distress, she remains on 3 L of oxygen with a pulse ox of 93%, lung sounds are clear, no rhonchi, no rales, incentive spirometer effort is 750 today. no fever, no chills, yesterday's chest x-ray showed persistent bibasilar atelectasis, and small bilateral pleural effusions. Clinically patient is improving, oxygenation has improved, and she is breathing easier, less tachypneic and less tachycardic, we'll obtain home oxygen assessment, encouraged the patient to ambulate without oxygen, patient is being discharged home today by surgery. From [place] perspective she is stable for discharge as well Objective - Vital Signs Vital signs: Vital Signs Temp 98.7 F 10/28/18 07:00 Pulse 101 H 10/28/18 08:59 Resp 14 10/28/18 07:00 BP 134/72 10/28/18 07:00 Pulse Ox 94 L 10/28/18 11:39 Intake & Output 10/27/18 10/28/18 10/28/18 18:59 06:59 18:59 Intake Total 500 400 Output Total 5 1 Balance 500 -5 399 Intake: Oral 500 400 Output: Urine 3 Stool 2 1 Other: Voiding Method Toilet Toilet Toilet # Voids 1 1 # Bowel Movements 3 - Exam GENERAL EXAM: Alert, pleasant, obese 63-year-old white female on 3 L of oxygen comfortable in no apparent distress. HEAD: Normocephalic/atraumatic. EYES: Normal reaction of pupils, equal size. Conjunctiva pink, sclera white. NOSE: Clear with pink turbinates. THROAT: No erythema or exudates. NECK: No masses, no JVD, no thyroid enlargement, no adenopathy. CHEST: No chest wall deformity. Symmetrical expansion. LUNGS: Diminished air entry with no crackles, wheeze, rhonchi or dullness. CVS: Regular rate and rhythm, normal S1 and S2, no gallops, no murmurs, no rubs ABDOMEN: Soft, nontender. No hepatosplenomegaly, normal bowel sounds, no guarding or rigidity. EXTREMITIES: No clubbing, no edema, no cyanosis, 2+ pulses and upper and lower extremities. MUSCULOSKELETAL: Muscle strength and tone normal. SPINE: No scoliosis or deformity SKIN: No rashes CENTRAL NERVOUS SYSTEM: Alert and oriented -3. No focal deficits, tone is normal in all 4 extremities. PSYCHIATRIC: Alert and oriented -3. Appropriate affect. Intact judgment and insight. - Labs CBC & Chem 7: 10/28/18 06:50 10/28/18 06:50 Labs: Abnormal Lab Results - Last 24 Hours (Table) 10/28/18 10/28/18 Range/Units 06:50 06:50 WBC 13.7 H (3.8-10.6) k/uL RBC 3.18 L (3.80-5.40) m/uL Hgb 8.8 L (11.4-16.0) gm/dL Hct 26.7 L (34.0-46.0) % Neutrophils # (Manual) 10.60 H (1.3-7.7) k/uL Monocytes # (Manual) 1.10 H (0-1.0) k/uL Metamyelocytes # (Man) 0.55 H (0) k/uL Myelocytes # (Manual) 0.27 H (0) k/uL Sodium 135 L (137-145) mmol/L Potassium 3.1 L (3.5-5.1) mmol/L Calcium 7.8 L (8.4-10.2) mg/dL Microbiology - Last 24 Hours (Table) 10/24/18 00:22 Blood Culture - Preliminary Blood No Growth after 96 hours Assessment and Plan Plan: Assessment: #1. Acute hypoxemic respiratory failure related to atelectasis involving bilateral lower bases and the lingula #2. 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 Morbid obesity, status post lap banding and subsequent removal of the LAP- BAND, gastric bypass surgery in 2018 #4. Hypothyroidism #5. GERD/reflux #6. Osteoarthritis #7. Possible underlying sleep apnea #8. Migraine headaches #9. History of supraventricular tachycardia Plan: Patient's breathing is stable, obtain home oxygen assessment to determine whether the patient qualifies for home oxygen. Ambulate the patient, overall she is stable, no acute complaints, she is breathing easier, less tachypneic and less tachycardic. Afebrile. Anticipate discharge home today. I performed a history & physical examination of the patient and discussed their management with my nurse practitioner, Marylu Ferreira. I reviewed the nurse practitioner's note and agree with the documented findings and plan of care. Lung sounds are positive for diminished breath sounds throughout the lung rojas. The findings and the impression was discussed with the patient. I attest to the documentation by the nurse practitioner. Time with Patient: Less than 30
--- NOTE | 2018-10-28 13:18 | P.PN ---
Subjective Progress Note Date: 10/28/18 CHIEF COMPLAINT: Gastrojejunal obstruction HISTORY OF PRESENT ILLNESS: The patient is a 63-year-old female postop day 6 status post revision of gastrojejunal anastomosis. "I feel the best I have been since surgery." She reports energy. She is no longer dyspneic. She has been seen by hospitalist team who checked ambulatory oxygen levels. She is tolerating diet. She is passing flatus. She is getting her iron infusion. She is surrounded by her family. She does reports over 4+ episodes of diarrhea for the past 2 to 3 days. ROS: No reports of nausea and vomiting. Had bowel movements. No fevers or chills. No new chest pain. No productive sputum PHYSICAL EXAM: VITAL SIGNS: Reviewed CONSTITUTIONAL: Well developed and in no acute distress. EYES: Conjuctivae without sclera icterus. Extraocular movements grossly intact. HEAD, EARS, NOSE, THROAT: Moist buccal mucosa. Head is atraumatic, normocephalic. Hears conversational speech. No nasal drainage. NECK: Supple. No thyroidomegaly. RESPIRATORY: Nonlabored respirations with equal bilateral excursions. CARDIOVASCULAR: Palpable 2+ radial pulses. Regular rate. Regular rhythm. ABDOMEN: Incisions clean dry and intact. Soft. No peritonitis. MUSCULOSKELETAL: No gross deformity of the lower extremities noted. No clubbing. No cyanosis. SKIN: Good skin turgor. Well perfused. NEUROLOGIC: Cranial nerves I through XII grossly intact. No focal or lateralizing signs. PSYCH: Appropriate affect. Alert and oriented to person, place and time. CLINCAL LABS: White blood cell count improved from 14,000 and 13,000. Hemoglobin down to 8.8 ASSESSMENT: 1. Gastrojejunal obstruction status post revision 2. Atelectasis, bilateral with oxygen desaturation, resolving 3. Leukocytosis 4. Diarrhea. PLAN: 1. Obtain C. diff assays for new diarrhea 2. Weight blood cell count still elevated. Pending further recommendations fr infectious disease 3. Recommend iron infusions for iron deficiency anemia 4. Discharge pending final recommendations from all consultants including infectious disease. Objective - Vital Signs Vital signs: Vital Signs Temp 98.7 F 10/28/18 07:00 Pulse 101 H 10/28/18 08:59 Resp 14 10/28/18 07:00 BP 134/72 10/28/18 07:00 Pulse Ox 93 L 09/15/19 08:36 Intake & Output 10/27/18 10/28/18 10/28/18 18:59 06:59 18:59 Intake Total 500 400 Output Total 5 1 Balance 500 -5 399 Intake: Oral 500 400 Output: Urine 3 Stool 2 1 Other: Voiding Method Toilet Toilet Toilet # Voids 1 1 # Bowel Movements 3 - Labs CBC & Chem 7: 10/28/18 06:50 10/28/18 12:06 Labs: Abnormal Lab Results - Last 24 Hours (Table) 10/28/18 10/28/18 Range/Units 06:50 06:50 WBC 13.7 H (3.8-10.6) k/uL RBC 3.18 L (3.80-5.40) m/uL Hgb 8.8 L (11.4-16.0) gm/dL Hct 26.7 L (34.0-46.0) % Neutrophils # (Manual) 10.60 H (1.3-7.7) k/uL Monocytes # (Manual) 1.10 H (0-1.0) k/uL Metamyelocytes # (Man) 0.55 H (0) k/uL Myelocytes # (Manual) 0.27 H (0) k/uL Sodium 135 L (137-145) mmol/L Potassium 3.1 L (3.5-5.1) mmol/L Calcium 7.8 L (8.4-10.2) mg/dL Microbiology - Last 24 Hours (Table) 10/24/18 00:22 Blood Culture - Preliminary Blood No Growth after 96 hours Assessment and Plan (1) Gastrojejunal ulcer, with obstruction Current Visit: Yes Status: Acute Code(s): K28.9 - GASTROJEJUNAL ULCER, UNSP ACUTE OR CHR, W/O HEMOR OR PERF SNOMED Code(s): 45792365 (2) S/P gastric surgery Current Visit: Yes Status: Acute Code(s): Z98.890 - OTHER SPECIFIED POSTPROCEDURAL STATES SNOMED Code(s): 278836759 (3) Atelectasis of both lungs Current Visit: No Status: Acute Code(s): J98.11 - ATELECTASIS SNOMED Code(s): 63299741 (4) GERD (gastroesophageal reflux disease) Current Visit: No Status: Acute Code(s): K21.9 - GASTRO-ESOPHAGEAL REFLUX DISEASE WITHOUT ESOPHAGITIS SNOMED Code(s): 504581311 (5) Morbid obesity Current Visit: No Status: Acute Code(s): E66.01 - MORBID (SEVERE) OBESITY DUE TO EXCESS CALORIES SNOMED Code(s): 508480254 (6) Tachycardia Current Visit: Yes Status: Acute Code(s): R00.0 - TACHYCARDIA, UNSPECIFIED SNOMED Code(s): 5487759 (7) Pleural effusion due to CHF (congestive heart failure) Current Visit: Yes Status: Acute Code(s): I50.9 - HEART FAILURE, UNSPECIFIED SNOMED Code(s): 99803765
[2018-10-28] MEDS: fentaNYL PCA 500 MCG/50 ML BAG IV PRN (13:57)
[2018-10-28] MEDS: POTASSIUM CHLORIDE 10 MEQ in WATER FOR INJECTION 1 100ML.BAG IVPB SCH ×2 (18:12→21:50)
[2018-10-28] MEDS: cycloSPORINE 0.05% OPHTH 0.4 ML DROPERETTE BOTH EYES SCH (21:54)
[2018-10-29] MEDS: POTASSIUM CHLORIDE 10 MEQ in WATER FOR INJECTION 1 100ML.BAG IVPB SCH ×2 (01:57→01:58)
[2018-10-29] MEDS: SIMETHICONE 40 MG/0.6 ML DROPS 2,000 MG/30 ML BOTTLE PO SCH ×3 (01:58→12:06)
[2018-10-29 02:56] VITALS: RESP 16
[2018-10-29] MEDS: LEVOTHYROXINE 137 MCG TAB PO SCH (05:46)
[2018-10-29] MEDS: PIPERACILLIN-TAZOBACTAM 3.375 GM in SODIUM CHLORIDE 0.9% 100 ML IVPB SCH ×2 (05:46→12:06)
[2018-10-29 07:33] LABS: African American GFR (CKD) >90 (>60 ml/min/1.73 sqM); Anion Gap 11 mmol/L; Blood Urea Nitrogen 9 mg/dL (7-17); Calcium 7.7 mg/dL (8.4-10.2); Carbon Dioxide 24 mmol/L (22-30); Chloride 102 mmol/L (98-107); Glucose 90 mg/dL (74-99); HCT 26.3 % (34.0-46.0); HGB 8.7 gm/dL (11.4-16.0); MCH 27.7 pg (25.0-35.0); MCHC 32.9 g/dL (31.0-37.0); MCV 84.1 fL (80.0-100.0); Mean Platelet Volume 7.3; Platelet Count 371 k/uL (150-450); Potassium 2.9 mmol/L (3.5-5.1); RBC 3.13 m/uL (3.80-5.40); RDW 15.6 % (11.5-15.5); Sodium 137 mmol/L (137-145)
[2018-10-29] MEDS: ALBUTEROL NEBULIZED 2.5 MG/3 ML INHALATION SCH ×2 (07:38→11:32)
[2018-10-29 07:55] VITALS: BP 147/88; PULSE 85; TEMP 97.9
[2018-10-29 08:53] LABS: Band Neutrophils % 7 %; Lymphocytes # (M) 0.45 k/uL (1.0-4.8); Metamyelocytes # (M) 0.75 k/uL (0); Metamyelocytes % 5 %; Myelocytes # (M) 0.45 k/uL (0); Myelocytes % 3 %; Neutrophils % (M) 73 %; Nucleated Red Blood Cells 0 /100 WBC (0-0); Total Cells Counted 200
[2018-10-29] MEDS: POTASSIUM CHLORIDE ER 10 MEQ TAB.ER.PRT PO SCH ×3 (09:28→12:05)
[2018-10-29] MEDS: PANTOPRAZOLE 40 MG/10 ML VIAL IV SCH (09:28)
[2018-10-29] MEDS: METOPROLOL TARTRATE 50 MG TAB PO SCH (09:28)
[2018-10-29] MEDS: SODIUM FERRIC GLUCONAT-SUCROSE 125 MG in SODIUM CHLORIDE 0.9% 100 ML IVPB SCH (09:29)
--- NOTE | 2018-10-29 10:00 | P.PN ---
Subjective Progress Note Date: 10/29/18 Principal diagnosis: Hypokalemia Patient was seen and examined. No acute events overnight. Patient reports slight improvement in her breathing since yesterday. States that she is ready to go home. She denies any chest pain or palpitations. No nausea or vomiting. No fever or chills. Able to take a shower this morning without any difficulties. O2 saturation is 93-94% on room air. Objective - Vital Signs Vital signs: Vital Signs Temp 97.9 F 10/29/18 07:00 Pulse 85 10/29/18 07:00 Resp 16 10/29/18 07:00 BP 147/88 10/29/18 07:00 Pulse Ox 98 10/29/18 07:00 Intake & Output 10/28/18 10/29/18 10/29/18 18:59 06:59 18:59 Intake Total 400 Output Total 1 Balance 399 Intake: Oral 400 Output: Stool 1 Other: Voiding Method Toilet Toilet # Voids 1 2 # Bowel Movements 2 - Exam General: [non toxic], [94% on room air], [appears at stated age] Derm: [warm], [dry] Head: [atraumatic], [normocephalic], [symmetric] Eyes: [EOMI], [no lid lag], [anicteric sclera] Mouth: [no lip lesion], [mucus membranes moist] Cardiovascular: [S1S2 reg], [tachycardic to 100], [positive DP pulse bilateral], Lungs: [CTA bilateral, decreased breath sounds at the bases], [no rhonchi, no rales] , [no accessory muscle use] Abdominal: [soft], [no tenderness to palpation], [no guarding], [no appreciable organomegaly] Ext: [no gross muscle atrophy], [no edema], [no contractures] Neuro: [no focal neuro deficits] Psych: [Alert], [oriented], [appropriate affect] - Labs CBC & Chem 7: 10/29/18 06:42 10/29/18 06:42 Labs: Abnormal Lab Results - Last 24 Hours (Table) 10/28/18 10/29/18 10/29/18 Range/Units 12:06 06:42 06:42 WBC 15.0 H (3.8-10.6) k/uL RBC 3.13 L (3.80-5.40) m/uL Hgb 8.7 L (11.4-16.0) gm/dL Hct 26.3 L (34.0-46.0) % RDW 15.6 H (11.5-15.5) % Neutrophils # (Manual) 12.00 H (1.3-7.7) k/uL Lymphocytes # (Manual) 0.45 L (1.0-4.8) k/uL Monocytes # (Manual) 1.50 H (0-1.0) k/uL Metamyelocytes # (Man) 0.75 H (0) k/uL Myelocytes # (Manual) 0.45 H (0) k/uL Potassium 3.2 L 2.9 L (3.5-5.1) mmol/L Calcium 7.7 L (8.4-10.2) mg/dL Microbiology - Last 24 Hours (Table) 10/24/18 00:22 Blood Culture - Preliminary Blood No Growth after 120 hours Assessment and Plan Assessment: Assessment and Plan Hypoxia post surgery likely related to atelectasis Hypokalemia Tachycardia likely related to pain and hypoxia, history of SVT Fever of 100.2 Fahrenheit on 10/24/2018, with new leukocytosis Hypothyroidism Status post robotic revision of gastrojejunal anastomosis and partial gastrectomy Resolved: Lactic acidosis Currently 94% on room air. Elevated d-dimer, CTA chest rules out PE. Chest x- ray shows bibasilar effusions and associated atelectasis. Patient passed 6 minute walk test. Plans: Albuterol neb scheduled. Incentive spirometry. Pulmonology consulted, recommends BiPAP, patient would rather stick with incentive spirometry. O2 per NC to maintain O2 saturation greater than 92%. Follow pulmonology consultation. Potassium 3.1-2.9. Could not tolerate IV potassium yesterday. Plans: Replace via protocol. Repeat potassium in the afternoon. Heart rate around 85. History of SVT. EKG shows sinus tachycardia. Echocardiogram shows EF 50-55%. Plans: Resolved. Adequate pain management. Plans: Metoprolol increased from twice a day to 3 times a day. Follow cardiolog y consultation. T-max 100.2 10/24/2018, afebrile since. Tachycardic with new leukocytosis of 14.2-12.2-13.7-15. Lactic acid 2.9-0.9. CT abdomen and pelvis shows wall thickening concerns for enterocolitis, distention of gallbladder may be reactive. Does not meet sepsis criteria. On Cefazolin over the last 3 days, switched to Zosyn (day 4). Blood cultures prelim negative at 120 hours. Plans: Possibly reactive due to anemia and not related to infection. Discussed with Dr. Thompson, patient to be discharged on Augmentin. Follow final blood cultures. Follow ID consultation. Plans: Resume Synthroid. POD 7. Barium swallow shows no evidence of leak or obstruction. Plans: Management as per surgery. Zofran as needed for nausea or vomiting. Continue Protonix IV. Simethicone for bloating. [Passed 6 minute walk test. Tachycardia resolved. Potassium being replaced today, repeat in the afternoon. Cleared from infectious disease standpoint. Likely DC today pending surgery recommendations.]
[2018-10-29 11:49] LABS: Iron Saturation 7.85 (12.00-45.00)
--- NOTE | 2018-10-29 14:12 | P.DS ---
<RocSun Christelle - Last Filed: 10/29/18 14:09> Providers Expected date of discharge: 10/29/18 - Discharge Diagnosis(es) (1) S/P gastric surgery Status: Acute (2) GERD (gastroesophageal reflux disease) Status: Acute (3) Morbid obesity Status: Acute (4) S/P gastric bypass Status: Acute Hospital Course: Eulalia Arsmtrong is a 63-year-old female who had an adjustable gastric band for over 15 years, 2002 that is removed. Then, she had a gastric bypass 1 year ago. 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 She had symptoms of dysphagia including epigastric abdominal pain. Now she presents for revision of her gastric pouch. She has lost 63 pounds lifetime. Her percent excess weight loss is 61%. Her current BMI is 32.2 from 43.9. Patient underwent robotic revision of gastrojejunal anastomosis and partial gastrectomy performed on 10/22/18. Patient was placed on ice chips postoperatively. She underwent esophagram postoperatively which was negative for leak or obstruction. Patient was advanced to a bariatric clear liquid diet which she has been tolerating well. Patient was tachycardic postoperatively. Part of this was due to patient not receiving her betablockers for a couple of days. Her dose of metoprolol was increased. Cardiology was consulted and evaluated patient during her stay. Echo performed revealing EF 50-55%. Patient did develop respiratory distress and required oxygen to maintain sats greater than 92%. She require alot of re-education on proper technique of incentive spirometer. CTA performed negative for PE. Pulmonary was consulted and evaluated patient during hospitalization. Her respiratory status has improved. She is no longer requiring oxygen. Infectious disease was consulted due to leukocytosis and evaluated patient. Her WBC is 15.0 on the day of discharge. Dr. Thompson recommendations Augmentin at discharge. She was deemed stable for discharge home today per Dr. Gross. She is to continue clear liquid diet at discharge. She is to follow up in the bariatric center on Monday. Please see EMR for further hospital course details. ASSESSMENT: 1. Morbid obesity, s/p robotic revision of gastrojejunal anastomosis and partial gastrectomy 2. Body mass index of 43.9, initial. 3. Gastroesophageal reflux disease 4. Coronary artery disease 5. Hypothyroidism 6. Chronic pain syndrome 7. Dysphagia. 8. Hiatal hernia 9. Ischemic cardiomyopathy 10. Osteoarthritis bilateral hips 11. Osteoarthritis bilateral knees 12. Anxiety 13. Angina 14. Supraventricular tachycardia 15. Thyroid cancer 16. Vertigo 17. Migraines 18. Bilateral heel spurs 19. Diabetes type 2, [id number]. 20. Hypoxia requiring supplemental oxygen secondary to postoperative bilateral atelectasis Nurse practitioner note has been reviewed by physician. Signing provider agrees with the documented findings, assessment, and plan of care. Patient Condition at Discharge: Stable Plan - Discharge Summary Discharge Rx Participant: Yes New Discharge Prescriptions: New Amoxic-Pot Clav 875-125Mg [Augmentin 875-125] 1 tab PO Q12HR #28 tablet Acetaminophen Oral Susp [Tylenol Oral Susp] 650 mg PO Q4H PRN #200 ml PRN Reason: Pain Metoprolol Tartrate [Lopressor] 50 mg PO TID #90 tab Bisacodyl [Dulcolax] 5 mg PO DAILY PRN #10 tablet. PRN Reason: Constipation Simethicone 40 mg/0.6 ml Drops [Mylicon Drops] 40 mg PO PCHS PRN #30 ml PRN Reason: gas Ondansetron Odt [Zofran Odt] 4 mg PO Q8HR PRN #9 tab PRN Reason: Nausea Omeprazole 40 mg PO DAILY #30 cap Continue ALPRAZolam [Xanax] 0.5 mg PO BID PRN PRN Reason: Anxiety cycloSPORINE [Restasis] 1 drop BOTH EYES DAILY Levothyroxine Sodium [Synthroid] 137 mcg PO QAM Discontinued Meclizine [Antivert] 25 mg PO DAILY PRN PRN Reason: Vertigo Carisoprodol [Soma] 350 mg PO DAILY PRN PRN Reason: Muscle Spasm ZOLMitriptan [Zomig] 5 mg PO DAILY PRN PRN Reason: Migraine Headache Metoprolol Tartrate [Lopressor] 50 mg PO BID Calcium Citrate/Vitamin D3 [Calcitrate + Vit D Caplet] 600 mg PO BID Omeprazole [PriLOSEC] 40 mg PO QAM PRN PRN Reason: gerd Discharge Medication List ALPRAZolam [Xanax] 0.5 mg PO BID PRN 06/17/13 [History] cycloSPORINE [Restasis] 1 drop BOTH EYES DAILY 06/17/13 [History] Levothyroxine Sodium [Synthroid] 137 mcg PO QAM 09/19/18 [History] Acetaminophen Oral Susp [Tylenol Oral Susp] 650 mg PO Q4H PRN #200 ml 10/29/18 [Rx] Amoxic-Pot Clav 875-125Mg [Augmentin 875-125] 1 tab PO Q12HR #28 tablet 10/29/18 [Rx] Bisacodyl [Dulcolax] 5 mg PO DAILY PRN #10 tablet. 10/29/18 [Rx] Metoprolol Tartrate [Lopressor] 50 mg PO TID #90 tab 10/29/18 [Rx] Omeprazole 40 mg PO DAILY #30 cap 10/29/18 [Rx] Ondansetron Odt [Zofran Odt] 4 mg PO Q8HR PRN #9 tab 10/29/18 [Rx] Simethicone 40 mg/0.6 ml Drops [Mylicon Drops] 40 mg PO PCHS PRN #30 ml 10/29/18 [Rx] Follow up Appointment(s)/Referral(s): [facility] [place], [place] [NON-STAFF] - 11/07/18 2:20 pm Randell Solis MD [Primary Care Provider] - 11/01/18 11:00 am Patient Instructions/Handouts: Nutrition after Bariatric Surgery (DC), Bowel Management After Bariatric Surgery (DC) Activity/Diet/Wound Care/Special Instructions: Break or cut any tablets greater than the size of a tic-tac. If medication is a capsule, open capsule and mix contents with liquid. Continue liquid diet. No straws or carbonated beverages. No lifting over 4 pounds You may shower. No soaking or tub baths Very light activity until you are reevaluated at your follow up appointment with your surgeon Discharge Disposition: HOME SELF-CARE <Nadeen Gross - Last Filed: 10/29/18 16:47> Providers Date of admission: 10/22/18 07:21 Attending physician: Nadeen Gross Consults: 10/24/18 17:57 Consult Physician Routine Consulting Provider: Cameron Mckineny Consult Reason/Comments: Medical management Do you want consulting provider notified?: Already Contacted 10/24/18 23:02 Consult Physician Routine Consulting Provider: Jam Smith Consult Reason/Comments: dyspnea Do you want consulting provider notified?: Yes, Notify in am 10/26/18 08:55 Consult Physician Routine Consulting Provider: Pedro Denis Consult Reason/Comments: tachycardia Do you want consulting provider notified?: Yes 10/26/18 13:13 Consult Physician Routine Consulting Provider: Jose Thompson Consult Reason/Comments: leukocytosis Do you want consulting provider notified?: Yes Primary care physician: Randell Solis - Discharge Diagnosis(es) (1) Gastrojejunal ulcer, with obstruction Status: Acute (2) S/P gastric surgery Status: Acute (3) Atelectasis of both lungs Status: Acute (4) GERD (gastroesophageal reflux disease) Status: Acute (5) Morbid obesity Status: Acute (6) Tachycardia Status: Acute (7) Pleural effusion due to CHF (congestive heart failure) Status: Acute Hospital Course: Clinically, the patient was tolerating diet. She was passing flatus. She denies any abdominal pain. She was eager for discharge.
--- NOTE | 2018-10-31 11:31 | P.PN ---
Progress Note - Text Progress Note Date: 10/31/18 I contacted the patient at home. She reports feeling much better since discharge. No further diarrhea. No fevers or chills. No reports of abdominal pain. She'll follow-up in the bariatric Center in 2 days.
--- NOTE | 2018-10-31 13:14 | CDI ---
Documentation Clarification Form Date: 10/31/18 From: Tamela Segovia Phone: If questions call Kia Leigh @ [phone], Hours-8:30 am & 5 pm Yareli Mcnair Admit Date: 10/22/2018 7:21:00 AM Patient Name: Eulalia Armstrong Visit Number: [id number] Discharge Date: 10/29/2018 2:51:00 PM ATTENTION: The Clinical Documentation Specialists (CDI) and [facility] Coding Staff appreciate your assistance in clarifying documentation. Please respond to the clarification below the line at the bottom and electronically sign. The CDI & [facility] Coding staff will review the response and follow-up if needed. Please note: Queries are made part of the Legal Health Record. If you have any questions, please contact the author of this message via ITS. Dr. Nadeen Gross CHF is documented in your PNs 10/27, 10/28 & DS. History/Risk Factors: Clinical Indicators: VS/Pulse OX: T-99.1, P-109, R-18, BP-117/72 BNP: 1140Echocardiogram Results: Chest X Ray: Possible bibasilar effusions and associated edema vs atelectasis or pneumonia, correlate to exclude CHF. Treatment: IIV Lasix 20 mg In your professional opinion, can you please clarify the acuity and type of CHF if known? TYPE Systolic Heart Failure Diastolic Heart Failure Systolic & Diastolic Heart Failure ACUITY Acute Chronic Acute on Chronic Heart Failure Unable to Determine Other, please specify Patient was being seen by cardiology including pulmonary. No clinical evidence to suggest congestive heart failure. I do not agree with chest x-ray interpretation of congestive heart failure. Edema consistent with transient volume overload. Please review pulmonary notes including cardiology notes. Congestive heart failure does not apply. KM 11/01/2018 10:04 LESTER
== END 2018-10-29 14:51 | disposition home or self-care (01) | DRG 327 ==
LOC: 2ORMAIN 07:21 → 4SSUR 15:46
PROVIDERS: ADMIT Surgery Plastic and Reconstructive Surgery; ATTEND Surgery Plastic and Reconstructive Surgery
PROC: 0DB64ZZ Excision of Stomach, Percutaneous Endoscopic Approach (ICD-10-PCS; 2018-10-22)
PROC: 0DJ08ZZ Inspection of Upper Intestinal Tract, Via Natural or Artificial Opening Endoscopic (ICD-10-PCS; 2018-10-22)
PROC: 8E0W4CZ Robotic Assisted Procedure of Trunk Region, Percutaneous Endoscopic Approach (ICD-10-PCS; 2018-10-22)
PROC: 0D164ZA Bypass Stomach to Jejunum, Percutaneous Endoscopic Approach (ICD-10-PCS; principal; 2018-10-22 09:45)
DX: K31.1 Adult hypertrophic pyloric stenosis (principal); J98.11 Atelectasis; E87.2 Acidosis; E66.01 Morbid (severe) obesity due to excess calories; I27.20 Pulmonary hypertension, unspecified; I07.1 Rheumatic tricuspid insufficiency; E87.70 Fluid overload, unspecified; Z68.32 Body mass index [BMI] 32.0-32.9, adult; I10 Essential (primary) hypertension; R13.10 Dysphagia, unspecified; D72.829 Elevated white blood cell count, unspecified; K31.89 Other diseases of stomach and duodenum; K21.9 Gastro-esophageal reflux disease without esophagitis; I25.119 Atherosclerotic heart disease of native coronary artery with unspecified angina pectoris; G89.4 Chronic pain syndrome; K44.9 Diaphragmatic hernia without obstruction or gangrene; I25.5 Ischemic cardiomyopathy; E86.0 Dehydration; E87.6 Hypokalemia; R19.7 Diarrhea, unspecified; D50.9 Iron deficiency anemia, unspecified; M16.0 Bilateral primary osteoarthritis of hip; M17.0 Bilateral primary osteoarthritis of knee; G43.909 Migraine, unspecified, not intractable, without status migrainosus; E11.9 Type 2 diabetes mellitus without complications; K22.4 Dyskinesia of esophagus; M77.32 Calcaneal spur, left foot; M77.31 Calcaneal spur, right foot; F41.9 Anxiety disorder, unspecified; E89.0 Postprocedural hypothyroidism; Z71.3 Dietary counseling and surveillance; Z85.850 Personal history of malignant neoplasm of thyroid; Z79.890 Hormone replacement therapy; Z79.899 Other long term (current) drug therapy; Z86.79 Personal history of other diseases of the circulatory system; Z96.651 Presence of right artificial knee joint; Z90.710 Acquired absence of both cervix and uterus; Z87.891 Personal history of nicotine dependence; Z98.890 Other specified postprocedural states; Z88.5 Allergy status to narcotic agent; Z88.2 Allergy status to sulfonamides; Z83.49 Family history of other endocrine, nutritional and metabolic diseases; Z80.0 Family history of malignant neoplasm of digestive organs; Z83.3 Family history of diabetes mellitus; Z80.8 Family history of malignant neoplasm of other organs or systems
CPT/HCPCS: 71045; 71046; 71275; 74174; 74240; 80048; 80051; 82310; 82565; 82728; 83540; 83550; 83605; 83735; 83880; 84100; 84132; 84439; 84443; 84484; 84520; 85025; 85379; 86850; 86900; 86901; 87040; 87324; 93005; 93306; 94640; 94760; 94762

== ENCOUNTER → 2018-11-02 | Outpatient (CLI) | payer MEDICARE ==
[2018-11-02 11:04] VITALS: BP 144/86; PULSE 92; TEMP 98.1; BMI 32.7
--- NOTE | 2018-11-02 19:32 | P.PN ---
Subjective Progress Note Date: 11/02/18 DATE OF SERVICE: 11/02/2018 CHIEF COMPLAINT: Status post gastric bypass HISTORY OF PRESENT ILLNESS: Eulalia Armstrong is a 63-year-old female status post gastric bypass 12/11/2017. She is 11 months out. She had a revision of her gastrojejunal anastomosis 10/22/2018. She is passing flatus. She is having bowel movements. No further reports of diarrhea once discontinued off of high sugar and lactose diet. She is tolerating liquid diet. She reports feeling much better since discharge. Yesterday, she had an acute gas pain. This had resolved. She reported initially bilateral lower abdominal pain however all symptoms have resolved. At height of 5 feet 2 inches, her ideal body weight is 135 pounds. Her highest weight is 240 pounds. Today she comes in weighing, 179 pounds unchanged from 1 month ago. Total weight loss is 61 pounds lifetime. Body mass index is reduced from 43.3 to 32.7. Percent excess weight loss is 58 %. PHYSICAL EXAM: VITAL SIGNS: Height 5 foot 2 inches, weight 179 pounds. BMI 32.7 Vital Signs Temp 98.1 F 11/02/18 10:53 Pulse 92 11/02/18 10:53 Resp BP 144/86 11/02/18 10:53 Pulse Ox GENERAL: Well-developed in no acute distress. HEENT: No scleral icterus. Extraocular movements grossly intact. Hears conversational speech. No nasal drainage. NECK: Supple without lymphadenopathy. CHEST: Nonlabored respirations with equal bilateral excursions. CARDIOVASCULAR: Regular rate and regular rhythm. Distal 2+ pulses. ABDOMEN: Obese, soft, nondistended. Incisions are clean, dry and intact. No infection. MUSCULOSKELETAL: No clubbing, cyanosis. Gross strength 5/5 distal lower extremities. NEURO: No focal or lateralizing signs. Cranial nerves 2 through 12 grossly within normal limits. PSYCH: Appropriate affect. Alert and oriented to person, place and time. SKIN: Good skin turgor. Well perfused. ASSESSMENT: 1. Morbid obesity due to excess calories 2. Body mass index of 44.0 to 32.7 3. Gastroesophageal reflux disease 4. Status post gastric bypass with revision PLAN: 1. Continue with liquid diet for 1 week. 2. Follow closely in 1 week as high risk procedure with revisional gastric surgery. 3. All questions and images were reviewed. 4. Intraoperative findings were also reviewed. 5. All questions addressed. 6. No signs of infection. Objective - Vital Signs Vital signs: Vital Signs Temp 98.1 F 11/02/18 10:53 Pulse 92 11/02/18 10:53 Resp BP 144/86 11/02/18 10:53 Pulse Ox Intake & Output 11/02/18 11/02/18 11/03/18 06:59 18:59 06:59 Weight 81.193 kg
== END | disposition home or self-care (01) ==
LOC: BARWHC3 09:49
PROVIDERS: ATTEND Surgery Plastic and Reconstructive Surgery
DX: Z48.815 Encounter for surgical aftercare following surgery on the digestive system (principal); E66.01 Morbid (severe) obesity due to excess calories; Z68.32 Body mass index [BMI] 32.0-32.9, adult; K21.9 Gastro-esophageal reflux disease without esophagitis; Z98.84 Bariatric surgery status
CPT/HCPCS: 99211

== ENCOUNTER → 2018-11-08 | Outpatient (CLI) | payer MEDICARE ==
[2018-11-08 13:18] LABS: HCT 29.3 % (34.0-46.0); HGB 9.7 gm/dL (11.4-16.0); Hypochromasia Slight; MCH 27.3 pg (25.0-35.0); MCHC 32.9 g/dL (31.0-37.0); MCV 82.9 fL (80.0-100.0); Mean Platelet Volume 5.7; Platelet Count 642 k/uL (150-450); RBC 3.54 m/uL (3.80-5.40); RDW 15.2 % (11.5-15.5); WBC 17.8 k/uL (3.8-10.6)
[2018-11-08 21:04] LABS: African American GFR (CKD) 105.4 (60.0-200.0); Albumin 3.6 g/dL (3.80-4.90); Albumin/Globulin Ratio 1.16 (1.60-3.17); Anion Gap 15.5 mmol/L (4.00-12.00); BUN/Creat Ratio 21.43 Ratio (12.00-20.00); Calcium 8.7 mg/dL (8.7-10.3); Carbon Dioxide 22.5 mmol/L (21.6-31.8); Globulin 3.1 g/dL (1.6-3.3); Magnesium 1.9 mg/dL (1.5-2.4); Phosphorus 3.1 mg/dL (2.4-5.1); Potassium 3.8 mmol/L (3.5-5.5); Total Protein 6.7 g/dL (6.2-8.2)
== END | disposition home or self-care (01) ==
LOC: LABWHC1 12:16
PROVIDERS: ATTEND Surgery Plastic and Reconstructive Surgery
DX: E66.01 Morbid (severe) obesity due to excess calories (principal)
CPT/HCPCS: 36415; 80053; 83735; 84100; 85027

== ENCOUNTER → 2018-11-08 | Outpatient (CLI) | payer MEDICARE ==
[2018-11-08 11:29] VITALS: BP 131/64; PULSE 108; RESP 16; TEMP 98.6; BMI 30.7
--- NOTE | 2018-11-08 11:41 | P.PN ---
Subjective Progress Note Date: 11/08/18 HPI: She is on an albuterol inhaler with her PCP. She was placed on steroid injections. She is less short of breath with her inhalers. She feels week. She has occasional left upper quadrant. She is passing flatus. She has loose stools to soft stools. She is still on antibiotics. No fever or chills. CARDIOVASCULAR: Tachycardic ASSESSMENT: 1. Morbid obesity PLAN: 1. Follow up with plant engineering supervisor 2. Follow up with drafter commercial 3. Recommend blood work 4. Dr. Thompson follow-up Objective - Vital Signs Vital signs: Vital Signs Temp 98.6 F 11/08/18 11:26 Pulse 108 H 11/08/18 11:26 Resp 16 11/08/18 11:26 BP 131/64 11/08/18 11:26 Pulse Ox Intake & Output 11/07/18 11/08/18 11/08/18 18:59 06:59 18:59 Weight 77.564 kg
--- NOTE | 2018-11-08 16:27 | XR ---
EXAMINATION TYPE: XR chest 2V DATE OF EXAM: 11/08/2018 COMPARISON: Prior chest x-ray 10/27/2018 HISTORY: Shortness of breath TECHNIQUE: Frontal and lateral views of the chest are obtained. FINDINGS: Subsegmental basilar atelectatic changes are suspected. There may be small effusion on the left. There is no pneumothorax. Aorta is dense. Heart is somewhat obscured. IMPRESSION: Residual bibasilar atelectatic change, correlate to exclude pneumonia. There may be smal l pleural effusion.
--- NOTE | 2018-11-09 13:21 | P.PN ---
Progress Note - Text Progress Note Date: 11/09/18 I personally called the patient's primary care provider's office Dr. Solis regarding postoperative care. Patient has not completed follow-ups with consultants in the past. Patient has poor memory recollection of recent communication from hospital to her. I notified the office of avoiding steroid use in recent gastric bypass. White blood cell count is elevated however steroid injection is less than 24-48 hours ago. We are coordinating postop visits with pulmonary, cardiology, infectious disease. Additional studies are pending.
--- NOTE | 2018-11-09 19:21 | P.PN ---
Progress Note - Text Progress Note Date: 11/09/18 Contacted patient on the phone after completion of esophagram which demonstrated no leak or obstruction. She feels much better. Tachycardia has resolved. She reports that she will follow up with the director federal. Pulmonary follow-up on hold at this time. No reports of fevers or chills. Patient has been afebrile. She will continue with her course of antibiotics.
== END ==
LOC: BARWHC3 10:33
PROVIDERS: ATTEND Surgery Plastic and Reconstructive Surgery
DX: E66.01 Morbid (severe) obesity due to excess calories (principal); J98.11 Atelectasis; Z68.30 Body mass index [BMI] 30.0-30.9, adult
CPT/HCPCS: 71046; G0463; 99211

== ENCOUNTER → 2018-11-09 | Outpatient (CLI) | payer MEDICARE ==
--- NOTE | 2018-11-09 15:41 | FL ---
Barium swallow HISTORY: Dysphasia Patient was given contrast material drink and evaluated under real-time fluoroscopy with attention to the gastroesophageal junction. 6 intraoperative images, 41 seconds fluoroscopy time Swallowing mechanism is normal. There is no obstruction to flow. Postop changes are noted status post gastric bypass surgery. No extravasation. IMPRESSION: No evident obstruction to flow. No evident leak.
== END | disposition home or self-care (01) ==
LOC: RADFLMAIN 14:05
PROVIDERS: ATTEND Surgery Plastic and Reconstructive Surgery
DX: R13.10 Dysphagia, unspecified (principal); Z88.2 Allergy status to sulfonamides; Z88.5 Allergy status to narcotic agent
CPT/HCPCS: 74220

== ENCOUNTER → 2018-11-14 | Outpatient (CLI) | payer MEDICARE ==
[2018-11-14 13:25] VITALS: BP 134/78; PULSE 80; RESP 16; TEMP 98.7; BMI 29.7
--- NOTE | 2018-11-14 14:32 | P.PN ---
Subjective Progress Note Date: 11/14/18 She reports feeling better. No further shortness of breath. She has seen the dental laboratory manager. She is pending to see the physician relations manager. She reports pneumonia. CBC is reviewed. She is eating more. No belly pain. She is due for blood work after 1 month from surgery. She has completed her antibiotic. Will need diflucan for gastric exposure content 10 to 14 days. Objective - Vital Signs Vital signs: Vital Signs Temp 98.7 F 11/14/18 13:22 Pulse 80 11/14/18 13:22 Resp 16 11/14/18 13:22 BP 134/78 11/14/18 13:22 Pulse Ox Intake & Output 11/13/18 11/14/18 11/14/18 18:59 06:59 18:59 Weight 74.843 kg
== END ==
LOC: BARWHC3 12:59
PROVIDERS: ATTEND Surgery Plastic and Reconstructive Surgery
DX: J18.9 Pneumonia, unspecified organism (principal); Z79.899 Other long term (current) drug therapy
CPT/HCPCS: 99211

== ENCOUNTER → 2018-11-22 | Outpatient (CLI) | payer MEDICARE ==
[2018-11-22 09:43] LABS: Anisocytosis Slight; HCT 37.7 % (34.0-46.0); Hypochromasia Slight; MCH 28.2 pg (25.0-35.0); MCHC 31.9 g/dL (31.0-37.0); Mean Platelet Volume 6.8; Platelet Count 323 k/uL (150-450); RBC 4.26 m/uL (3.80-5.40); RDW 16.9 % (11.5-15.5); WBC 8.1 k/uL (3.8-10.6)
[2018-11-22 09:51] LABS: MCV 88.4 fL (80.0-100.0)
[2018-11-22 09:53] LABS: Prothrombin Time 10.7 sec (9.0-12.0)
[2018-11-22 10:08] VITALS: BP 119/82; PULSE 98; TEMP 98.1; BMI 28.8
--- NOTE | 2018-11-22 10:13 | P.PN ---
Subjective Progress Note Date: 11/22/18 HPI: She feels great. No abdominal pain. She is tolerating diet. ABDOMEN: Unremarkable LABS: Great ASSESSMENT: 1. Morbid obesity PLAN: 1. Labs reviewed. Objective - Vital Signs Vital signs: Vital Signs Temp 98.1 F 11/22/18 09:56 Pulse 98 11/22/18 09:56 Resp BP 119/82 11/22/18 09:56 Pulse Ox Intake & Output 11/21/18 11/22/18 11/22/18 18:59 06:59 18:59 Weight 72.575 kg - Labs CBC & Chem 7: 11/22/18 09:03 Labs: Abnormal Lab Results - Last 24 Hours (Table) 11/22/18 Range/Units 09:03 RDW 16.9 H (11.5-15.5) %
[2018-11-22 17:44] LABS: Iron Saturation 25.32 (12.00-45.00)
[2018-11-22 17:50] LABS: African American GFR (CKD) 77.8 (60.0-200.0); Albumin 3.9 g/dL (3.80-4.90); Albumin/Globulin Ratio 1.18 (1.60-3.17); Anion Gap 10.1 mmol/L (4.00-12.00); BUN/Creat Ratio 14.44 Ratio (12.00-20.00); Calcium 9.2 mg/dL (8.7-10.3); Carbon Dioxide 26.9 mmol/L (21.6-31.8); Chol/HDL Ratio 4.27; Globulin 3.3 g/dL (1.6-3.3); Magnesium 1.8 mg/dL (1.5-2.4); Phosphorus 3.7 mg/dL (2.4-5.1); Potassium 3.9 mmol/L (3.5-5.5); Total Bilirubin 0.6 mg/dL (0.3-1.2); Total Protein 7.2 g/dL (6.2-8.2)
[2018-11-22 17:53] LABS: Vitamin D 25 Hydroxy 65.8 ng/mL (30.0-100.0)
[2018-11-22 17:57] LABS: T4, Free (Free Thyroxine) 1.5 ng/dL (0.80-1.80)
[2018-11-22 18:28] LABS: Ferritin 332.7 ng/mL (10.0-291.0); Folate, Serum 12.6 ng/mL
[2018-11-22 19:04] LABS: Hemoglobin A1C 5.2 % (4.0-6.0)
[2018-11-23 14:22] LABS: Zinc, Serum 85 ug/dL (60-130)
== END | disposition home or self-care (01) ==
LOC: BARWHC3 08:57
PROVIDERS: ATTEND Surgery Plastic and Reconstructive Surgery
DX: E66.01 Morbid (severe) obesity due to excess calories (principal); Z68.28 Body mass index [BMI] 28.0-28.9, adult; E22.1 Hyperprolactinemia; E89.1 Postprocedural hypoinsulinemia; D50.9 Iron deficiency anemia, unspecified; K90.9 Intestinal malabsorption, unspecified; E55.9 Vitamin D deficiency, unspecified; K76.9 Liver disease, unspecified; N19 Unspecified kidney failure; K50.90 Crohn's disease, unspecified, without complications
CPT/HCPCS: 84255; 84134; 84439; 84425; 80061; 80053; 82607; 82728; 82525; 82746; 83540; 83550; 83735; 84100; 84443; 84590; 84630; 85027; 85610; 85730; 82306; 83970; 83036; G0463; 99211

== ENCOUNTER → 2019-01-04 | Outpatient (CLI) | payer MEDICARE ==
[2019-01-04 16:38] LABS: African American GFR (CKD) >90 (>60 ml/min/1.73 sqM); Blood Urea Nitrogen 19 mg/dL (7-17); Non-African American GFR(CKD) >90 (>60 ml/min/1.73 sqM)
--- NOTE | 2019-01-06 16:16 | CT ---
EXAMINATION TYPE: CT abdomen pelvis w con DATE OF EXAM: 01/04/2019 COMPARISON: 10/24/2018 HISTORY: 63-year-old female with abdominal pain. Diverticulitis. TECHNIQUE: Contiguous axial scanning of the abdomen and pelvis following administration of 100 ml Iso allen 300 IV contrast. Delayed images through the kidneys and coronal/sagittal reconstructions perform ed. CT DLP: 1160 mGycm Automated exposure control for dose reduction was used. FINDINGS: Heart normal size without pericardial effusion. There is a small hiatal hernia. Postsurgical changes of Renetta-en-Y gastric bypass. No focal liver lesion or biliary ductal dilatation. Portal venous system is patent. Gallbladder distended to the upper limits of normal in size. No surrounding inflammation. Adrenal glands, kidneys, spleen with hilar splenule, and atrophic pancreas show no gross abnormality. A couple areas of stable focal scarring within the deep subcutaneous adipose along the left side of t he anterior abdomen. No dilated small bowel, free fluid, or free air. However, some fluid-filled small bowel loops are not ed within the right mid abdomen. Normal appendix. Moderate stool within the right side of the colon. Sigmoid diverticulosis. Mild wall thickening and mild pericolonic fat stranding along the mid sigmoid , axial image 65 and 66 and coronal image 43. This stranding could represent prominent pericolonic ve ssels or mild inflammation. No mesenteric or retroperitoneal lymphadenopathy. Bladder partially distended. Multiple pelvic phleboliths. Uterus surgically absent. No abnormal fluid collection in the pelvis or pelvic lymphadenopathy. Bones: Facet arthropathy lower lumbar spine. Degenerative disc disease L5-S1. Trace grade 1 anterolis thesis L4-L5. IMPRESSION: 1. Small hiatal hernia. Status post Renetta-en-Y gastric bypass. 2. Sigmoid diverticulosis. Mild wall thickening along the mid sigmoid and mild pericolonic fat strand ing. The stranding could reflect prominent pericolonic vessels or mild inflammation. Correlate for po tential mild acute diverticulitis. No abscess or free air. 3. Some prominent fluid-filled small bowel loops in the right mid abdomen are nonspecific. They could be transient or could reflect a mild regional enteritis.
== END | disposition home or self-care (01) ==
LOC: RADCTMAIN 14:52
PROVIDERS: ATTEND Surgery Plastic and Reconstructive Surgery
DX: K57.30 Diverticulosis of large intestine without perforation or abscess without bleeding (principal); K57.92 Diverticulitis of intestine, part unspecified, without perforation or abscess without bleeding; K63.89 Other specified diseases of intestine; K44.9 Diaphragmatic hernia without obstruction or gangrene; Z98.84 Bariatric surgery status; Z88.5 Allergy status to narcotic agent; Z88.2 Allergy status to sulfonamides
CPT/HCPCS: 82565; 84520; 74177; 36415; Q9967

== ENCOUNTER 2019-03-11 07:09 | Day surgery (SDC) | payer BC, MEDICARE ==
[2019-03-08 12:50] VITALS: BMI 26.2
--- NOTE | 2019-03-10 18:45 | P.GSHP ---
History of Present Illness H&P Date: 03/11/19 CHIEF COMPLAINT: GERD HISTORY OF PRESENT ILLNESS: The patient is a 63-year-old female who presents reports gastroesophageal reflux disease. Upper endoscopy was offered for further evaluation and management. PAST MEDICAL HISTORY: Please see list. PAST SURGICAL HISTORY: Please see list. MEDICATIONS: Please see list. ALLERGIES: Please see list. SOCIAL HISTORY: No illicit drug use FAMILY HISTORY: No reports of Crohn disease or ulcerative colitis. REVIEW OF ORGAN SYSTEMS: CONSTITUTIONAL: No reports of fevers or chills. PHYSICAL EXAM: VITAL SIGNS: Stable GENERAL: Well-developed and pleasant in no acute distress. HEENT: No scleral icterus. Extraocular movements grossly intact. Moist buccal mucosa. NECK: Supple without lymphadenopathy. CHEST: Unlabored respirations. Equal bilateral excursions. CARDIOVASCULAR: Regular rate and rhythm. Distal 2+ pulses. ABDOMEN: Soft, nondistended. MUSCULOSKELETAL: No clubbing, cyanosis, or edema. ASSESSMENT: 1. Gastroesophageal reflux disease PLAN: 1. Recommend proceeding with an upper endoscopy Past Medical History Past Medical History: Cancer, Chest Pain / Angina, GERD/Reflux, Hypertension, Supraventricular Tachycardia (SVT), Thyroid Disorder Additional Past Medical History / Comment(s): HX Esophageal spasms, Thyroid CA, Migraines, DJD, Vertigo, Precancerous lesions face, eczema eyelids. Mild pulmonary HTN 10/2018, sl leaky heart valves. History of Any Multi-Drug Resistant Organisms: None Reported Past Surgical History: Back Surgery, Bariatric Surgery, Hernia Repair, Hysterectomy, Joint Replacement, Orthopedic Surgery, Tubal Ligation Additional Past Surgical History / Comment(s): 02/16/15 Total R knee. LAP BAND (2002). HEART CATH-CLEAR X 2, THYROIDECTOMY D/T CA/, DISCECTOMY L5-S1, LT KNEE ARTHROSCOPY, KARTHIKEYAN HEEL SPURS. BENIGN TUMOR EXC FROM LEFT EYE, Lt Rot Cuff,sinuplasty, lap band removal 08-14-17, gastric bypass 12-11-17 w/ Hiatal Hernia repair(Revision of gastric bypass/jejunum 10/2018) Colonoscopy. Past Anesthesia/Blood Transfusion Reactions: Family History of Problems w/ Anesthesia, Motion Sickness, Postoperative Nausea & Vomiting (PONV) Additional Past Anesthesia/Blood Transfusion Reaction / Comment(s): Hx Esophageal spasms,. MOTHER AND DAUGHTER HAVE PONV, no hx blood transfusion Smoking Status: Never smoker - Past Family History Father Family Medical History: Cancer, Diabetes Mellitus, Hypertension Additional Family Medical History / Comment(s): Father had cancer below his eye. He from a MVA. Mother Family Medical History: AFIB, Cancer, Thyroid Disorder Additional Family Medical History / Comment(s): skin CA Medications and Allergies Home Medications Medication Instructions Recorded Confirmed Type cycloSPORINE [Restasis] 1 drop BOTH EYES HS 06/17/13 03/08/19 History Levothyroxine Sodium [Synthroid] 150 mcg PO QAM 09/19/18 03/08/19 History Acetaminophen Oral Susp [Tylenol 650 mg PO Q4H PRN #200 ml 10/29/18 03/08/19 Rx Oral Susp] Omeprazole 40 mg PO DAILY #30 cap 10/29/18 03/08/19 Rx Bariatric Multivitamin 1 tab PO DAILY 03/08/19 History Calcium Citrate 500 mg PO TID 03/08/19 03/08/19 History Ergocalciferol [Vitamin D2] 50,000 unit PO Q30D 03/08/19 03/08/19 History Metoprolol Tartrate [Lopressor] 50 mg PO BID 03/08/19 03/08/19 History Vitamin A Acetate [Vitamin A] 10,000 unit SL DAILY 03/08/19 03/08/19 History Allergies Allergy/AdvReac Type Severity Reaction Status Date / Time Sulfa (Sulfonamide Allergy Severe Rash/Hives Verified 03/08/19 12:29 Antibiotics) codeine AdvReac Severe Nausea & Verified 03/08/19 12:29 Vomiting meperidine HCl [From Demerol] AdvReac Nausea & Verified 03/08/19 12:29 Vomiting
[~2019-03-11 07:09] MED LIST changes: -CHLORHEXIDINE GLUCONATE 15 ML CUP MUCOUS MEM ONE; -DEXAMETHASONE SOD PHOSPHATE 10 MG/ML 1 ML VIAL IV ONE; -HEPARIN SODIUM,PORCINE 5,000 UNIT/ML 1 ML VIAL SQ ONE; +LACTATED RINGERS 1,000 ML IV SCH; -MIDAZOLAM 2 MG/2 ML VIAL IV PRN; -PANTOPRAZOLE 40 MG/10 ML VIAL IV ONE
[2019-03-11 07:23] VITALS: RESP 16; TEMP 98.1
[2019-03-11] MEDS ORDERED: DEXAMETHASONE SOD PHOSPHATE 4 MG/ML 1 ML VIAL IVP ONE (07:32)
[2019-03-11] MEDS ORDERED: ONDANSETRON 4 MG/2 ML VIAL IVP ONE (07:34)
[2019-03-11] MEDS ORDERED: MIDAZOLAM 2 MG/2 ML VIAL ONE (07:53)
[2019-03-11] MEDS ORDERED: PROPOFOL 10 MG/ML 20 ML VIAL IV ONE (07:53)
[2019-03-11 08:32] VITALS: BP 107/67; PULSE 60
--- NOTE | 2019-03-13 19:51 | P.PCN ---
Date of Procedure: 03/11/19 Description of Procedure: PREOPERATIVE DIAGNOSIS: Dysphagia. Nausea with vomiting. POSTOPERATIVE DIAGNOSIS: Dysphagia. Morbid obesity. Gastrojejunal stricture without chronic ulcer without perforation OPERATION: Esophagogastrojejunoscopy with balloon dilatation from 9.5 to 15 mm. SURGEON: Nadeen Gross MD ANESTHESIA: MAC. INDICATIONS: The patient is a 63-year-old female who presents with a history of dysphagia, including new-onset nausea and vomiting. Benefits and risks of the procedure were described. Informed consent was obtained. DESCRIPTION: The patient was brought into the endoscopy suite and laid in the left lateral decubitus position. After a timeout was confirmed, the procedure was initiated. An Olympus gastroscope was passed along the posterior oropharynx down to the distal esophagus where the squamocolumnar junction was unremarkable. The gastric pouch was entered. A gastrojejunal stricture of 10 mm was found as the adult gastroscope was 9.5 mm in size. A FREECULTR balloon dilator was placed through the scope. Final insufflation up to 15 mm was performed with a total of 2 minutes. The scope was advanced up to 60 cm from the incisors into the Renetta limb. The mucosa of the gastrojejunal anastomosis was intact. No chronic gastrojejunal marginal ulcer was encountered. No full-thickness injury was encountered. The GI tract was desufflated. The patient tolerated the procedure well. FINDINGS: Recurrent diaphragmatic hiatal hernia, 3 cm Stricture of approximately 9.5 mm encountered. No chronic gastrojejunal ulceration encountered. Successful balloon dilatation to 15 mm. RECOMMENDATIONS: Upper endoscopy as needed. Omeprazole daily advised Plan - Discharge Summary Discharge Rx Participant: No New Discharge Prescriptions: New Omeprazole [PriLOSEC] 40 mg PO DAILY #30 cap No Action cycloSPORINE [Restasis] 1 drop BOTH EYES HS Levothyroxine Sodium [Synthroid] 150 mcg PO QAM Acetaminophen Oral Susp [Tylenol Oral Susp] 650 mg PO Q4H PRN #200 ml PRN Reason: Pain Omeprazole 40 mg PO DAILY #30 cap Bariatric Multivitamin 1 tab PO DAILY Calcium Citrate 500 mg PO TID Ergocalciferol [Vitamin D2] 50,000 unit PO Q30D Metoprolol Tartrate [Lopressor] 50 mg PO BID Vitamin A Acetate [Vitamin A] 10,000 unit SL DAILY Discharge Medication List cycloSPORINE [Restasis] 1 drop BOTH EYES HS 06/17/13 [History] Levothyroxine Sodium [Synthroid] 150 mcg PO QAM 09/19/18 [History] Acetaminophen Oral Susp [Tylenol Oral Susp] 650 mg PO Q4H PRN #200 ml 10/29/18 [Rx] Omeprazole 40 mg PO DAILY #30 cap 10/29/18 [Rx] Bariatric Multivitamin 1 tab PO DAILY 03/08/19 [History] Calcium Citrate 500 mg PO TID 03/08/19 [History] Ergocalciferol [Vitamin D2] 50,000 unit PO Q30D 03/08/19 [History] Metoprolol Tartrate [Lopressor] 50 mg PO BID 03/08/19 [History] Vitamin A Acetate [Vitamin A] 10,000 unit SL DAILY 03/08/19 [History] Omeprazole [PriLOSEC] 40 mg PO DAILY #30 cap 03/11/19 [Rx] [facility]ment[facility] [place] [facility] - [facility] Patient Instructions/Handouts: *[facility] - (Anesthesia) Endoscopy Discharge Instructions, Upper Endoscopy (DC), Esophageal Dilation (DC) Activity/Diet/Wound Care/Special Instructions: Please take Protonix or Omeprazole daily Discharge Disposition: HOME SELF-CARE
== END 2019-03-11 08:51 | disposition home or self-care (01) ==
LOC: ORWHC2ENDO 07:09
PROVIDERS: ATTEND Surgery Plastic and Reconstructive Surgery
DX: K31.89 Other diseases of stomach and duodenum (principal); K21.9 Gastro-esophageal reflux disease without esophagitis; K44.9 Diaphragmatic hernia without obstruction or gangrene; Z98.84 Bariatric surgery status; Z98.0 Intestinal bypass and anastomosis status; I47.1 Supraventricular tachycardia; E07.9 Disorder of thyroid, unspecified; I10 Essential (primary) hypertension; I20.9 Angina pectoris, unspecified; M19.90 Unspecified osteoarthritis, unspecified site; L30.9 Dermatitis, unspecified; I27.20 Pulmonary hypertension, unspecified; G43.909 Migraine, unspecified, not intractable, without status migrainosus; R55 Syncope and collapse; E89.0 Postprocedural hypothyroidism; Z85.850 Personal history of malignant neoplasm of thyroid; Z98.890 Other specified postprocedural states; Z90.710 Acquired absence of both cervix and uterus; Z96.651 Presence of right artificial knee joint; Z83.3 Family history of diabetes mellitus; Z82.49 Family history of ischemic heart disease and other diseases of the circulatory system; Z83.49 Family history of other endocrine, nutritional and metabolic diseases; Z80.8 Family history of malignant neoplasm of other organs or systems; Z79.890 Hormone replacement therapy; Z88.5 Allergy status to narcotic agent; Z88.2 Allergy status to sulfonamides; Z87.19 Personal history of other diseases of the digestive system
CPT/HCPCS: 43245; J2250; J1100; J2405; J2704; C1726; 43249

== ENCOUNTER → 2019-03-18 | Outpatient (CLI) | payer MEDICARE, BC ==
[~2019-03-18] MED LIST changes: -LACTATED RINGERS 1,000 ML IV SCH; +SODIUM CHLORIDE 0.9% 500 ML 500 ML in EMPTY BAG 1 BAG IV PRN; +ZOLEDRONIC ACID 5 MG in SODIUM CHLORIDE 0.9% 100 ML IV NR; +ZOLEDRONIC ACID 5 MG in SODIUM CHLORIDE 0.9% 100 ML IV ONE
[2019-03-18 08:18] VITALS: BP 120/67; PULSE 63; RESP 16; TEMP 97.5
== END | disposition home or self-care (01) ==
LOC: PROCWHC3 07:40
PROVIDERS: ATTEND Internal Medicine
DX: M81.0 Age-related osteoporosis without current pathological fracture (principal)
CPT/HCPCS: 96365; J3489

== ENCOUNTER → 2019-03-20 | Outpatient (CLI) | payer MEDICARE, BC ==
[2019-03-20 14:56] VITALS: BP 119/75; PULSE 86; RESP 16; TEMP 98.1; BMI 26.6
--- NOTE | 2019-03-20 15:15 | P.PN ---
Subjective Progress Note Date: 03/20/19 HPI: Her GERD is better. She has lost 100 pounds! Highest weight 240 pounds. ABDOMEN: Nontender ASSESSMENT: 1. Morbid obesity PLAN 1. Nystatin powder. 2. Lysis of adhesions. Objective - Vital Signs Vital signs: Vital Signs Temp 98.1 F 03/20/19 14:52 Pulse 86 03/20/19 14:52 Resp 16 03/20/19 14:52 BP 119/75 03/20/19 14:52 Pulse Ox Intake & Output 03/19/19 03/20/19 03/20/19 18:59 06:59 18:59 Weight 67.132 kg
== END | disposition home or self-care (01) ==
LOC: BARWHC3 14:28
PROVIDERS: ATTEND Surgery Plastic and Reconstructive Surgery
DX: E66.01 Morbid (severe) obesity due to excess calories (principal); Z68.26 Body mass index [BMI] 26.0-26.9, adult
CPT/HCPCS: 99211

== ENCOUNTER → 2019-04-12 | Outpatient (CLI) | payer BC, MEDICARE ==
[2019-04-12 08:45] LABS: HCT 37.1 % (34.0-46.0); HGB 12.1 gm/dL (11.4-16.0); MCH 28.8 pg (25.0-35.0); MCHC 32.6 g/dL (31.0-37.0); MCV 88.5 fL (80.0-100.0); Mean Platelet Volume 7.3; Platelet Count 224 k/uL (150-450); RDW 14.2 % (11.5-15.5); WBC 5.1 k/uL (3.8-10.6)
[2019-04-12 08:51] LABS: Partial Thromboplastin Time 24.4 sec (22.0-30.0); Prothrombin Time 10.5 sec (9.0-12.0)
[2019-04-12 16:07] LABS: % Iron Saturation 33.71 (12.00-45.00); African American GFR (CKD) 104.6 (60.0-200.0); Albumin 4.3 g/dL (3.80-4.90); Albumin/Globulin Ratio 1.72 (1.60-3.17); Anion Gap 5.6 mmol/L (4.00-12.00); BUN/Creat Ratio 18.57 Ratio (12.00-20.00); Calcium 8.7 mg/dL (8.7-10.3); Carbon Dioxide 27.4 mmol/L (21.6-31.8); Chol/HDL Ratio 2.65; Globulin 2.5 g/dL (1.6-3.3); Magnesium 2.2 mg/dL (1.5-2.4); Non-African American GFR(CKD) 90.3 (60.0-200.0); Phosphorus 3.2 mg/dL (2.4-5.1); Potassium 3.8 mmol/L (3.5-5.5); Total Protein 6.8 g/dL (6.2-8.2)
[2019-04-12 16:19] LABS: Ferritin 60.8 ng/mL (10.0-291.0)
[2019-04-12 16:21] LABS: Folate, Serum 18.4 ng/mL
[2019-04-12 16:47] LABS: Hemoglobin A1C 5.4 % (4.0-6.0)
[2019-04-16 06:14] LABS: Zinc, Serum 68 ug/dL (60-130)
[2019-04-16 09:04] LABS: Vitamin A 36 ug/dL (38-106)
== END | disposition home or self-care (01) ==
LOC: LABWHC1 08:00
PROVIDERS: ATTEND Surgery Plastic and Reconstructive Surgery
DX: E66.01 Morbid (severe) obesity due to excess calories (principal); E21.1 Secondary hyperparathyroidism, not elsewhere classified; E89.1 Postprocedural hypoinsulinemia; K90.9 Intestinal malabsorption, unspecified; E55.9 Vitamin D deficiency, unspecified; K74.1 Hepatic sclerosis; N19 Unspecified kidney failure; K50.90 Crohn's disease, unspecified, without complications; D50.9 Iron deficiency anemia, unspecified
CPT/HCPCS: 36415; 80053; 80061; 82306; 82525; 82607; 82728; 82746; 83036; 83540; 83550; 83735; 83970; 84100; 84134; 84255; 84425; 84443; 84590; 84630; 85027; 85610; 85730

== ENCOUNTER 2019-04-15 08:19 | Day surgery (SDC) | payer MEDICARE, BC ==
[2019-04-10 09:55] VITALS: BMI 26.6
--- NOTE | 2019-04-14 19:11 | P.GSHP ---
History of Present Illness H&P Date: 04/15/19 CHIEF COMPLAINT: History of intra-abdominal adhesions HISTORY OF PRESENT ILLNESS: The patient is a 64-year-old female who presents with history of intra-abdominal adhesions from multiple prior surgeries including increasing abdominal pain. She now presents for diagnostic laparoscopy including lysis of adhesions. PAST MEDICAL HISTORY: Please see list. PAST SURGICAL HISTORY: Please see list. MEDICATIONS: Please see list. ALLERGIES: Please see list. SOCIAL HISTORY: No illicit drug use FAMILY HISTORY: No reports of Crohn disease or ulcerative colitis. REVIEW OF ORGAN SYSTEMS: CONSTITUTIONAL: No reports of fevers or chills. GI: Denies any blood in stools or constipation. PHYSICAL EXAM: VITAL SIGNS: Stable GENERAL: Well-developed pleasant and in no acute distress. HEENT: No scleral icterus. Extraocular movements grossly intact. Moist buccal mucosa. NECK: Supple without lymphadenopathy. CHEST: Unlabored respirations. Equal bilateral excursions. CARDIOVASCULAR: Regular rate and rhythm. Distal 2+ pulses. ABDOMEN: Soft, diffuse abdominal tenderness. No peritonitis. MUSCULOSKELETAL: No clubbing, cyanosis, or edema. ASSESSMENT: 1. Diffuse abdominal pain. 2. History of multiple abdominal surgeries. 3. Intra-abdominal adhesions. PLAN: 1. Robotic lysis of adhesions were described in detail including risk of injury to the intestine, need for further surgery, and open technique. 2. DVT prophylaxis. 3. Antibiotic prophylaxis. Past Medical History Past Medical History: Cancer, Chest Pain / Angina, GERD/Reflux, Hypertension, Supraventricular Tachycardia (SVT), Thyroid Disorder Additional Past Medical History / Comment(s): HX Esophageal spasms, Thyroid CA, Migraines, DJD, Vertigo, Precancerous lesions face, eczema eyelids. Mild pulmonary HTN 10/2018, sl leaky heart valves. History of Any Multi-Drug Resistant Organisms: None Reported Past Surgical History: Back Surgery, Bariatric Surgery, Hernia Repair, Hysterectomy, Joint Replacement, Orthopedic Surgery, Tubal Ligation Additional Past Surgical History / Comment(s): 02/16/15 Total R knee. LAP BAND (2002). HEART CATH-CLEAR X 2, THYROIDECTOMY D/T CA/, DISCECTOMY L5-S1, LT KNEE ARTHROSCOPY, KARTHIKEYAN HEEL SPURS. BENIGN TUMOR EXC FROM LEFT EYE, Lt Rot Cuff,sinuplasty, lap band removal 08-14-17, gastric bypass 12-11-17 w/ Hiatal Hernia repair(Revision of gastric bypass/jejunum 10/2018) Colonoscopy. Past Anesthesia/Blood Transfusion Reactions: Family History of Problems w/ Anesthesia, Motion Sickness, Postoperative Nausea & Vomiting (PONV) Additional Past Anesthesia/Blood Transfusion Reaction / Comment(s): Hx Esophageal spasms,. MOTHER AND DAUGHTER HAVE PONV, no hx blood transfusion Smoking Status: Never smoker - Past Family History Father Family Medical History: Cancer, Diabetes Mellitus, Hypertension Additional Family Medical History / Comment(s): Father had cancer below his eye. He from a MVA. Mother Family Medical History: AFIB, Cancer, Thyroid Disorder Additional Family Medical History / Comment(s): skin CA Medications and Allergies Home Medications Medication Instructions Recorded Confirmed Type Levothyroxine Sodium [Synthroid] 150 mcg PO QAM 09/19/18 04/10/19 History Metoprolol Tartrate [Lopressor] 50 mg PO BID 03/08/19 04/10/19 History Omeprazole [PriLOSEC] 40 mg PO DAILY #30 cap 03/11/19 04/10/19 Rx Nystatin 100,000 Unit/gm Powd 1 applic TOPICAL DIRECTED 03/25/19 04/10/19 History [Mycostatin Powder] Bariatric Vitiamins 1 tab PO DAILY 04/10/19 04/10/19 History Calcium Carbonate [Calcium] 600 mg PO DAILY 04/10/19 04/10/19 History Multivitamins, Thera [Multivitamin 1 mg PO DAILY 04/10/19 04/10/19 History (formulary)] Allergies Allergy/AdvReac Type Severity Reaction Status Date / Time Sulfa (Sulfonamide Allergy Severe Rash/Hives Verified 04/10/19 09:47 Antibiotics) codeine AdvReac Severe Nausea & Verified 04/10/19 09:47 Vomiting meperidine HCl [From Demerol] AdvReac Nausea & Verified 04/10/19 09:47 Vomiting
[~2019-04-15 08:19] MED LIST changes: +DEXAMETHASONE SOD PHOSPHATE 10 MG/ML 1 ML VIAL IV ONE; +LACTATED RINGERS 1,000 ML IV SCH; +LIDOCAINE 1% (10MG/ML) FOR IV START INTRADERMA PRN; +ONDANSETRON 4 MG/2 ML VIAL IVP ONE; +Pre Op ABX Message 1 EACH MISC MISCELLANE ONE; +SCOPOLAMINE 1.5MG/72HR PATCH TRANSDERM ONE; -SODIUM CHLORIDE 0.9% 500 ML 500 ML in EMPTY BAG 1 BAG IV PRN; -ZOLEDRONIC ACID 5 MG in SODIUM CHLORIDE 0.9% 100 ML IV NR; -ZOLEDRONIC ACID 5 MG in SODIUM CHLORIDE 0.9% 100 ML IV ONE; +fentaNYL (PF) 50 MCG/ML 2 ML AMP IV PRN
[2019-04-15] MEDS ORDERED: HEPARIN SODIUM,PORCINE 5,000 UNIT/ML 1 ML VIAL SQ STA (09:40)
[2019-04-15] MEDS ORDERED: HEPARIN SODIUM,PORCINE 5,000 UNIT/ML 1 ML VIAL SQ ONE (09:51)
[2019-04-15] MEDS ORDERED: GLYCOPYRROLATE 0.2 MG/ML 2 ML VIAL ONE (09:54)
[2019-04-15] MEDS ORDERED: ePHEDrine SULFATE/0.9% NACL/PF 50 MG/5 ML SYRINGE IV ONE (09:54)
[2019-04-15] MEDS ORDERED: LIDOCAINE 1% INJ 10MG/ML (20 ML MDV) ONE (09:54)
[2019-04-15] MEDS ORDERED: ROCURONIUM BROMIDE 10 MG/ML 5 ML VIAL IV ONE (09:54)
[2019-04-15] MEDS ORDERED: NEOSTIGMINE 1 MG/ML 10 ML VIAL ONE (09:54)
[2019-04-15] MEDS ORDERED: PROPOFOL 10 MG/ML 20 ML VIAL IV ONE (09:54)
[2019-04-15] MEDS ORDERED: HYDROmorphone (PF) 1 MG/ML ONE (09:54)
[2019-04-15] MEDS ORDERED: MIDAZOLAM 2 MG/2 ML VIAL ONE (09:54)
[2019-04-15] MEDS ORDERED: fentaNYL (PF) 50 MCG/ML 50 ML VIAL ONE (09:54)
[2019-04-15] MEDS ORDERED: BUPIVACAINE (PF) 0.5% 30 ML VIAL SQ ONE (10:26)
[2019-04-15] MEDS ORDERED: LACTATED RINGERS 1,000 ML IV ONE (11:53)
[2019-04-15 14:02] VITALS: TEMP 98.3
--- NOTE | 2019-04-15 14:05 | P.OP ---
Date of Procedure: 04/15/19 Description of Procedure: SURGEON: LENNY OTT MD PREOPERATIVE DIAGNOSES: 1. Epigastric abdominal pain 2. Abnormal computed tomography scan with internal hernia 3. History of gastric bypass 4. History of peritoneal adhesions 5. Hypertensive heart disease 6. Gastroesophageal reflux disease. POSTOPERATIVE DIAGNOSES: 1. Epigastric abdominal pain 2. Abnormal computed tomography scan with internal hernia 3. History of gastric bypass 4. History of peritoneal adhesions 5. Hypertensive heart disease 6. Gastroesophageal reflux disease. 7. Internal hernia with small bowel volvulus 8. Severe pelvic adhesions from previous hysterectomy 9. Severe interloop adhesions throughout the abdomen OPERATION: 1. Robotic-assisted da Mo Xi laparoscopic with extensive lysis of adhesions 3 hrs 2. Robotic-assisted da Mo Xi laparoscopic reduction of internal hernia ESTIMATED BLOOD LOSS: 20 mL. SPECIMENS REMOVED: None. COMPLICATIONS: None. OPERATIVE FINDINGS: 1. Severe diffuse peritoneal adhesions greater omentum to abdominal wall 2. Interloop adhesions involving the common channel, biliopancreaic limb 3. Severe pelvic adhesions from prior hysterectomy 4. Internal hernia of the transverse mesocolon/jejunojejunostomy reduced 5. Hale defect without small bowel incarceration INDICATIONS: The patient is a 64-year-old female who presents with epigastric abdominal pain including abnormal CT scan demonstrating msesteric swirl and internal hernias. Surgical intervention with diagnostic laparoscopy, lysis of adhesions were described. Robotic assisted laparoscopic approach was described. Benefits and risks of the procedure including but not limited to bleeding, infection, injury to the small bowel was described. Informed consent was obtained. DESCRIPTION OF PROCEDURE: Patient was brought to the operating room, placed in supine position. After general induction, the abdomen had been prepped and draped in standard sterile fashion. The robotic da Mo XI system was primed. After a timeout protocol was performed, the patient had been prepped and draped in standard sterile fashion. The robot was docked along the right lateral abdomen. Please note prior to docking of the robot; however, a 5 mm 0 degrees laparoscopic trocar entry was performed along the left upper quadrant. The abdomen was insufflated to 15 mmHg pressure which she tolerated well. Diagnostic laparoscopy was performed. Next, three 8 mm robotic ports were placed along the right lateral abdominal wall. Please note that the ports were placed at least 10 to 15 cm away from the target anatomy. Instruments including graspers, scissors with cautery and vessel sealer were interchanged by the bookkeeper assistant. I had sat at the console. Initial attention was brought to the peritoneal adhesions of the greater omentum to the abdominal wall. The adhesions were throughout the entire abdomen and addressed using vessel sealer and scissors with cautery. No evidence of incisional hernia was identified. The small bowel from the alfred limb to distal ileum was inspected. The small bowel was investigated from the terminal ileum to the ligament of Treitz with finding of redundant mesentery with active small bowel volvulus involving the ileum and jejunum to the jejunojejunostomy mesenteric defect. Multiple abnormal adhesions to the jejunojejunostomy, ileum, and jejunum was adherent to the deep pelvis from her prior hysterectomy. Multiple interloop adhesions were also found and addressed using scissors. As a result of her adhesions, small bowel volvulus adherent to her jejunum was found. The mesentery small bowel volvulus were reduced. Adhesions along the epigast rium linvolving the transverse colon to the alfred limb with an active internal hernia was lysed using vessel sealer. No herniation of bowel was found along the Hale defect. The terminal ileum and cecum was unremarkable. Extensive lysis of adhesions over 3 hrs was performed to address her interloop adhesions, ileum, jejunum. The small bowel was viable.The robot was undocked. All pneumoperitoneum instruments were evacuated from the abdominal cavity. The incisions were reapproximated using 4-0 Monocryl in an interrupted subcuticular fashion. Please note along the trocar sites, local anesthetic was placed as a field block prior to insertion of all instruments. Exofin was applied to the skin. At the end of the procedure needle, sponge, and instrument count had been verified correct by the surgical instrument technician. The patient was transferred to postanesthesia care unit in stable condition.
[2019-04-15] MEDS ORDERED: ONDANSETRON 4 MG/2 ML VIAL IVP ONE (15:30)
[2019-04-15 15:35] VITALS: RESP 20
[2019-04-15] MEDS ORDERED: DEXAMETHASONE SOD PHOSPHATE 10 MG/ML 1 ML VIAL IV ONE (15:41)
[2019-04-15] MEDS ORDERED: ACETAMINOPHEN TAB 500 MG TAB PO ONE (16:03)
[2019-04-15 16:10] VITALS: BP 138/84; PULSE 92
== END 2019-04-15 16:37 | disposition home or self-care (01) ==
LOC: OR 08:19
PROVIDERS: ATTEND Surgery Plastic and Reconstructive Surgery
DX: K66.0 Peritoneal adhesions (postprocedural) (postinfection) (principal); K46.9 Unspecified abdominal hernia without obstruction or gangrene; K56.2 Volvulus; K21.9 Gastro-esophageal reflux disease without esophagitis; I11.9 Hypertensive heart disease without heart failure; I47.1 Supraventricular tachycardia; K22.4 Dyskinesia of esophagus; G43.909 Migraine, unspecified, not intractable, without status migrainosus; M19.90 Unspecified osteoarthritis, unspecified site; R42 Dizziness and giddiness; L30.9 Dermatitis, unspecified; I27.20 Pulmonary hypertension, unspecified; I38 Endocarditis, valve unspecified; Z85.850 Personal history of malignant neoplasm of thyroid; Z98.84 Bariatric surgery status; Z90.710 Acquired absence of both cervix and uterus; Z98.51 Tubal ligation status; Z98.890 Other specified postprocedural states; Z83.3 Family history of diabetes mellitus; Z82.49 Family history of ischemic heart disease and other diseases of the circulatory system; Z80.8 Family history of malignant neoplasm of other organs or systems; Z83.49 Family history of other endocrine, nutritional and metabolic diseases; Z80.9 Family history of malignant neoplasm, unspecified; Z79.890 Hormone replacement therapy; Z79.899 Other long term (current) drug therapy; Z88.5 Allergy status to narcotic agent; Z88.2 Allergy status to sulfonamides
CPT/HCPCS: 44238; 49329; J1644; J1100; J0690; J2405

== ENCOUNTER → 2019-04-17 | Outpatient (CLI) | payer MEDICARE ==
[2019-04-17 14:48] VITALS: BP 129/81; PULSE 73; RESP 16; TEMP 97.9; BMI 26.8
--- NOTE | 2019-04-17 14:56 | P.PN ---
Subjective Progress Note Date: 04/17/19 DATE OF SERVICE: 04/17/2019 CHIEF COMPLAINT: Status post gastric bypass HISTORY OF PRESENT ILLNESS: Eulalia Armstrong is a 63-year-old female status post revision of her gastrojejunal anastomosis 10/22/2018. She is status post lysis of adhesions, postop day 2. She reports appropriate soreness. She is passing flatus and having bowel movements. No increased abdominal pain. With her prior history of hysterectomy, this puts her at risk for bowel obstructions in the future. These findings were reviewed with her. Separately, she is looking into a panniculectomy. She has lost moderate amount of weight. She has lost near 100 pounds. At height of 5 feet 2 inches, her ideal body weight is 135 pounds. Her highest weight is 240 pounds. Today she comes in weighing 149 pounds from 148 pounds, 1 month ago. She has gained 1 pound in 1 month. Total weight loss is 91 pounds lifetime. Body mass index is reduced from 43.3 to 26.8. Percent excess weight loss is 87 %. PHYSICAL EXAM: VITAL SIGNS: Height 5 foot 2 inches, weight 149 pounds. BMI 27.3 Vital Signs Temp 97.9 F 04/17/19 14:43 Pulse 73 04/17/19 14:43 Resp 16 04/17/19 14:43 BP 129/81 04/17/19 14:43 Pulse Ox 98 04/17/19 14:43 GENERAL: Well-developed in no acute distress. HEENT: No scleral icterus. Extraocular movements grossly intact. Hears conversational speech. No nasal drainage. NECK: Supple without lymphadenopathy. CHEST: Nonlabored respirations with equal bilateral excursions. CARDIOVASCULAR: Regular rate and rhythm. Distal 2+ pulses. ABDOMEN: Obese, soft. Incisions are clean, dry and intact MUSCULOSKELETAL: No clubbing, cyanosis. NEURO: No focal or lateralizing signs. Cranial nerves 2 through 12 grossly within normal limits. PSYCH: Appropriate affect. Alert and oriented to person, place and time. SKIN: Good skin turgor. Well perfused. ASSESSMENT: 1. Morbid obesity due to excess calories 2. Body mass index of 44.0 to 27.3 3. Gastroesophageal reflux disease 4. Status post gastric bypass with revision 5. History of peritoneal adhesions 6. Status post lysis of adhesions. PLAN: 1. For patient's with hysterectomy, she pose higher risk for bowel obstructions especially with a gastric bypass. 2. Recommend future lysis of adhesions for any abdominal pain. Objective - Vital Signs Vital signs: Vital Signs Temp 97.9 F 04/17/19 14:43 Pulse 73 04/17/19 14:43 Resp 16 04/17/19 14:43 BP 129/81 04/17/19 14:43 Pulse Ox 98 04/17/19 14:43 Intake & Output 04/16/19 04/17/19 04/17/19 18:59 06:59 18:59 Weight 67.585 kg
== END ==
LOC: BARWHC3 13:18
PROVIDERS: ATTEND Surgery Plastic and Reconstructive Surgery
DX: E66.01 Morbid (severe) obesity due to excess calories (principal); Z98.84 Bariatric surgery status; Z68.27 Body mass index [BMI] 27.0-27.9, adult; K21.9 Gastro-esophageal reflux disease without esophagitis; Z87.898 Personal history of other specified conditions; Z98.890 Other specified postprocedural states; Z90.710 Acquired absence of both cervix and uterus
CPT/HCPCS: 99211

== ENCOUNTER → 2020-03-30 | Outpatient (CLI) | payer MEDICARE, BC ==
[~2020-03-30] MED LIST changes: -DEXAMETHASONE SOD PHOSPHATE 10 MG/ML 1 ML VIAL IV ONE; -LACTATED RINGERS 1,000 ML IV SCH; -LIDOCAINE 1% (10MG/ML) FOR IV START INTRADERMA PRN; -ONDANSETRON 4 MG/2 ML VIAL IVP ONE; -Pre Op ABX Message 1 EACH MISC MISCELLANE ONE; -SCOPOLAMINE 1.5MG/72HR PATCH TRANSDERM ONE; +SODIUM CHLORIDE 0.9% 500 ML 500 ML in EMPTY BAG 1 BAG IV PRN; +ZOLEDRONIC ACID 5 MG in SODIUM CHLORIDE 0.9% 100 ML IV NR; -fentaNYL (PF) 50 MCG/ML 2 ML AMP IV PRN
[2020-03-30 13:41] VITALS: BP 150/95; PULSE 71; RESP 18; TEMP 98.1
== END | disposition home or self-care (01) ==
LOC: PROCWHC3 12:54
PROVIDERS: ATTEND Internal Medicine
DX: M81.0 Age-related osteoporosis without current pathological fracture (principal)
CPT/HCPCS: 96365; J3489

== ENCOUNTER → 2020-04-27 | Outpatient (CLI) | payer MEDICARE, BC ==
[2020-04-27 11:24] LABS: HCT 38.8 % (34.0-46.0); MCH 29.5 pg (25.0-35.0); MCHC 33.6 g/dL (31.0-37.0); MCV 87.8 fL (80.0-100.0); Mean Platelet Volume 7.5; Platelet Count 227 k/uL (150-450); RBC 4.42 m/uL (3.80-5.40); RDW 12.9 % (11.5-15.5); WBC 5.3 k/uL (3.8-10.6)
[2020-04-27 11:43] LABS: ALT 21 U/L (4-34); AST 27 U/L (14-36); African American GFR (CKD) >90 (>60 ml/min/1.73 sqM); Albumin 4.4 g/dL (3.5-5.0); Alkaline Phosphatase 118 U/L (38-126); Anion Gap 6 mmol/L; Blood Urea Nitrogen 13 mg/dL (7-17); Calcium 9.1 mg/dL (8.4-10.2); Carbon Dioxide 29 mmol/L (22-30); Chloride 106 mmol/L (98-107); Cholesterol 193 mg/dL (<200); Glucose 95 mg/dL (74-99); HDL Cholesterol 74 mg/dL (40-60); LDL Cholesterol,Calculated 106 mg/dL (0-99); Magnesium 2.3 mg/dL (1.6-2.3); Non-African American GFR(CKD) 88 (>60 ml/min/1.73 sqM); Potassium 4.3 mmol/L (3.5-5.1); Sodium 141 mmol/L (137-145); Total Bilirubin 0.7 mg/dL (0.2-1.3); Total Protein 7.6 g/dL (6.3-8.2); Triglycerides 67 mg/dL (<150)
[2020-04-27 12:10] LABS: Partial Thromboplastin Time 23.8 sec (22.0-30.0); Prothrombin Time 10.3 sec (9.0-12.0)
[2020-04-27 17:18] LABS: Hemoglobin A1C 5.5 % (4.0-6.0)
[2020-04-27 19:51] LABS: Ferritin 23.4 ng/mL (10.0-291.0)
[2020-04-27 20:01] LABS: % Iron Saturation 26.56 (12.00-45.00); Iron 85 ug/dL (50-170); Total Iron Binding Capacity 320 ug/dL (228-460)
[2020-04-27 20:14] LABS: Folate, Serum >24.0 ng/mL
[2020-04-28 13:56] LABS: Zinc, Serum 62 ug/dL (60-130)
[2020-04-29 07:33] LABS: Vitamin A 34 ug/dL (38-106)
[2020-04-30 00:18] LABS: Selenium 115 mcg/L (63-160)
[2020-04-30 10:46] LABS: Vit B1(Thiamine) 58 ug/L (38-122)
== END | disposition home or self-care (01) ==
LOC: LABPAT 09:55
PROVIDERS: ATTEND Surgery Plastic and Reconstructive Surgery
DX: E66.01 Morbid (severe) obesity due to excess calories (principal)
CPT/HCPCS: 80053; 80061; 82525; 82607; 82728; 82746; 83036; 83540; 83550; 83735; 83970; 84100; 84134; 84255; 84425; 84443; 84590; 84630; 85027; 85610; 85730; 93005

== ENCOUNTER → 2020-05-06 | Outpatient (CLI) | payer MEDICARE, BC ==
[2020-05-06 13:32] VITALS: BP 148/78; PULSE 73; RESP 18; TEMP 98.1; BMI 27.0
--- NOTE | 2020-05-06 13:59 | P.HPBAR ---
Bariatric H&P - History & Physicial H&P Date: 05/06/20 History & Physicial: Visit/CC: follow up Patient initial contact: Initial weight: 99.79 kg Initial weight in pounds: 220.00 Height: 5 ft 2.5 in Initial BMI: 39.6 Last weight: Current weight: 68.039 kg Current weight in pounds: 150.00 Current BMI: 27.0 [place] body weight (based on NIH guidelines): 51.029 kg Excess body weight loss: 65.1% The patient is a 65 year-old F who presents for Bariatric Assessment. She has lost weight. She is in the middle of her COVID vaccine. She is here for panniculitis. Recommend complete vaccine prior to panniculectomy. She reports with metastatic cancer. Past Medical History Past Medical History: Cancer, Chest Pain / Angina, GERD/Reflux, Hypertension, Supraventricular Tachycardia (SVT), Thyroid Disorder Additional Past Medical History / Comment(s): HX Esophageal spasms, Thyroid CA, Migraines, DJD, Vertigo, Precancerous lesions face, eczema eyelids. Mild pulmonary HTN 10/2018, sl leaky heart valves. pentogoud (severe blisters in mouth) History of Any Multi-Drug Resistant Organisms: None Reported Past Surgical History: Back Surgery, Bariatric Surgery, Hernia Repair, Hysterectomy, Joint Replacement, Orthopedic Surgery, Tubal Ligation Additional Past Surgical History / Comment(s): 02/16/15 Total R knee. LAP BAND (2002). HEART CATH-CLEAR X 2, THYROIDECTOMY D/T CA/, DISCECTOMY L5-S1, LT KNEE ARTHROSCOPY, KARTHIKEYAN HEEL SPURS. BENIGN TUMOR EXC FROM LEFT EYE, Lt Rot Cuff,sinuplasty, lap band removal 08-14-17, gastric bypass 12-11-17 w/ Hiatal Hernia repair(Revision of gastric bypass/jejunum 10/2018) Colonoscopy. Past Anesthesia/Blood Transfusion Reactions: Family History of Problems w/ Anesthesia, Motion Sickness, Postoperative Nausea & Vomiting (PONV) Additional Past Anesthesia/Blood Transfusion Reaction / Comm: Hx Esophageal spasms,. MOTHER AND DAUGHTER HAVE PONV, no hx blood transfusion Past Psychological History: No Psychological Hx Reported Additional Psychological History / Comment(s): Pt resides with her spouse. She is independent. She drives. retired. No experience. No animals at home. No other change in the home environ Smoking Status: Never smoker Past Alcohol Use History: None Reported Past Drug Use History: None Reported - Past Family History Father Family Medical History: Cancer, Diabetes Mellitus, Hypertension Additional Family Medical History / Comment(s): Father had cancer below his eye. He from a MVA. Mother Family Medical History: AFIB, Cancer, Thyroid Disorder Additional Family Medical History / Comment(s): skin CA Surgical - Exam Vital Signs Temp Pulse Resp BP 98.1 F 73 18 148/78 05/06/20 13:25 05/06/20 13:25 05/06/20 13:25 05/06/20 13:25 Bariatric Checklist Checklist: Plan: Checklist: EGD: 1. Hiatal hernia: 2. H. Pylori: HgbA1c: Vitamin D: Smoking: Never smoker Primary care physician referral: ashley Psychiatry clearance: Cardiology clearance: Sleep study: Diet journal: VTE risk score: VTE risk level: Rehab needs at discharge:
== END ==
LOC: BARWHC3 11:46
PROVIDERS: ATTEND Surgery Plastic and Reconstructive Surgery
DX: E66.01 Morbid (severe) obesity due to excess calories (principal); Z68.27 Body mass index [BMI] 27.0-27.9, adult; Z98.84 Bariatric surgery status; Z46.51 Encounter for fitting and adjustment of gastric lap band
CPT/HCPCS: 99211

== ENCOUNTER → 2020-07-22 | Outpatient (CLI) | payer MEDICARE, BC ==
[2020-07-22 15:10] LABS: Basophils % (A) 0 %; Eosinophils # (A) 0.1 k/uL (0-0.7); Eosinophils % (A) 1 %; HCT 41.5 % (34.0-46.0); HGB 13.8 gm/dL (11.4-16.0); Lymphocytes % (A) 32 %; MCH 28.9 pg (25.0-35.0); MCHC 33.2 g/dL (31.0-37.0); MCV 87.1 fL (80.0-100.0); Mean Platelet Volume 7.2; Monocytes # (A) 0.4 k/uL (0-1.0); Monocytes % (A) 6 %; Neutrophils # (A) 3.6 k/uL (1.3-7.7); Neutrophils % (A) 57 %; Platelet Count 261 k/uL (150-450); RBC 4.77 m/uL (3.80-5.40); RDW 13.5 % (11.5-15.5); WBC 6.3 k/uL (3.8-10.6)
[2020-07-22 15:40] LABS: Albumin 4.9 g/dL (3.5-5.0); Potassium 4.6 mmol/L (3.5-5.1); Total Protein 8.1 g/dL (6.3-8.2)
[2020-07-22 15:42] LABS: Total Bilirubin 0.5 mg/dL (0.2-1.3)
== END | disposition home or self-care (01) ==
LOC: LABPAT 14:35
PROVIDERS: ATTEND Surgery Plastic and Reconstructive Surgery
DX: Z01.812 Encounter for preprocedural laboratory examination (principal)
CPT/HCPCS: 80053; 85025

== ENCOUNTER → 2020-07-22 | Outpatient (CLI) | payer MEDICARE, BC ==
[2020-07-22 13:49] VITALS: BP 110/70; PULSE 73; RESP 18; TEMP 97.9; BMI 26.8
--- NOTE | 2020-07-22 14:16 | P.PN ---
Subjective Progress Note Date: 07/22/20 DATE OF SERVICE: 07/22/2020 CHIEF COMPLAINT: Panniculitis HISTORY OF PRESENT ILLNESS: Eulalia Armstrong is a 65-year-old female status post gastric bypass 12/11/2017. She is 3 years out. She comes in with uncontrolled panniculitis. She reports lower back pain and trouble with grooming as a result of her pannus. She had prescription treatment of her panniculitis over 1+ years. Her weight is controlled with maintained weight loss over 80+ pounds. She is looking into panniculectomy. She denies abdominal pain. At height of 5 feet 2 inches, her ideal body weight is 135 pounds. Her highest weight is 240 pounds. Today she comes in weighing 149 pounds from 150 pounds, 3 months ago. She has lost 1 pound in 3 months. Total weight loss is 91 pounds lifetime. Body mass index is reduced from 43.3 to 27.3. Lifetime percent excess weight loss is 87 %. PAST MEDICAL HISTORY: 1. Morbid obesity due to excess calories 2. Body mass index of 44.0, initial. 3. Gastroesophageal reflux disease 4. Coronary artery disease 5. Hypothyroidism 6. Chronic pain syndrome 7. Dysphagia. 8. Hiatal hernia 9. Ischemic cardiomyopathy 10. Osteoarthritis bilateral hips 11. Osteoarthritis bilateral knees 12. Anxiety 13. Angina 14. Supraventricular tachycardia 15. Thyroid cancer 16. Vertigo 17. Migraines 18. Bilateral heel spurs PAST SURGICAL HISTORY: 1. Right knee arthroplasty 2. Thyroidectomy 3. Back surgery 4. Band placement 5. Hysterectomy 6. Left knee arthroscopy 7. Heart catheterization 8. Tumor removed from eye 9. Gastric bypass HOME MEDICATIONS: Home Medications Medication Instructions Recorded Confirmed Levothyroxine Sodium [Synthroid] 150 mcg PO QAM 09/19/18 09/02/20 Metoprolol Tartrate [Lopressor] 50 mg PO BID 03/08/19 09/02/20 Bariatric Vitiamins 1 tab PO DAILY 04/10/19 09/02/20 Calcium Carbonate [Calcium] 600 mg PO DAILY 04/10/19 09/02/20 cycloSPORINE 0.05% OPHTH SOLN 1 applicator BOTH EYES HS 05/06/20 09/02/20 [Restasis] Ergocalciferol [Vitamin D2 (1250 50,000 unit PO DIRECTED 07/22/20 09/02/20 Mcg = 76767 Iu)] Vitamin A [Vitamin A (8,000 Units 10,000 unit PO DAILY 07/22/20 09/02/20 = 2,400 MCG)] ALPRAZolam [Xanax] 0.5 - 1 mg PO DAILY PRN 07/24/20 09/02/20 Carisoprodol [Soma] 350 mg PO HS PRN 07/24/20 09/02/20 Ondansetron [Zofran] 4 mg PO Q12HR PRN 07/24/20 09/02/20 Prochlorperazine [Compazine] 10 mg PO Q8H PRN 07/24/20 09/02/20 Nystatin 1 each TOPICAL DIRECTED 09/10/20 09/10/20 Previous Rx's Medication Instructions Recorded Omeprazole [PriLOSEC] 40 mg PO DAILY #30 cap 03/11/19 ALLERGIES: Allergies Allergy/AdvReac Type Severity Reaction Status Date / Time Sulfa (Sulfonamide Allergy Severe Rash/Hives Verified 09/02/20 13:18 Antibiotics) codeine AdvReac Severe Nausea & Verified 09/02/20 13:18 Vomiting meperidine HCl [From Demerol] AdvReac Nausea & Verified 09/02/20 13:18 Vomiting SOCIAL HISTORY: No current tobacco abuse. FAMILY HISTORY: No family history of ulcerative colitis disease or Crohn's disease. Family history of morbid obesity. No lupus in the family. No reports of stomach or esophageal cancer. Family history of diabetes type 2. REVIEW OF ORGAN SYSTEMS: CONSTITUTIONAL: At height of 5 feet 2 inches, her ideal body weight is 135 pounds. She comes in highest weight of 240 pounds. Body mass index was 44.0. HEENT: Denies any active troubles with vision or hearing. Denies troubles with swallowing. ENDOCRINE: No diabetes. Has hypothyroidism. CARDIOVASCULAR: Past heart attack. Has hypertensive heart disease. Coronary artery disease. Myocardial ischemia history. RESPIRATORY: Resolved daytime somnolence. No asthma. Resolved obstructive sleep apnea. GI: Denies any bright red blood per rectum. No diarrhea or constipation. Has gastroesophageal reflux disease. MUSCULOSKELETAL: Has lower back pain and joint pain. Has osteoarthritis of the knees. NEURO: No headaches. No seizure disorders. PSYCH: Has depression. Has anxiety. No suicidal ideation. RHEUMATOLOGIC: No lupus. No rheumatoid arthritis. HEMATOLOGIC: Denies any abnormal bleeding or bruising. No personal history of DVTs. SKIN: No rash. No skin cancer. PHYSICAL EXAM: VITAL SIGNS: Height 5 foot 2 inches, weight 148 pounds. BMI 26.8 Vital Signs Temp 97.9 F 07/22/20 13:40 Pulse 73 07/22/20 13:40 Resp 18 07/22/20 13:40 BP 110/70 07/22/20 13:40 Pulse Ox GENERAL: Well-developed in no acute distress. HEENT: No scleral icterus. Extraocular movements grossly intact. Hears conversational speech. No nasal drainage. NECK: Supple without lymphadenopathy. CHEST: Nonlabored respirations with equal bilateral excursions. CARDIOVASCULAR: Regular rate and rhythm. Distal 2+ pulses. ABDOMEN: Obese, soft. Non-tender. Non-distended. Panniculitis. Grade 2. MUSCULOSKELETAL: No clubbing, cyanosis. NEURO: No focal or lateralizing signs. Cranial nerves 2 through 12 grossly within normal limits. PSYCH: Appropriate affect. Alert and oriented to person, place and time. SKIN: Good skin turgor. Well perfused. ASSESSMENT: 1. Panniculitis 2. Status post gastric bypass with revision 3. Morbid obesity due to excess calories, resolved 4. Body mass index of 44.0 to 27.4 5. History of myocardial ischemia PLAN: 1. Recommend panniculectomy for treatment of chronic panniculitis. 2. Risks of bleeding, seromas, flap failure, infection, pain, and need for further surgery were described. 3. DVT prophylaxis. 4. Antibiotic prophylaxis 5. Inpatient hospitalization overnight described. 6. She is elevated risk due to pre-existing myocardial ischemia. Objective - Vital Signs Vital signs: Vital Signs Temp 97.9 F 07/22/20 13:40 Pulse 73 07/22/20 13:40 Resp 18 07/22/20 13:40 BP 110/70 07/22/20 13:40 Pulse Ox Intake & Output 07/21/20 07/22/20 07/22/20 18:59 06:59 18:59 Weight 67.585 kg
== END ==
LOC: BARWHC3 12:54
PROVIDERS: ATTEND Surgery Plastic and Reconstructive Surgery
DX: M79.3 Panniculitis, unspecified (principal); Z86.79 Personal history of other diseases of the circulatory system; I25.10 Atherosclerotic heart disease of native coronary artery without angina pectoris; E03.9 Hypothyroidism, unspecified; F41.9 Anxiety disorder, unspecified; M17.0 Bilateral primary osteoarthritis of knee; M16.0 Bilateral primary osteoarthritis of hip; Z98.84 Bariatric surgery status; Z79.899 Other long term (current) drug therapy; Z88.5 Allergy status to narcotic agent; Z85.850 Personal history of malignant neoplasm of thyroid
CPT/HCPCS: 99211

== ENCOUNTER 2020-07-27 11:40 | Day surgery (SDC) | payer MEDICARE, BC ==
[2020-07-24 08:41] VITALS: BMI 26.1
[~2020-07-27 11:40] MED LIST changes: +DEXAMETHASONE SOD PHOSPHATE 4 MG/ML 1 ML VIAL IV ONE; +HEPARIN SODIUM,PORCINE/PF 5,000 UNIT/0.5 ML SYRINGE SQ PRN; +HYDROmorphone 0.5 MG/0.5 ML SYRINGE IVP PRN; +LIDOCAINE 1% (10MG/ML) FOR IV START INTRADERMA PRN; +MIDAZOLAM 2 MG/2 ML VIAL IV PRN; +ONDANSETRON 4 MG/2 ML VIAL IVP ONE; -SODIUM CHLORIDE 0.9% 500 ML 500 ML in EMPTY BAG 1 BAG IV PRN; -ZOLEDRONIC ACID 5 MG in SODIUM CHLORIDE 0.9% 100 ML IV NR
[2020-07-27] MEDS ORDERED: LACTATED RINGERS 1,000 ML IV ONE ×4 (12:18→16:23)
[2020-07-27] MEDS ORDERED: SCOPOLAMINE 1.5MG/72HR PATCH TRANSDERM ONE (12:22)
[2020-07-27] MEDS ORDERED: fentaNYL (PF) 50 MCG/ML 2 ML AMP IVP ONE (13:09)
--- NOTE | 2020-07-27 13:24 | P.ANPRN ---
Procedure Note - Anesthesia - Nerve Block Performed Bilateral Erector Spinae Time Out Performed: Yes (:) Date of Procedure: 07/27/20 Procedure Start Time: Procedure Stop Time: Location of Patient: PreOp Indication: Acute Post-Operative Pain, Requested by Surgeon (Dr Avitia) Sedation Type: Sedate with meaningful contact maintained Preparation: Sterile Prep Position: Prone Catheter: None Needle Types: Pajunk Needle Gauge: 21 Ultrasound used to visualize needle placement: Yes Ultrasound used to observe medication spread: Yes Injectate: 0.5% Ropivacaine (see comment for volume) (15cc+10ccPF normal saline each side) Blood Aspirated: No Pain Paresthesia on Injection Noted: No Resistance on Injection: Normal Image Stored and Saved: Yes Events: Uneventful and Well Tolerated
[2020-07-27] MEDS ORDERED: ROPIVACAINE 5 MG/ML 30 ML VIAL ONE (15:06)
[2020-07-27] MEDS ORDERED: diphenhydrAMINE 50 MG/ML 1 ML VIAL ONE (15:06)
[2020-07-27] MEDS ORDERED: ROCURONIUM 10 MG/ML (5 ML VIAL) IV ONE (15:06)
[2020-07-27] MEDS ORDERED: LIDOCAINE 1% INJ 10MG/ML (20 ML MDV) ONE (15:06)
[2020-07-27] MEDS ORDERED: ePHEDrine SULFATE/0.9% NACL/PF 50 MG/5 ML SYRINGE IV ONE (15:06)
[2020-07-27] MEDS ORDERED: GLYCOPYRROLATE 0.2 MG/ML 2 ML VIAL ONE (15:06)
[2020-07-27] MEDS ORDERED: NEOSTIGMINE 1 MG/ML 10 ML VIAL ONE (15:06)
[2020-07-27] MEDS ORDERED: MIDAZOLAM 2 MG/2 ML VIAL ONE (15:06)
[2020-07-27] MEDS ORDERED: KETAMINE 10 MG/ML 20 ML VIAL ONE (15:06)
[2020-07-27] MEDS ORDERED: ONDANSETRON 4 MG/2 ML VIAL ONE (15:06)
[2020-07-27] MEDS ORDERED: HYDROmorphone (PF) 1 MG/ML ONE (15:06)
[2020-07-27] MEDS ORDERED: SUCCINYLCHOLINE CHLORIDE 100 MG/5 ML SYR IV ONE (15:06)
[2020-07-27] MEDS ORDERED: PROPOFOL 10 MG/ML 20 ML VIAL IV ONE (15:06)
[2020-07-27] MEDS ORDERED: fentaNYL (PF) 50 MCG/ML 2 ML AMP ONE (15:06)
[2020-07-27] MEDS ORDERED: TRIMETHOBENZAMIDE 100 MG/ML 2 ML VIAL IM PRN (17:35)
[2020-07-27] MEDS ORDERED: SIMETHICONE 40 MG/0.6 ML DROPS 2,000 MG/30 ML BOTTLE PO PRN (17:35)
[2020-07-27] MEDS ORDERED: ONDANSETRON 4 MG/2 ML VIAL IVP PRN (17:35)
[2020-07-27] MEDS ORDERED: NALOXONE 0.4 MG/ML 1 ML VIAL IV PRN (17:35)
[2020-07-27] MEDS ORDERED: carisoprodoL 350 MG TAB PO PRN (17:40)
--- NOTE | 2020-07-27 17:43 | P.OP ---
Date of Procedure: 07/27/20 Description of Procedure: SURGEON: LENNY OTT MD PREOPERATIVE DIAGNOSES: 1. Panniculitis 2. Central adiposity 2. Body mass index of 44.0 to 26.7 3. Gastroesophageal reflux disease 4. Status post adjustable gastric band to gastric bypass 5. Hypertenisve heart disease 6. History of thyroid cancer 7. Pulmonary hypertension 8. Migraines POSTOPERATIVE DIAGNOSES: 1. Panniculitis 2. Central adiposity 2. Body mass index of 44.0 to 26.7 3. Gastroesophageal reflux disease 4. Status post adjustable gastric band to gastric bypass 5. Hypertenisve heart disease 6. History of thyroid cancer 7. Pulmonary hypertension 8. Migraines OPERATION: 1. Panniculectomy, 3.058 pounds. ANESTHESIA: General ESTIMATED BLOOD LOSS: 100 mL SPECIMENS REMOVED: Pannus 3.058 pounds. COMPLICATIONS: None. CONDITION: Stable. DRAINS: Two #19 Cosmo drains below abdominal flap extending through the pubis. OPERATIVE FINDINGS: 1. Pannus weighing 3.058 pounds, excised. INDICATIONS: Eulalia Armstrong is a 63-year-old female status post gastric bypass 12/11/2017. She is 3 years out. She comes in with concern of panniculitis. She reports chronic rashes poorly relieved with prescription medications including powders. She reports troubles with rashes from her pannus. Her weight loss has been maintained for over 1 to 2 years. She presents today for panniculectomy. At height of 5 feet 2 inches, her ideal body weight is 135 pounds. Her highest weight is 240 pounds. Today she comes in weighing 148 pounds. Total weight loss is 92 pounds lifetime. Body mass index is reduced from 43.3 to 26.7. Percent excess weight loss is 87 %. Given her clinical symptoms, including massive weight loss, she elected for surgical intervention with a panniculectomy. Benefits and risks of the procedure including bleeding, infection, cosmetic deformity, risk of flap failure, abdominal wall seromas, chronic pain were described at length. Informed consent was obtained. DESCRIPTION: In the preanesthesia care unit the patient was marked with an indelible marker. She had also been given heparin subcutaneously. The patient was brought into the operating room and laid in supine position. After general induction, a Mena catheter was placed. The abdomen was then prepped and draped in standard sterile fashion using ChloraPrep. The skin was prepped as far laterally to the back, inferiorly to the upper thighs and superiorly to above the bilateral breasts. A timeout protocol was confirmed with the surgical team regarding patient's name, procedure to be performed, including preoperative medications. She had received Ancef 2 grams IV antibiotics. Once the time-out protocol was confirmed with the surgical team, the patient was re-marked with indelible marker whereby the midline of the xiphoid to the mons pubis was marked. The anterior/superior iliac spine along the bilateral hips was also marked. Approximately 7 cm above the pubis commissure a transverse incision was made for the inferior portion of the flap. Using a #10 blade, the incision was taken from the midline laterally to above the anterior/superior iliac spine, initially on the left side of the patient and then on the right side of the patient. The umbilicus was transected. Electro-Bovie cautery was used to control for hemostasis. The dissection was taken down to the level of the fascia. Landmarks used were the xiphoid process as well as the bilateral costal margins for the superior margin. Care was taken to avoid any creation of dog ears during the dissection. Hemostasis was once again checked with electro-Bovie cautery and all defects were addressed. Attention was now brought to closure of the flap. Using stai nless steel skin jacki, the midline was once again marked of the upper flap as well as the pubic commissure. The patient was placed in a flexed position of approximately 20 degrees at the hips. The pannus was extended inferiorly to the feet. The upper flap was created once the excess skin was excised. Again care was taken to avoid any dog ears along the lateral aspect of the incisions. Once excised, the pannus was weighed at 3.058 pounds. The upper and lower flaps were reapproximated at the midline and then laterally to the skin with skin jacki. Once reapproximated, the skin was closed in layers using 0 Vicryl for the superficial fascial system followed by running 3-0 Monocryl for the deep dermis in a running subcuticular fashion. Prior to skin closure, two round #19 Cosmo drains were placed underneath the flap and brought out just inferior to the incision along the pubis. Drain stitch using 2-0 nylon was placed. Once the incision was closed, bulb suction was attached. Hemostasis was checked. At the end of the procedure, the needle, sponge and instrument count was verified correct. Exofin tape was placed along the length of the incision. Optifoam dressings were applied over the incision and used as a drain sponge. The patient was then transferred to a hospital bed in a beach chair position. An abdominal binder was placed and marked. The patient was taken to the postanesthesia care unit in stable condition, awake and extubated.
[2020-07-27 18:18] VITALS: RESP 16
[2020-07-27] MEDS: ACETAMINOPHEN IV (For NPO) 1,000 MG in EMPTY BAG 1 BAG IVPB SCH ×2 (19:42→20:16)
[2020-07-27] MEDS: LACTATED RINGERS 1,000 ML IV SCH (19:43)
[2020-07-27] MEDS: 0.9% NACL WITH KCL 20 MEQ/L 1,000 ML IV SCH (19:48)
--- NOTE | 2020-07-27 19:54 | P.GSHP ---
History of Present Illness H&P Date: 07/27/20 CHIEF COMPLAINT: Panniculitis HISTORY OF PRESENT ILLNESS: Eulalia Armstrong is a 65-year-old female status post gastric bypass 12/11/2017. She is 3 years out. She comes in with concern of panniculitis. She reports chronic rashes poorly relieved with prescription medications including powders. She reports troubles with rashes from her pannus. Her weight loss has been maintained for over 1 to 2 years. She presents today for panniculectomy. At height of 5 feet 2 inches, her ideal body weight is 135 pounds. Her highest weight is 240 pounds. Today she comes in weighing 148 pounds. Total weight loss is 92 pounds lifetime. Body mass index is reduced from 43.3 to 26.7. Percent excess weight loss is 87 %. PAST MEDICAL HISTORY: 1. Morbid obesity due to excess calories 2. Body mass index of 44.0, initial. 3. Gastroesophageal reflux disease 4. Coronary artery disease 5. Hypothyroidism 6. Chronic pain syndrome 7. Dysphagia. 8. Hiatal hernia 9. Ischemic cardiomyopathy 10. Osteoarthritis bilateral hips 11. Osteoarthritis bilateral knees 12. Anxiety 13. Angina 14. Supraventricular tachycardia 15. Thyroid cancer 16. Vertigo 17. Migraines 18. Bilateral heel spurs PAST SURGICAL HISTORY: 1. Right knee arthroplasty 2. Thyroidectomy 3. Back surgery 4. Band placement 5. Hysterectomy 6. Left knee arthroscopy 7. Heart catheterization 8. Tumor removed from eye 9. Gastric bypass HOME MEDICATIONS: Home Medications Medication Instructions Recorded Confirmed Levothyroxine Sodium [Synthroid] 150 mcg PO QAM 09/19/18 07/24/20 Metoprolol Tartrate [Lopressor] 50 mg PO BID 03/08/19 07/24/20 Bariatric Vitiamins 1 tab PO DAILY 04/10/19 07/24/20 Calcium Carbonate [Calcium] 600 mg PO DAILY 04/10/19 07/24/20 cycloSPORINE 0.05% OPHTH SOLN 1 applicator BOTH EYES HS 05/06/20 07/24/20 [Restasis] Ergocalciferol [Vitamin D2 (1250 50,000 unit PO DIRECTED 07/22/20 07/24/20 Mcg = 88568 Iu)] Vitamin A 10,000 unit PO DAILY 07/22/20 07/24/20 ALPRAZolam [Xanax] 0.5 - 1 mg PO DAILY PRN 07/24/20 07/24/20 Carisoprodol [Soma] 350 mg PO HS PRN 07/24/20 07/24/20 Ondansetron [Zofran] 4 mg PO Q12HR PRN 07/24/20 07/24/20 Prochlorperazine [Compazine] 10 mg PO Q8H PRN 07/24/20 07/24/20 Previous Rx's Medication Instructions Recorded Omeprazole [PriLOSEC] 40 mg PO DAILY #30 cap 03/11/19 Acetaminophen Tab [Tylenol Tab] 1,000 mg PO Q6HR PRN #30 tablet 04/15/19 ALLERGIES: Allergies Allergy/AdvReac Type Severity Reaction Status Date / Time Sulfa (Sulfonamide Allergy Severe Rash/Hives Verified 07/24/20 08:29 Antibiotics) codeine AdvReac Severe Nausea & Verified 07/24/20 08:29 Vomiting meperidine HCl [From Demerol] AdvReac Nausea & Verified 07/24/20 08:29 Vomiting SOCIAL HISTORY: No current tobacco abuse. FAMILY HISTORY: No family history of ulcerative colitis disease or Crohn's disease. Family history of morbid obesity. No lupus in the family. No reports of stomach or esophageal cancer. Family history of diabetes type 2. REVIEW OF ORGAN SYSTEMS: CONSTITUTIONAL: At height of 5 feet 2 inches, her ideal body weight is 135 pounds. She comes in highest weight of 240 pounds. Body mass index was 44.0. HEENT: Denies any active troubles with vision or hearing. Denies troubles with swallowing. ENDOCRINE: No diabetes. Has hypothyroidism. CARDIOVASCULAR: Past heart attack. Has hypertensive heart disease. Coronary artery disease. Myocardial ischemia history. RESPIRATORY: Resolved daytime somnolence. No asthma. Resolved obstructive sleep apnea. GI: Denies any bright red blood per rectum. No diarrhea or constipation. Has gastroesophageal reflux disease. MUSCULOSKELETAL: Has lower back pain and joint pain. Has osteoarthritis of the knees. NEURO: No headaches. No seizure disorders. PSYCH: Has depression. Has anxiety. No suicidal ideation. RHEUMATOLOGIC: No lupus. No rheumatoid arthritis. HEMATOLOGIC: Denies any abnormal bleeding or bruising. No personal history of DVTs. SKIN: No rash. No skin cancer. PHYSICAL EXAM: VITAL SIGNS: Height 5 foot 2 inches, weight 148 pounds. BMI 26,7 GENERAL: Well-developed in no acute distress. HEENT: No scleral icterus. Extraocular movements grossly intact. Hears conversational speech. No nasal drainage. NECK: Supple without lymphadenopathy. CHEST: Nonlabored respirations with equal bilateral excursions. CARDIOVASCULAR: Regular rate and rhythm. Distal 2+ pulses. ABDOMEN: Obese, soft. Non-tender. Non-distended. Panniculitis. MUSCULOSKELETAL: No clubbing, cyanosis. NEURO: No focal or lateralizing signs. Cranial nerves 2 through 12 grossly within normal limits. PSYCH: Appropriate affect. Alert and oriented to person, place and time. SKIN: Good skin turgor. Well perfused. ASSESSMENT: 1. Panniculitis 2. Status post gastric bypass 3. Morbid obesity due to excess calories, resolved 4. Body mass index of 44.0 to 27.4 PLAN: 1. Recommend panniculectomy for chronic panniculitis with concomittant severe lower back pain and uncontrolled symptoms despite systemic and local treatment including limitation of activities of daily living. Anticipated resection over 5+ pounds described. Panniculectomy should correct her functional deficits. 2. Risks of bleeding, needs for drains, flap failure, infection, cosmetic deformity, need for further surgery were described. 3. DVT prophylaxis. 4. Antibiotic prophylaxis 5. Extended recovery more than 6-8 weeks described including placement of drains more than 2 weeks reviewed. Past Medical History Past Medical History: Cancer, Chest Pain / Angina, GERD/Reflux, Hypertension, Supraventricular Tachycardia (SVT), Thyroid Disorder Additional Past Medical History / Comment(s): HX Esophageal spasms, Thyroid CA, Migraines, DJD, Vertigo, Precancerous lesions face, eczema eyelids. Mild pulmonary HTN 10/2018, sl leaky heart valves. pentogoud (severe blisters in mouth-resolved) History of Any Multi-Drug Resistant Organisms: None Reported Past Surgical History: Back Surgery, Bariatric Surgery, Hernia Repair, Hysterectomy, Joint Replacement, Orthopedic Surgery, Tubal Ligation Additional Past Surgical History / Comment(s): 02/16/15 Total R knee. LAP BAND (2002). HEART CATH-CLEAR X 2, THYROIDECTOMY D/T CA/, DISCECTOMY L5-S1, LT KNEE ARTHROSCOPY, KARTHIKEYAN HEEL SPURS. BENIGN TUMOR EXC FROM LEFT EYE, Lt Rot Cuff,sinuplasty, lap band removal 08-14-17, gastric bypass 12-11-17 w/ Hiatal Hernia repair(Revision of gastric bypass/jejunum 10/2018) Colonoscopy. Past Anesthesia/Blood Transfusion Reactions: Family History of Problems w/ Anesthesia, Motion Sickness, Postoperative Nausea & Vomiting (PONV) Additional Past Anesthesia/Blood Transfusion Reaction / Comment(s): Hx Esophageal spasms,. MOTHER AND DAUGHTER HAVE PONV, no hx blood transfusion Smoking Status: Never smoker - Past Family History Father Family Medical History: Cancer, Diabetes Mellitus, Hypertension Additional Family Medical History / Comment(s): Father had cancer below his eye. He from a MVA. Mother Family Medical History: AFIB, Cancer, Thyroid Disorder Additional Family Medical History / Comment(s): skin CA Medications and Allergies Home Medications Medication Instructions Recorded Confirmed Type Levothyroxine Sodium [Synthroid] 150 mcg PO QAM 09/19/18 07/24/20 History Metoprolol Tartrate [Lopressor] 50 mg PO BID 03/08/19 07/24/20 History Omeprazole [PriLOSEC] 40 mg PO DAILY #30 cap 03/11/19 07/24/20 Rx Bariatric Vitiamins 1 tab PO DAILY 04/10/19 07/24/20 History Calcium Carbonate [Calcium] 600 mg PO DAILY 04/10/19 07/24/20 History Acetaminophen Tab [Tylenol Tab] 1,000 mg PO Q6HR PRN #30 tablet 04/15/1907/24 Rx cycloSPORINE 0.05% OPHTH SOLN 1 applicator BOTH EYES HS 05/06/20 07/24/20 History [Restasis] Ergocalciferol [Vitamin D2 (1250 50,000 unit PO DIRECTED 07/22/20 07/24/20 History Mcg = 85854 Iu)] Vitamin A 10,000 unit PO DAILY 07/22/20 07/24/20 History ALPRAZolam [Xanax] 0.5 - 1 mg PO DAILY PRN 07/24/20 07/24/20 History Carisoprodol [Soma] 350 mg PO HS PRN 07/24/20 07/24/20 History Ondansetron [Zofran] 4 mg PO Q12HR PRN 07/24/20 07/24/20 History Prochlorperazine [Compazine] 10 mg PO Q8H PRN 07/24/20 07/24/20 History Allergies Allergy/AdvReac Type Severity Reaction Status Date / Time Sulfa (Sulfonamide Allergy Severe Rash/Hives Verified 07/24/20 08:29 Antibiotics) codeine AdvReac Severe Nausea & Verified 07/24/20 08:29 Vomiting meperidine HCl [From Demerol] AdvReac Nausea & Verified 07/24/20 08:29 Vomiting
[2020-07-27] MEDS: GABAPENTIN 300 MG CAP PO SCH (20:33)
[2020-07-27] MEDS: METOPROLOL TARTRATE 50 MG TAB PO SCH (20:33)
[2020-07-27] MEDS ORDERED: cycloSPORINE 0.05% OPHTH 0.4 ML DROPERETTE BOTH EYES SCH (21:00)
[2020-07-28] MEDS: ACETAMINOPHEN IV (For NPO) 1,000 MG in EMPTY BAG 1 BAG IVPB SCH ×2 (00:36→06:06)
[2020-07-28 04:24] LABS: Basophils % (A) 0 %; Eosinophils % (A) 0 %; HCT 32.5 % (34.0-46.0); Lymphocytes # (A) 1.6 k/uL (1.0-4.8); Lymphocytes % (A) 18 %; MCH 29.5 pg (25.0-35.0); MCHC 33.9 g/dL (31.0-37.0); MCV 87.2 fL (80.0-100.0); Mean Platelet Volume 7.6; Monocytes # (A) 0.6 k/uL (0-1.0); Monocytes % (A) 6 %; Neutrophils # (A) 6.5 k/uL (1.3-7.7); Neutrophils % (A) 73 %; Platelet Count 217 k/uL (150-450); RBC 3.72 m/uL (3.80-5.40); RDW 13.2 % (11.5-15.5); WBC 8.9 k/uL (3.8-10.6)
[2020-07-28 05:35] VITALS: TEMP 97.5
[2020-07-28] MEDS: LACTATED RINGERS 1,000 ML IV SCH (06:15)
[2020-07-28] MEDS ORDERED: 0.9% NACL WITH KCL 20 MEQ/L 1,000 ML IV SCH (08:00)
[2020-07-28] MEDS: GABAPENTIN 300 MG CAP PO SCH (08:09)
[2020-07-28] MEDS: METOPROLOL TARTRATE 50 MG TAB PO SCH (08:10)
[2020-07-28] MEDS: 0.9% NACL WITH KCL 20 MEQ/L 1,000 ML IV SCH (08:33)
[2020-07-28] MEDS ORDERED: ENOXAPARIN 30 MG/0.3 ML SYRINGE SQ SCH (09:00)
[2020-07-28] MEDS ORDERED: PANTOPRAZOLE 40 MG/10 ML VIAL IV SCH (09:00)
--- NOTE | 2020-07-28 09:01 | P.PN ---
Subjective Progress Note Date: 07/28/20 Mena removed. She is yet to ambulate. Pain is controlled. Anticipated discharge today pending activity. Non-narcotic pain management described. Objective - Vital Signs Vital signs: Vital Signs Temp 97.5 F L 07/28/20 05:00 Pulse 58 L 07/28/20 05:00 Resp 16 07/28/20 05:00 BP 91/52 07/28/20 05:00 Pulse Ox 99 07/28/20 05:00 Intake & Output 07/27/20 07/28/20 07/28/20 18:59 06:59 18:59 Intake Total 1050 800 Output Total 780 Balance 1050 20 Weight 67.4 kg Intake: IV 1050 Intake, IV Titration 800 Amount 0.9% NaCl with KCl 20 Meq 600 /l 1,000 ml @ 75 mls/hr IV .[id number] [facility] Rx#: [id number] ACETAMINOPHEN IV (For NPO 200 ) 1,000 mg In Empty Bag 1 bag @ 400 mls/hr IVPB Q6HR [facility] Rx#:[id number] Output: Drainage 80 Left Abdomen 50 Right Abdomen 30 Urine 700 Other: Voiding Method Indwelling Catheter - Labs CBC & Chem 7: 07/28/20 03:58 Labs: Abnormal Lab Results - Last 24 Hours (Table) 07/28/20 Range/Units 03:58 RBC 3.72 L (3.80-5.40) m/uL Hgb 11.0 L (11.4-16.0) gm/dL Hct 32.5 L (34.0-46.0) %
[2020-07-28 09:06] VITALS: BP 94/58; PULSE 56
== END 2020-07-28 14:10 | disposition home or self-care (01) ==
LOC: OR 11:40 → 5NMEDONC 17:34 → OR 07-28 14:10
PROVIDERS: ATTEND Surgery Plastic and Reconstructive Surgery
DX: M79.3 Panniculitis, unspecified (principal); K21.9 Gastro-esophageal reflux disease without esophagitis; E89.0 Postprocedural hypothyroidism; Y83.8 Other surgical procedures as the cause of abnormal reaction of the patient, or of later complication, without mention of misadventure at the time of the procedure; I25.10 Atherosclerotic heart disease of native coronary artery without angina pectoris; G89.4 Chronic pain syndrome; R42 Dizziness and giddiness; R13.10 Dysphagia, unspecified; K44.9 Diaphragmatic hernia without obstruction or gangrene; I47.1 Supraventricular tachycardia; I25.5 Ischemic cardiomyopathy; M17.0 Bilateral primary osteoarthritis of knee; M16.0 Bilateral primary osteoarthritis of hip; I27.20 Pulmonary hypertension, unspecified; F41.9 Anxiety disorder, unspecified; Z20.822 Contact with and (suspected) exposure to COVID-19; Z98.84 Bariatric surgery status; Z85.850 Personal history of malignant neoplasm of thyroid; Z79.899 Other long term (current) drug therapy; Z88.5 Allergy status to narcotic agent; Z88.2 Allergy status to sulfonamides; G43.909 Migraine, unspecified, not intractable, without status migrainosus
CPT/HCPCS: 97161; 64999; 85025; 87635; 15830; J2250; J1200; J1100; J2710; J0690 ×2; J2405; J2001; J3010; J1650; J1170 ×2; J2795; J0131 ×2; J0330; J2704; C9113; J1644

== ENCOUNTER → 2020-07-30 | Outpatient (CLI) | payer MEDICARE, BC ==
--- NOTE | 2020-07-30 09:51 | P.PN ---
Subjective Progress Note Date: 07/30/20 Patient seen and evaluated. Dressings intact. CORIN serosanguineous. She is ambulating. No edema on the lower extremities. Overall doing well. Follow-up in one week. Dressings to be discontinued at that time. Continue CORIN outputs management
[2020-07-30 12:43] VITALS: BP 128/82; PULSE 78; TEMP 98.2; BMI 27.0
== END ==
LOC: BARWHC3 09:04
PROVIDERS: ATTEND Surgery Plastic and Reconstructive Surgery
DX: Z09 Encounter for follow-up examination after completed treatment for conditions other than malignant neoplasm (principal)
CPT/HCPCS: 99212

== ENCOUNTER → 2020-08-05 | Outpatient (CLI) | payer MEDICARE, BC ==
[2020-08-05 12:12] VITALS: BP 120/82; PULSE 82; TEMP 98; BMI 27.7
--- NOTE | 2020-08-05 12:12 | P.PN ---
Subjective Progress Note Date: 08/05/20 DATE OF SERVICE: 08/05/2020 CHIEF COMPLAINT: Status post panniculectomy HISTORY OF PRESENT ILLNESS: Eulalia Armstrong is a 65-year-old female status post gastric bypass 12/11/2017. She is 3 years out. She is status post panniculectomy, 3 pounds, 07/27/20. She is 1 week out. She has weight gain 4 pounds. Her CORIN drain outputs are less than 30 mL. Her pain is well controlled. At height of 5 feet 2 inches, her ideal body weight is 135 pounds. Her highest weight is 240 pounds. Today she comes in weighing 154 pounds form 150 pounds, 1 week ago. She has gained 4 pounds in 1 week. Total weight loss is 86 pounds lifetime. Body mass index is reduced from 43.3 to 27.7. Lifetime percent excess weight loss is 82 %. PHYSICAL EXAM: VITAL SIGNS: Height 5 foot 2 inches, weight 154 pounds. BMI 27.7 Vital Signs Temp 98 F 08/05/20 12:07 Pulse 82 08/05/20 12:07 Resp BP 120/82 08/05/20 12:07 Pulse Ox GENERAL: Well-developed in no acute distress. HEENT: No scleral icterus. Extraocular movements grossly intact. Hears conversational speech. No nasal drainage. NECK: Supple without lymphadenopathy. CHEST: Nonlabored respirations with equal bilateral excursions. CARDIOVASCULAR: Regular rate and rhythm. ABDOMEN: CORIN serosanguineous. No infection. Dressing optifoam removed. Incisions looks excellent. Dressing changes performed at bedside. All skin flaps viable. MUSCULOSKELETAL: No clubbing, cyanosis. No edema on the lower extremities. No swelling or signs of DVT. NEURO: No focal or lateralizing signs. Cranial nerves 2 through 12 grossly within normal limits. PSYCH: Appropriate affect. Alert and oriented to person, place and time. SKIN: Good skin turgor. Well perfused. ASSESSMENT: 1. Status post panniculectomy for panniculitis 2. Status post gastric bypass with revision 3. Morbid obesity due to excess calories, resolved 4. Body mass index of 44.0 to 27.7 5. History of myocardial ischemia PLAN: 1. Protein intake 70 g daily described. 2. Follow-up in one week. Objective - Vital Signs Vital signs: Intake & Output 08/04/20 08/05/20 08/05/20 18:59 06:59 18:59 Weight 69.853 kg
== END ==
LOC: BARWHC3 11:32
PROVIDERS: ATTEND Surgery Plastic and Reconstructive Surgery
DX: Z09 Encounter for follow-up examination after completed treatment for conditions other than malignant neoplasm (principal); I25.2 Old myocardial infarction; Z98.84 Bariatric surgery status; Z88.2 Allergy status to sulfonamides; Z88.5 Allergy status to narcotic agent; Z88.6 Allergy status to analgesic agent
CPT/HCPCS: 99212

== ENCOUNTER → 2020-08-12 | Outpatient (CLI) | payer MEDICARE, BC ==
[2020-08-12 13:20] VITALS: BP 122/80; PULSE 80; TEMP 98; BMI 27.5
--- NOTE | 2020-08-12 13:45 | P.PN ---
Subjective Progress Note Date: 08/12/20 DATE OF SERVICE: 08/12/2020 CHIEF COMPLAINT: Status post panniculectomy HISTORY OF PRESENT ILLNESS: Eulalia Armstrong is a 65-year-old female status post gastric bypass 12/11/2017. She is 3 years out. She is status post panniculectomy, 3 pounds, 07/27/20. She is 2 weeks out. She feels well. Her protein intake is over 75 grams daily. At height of 5 feet 2 inches, her ideal body weight is 135 pounds. Her highest weight is 240 pounds. Today she comes in weighing 153 pounds from 154 pounds, 1 week ago. She has gained 4 pounds in 1 week. Total weight loss is 87 pounds lifetime. Body mass index is reduced from 43.3 to 27.5. Lifetime percent excess weight loss is 83 %. PHYSICAL EXAM: VITAL SIGNS: Height 5 foot 2 inches, weight 153 pounds. BMI 27.5 Vital Signs Temp 98 F 08/12/20 13:17 Pulse 80 08/12/20 13:17 Resp BP 122/80 08/12/20 13:17 Pulse Ox GENERAL: Well-developed in no acute distress. HEENT: No scleral icterus. Extraocular movements grossly intact. Hears conversational speech. No nasal drainage. NECK: Supple without lymphadenopathy. CHEST: Nonlabored respirations with equal bilateral excursions. CARDIOVASCULAR: Regular rate and rhythm. ABDOMEN: Exofin tape removed. No infection. Flaps viable. MUSCULOSKELETAL: No clubbing, cyanosis. NEURO: No focal or lateralizing signs. Cranial nerves 2 through 12 grossly within normal limits. PSYCH: Appropriate affect. Alert and oriented to person, place and time. SKIN: Good skin turgor. Well perfused. ASSESSMENT: 1. Status post panniculectomy for panniculitis 2. Status post gastric bypass 3. Morbid obesity due to excess calories, resolved 4. Body mass index of 44.0 to 27.5 PLAN: 1. Recommend CORIN removal next week. 2. Follow up in 1 week. Objective - Vital Signs Vital signs: Vital Signs Temp 98 F 08/12/20 13:17 Pulse 80 08/12/20 13:17 Resp BP 122/80 08/12/20 13:17 Pulse Ox Intake & Output 08/11/20 08/12/20 08/12/20 18:59 06:59 18:59 Weight 69.4 kg
== END ==
LOC: BARWHC3 13:01
PROVIDERS: ATTEND Surgery Plastic and Reconstructive Surgery
DX: Z09 Encounter for follow-up examination after completed treatment for conditions other than malignant neoplasm (principal); Z98.84 Bariatric surgery status; Z68.27 Body mass index [BMI] 27.0-27.9, adult; Z88.2 Allergy status to sulfonamides; Z88.5 Allergy status to narcotic agent; Z88.6 Allergy status to analgesic agent
CPT/HCPCS: 99212

== ENCOUNTER → 2020-08-19 | Outpatient (CLI) | payer MEDICARE, BC ==
[2020-08-19 13:23] VITALS: BP 145/78; PULSE 57; RESP 16; TEMP 98.1; BMI 27.5
--- NOTE | 2020-08-19 13:49 | P.PN ---
Subjective Progress Note Date: 08/19/20 DATE OF SERVICE: 08/19/2020 CHIEF COMPLAINT: Status post panniculectomy HISTORY OF PRESENT ILLNESS: Eulalia Armstrong is a 65-year-old female status post gastric bypass 12/11/2017. She is 3 years out. She is status post panniculectomy, 3 pounds, 07/27/20. She is 3 weeks out. Her CORIN output is less than 20 mL daily and serous sanguinous. At height of 5 feet 2 inches, her ideal body weight is 135 pounds. Her highest weight is 240 pounds. Today she comes in weighing 153 pounds unchanged from 1 week ago. Total weight loss is 87 pounds lifetime. Body mass index is reduced from 43.3 to 27.5. Lifetime percent excess weight loss is 83 %. PHYSICAL EXAM: VITAL SIGNS: Height 5 foot 2 inches, weight 153 pounds. BMI 27.5 Vital Signs Temp 98.1 F 08/19/20 13:20 Pulse 57 L 08/19/20 13:20 Resp 16 08/19/20 13:20 BP 145/78 08/19/20 13:20 Pulse Ox GENERAL: Well-developed in no acute distress. HEENT: No scleral icterus. Extraocular movements grossly intact. Hears conversational speech. No nasal drainage. NECK: Supple without lymphadenopathy. CHEST: Nonlabored respirations with equal bilateral excursions. CARDIOVASCULAR: Regular rate and rhythm. ABDOMEN: No infection or cellulitis. JPs serosanguinous. removed. MUSCULOSKELETAL: No clubbing, cyanosis. NEURO: No focal or lateralizing signs. Cranial nerves 2 through 12 grossly within normal limits. PSYCH: Appropriate affect. Alert and oriented to person, place and time. SKIN: Good skin turgor. Well perfused. ASSESSMENT: 1. Status post panniculectomy for panniculitis 2. Status post gastric bypass 3. Morbid obesity due to excess calories, resolved 4. Body mass index of 44.0 to 27.5 PLAN: 1. Lucas Chu drains were removed as outputs are less than 20 mL daily. 2. Recommend avoid salts. 3. Wear binder daily. 4. Follow up 1 week. Objective - Vital Signs Vital signs: Vital Signs Temp 98.1 F 08/19/20 13:20 Pulse 57 L 08/19/20 13:20 Resp 16 08/19/20 13:20 BP 145/78 08/19/20 13:20 Pulse Ox Intake & Output 08/18/20 08/19/20 08/19/20 18:59 06:59 18:59 Weight 69.4 kg
== END ==
LOC: BARWHC3 13:07
PROVIDERS: ATTEND Surgery Plastic and Reconstructive Surgery
DX: M79.3 Panniculitis, unspecified (principal); E66.01 Morbid (severe) obesity due to excess calories; Z68.27 Body mass index [BMI] 27.0-27.9, adult; Z98.84 Bariatric surgery status; Z98.890 Other specified postprocedural states; Z88.2 Allergy status to sulfonamides; Z88.5 Allergy status to narcotic agent
CPT/HCPCS: 99212

== ENCOUNTER → 2021-09-20 | Outpatient (CLI) | payer BC, MEDICARE ==
--- NOTE | 2021-09-21 08:13 | MM ---
Reason for Exam: Screening (asymptomatic). Last mammogram was performed 3 year(s) and 3 month(s) ago. Patient History: Menarche at age 10. First Full-Term at age 17. Left ovary removed at age 37. Right ovary removed at age 37. Hysterectomy at age 37. Postmenopausal. Previous chest radiation therapy at age 55. Maternal aunt had breast cancer, age 50. Maternal aunt had breast cancer, age 40. Sister had breast cancer, age 51. Risk Values: Reyna 5 year model risk: 3.2%. NCI Lifetime model risk: 10.1%. Prior Study Comparison: 06/09/2016 Bilateral Screening Mammogram, [facility]. 06/12/2017 Bilateral Screening Mammogram, [facility]. 07/02/2018 Bilateral Screening Mammogram, [facility]. Tissue Density: There are scattered fibroglandular densities. Findings: Analyzed By CAD. There is no suspicious group of microcalcifications or new suspicious mass in either breast. Overall Assessment: Negative, BI-RAD 1 Management: Screening Mammogram of both breasts in 1 year. A clinical breast exam by your physician is recommended on an annual basis and results should be correlated with mammographic findings. Electronically signed and approved by: Tru Tenorio M.D. Radiologis
== END | disposition home or self-care (01) ==
LOC: RADMAMWWP 08:17
PROVIDERS: ATTEND Family Medicine
DX: Z12.31 Encounter for screening mammogram for malignant neoplasm of breast (principal); Z78.0 Asymptomatic menopausal state; Z80.3 Family history of malignant neoplasm of breast
CPT/HCPCS: 77063; 77067

== ENCOUNTER → 2022-01-04 | Outpatient (CLI) | payer MEDICARE ==
[~2022-01-04] MED LIST changes: -DEXAMETHASONE SOD PHOSPHATE 4 MG/ML 1 ML VIAL IV ONE; -HEPARIN SODIUM,PORCINE/PF 5,000 UNIT/0.5 ML SYRINGE SQ PRN; -HYDROmorphone 0.5 MG/0.5 ML SYRINGE IVP PRN; -LIDOCAINE 1% (10MG/ML) FOR IV START INTRADERMA PRN; -MIDAZOLAM 2 MG/2 ML VIAL IV PRN; -ONDANSETRON 4 MG/2 ML VIAL IVP ONE; +SODIUM CHLORIDE 0.9% 500 ML 500 ML in EMPTY BAG 1 BAG IV PRN; +ZOLEDRONIC ACID 5 MG in SODIUM CHLORIDE 0.9% 100 ML IV NR
[2022-01-04 09:42] VITALS: BP 126/80; PULSE 65; RESP 16; TEMP 97.9
== END ==
LOC: PROCWHC3 09:14
PROVIDERS: ATTEND Internal Medicine
DX: M81.0 Age-related osteoporosis without current pathological fracture (principal); Z88.2 Allergy status to sulfonamides; Z88.5 Allergy status to narcotic agent; Z88.8 Allergy status to other drugs, medicaments and biological substances
CPT/HCPCS: 96365; J3489

== ENCOUNTER → 2023-04-25 | Outpatient (CLI) | payer MEDICARE ==
[2023-04-25] MEDS: SODIUM CHLORIDE 0.9% 500 ML 500 ML in EMPTY BAG 1 BAG IV PRN (10:05)
[2023-04-25] MEDS: ZOLEDRONIC ACID 5 MG in SODIUM CHLORIDE 0.9% 100 ML IV NR (10:12)
[2023-04-25 10:34] VITALS: BP 148/83; PULSE 69; RESP 16; TEMP 97.7
== END ==
LOC: PROCWHC3 09:49
PROVIDERS: ATTEND Internal Medicine
DX: M81.0 Age-related osteoporosis without current pathological fracture (principal)
CPT/HCPCS: 96365; J3489

== ENCOUNTER → 2023-07-03 | Outpatient (CLI) | payer MEDICARE ==
--- NOTE | 2023-07-04 16:41 | BD ---
EXAMINATION TYPE: Axial Bone Density DATE OF EXAM: 07/03/2023 CLINICAL HISTORY: 68 years old Female. ICD-10 CODE: Z78.0 ASYMPTOMATIC MENOPAUSAL Height: 62.5 Weight: 182 FRAX RISK QUESTIONS: History of Fracture in Adulthood: yes Secondary Osteoporosis: yes 3. Menopause before 45: 37 RISK FACTORS HISTORY OF: Surgery to Spine: yes When: 1998 MEDICATIONS: Thyroid Medications: yes Which medication: Synthroid How Lon+ years Osteoporosis Medications: yes which medication: Reclast how lon years EXAM MEASUREMENTS: Bone mineral densitometry was performed using the [employer] System. Bone mineral density as measured about the Lumbar spine is: ----- L1-L4(G/cm2): 1.112 T Score Values are as follows: ----- L1: -2.2 ----- L2: -1.6 ----- L3: 0.2 ----- L4: 0.4 ----- L1-L4: -0.6 Z Score Values are as follows: ----- L1: -0.7 ----- L2: -0.1 ----- L3: 1.7 ----- L4: 1.9 ----- L1-L4: 0.9 Bone mineral density has: Increased 7.5% since study of: 02/24/2012 Bone mineral density about the R hip (g/cm2): 0.739 Bone mineral density about the L hip (g/cm2): 0.733 T Score values are as follows: -----R Neck: -2.1 -----L Neck: -2.2 -----R Total: -2.1 -----L Total: -2.2 Z Score values are as follows: -----R Neck: -0.5 -----L Neck: -0.6 -----R Total: -0.8 -----L Total: -0.8 Bone mineral density has: Decreased -14.4% since study of: 07/02/2018 FRAX%s: The graph provided illustrates a 20.3% chance for a major osteoporotic fx and a 4.4% chance f or the hips probability for fx in 10 years time. IMPRESSION: Osteopenia (T Score between -2.5 and -1). There is slightly increased risk of fracture and the patient may be considered for treatment. Re-Screen 2-5 years. NOTE: T-SCORE=SD OF THE YOUNG ADULT MEAN.
== END | disposition home or self-care (01) ==
LOC: RADBDWWP 08:01
PROVIDERS: ATTEND Internal Medicine
DX: M85.89 Other specified disorders of bone density and structure, multiple sites (principal); Z78.0 Asymptomatic menopausal state
CPT/HCPCS: 77080

== ENCOUNTER → 2023-07-03 | Outpatient (CLI) | payer MEDICARE ==
--- NOTE | 2023-07-03 12:49 | MM ---
Reason for Exam: Screening (asymptomatic). Last mammogram was performed 1 year(s) and 9 month(s) ago. Patient History: Menarche at age 10. First Full-Term at age 17. Left ovary removed at age 37. Right ovary removed at age 37. Hysterectomy at age 37. Postmenopausal. Previous chest radiation therapy at age 55. Maternal aunt had breast cancer, age 50. Maternal aunt had breast cancer, age 40. Sister had breast cancer, age 51. Risk Values: Reyna 5 year model risk: 3.2%. NCI Lifetime model risk: 9.2%. Prior Study Comparison: 06/12/2017 Bilateral Screening Mammogram, [facility]. 07/02/2018 Bilateral Screening Mammogram, [facility]. 09/20/2021 Bilateral MG 3D screening mammo w/cad, [facility]. Tissue Density: There are scattered areas of fibroglandular density. Findings: Analyzed By CAD. Right breast: There is no suspicious group of microcalcifications or new suspicious mass. Left breast: There is no suspicious group of microcalcifications or new suspicious mass. Overall Assessment: Negative, BI-RAD 1 Management: Screening Mammogram of both breasts in [address] [facility] will attempt to contact patient to return for supplemental views and ultrasound if indicated. Patient should continue monthly self-breast exams. A clinical breast exam by your physician is recommended on an annual basis. This exam should not preclude additional follow-up of suspicious palpable abnormalities. Note on Reyna scores and lifetime risk: 1. A Reyna score greater than 3% is considered moderate risk. If this is the case, consider specialist referral to assess eligibility for a risk reducing agent. 2. If overall lifetime risk for the development of breast cancer is 20% or higher, the patient may qualify for future screening with alternating mammogram and breast MRI. Electronically signed and approved by: Jam Bach DO
== END | disposition home or self-care (01) ==
LOC: RADMAMWWP 08:03
PROVIDERS: ATTEND Family Medicine
DX: Z12.31 Encounter for screening mammogram for malignant neoplasm of breast (principal); Z80.3 Family history of malignant neoplasm of breast; Z78.0 Asymptomatic menopausal state
CPT/HCPCS: 77063; 77067

== ENCOUNTER → 2023-10-02 | Outpatient (CLI) | payer MEDICARE | END | disposition home or self-care (01) | LOC: LABPRL 12:34 | PROVIDERS: ATTEND Orthopaedic Surgery | CPT/HCPCS: 87070 ==

== ENCOUNTER 2023-10-26 05:44 | Day surgery (SDC) | payer MEDICARE ==
[2023-10-20 12:48] VITALS: BMI 27.8
--- NOTE | 2023-10-25 19:52 | HP ---
HISTORY AND PHYSICAL DATE OF SURGERY: 10/26/2023. HISTORY OF PRESENT ILLNESS: Eulalia Armstrong is a patient seen with symptomatic left knee osteoarthritis. After having treatment options discussed, she elected to proceed with left total knee arthroplasty. Consent regarding procedure obtained, clearance was provided Katie Dove. PAST MEDICAL HISTORY: Hypertension, hypothyroidism. PAST SURGICAL HISTORY: Noncontributory. DAILY MEDICATIONS: 1. Metoprolol. 2. Claritin. 3. Antivert. 4. Synthroid. ALLERGIES: None. SOCIAL HISTORY: She denies current tobacco use. PHYSICAL EVALUATION OF THE LEFT KNEE: Range of motion is -3 to 110 degrees. Tenderness along the medial and lateral joint line. Crepitus in medial patellofemoral compartments with range of motion. Pain with patellofemoral compression. Ligaments stable. Hip rotation without pain. Distal neurovascular exam is intact. IMAGING: Left knee radiographs reveal severe osteoarthritic changes with a genu varum deformity. IMPRESSION: 1. Left knee osteoarthritis. 2. Hypertension. 3. Hypothyroidism. PLAN: Left total knee arthroplasty. MMODL / IJN: [id number] /
[~2023-10-26 05:44] MED LIST changes: -SODIUM CHLORIDE 0.9% 500 ML 500 ML in EMPTY BAG 1 BAG IV PRN; +TRANEXAMIC 1,000 MG/100ML-NACL 1,000 MG in SALINE 1 100ML.BAG IVPB PRN; -ZOLEDRONIC ACID 5 MG in SODIUM CHLORIDE 0.9% 100 ML IV NR
[2023-10-26] MEDS: MELOXICAM 7.5 MG TAB PO PRN (06:30)
[2023-10-26] MEDS: ACETAMINOPHEN TAB 500 MG TAB PO PRN (06:30)
[2023-10-26] MEDS: LACTATED RINGERS 1,000 ML BAG IV STA (06:56)
[2023-10-26] MEDS: MIDAZOLAM 2 MG/2 ML VIAL IV ONE (06:58)
[2023-10-26] MEDS: FAMOTIDINE 20 MG/2 ML VIAL IV STA (07:15)
[2023-10-26] MEDS: ONDANSETRON 4 MG/2 ML VIAL IVP STA (07:17)
[2023-10-26] MEDS: DEXAMETHASONE SOD PHOSPHATE 4 MG/ML 1 ML VIAL IVP STA (07:17)
[2023-10-26] MEDS: IV FLUID CONTINUATION 1,000 ML IV ONE ×2 (07:19→11:06)
[2023-10-26] MEDS ORDERED: fentaNYL (PF) 50 MCG/ML 2 ML AMP ONE (07:26)
[2023-10-26] MEDS ORDERED: ePHEDrine 50 MG/ML 1 ML VIAL ONE (07:26)
[2023-10-26] MEDS ORDERED: SUCCINYLCHOLINE CHLORIDE 200 MG/10 ML VIAL IV ONE (07:26)
[2023-10-26] MEDS ORDERED: GLYCOPYRROLATE 0.2 MG/ML 2 ML VIAL ONE (07:26)
[2023-10-26] MEDS ORDERED: PROPOFOL 10 MG/ML 20 ML VIAL IV ONE (07:26)
[2023-10-26] MEDS ORDERED: HYDROmorphone (PF) 1 MG/ML ONE (07:26)
[2023-10-26] MEDS ORDERED: DEXAMETHASONE SOD PHOSPHATE 4 MG/ML 1 ML VIAL ONE (07:26)
[2023-10-26] MEDS ORDERED: ROPIVACAINE 5 MG/ML 30 ML VIAL ONE (07:26)
[2023-10-26] MEDS ORDERED: TRANEXAMIC 1,000 MG/100ML-NACL PREMIX BAG ONE (07:26)
[2023-10-26] MEDS ORDERED: NEOSTIGMINE 1 MG/ML 10 ML VIAL ONE (07:26)
[2023-10-26] MEDS ORDERED: ROCURONIUM 10 MG/ML (5 ML VIAL) IV ONE (07:26)
[2023-10-26] MEDS ORDERED: LIDOCAINE 1% INJ 10MG/ML (20 ML MDV) ONE (07:26)
[2023-10-26] MEDS: ceFAZolin 1,000 MG in SODIUM CHLORIDE 0.9% 1,000 ML IRRIGATION ONE (07:28)
[2023-10-26] MEDS ORDERED: HYDROcodone/APAP 5-325MG 1 EACH TAB PO PRN (09:09)
[2023-10-26] MEDS ORDERED: NALOXONE 0.4 MG/ML 1 ML VIAL IV PRN (09:09)
[2023-10-26] MEDS ORDERED: HYDROmorphone 0.5 MG/0.5 ML SYRINGE IVP PRN ×2 (09:09)
--- NOTE | 2023-10-26 09:09 | P.OP ---
Date of Procedure: 10/26/23 Preoperative Diagnosis: Left knee osteoarthritis Postoperative Diagnosis: Left knee osteoarthritis Procedure(s) Performed: Left total knee arthroplasty Implants: 1. Depuy attune size 6 left cruciate retaining cemented femur 2. Depuy attune size 6 fixed bearing cemented tibial baseplate 3. Depuy attune size 6 fixed bearing cruciate retaining 10 mm polyethylene tibial insert 4. Depuy attune 38 mm all polyethylene cemented patella Anesthesia: GETA, regional (adductor canal catheter) Surgeon: Sylvain Granda Heel Buffer #1: Vitaliy Dennison Estimated Blood Loss (ml): 40 Pathology: none sent Condition: stable Disposition: PACU Indications for Procedure: 68-year-old patient seen with symptomatic left knee osteoarthritis. After treatment options were discussed, she elected to proceed with total knee arthroplasty. Operative Findings: see description of procedure Description of Procedure: Patient was taken to the operative suite after having an adductor canal catheter placed by the department of anesthesia. Patient underwent a general anesthetic by the department of anesthesia. Patient was given preoperative IV intake antibiotics and TXA. A well-padded tourniquet was placed about the left lower extremity. The lower extremity was then prepped and draped in the normal sterile orthopedic fashion. The extremity was elevated, a tourniquet was insufflated to 300. A standard anterior incision was made sharply through skin. Dissection was taken down through the subcutaneous soft tissues down to the extensor mechanism. A medial arthrotomy was performed, patella was everted and knee was flexed. There was advanced osteoarthritis noted. I introduced my distal intramedullary femoral drill. I then introduced the distal femoral cutting jig. Cosmo LAGUNAS secured the cutting jig with 2 pins. I held retractors in position while Cosmo LAGUNAS performed the distal femoral resection through the guide area we now removed her distal femoral cutting guid e. We now placed our 4-in-1 femoral cutting block and positioned and it was secured with 2 pins by Cosmo LAGUNAS while I held the block in position. The distal femoral finishing was now completed. A proximal tibial cutting guide was positioned. I held the guide in the appropriate position with both hands well Cosmo LAGUNAS inserted stabilizing pins into the guide. Proximal tibial cut was made. We now placed a trial femoral component into position, along with an appropriate size tibial tray and insert. We now took the knee through range of motion and had full extension good flexion and good overall soft tissue balance noted. The patella was everted and stabilized with 2 towel clips held by Cosmo LAGUNAS while I performed a flush with patellar quad tendon utilizing a fresh sawblade. We templated the patella, appropriate drill holes were made. An appropriate trial patella was positioned, knee was taken through full range of motion with the patella tracking very nicely. The trial patella was removed. Drill holes were made through the femoral component. All trial components were removed after marking off the appropriate rotation of the tibia. Retractors were now positioned along the proximal tibia. An appropriate keel punch was made with the appropriate size tibial guide by myself on Cosmo LAGUNAS assisted by holding retractors. At this point appropriate size implants were chosen and opened. The joint was irrigated copiously with pulse lavage mechanical irrigation. The wound was irrigated with pulse lavage mechanical irrigation. We mixed antibiotic methylmethacrylate. We placed the knee into flexion. We placed multiple retractors assisted by Cosmo LAGUNAS to expose the proximal tibia. Once the methyl methacrylate was ready, the tibial component was c emented into place removing any excess methylmethacrylate form by both myself and Cosmo LAGUNAS. The femoral component was cemented into place removing the removing any excess methylmethacrylate performed by both myself and Cosmo LAGUNAS. We then inserted the appropriate size polyethylene tibial insert. We made sure that it was locked into position. We took the knee into full extension, and then back in a flexion making sure we had removed any excess methylmethacrylate. The patellar component was then cemented down and secured with clamp. Excess methylmethacrylate removed. We kept the knee in full extension, patellar clamp in position until methylmethacrylate had hardened. Once it had hardened the patellar clamp was removed. The knee was taken through full range of motion. The patella tracked nicely. There was good soft tissue balancing. The tourniquet was now released. Additional hemostasis was achieved via electrocautery. A second gram of TXA was given. The wound again was irrigated with pulse lavage mechanical irrigation. The extensor mechanism was repaired with Ethibond suture. We checked the repair with range of motion and it was stable. The subcutaneous soft tissues were repaired with Vicryl in layers. The skin was approximated with pernio/Dermabond. Sterile dressings were applied followed by loose web roll and Patrick bandage. The patient was transferred to a bed, and taken to recovery in stable and satisfactory condition. Cosmo LAGUNAS assisted with this complex procedure.
[2023-10-26] MEDS: HYDROmorphone 0.5 MG/0.5 ML SYRINGE IVP PRN ×2 (09:29→09:45)
[2023-10-26] MEDS: LACTATED RINGERS 1,000 ML IV SCH (09:51)
[2023-10-26] MEDS: ROPIVACAINE 1,100 MG, SODIUM CHLORIDE 0.9% 500 ML 330 ML, EMPTY PAIN BALL 1 EACH MISCELLANE PRN (10:22)
--- NOTE | 2023-10-26 10:37 | XR ---
EXAMINATION TYPE: XR knee limited LT DATE OF EXAM: 10/26/2023 COMPARISON: NONE HISTORY: 68-year-old female postop left knee replacement TECHNIQUE: 2 views FINDINGS: Images show placement of left total knee arthroplasty. Distal femoral and proximal tibial c omponents of the prosthesis appear well seated without periprosthetic fracture. Alignment grossly rey tomic. Anterior soft tissue swelling with soft tissue air as well as intra-articular air related to r ecent operation. IMPRESSION: Uncomplicated postoperative appearance left total knee arthroplasty.
[2023-10-26] MEDS: ONDANSETRON 4 MG/2 ML VIAL IVP PRN (11:03)
--- NOTE | 2023-10-26 20:46 | P.ANPRN ---
Procedure Note - Anesthesia - Nerve Block Performed Left Adductor Canal Infusion Time Out Performed: Yes Date of Procedure: 10/26/23 Procedure Start Time: 06:57 Procedure Stop Time: 07:07 Location of Patient: PreOp Indication: Acute Post-Operative Pain, Requested by Surgeon Sedation Type: Sedate with meaningful contact maintained Preparation: Sterile Prep Position: Supine Catheter: Indwelling Needle Types: Pajunk Needle Gauge: 21 Ultrasound used to visualize needle placement: Yes Ultrasound used to observe medication spread: Yes Blood Aspirated: No Pain Paresthesia on Injection Noted: No Resistance on Injection: Normal Image Stored and Saved: Yes Events: Uneventful and Well Tolerated (ropi .5% 20cc plus dexamethasone 4mg)
--- NOTE | 2023-10-26 20:47 | P.ANPRN ---
Procedure Note - Anesthesia - Nerve Block Performed Left iPack Single Time Out Performed: Yes Date of Procedure: 10/26/23 Procedure Start Time: 07:08 Procedure Stop Time: 07:10 Location of Patient: PreOp Indication: Acute Post-Operative Pain, Requested by Surgeon Sedation Type: Sedate with meaningful contact maintained Preparation: Sterile Prep Position: Supine Needle Types: Pajunk Needle Gauge: 21 Ultrasound used to visualize needle placement: Yes Ultrasound used to observe medication spread: Yes Blood Aspirated: No Pain Paresthesia on Injection Noted: No Resistance on Injection: Normal Image Stored and Saved: Yes Events: Uneventful and Well Tolerated (Ropivacaine 0.5% 20 cc plus dexamethasone 4 mg)
[2023-10-26] MEDS: HYDROcodone/APAP 7.5-325MG 1 EACH TAB PO PRN (21:39)
[2023-10-26] MEDS: FLUCONAZOLE 100 MG TAB PO ONE (21:39)
[2023-10-26] MEDS: ASPIRIN 325 MG TAB PO SCH (21:39)
[2023-10-26] MEDS: SENNOSIDES-DOCUSATE SODIUM 1 EACH TAB PO SCH (21:39)
--- NOTE | 2023-10-27 05:39 | P.CONS ---
History of Present Illness - Reason for Consult Consult date: 10/26/23 Medical management status post left total knee arthroplasty - History of Present Illness This is a 68-year-old female who was admitted under orthopedic services and is status post left total knee arthroplasty. Patient reports she has been following with her primary care provider Dr. Katie Dove in the outpatient setting with a past medical history of thyroid cancer, migraines, degenerative joint disease, vertigo, GERD, hypertension. Patient reports she rarely drinks socially, denies smoking or illicit drug use. Patient had been chronically having knee pain and reports has been putting surgery off for over 10 years. Patient reports most recently she has had some falls onto the knee making the pain more intense. Patient reports she did undergo presurgical clearance in the outpatient setting. REVIEW OF SYSTEMS: CONSTITUTIONAL: No fever, no malaise, no fatigue. HEENT: No recent visual problems or hearing problems. Denied any sore throat. CARDIOVASCULAR: No chest pain, orthopnea, PND, no palpitations, no syncope. PULMONARY: No shortness of breath, no cough, no hemoptysis. GASTROINTESTINAL: No diarrhea, no nausea, no vomiting, no abdominal pain. NEUROLOGICAL: No headaches, no weakness, no numbness. HEMATOLOGICAL: Denies any bleeding or petechiae. GENITOURINARY: Denies any burning micturition, frequency, or urgency. MUSCULOSKELETAL/RHEUMATOLOGICAL: Reports of left knee pain ENDOCRINE: Denies any polyuria or polydipsia. The rest of the 14-point review of systems is negative. PHYSICAL EXAMINATION: GENERAL: The patient is lethargic although arousable alert and oriented x3, falling asleep during conversation, is postop today. Well developed, elderly appearing HEENT: Pupils are round and equally reacting to light. EOMI. No scleral icterus. No conjunctival pallor. Normocephalic, atraumatic. No pharyngeal erythema. No thyromegaly. CARDIOVASCULAR: S1 and S2 muffled PULMONARY: Diminished bilaterally otherwise chest is clear to auscultation, no wheezing or crackles. ABDOMEN: Soft, nontender, nondistended, normoactive bowel sounds. No palpable organomegaly. MUSCULOSKELETAL: No joint swelling or deformity. EXTREMITIES: No cyanosis, clubbing, or pedal edema. Left knee surgical dressing is dry and intact NEUROLOGICAL: Gross neurological examination did not reveal any focal deficits. Diffusely weak SKIN: No rashes. Assessment: Status post left total knee arthroplasty, postop day 0 History of hypertension with tachycardia and reports takes metoprolol for this History of thyroid cancer History of migraines GERD History of osteoporosis History of pulmonary hypertension, mild per patient GI prophylaxis DVT prophylaxis Full code Plan: Patient is just seen in the postop phase, somewhat lethargic and falling asleep although is easily arousable and alert and oriented Home medications will be reviewed and resumed as appropriate Encouraged incentive spirometer use at least 10 times every hour while awake Will need PT/OT therapy evaluation and possible ECF Will follow-up with some repeat labs in the a.m. and replace electrolytes per protocol Thank you kindly for this consultation. We will continue to follow with orthopedics during hospitalization. The impression and plan of care has been dictated by Carlota Nelson, Nurse Practitioner as directed. Dr. Harriett MD I have performed a history and examination and MDM of this patient, discussed the same with the dictator, and agree with the dictator's assessment and plan as written ,documented as a scribe. Based on total visit time, I have performed more than 50% of the visit. Past Medical History Past Medical History: Cancer, Chest Pain / Angina, GERD/Reflux, Hypertension, Supraventricular Tachycardia (SVT), Thyroid Disorder Additional Past Medical History / Comment(s): Osteoporosis, hx esophageal spasms, hx thyroid cancer, Migraines, DJD, Vertigo, hx precancerous lesions on face, eczema eyelids, hx mild pulmonary HTN 10/2018, slight leaky heart valve, Autoimmune Disease - gets severe blisters in mouth - no current problems. History of Any Multi-Drug Resistant Organisms: None Reported Past Surgical History: Back Surgery, Bariatric Surgery, Hernia Repair, Hysterectomy, Joint Replacement, Orthopedic Surgery, Tubal Ligation Additional Past Surgical History / Comment(s): Total right knee replacement, LAP BAND (2002), HEART CATH X 2, THYROIDECTOMY, DISCECTOMY L5-S1, LEFT KNEE ARTHROSCOPY, BILATERAL HEEL SPURS REMOVED, BENIGN TUMOR EXCISED FROM LEFT EYE, panniculectomy, left rotaotor cuff repair, sinuplasty, lap band removed 08-14-17, gastric bypass 12-11-17 with Hiatal Hernia repair, revision of gastric bypass/jejunum 10/2018, colonoscopy, bilateral eyelid surgery. Past Anesthesia/Blood Transfusion Reactions: Family History of Problems w/ Anesthesia, Motion Sickness, Postoperative Nausea & Vomiting (PONV) Additional Past Anesthesia/Blood Transfusion Reaction / Comm: Hx Esophageal spasms - never had any problems with it during surgery/Anesthesia. Patient has severe PONV. Mom and Daughter also have PONV. No hx blood transfusion. Past Psychological History: Anxiety Additional Psychological History / Comment(s): Pt resides with her spouse. She is independent. She drives. retired. No experience. No animals at home. No other change in the home environ Smoking Status: Never smoker Past Alcohol Use History: Rare Past Drug Use History: None Reported - Past Family History Sister(s) Family Medical History: Cancer Additional Family Medical History / Comment(s): Breast cancer. Brother(s) Family Medical History: Cancer Additional Family Medical History / Comment(s): Lung cancer. Father Family Medical History: Cancer, Diabetes Mellitus, Hypertension Additional Family Medical History / Comment(s): Father had cancer below his eye. He from a MVA. Mother Family Medical History: AFIB, Cancer, Thyroid Disorder Additional Family Medical History / Comment(s): Skin cancer. Medications and Allergies Home Medications Medication Instructions Recorded Confirmed Type Metoprolol Tartrate [Lopressor] 50 mg PO BID 03/08/19 10/26/23 History cycloSPORINE 0.05% OPHTH SOLN 1 applicator BOTH EYES HS 05/06/20 10/26/23 History [Restasis] Ergocalciferol [Vitamin D2 (1250 50,000 unit PO Q14D 07/22/20 10/26/23 History Mcg = 90974 Iu)] Vitamin A [Vitamin A (8,000 Units 10,000 unit PO DAILY 07/22/20 10/26/23 History = 2,400 MCG)] Ondansetron [Zofran] 4 mg PO Q12HR PRN 07/24/20 10/26/23 History Prochlorperazine [Compazine] 10 mg PO Q8H PRN 07/24/20 10/26/23 History carisoprodoL [Soma] 350 mg PO TID PRN 07/24/20 10/26/23 History ALPRAZolam [Xanax] 0.25 - 0.5 mg PO DIRECTED PRN 10/20/23 10/26/23 History Levothyroxine Sodium [Synthroid] 125 mcg PO QAM 10/20/23 10/26/23 History Meclizine [Antivert] 25 mg PO TID PRN 10/20/23 10/26/23 History Omeprazole [PriLOSEC] 40 mg PO QAM 10/20/23 10/26/23 History Allergies Allergy/AdvReac Type Severity Reaction Status Date / Time Sulfa (Sulfonamide Allergy Severe Rash/Hives Verified 10/26/23 06:21 Antibiotics) codeine AdvReac Severe Nausea & Verified 10/26/23 06:21 Vomiting meperidine HCl [From Demerol] AdvReac Nausea & Verified 10/26/23 06:21 Vomiting Physical Exam Vitals: Vital Signs Temp Pulse Resp BP Pulse Ox 10/26/23 11:00 79 18 152/91 97 10/26/23 10:45 82 18 157/81 97 10/26/23 10:30 76 18 144/81 93 L 10/26/23 10:15 75 18 151/74 93 L 10/26/23 10:00 75 18 151/72 93 L 10/26/23 09:45 95 24 155/77 99 10/26/23 09:30 92 24 144/68 98 10/26/23 09:15 96.9 F L 84 24 156/75 97 10/26/23 07:20 64 16 135/68 98 10/26/23 06:47 98.1 F 65 18 145/65 98 Intake and Output 10/25/23 10/26/23 10/26/23 22:59 06:59 14:59 Intake Total 1251 Output Total 40 Balance 1211 Intake: IV 1251 Output: Estimated Blood Loss 40 Other: Weight 71.4 kg 71.4 kg
[2023-10-27] MEDS ORDERED: PROCHLORPERAZINE 10 MG TAB PO PRN (06:00)
[2023-10-27] MEDS: LEVOTHYROXINE 125 MCG TAB PO SCH (06:07)
[2023-10-27 08:46] LABS: Basophils # (A) 0.01 X 10*3/uL (0.00-0.10); Basophils % (A) 0.1 %; Eosinophils # (A) 0 X 10*3/uL (0.04-0.35); Eosinophils % (A) 0 %; HCT 31.1 % (37.2-46.3); Lymphocytes # (A) 1.35 X 10*3/uL (0.90-5.00); Lymphocytes % (A) 10.2 %; MCHC 32.2 g/dL (32.0-37.0); MCV 83.8 FL (80.0-97.0); Mean Platelet Volume 10.7 FL (9.5-12.2); Monocytes # (A) 1.08 X 10*3/uL (0.20-1.00); Monocytes % (A) 8.2 %; NRBC Per 100 WBC 0 X 10*3/uL (0.00-0.01); Platelet Count 252 X 10*3/uL (140-440); RBC 3.71 X 10*6/uL (4.10-5.20); RDW 14.5 % (11.5-14.5); WBC 13.21 X 10*3/uL (4.50-10.00)
[2023-10-27] MEDS ORDERED: MECLIZINE 25 MG TAB PO PRN (09:00)
[2023-10-27] MEDS: PANTOPRAZOLE 40 MG TABLET PO SCH (09:09)
[2023-10-27] MEDS: METOPROLOL TARTRATE 50 MG TAB PO SCH (09:09)
[2023-10-27] MEDS: MULTIVITAMINS, THERA 1 EACH TAB PO SCH (09:09)
[2023-10-27 09:13] LABS: BUN/Creat Ratio 15.14 Ratio (12.00-20.00); Blood Urea Nitrogen 10.6 mg/dL (9.0-27.0); Calcium 8.9 mg/dL (8.7-10.3); Carbon Dioxide 24.1 mmol/L (21.6-31.8); Chloride 103 mmol/L (96-109); Glucose 117 mg/dL (70-110); Magnesium 1.9 mg/dL (1.5-2.4); Potassium 4.7 mmol/L (3.5-5.5); Sodium 138 mmol/L (135-145)
--- NOTE | 2023-10-27 09:18 | P.PN ---
Subjective Progress Note Date: 10/27/23 Principal diagnosis: Status post left total knee arthroplasty patient evaluated at bedside, she is resting in her hospital chair. She is been up and ambulating throughout the room. She has been urinating with no issues. Her pain is controlled currently. She is eager to work with therapy. She denies headaches, lightheadedness, chest pain or shortness of breath Objective - Vital Signs Vital signs: Vital Signs Temp 98.1 F 10/27/23 01:11 Pulse 93 10/27/23 01:11 Resp 15 10/27/23 01:11 BP 137/76 10/27/23 01:11 Pulse Ox 94 L 10/27/23 01:11 FiO2 Intake & Output 10/26/23 10/27/23 10/27/23 18:59 06:59 18:59 Intake Total 1251 Output Total 40 Balance 1211 Weight 71.4 kg Intake: IV 1251 Output: Estimated Blood Loss 40 Other: # Voids 3 2 - Exam Left lower extremity: Incision is clean, dry, and intact. The foam dressing is in good condition. There is minimal soft tissue swelling and ecchymosis surrounding the medial and lateral aspects of the incision. Calf is soft, no tenderness with palpation. Plantar flexion, dorsiflexion, EHL, FHL are intact. Sensory exam to light touch throughout the extremity is intact, dorsal pedis pulses 2+. - Labs CBC & Chem 7: 10/27/23 03:51 10/27/23 04:45 Labs: Abnormal Lab Results - Last 24 Hours (Table) 10/27/23 10/27/23 Range/Units 03:51 04:45 WBC 13.21 H (4.50-10.00) X 10*3/uL RBC 3.71 L (4.10-5.20) X 10*6/uL Hgb 10.0 L (12.0-15.0) g/dL Hct 31.1 L (37.2-46.3) % Immature Gran # 0.07 H (0.00-0.04) X 10*3/uL Neutrophils # 10.70 H (1.80-7.70) X 10*3/uL Monocytes # 1.08 H (0.20-1.00) X 10*3/uL Eosinophils # 0 L (0.04-0.35) X 10*3/uL Glucose 117 H (70-110) mg/dL Assessment and Plan Assessment: postoperative day #1 status post left total knee arthroplasty Plan: pain control, plan for discharge on [place] and tramadol. Will also utilize stool softeners and Zofran DVT prophylaxis, aspirin 81 mg twice a day for 30 days wound care instructions discussed, this to include icing and elevating along with use of the On-Q pain catheter and showering Home PT/nursing after discharge medical recommendations appreciated discharge planning: Plan for discharge home today Time with Patient: Less than 30
[2023-10-27] MEDS: VITAMIN A 10,000 UNIT (3000 MCG) CAPSULE PO SCH (11:00)
--- NOTE | 2023-10-27 11:07 | P.DS ---
Providers Date of admission: 10/26/2023 Expected date of discharge: 10/27/23 Attending physician: Sylvain Granda Consults: 10/26/23 09:09 Consult Physician Routine Consulting Provider: Ciro Lorenzana Consult Reason/Comments: medical management Do you want consulting provider notified?: Yes Primary care physician: Katie Dove [facility] Course: Date of admission: 10/26/2023 Date of discharge: 10/27/2023 Admission diagnosis: status post left total knee arthroplasty Discharge diagnosis: same Attending physician: Dr. Granda Surgical procedures: left total knee arthroplasty Brief history: Patient is a 68-year-old female with a history of progressive primary left knee osteoarthritis. At this point patient has failed conservative treatment measures and has opted to proceed with a elective left total knee arthroplasty. Hospital course: Details of patient's surgery can be found in operative report. Patient tolerated the procedure well and was subsequently transported to orthopedic floor. Patient's orthopeidc and medical care was provided daily. Patient had daily laboratory tests performed for evaluation of overall blood counts. Patient had daily physical therapy to include strengthening range of motion as well as education with walker ambulation. Patient was treated with aspirin for their postoperative DVT prophylaxis during their inpatient stay. Patient was noted to have a relatively uneventful postoperative course. Patient reported satisfactory pain control with oral pain medications by postoperative day 1. Patient showed satisfactory progress with physical therapy. Patient moved steadily through the program and had no difficulty meeting the goals by postoperative day 1. Given patient's otherwise satisfactory course and having met physical therapy goals, plan is to discharge patient home on postoperative day 1. Discharge condition/disposition: Patient will be discharged home in stable condition. Discharge medications: Instructions are given on resumption of patient's normal daily medications per primary care recommendation, in addition patient will be prescribed Savage 7.5 mg / 325 mg, senna S, Zofran 8 mg, aspirin 81 mg. Discharge instructions: 1. Wound care and infection precautions, keep incision dry and covered while showering, no lotions, creams, moisturizers. No soaking, tubs, pools, hottubs. Do not scrub over the incision. 2. Weight-bear as tolerated with walker / cane until follow-up. 3. Ice and elevate when necessary. Do not exceed 20 minutes per hour with ice pack. 4. Utilize compression sleeve until seen at first follow up appointment. 5. Visiting nursing care. 6. Home physical therapy. 7. Pain meds and anticoagulants per prescription. 8. Pain medication has potential to cause constipation. Increase oral fluid and fiber intake. Contact primary care provider if you have not had a bowel movement within 48 hours after discharge 9. No anti-inflammatory medication until discussed at first post operative visit, this including Motrin, Aleve, Mobic, Diclofenac 10. Follow up in office at 2 weeks postop with Cosmo Dennison PA-C/Hank Vences 11. Follow up with your primary care doctor 7-10 days after discharge. 12. Contact [facility] with any questions, . Procedures: left total knee arthroplasty Patient Condition at Discharge: Good Plan - Discharge Summary Discharge Rx Participant: Yes New Discharge Prescriptions: New Aspirin [Adult Low Dose Aspirin EC] 81 mg PO BID #60 tab Sennosides/Docusate Sodium [Senna-S 8.6-50 mg Tablet] 2 each PO DAILY PRN #30 tablet PRN Reason: Constipation ondansetron HCL [Zofran] 8 mg PO Q12HR PRN #14 tab PRN Reason: Nausea HYDROcodone/APAP 7.5-325MG [Savage 7.5] 1 each PO Q6HR PRN #28 tab PRN Reason: Pain No Action Metoprolol Tartrate [Lopressor] 50 mg PO BID cycloSPORINE 0.05% OPHTH SOLN [Restasis] 1 applicator BOTH EYES HS Ergocalciferol [Vitamin D2 (1250 Mcg = 85045 Iu)] 50,000 unit PO Q14D Ondansetron [Zofran] 4 mg PO Q12HR PRN PRN Reason: Nausea Prochlorperazine [Compazine] 10 mg PO Q8H PRN PRN Reason: Nausea carisoprodoL [Soma] 350 mg PO TID PRN PRN Reason: Muscle Spasm Levothyroxine Sodium [Synthroid] 125 mcg PO QAM Vitamin A [Vitamin A (8,000 Units = 2,400 MCG)] 10,000 unit PO DAILY Omeprazole [PriLOSEC] 40 mg PO QAM Meclizine [Antivert] 25 mg PO TID PRN PRN Reason: Vertigo ALPRAZolam [Xanax] 0.25 - 0.5 mg PO DIRECTED PRN PRN Reason: Anxiety Discharge Medication List Metoprolol Tartrate [Lopressor] 50 mg PO BID 03/08/19 [History] cycloSPORINE 0.05% OPHTH SOLN [Restasis] 1 applicator BOTH EYES HS 05/06/20 [History] Ergocalciferol [Vitamin D2 (1250 Mcg = 38795 Iu)] 50,000 unit PO Q14D 07/22/20 [History] Vitamin A [Vitamin A (8,000 Units = 2,400 MCG)] 10,000 unit PO DAILY 07/22/20 [History] Ondansetron [Zofran] 4 mg PO Q12HR PRN 07/24/20 [History] Prochlorperazine [Compazine] 10 mg PO Q8H PRN 07/24/20 [History] carisoprodoL [Soma] 350 mg PO TID PRN 07/24/20 [History] ALPRAZolam [Xanax] 0.25 - 0.5 mg PO DIRECTED PRN 10/20/23 [History] Levothyroxine Sodium [Synthroid] 125 mcg PO QAM 10/20/23 [History] Meclizine [Antivert] 25 mg PO TID PRN 10/20/23 [History] Omeprazole [PriLOSEC] 40 mg PO QAM 10/20/23 [History] Aspirin [Adult Low Dose Aspirin EC] 81 mg PO BID #60 tab 10/27/23 [Rx] HYDROcodone/APAP 7.5-325MG [Savage 7.5] 1 each PO Q6HR PRN #28 tab 10/27/23 [Rx] Sennosides/Docusate Sodium [Senna-S 8.6-50 mg Tablet] 2 each PO DAILY PRN #30 tablet 10/27/23 [Rx] ondansetron HCL [Zofran] 8 mg PO Q12HR PRN #14 tab 10/27/23 [Rx] Follow up Appointment(s)/Referral(s): [facility] [NON-STAFF] - As Needed (Continuous Passive Motion knee machine) Katie Dove MD [Primary Care Provider] - 1 Week (Office is closed at time of discharge. Please call for follow-up appointment.) [facility], [NON-STAFF] - As Needed Vitaliy Dennison PAC [PHYSICIAN DATA CONVERSION OPERATOR] - 11/10/23 11:20 am Patient Instructions/Handouts: Knee Replacement (DC) Activity/Diet/Wound Care/Special Instructions: Orthopedic Discharge Instructions: 1. Wound care and infection precautions, keep incision dry and covered while showering, no lotions, creams, moisturizers. No soaking, pools, hot tubs. Do not scrub over incision. 2. Weight-bear as tolerated with walker / cane until follow-up. 3. Ice and elevate when necessary. Do not exceed 20 minutes per hour with ice pack. 4. Utilize compression sleeve until seen at first follow up appointment. 5. Pain meds and anticoagulants per prescription. 6. Pain medication has potential to cause constipation. Increase oral fluid and fiber intake. Contact primary care provider if you have not had a bowel movement within 48 hours after discharge. 7. No anti-inflammatory medication until discussed at first post operative visit, this including Motrin, Aleve, Mobic, Diclofenac. 8. Follow up in office at 2 weeks postop with Cosmo Dennison PA-C/Hank Burton PA-C 9. Follow up with your primary care doctor 7-10 days after discharge. 10. Contact [facility] with any questions, . Wound care instructions: 1. Okay to remove surgical dressing as of 11/02/2023 2. Okay to shower directly over the incision after removal of dressing Discharge Disposition: HOME WITH HOME HEALTH SERVICES
--- NOTE | 2023-10-27 11:38 | P.PN ---
Subjective Progress Note Date: 10/27/23 This is a 68-year-old female who was admitted under orthopedic services and is status post left total knee arthroplasty. Patient reports she has been following with her primary care provider Dr. Katie Dove in the outpatient setting with a past medical history of thyroid cancer, migraines, degenerative joint disease, vertigo, GERD, hypertension. Patient reports she rarely drinks socially, denies smoking or illicit drug use. Patient had been chronically having knee pain and reports has been putting surgery off for over 10 years. Patient reports most recently she has had some falls onto the knee making the pain more intense. Patient reports she did undergo presurgical clearance in the outpatient setting. 10/27/2023 Patient is evaluated in follow up today on the medical floor she is postopera tive day #1 left total knee arthroplasty. Patient is reporting moderate pain to the left knee using the oral pain medications. She was able to get up and ambulate well with PT and has been cleared for DC home. Electrolyte panel unremarkable. Patient is on room air. Having some nausea with the oral pain medications and has not had much diet while here. She is anxious for DC home. REVIEW OF SYSTEMS: CONSTITUTIONAL: No fever, no malaise, no fatigue. HEENT: No recent visual problems or hearing problems. Denied any sore throat. CARDIOVASCULAR: No chest pain, orthopnea, PND, no palpitations, no syncope. PULMONARY: No shortness of breath, no cough, no hemoptysis. GASTROINTESTINAL: No diarrhea, no nausea, no vomiting, no abdominal pain. NEUROLOGICAL: No headaches, no weakness, no numbness. PHYSICAL EXAMINATION: GENERAL: The patient is lethargic although arousable alert and oriented x3, falling asleep during conversation, is postop today. Well developed, elderly appearing HEENT: Pupils are round and equally reacting to light. EOMI. No scleral icterus. No conjunctival pallor. Normocephalic, atraumatic. No pharyngeal erythema. No thyromegaly. CARDIOVASCULAR: S1 and S2 muffled PULMONARY: Diminished bilaterally otherwise chest is clear to auscultation, no wheezing or crackles. ABDOMEN: Soft, nontender, nondistended, normoactive bowel sounds. No palpable organomegaly. MUSCULOSKELETAL: No joint swelling or deformity. EXTREMITIES: No cyanosis, clubbing, or pedal edema. Left knee surgical dressing is dry and intact NEUROLOGICAL: Gross neurological examination did not reveal any focal deficits. Diffusely weak SKIN: No rashes. Assessment: Status post left total knee arthroplasty, postop day 0 History of hypertension with tachycardia and reports takes metoprolol for this History of thyroid cancer History of migraines GERD History of osteoporosis History of pulmonary hypertension, mild per patient GI prophylaxis DVT prophylaxis Full code Plan: Patient evaluated by physical therapy has been cleared for discharge home with home PT/OT. Resume all same home medications Continue with aspirin 81 mg BID for the next 30 days than can resume aspiriin 325 mg daily. Diet as tolerated Follow up with PCP 1 to 2 days Continue incentive spirometer 10 x an hour while awake. The impression and plan of care has been dictated by Lucia Mayer Nurse Practitioner as directed. Dr. Harriett MD I have performed a history and physical examination and medical decision making of this patient, discussed the same with the dictator, and agree with the dictators assessment and plan as written, documented as a scribe. Based on total visit time, I have performed more than 50% of this visit. Objective - Vital Signs Vital signs: Vital Signs Temp 98.1 F 10/27/23 01:11 Pulse 93 10/27/23 01:11 Resp 15 10/27/23 01:11 BP 137/76 10/27/23 01:11 Pulse Ox 94 L 10/27/23 01:11 FiO2 Intake & Output 10/26/23 10/27/23 10/27/23 18:59 06:59 18:59 Intake Total 1251 Output Total 40 Balance 1211 Weight 71.4 kg Intake: IV 1251 Output: Estimated Blood Loss 40 Other: Voiding Method Toilet # Voids 3 2 - Labs CBC & Chem 7: 10/27/23 03:51 10/27/23 04:45 Labs: Abnormal Lab Results - Last 24 Hours (Table) 10/27/23 10/27/23 Range/Units 03:51 04:45 WBC 13.21 H (4.50-10.00) X 10*3/uL RBC 3.71 L (4.10-5.20) X 10*6/uL Hgb 10.0 L (12.0-15.0) g/dL Hct 31.1 L (37.2-46.3) % Immature Gran # 0.07 H (0.00-0.04) X 10*3/uL Neutrophils # 10.70 H (1.80-7.70) X 10*3/uL Monocytes # 1.08 H (0.20-1.00) X 10*3/uL Eosinophils # 0 L (0.04-0.35) X 10*3/uL Glucose 117 H (70-110) mg/dL Assessment and Plan Time with Patient: Less than 30
[2023-10-27 12:38] VITALS: BP 121/77; PULSE 88; RESP 17; TEMP 97.9
[2023-10-27] MEDS ORDERED: cycloSPORINE 0.05% OPHTH 0.4 ML DROPERETTE BOTH EYES SCH (21:00)
[2023-10-30] MEDS ORDERED: ERGOCALCIFEROL 1,250 MCG (50,000 IU) CAPSULE PO SCH (09:00)
== END 2023-10-27 13:16 | disposition home health service (06) ==
LOC: OR 05:44 → 4SSUR 09:04 → OR 10-27 13:16
PROVIDERS: ATTEND Orthopaedic Surgery
DX: M17.12 Unilateral primary osteoarthritis, left knee (principal); E03.9 Hypothyroidism, unspecified; F41.9 Anxiety disorder, unspecified; G89.18 Other acute postprocedural pain; I10 Essential (primary) hypertension; I27.20 Pulmonary hypertension, unspecified; K21.9 Gastro-esophageal reflux disease without esophagitis; M81.0 Age-related osteoporosis without current pathological fracture; Z79.82 Long term (current) use of aspirin; Z79.890 Hormone replacement therapy; Z85.850 Personal history of malignant neoplasm of thyroid; Z88.1 Allergy status to other antibiotic agents; Z88.2 Allergy status to sulfonamides; Z88.5 Allergy status to narcotic agent; Z98.84 Bariatric surgery status; Z98.890 Other specified postprocedural states; Z79.899 Other long term (current) drug therapy; Z90.710 Acquired absence of both cervix and uterus
CPT/HCPCS: 64448; 64999; 80048; 83735; 85025

== ENCOUNTER → 2024-09-04 | Outpatient (CLI) | payer MEDICARE ==
[2024-09-04 14:48] VITALS: BP 157/78; PULSE 71; RESP 16; TEMP 98.1; BMI 28.0
--- NOTE | 2024-09-04 15:14 | P.HPBAR ---
Bariatric H&P - History & Physicial H&P Date: 09/04/24 History & Physicial: Visit/CC: F/U Patient initial contact: Initial weight: 99.79 kg Initial weight in pounds: 220.00 Height: 5 ft 2.5 in Initial BMI: 39.6 Last weight: Current weight: 70.76 kg Current weight in pounds: 156.00 Current BMI: 28.0 [place] body weight (based on NIH guidelines): 51.25 kg Excess body weight loss: 59.8% The patient is a 69 year-old F who presents for Bariatric Assessment. She is dating. She is due for colonoscopy and EGD. She is told she has elevated cancer markers. No dysphagia. Needslabs. Last labs was 2018. She sees Dr. Reynolds for thyroid cancer. She was on 150 mcg. She has occasional heartburn. Needs TSH check. Recommend T3, T4. Past Medical History Past Medical History: Cancer, Chest Pain / Angina, GERD/Reflux, Hypertension, Supraventricular Tachycardia (SVT), Thyroid Disorder Additional Past Medical History / Comment(s): Osteoporosis, hx esophageal spasms, hx thyroid cancer, Migraines, DJD, Vertigo, hx precancerous lesions on face, eczema eyelids, hx mild pulmonary HTN 10/2018, slight leaky heart valve, Autoimmune Disease - gets severe blisters in mouth - no current problems. History of Any Multi-Drug Resistant Organisms: None Reported Past Surgical History: Back Surgery, Bariatric Surgery, Hernia Repair, Hysterectomy, Joint Replacement, Orthopedic Surgery, Tubal Ligation Additional Past Surgical History / Comment(s): Total right knee replacement, LAP BAND (2002), HEART CATH X 2, THYROIDECTOMY, DISCECTOMY L5-S1, LEFT KNEE ARTHROSCOPY, BILATERAL HEEL SPURS REMOVED, BENIGN TUMOR EXCISED FROM LEFT EYE, panniculectomy, left rotaotor cuff repair, sinuplasty, lap band removed 08-14-17, gastric bypass 12-11-17 with Hiatal Hernia repair, revision of gastric bypass/jejunum 10/2018, colonoscopy, bilateral eyelid surgery. Past Anesthesia/Blood Transfusion Reactions: Family History of Problems w/ Anesthesia, Motion Sickness, Postoperative Nausea & Vomiting (PONV) Additional Past Anesthesia/Blood Transfusion Reaction / Comm: Hx Esophageal spasms - never had any problems with it during surgery/Anesthesia. Patient has severe PONV. Mom and Daughter also have PONV. No hx blood transfusion. Smoking Status: Never smoker - Past Family History Sister(s) Family Medical History: Cancer Additional Family Medical History / Comment(s): Breast cancer. Brother(s) Family Medical History: Cancer Additional Family Medical History / Comment(s): Lung cancer. Father Family Medical History: Cancer, Diabetes Mellitus, Hypertension Additional Family Medical History / Comment(s): Father had cancer below his eye. He from a MVA. Mother Family Medical History: AFIB, Cancer, Thyroid Disorder Additional Family Medical History / Comment(s): Skin cancer. Surgical - Exam Vital Signs Temp Pulse Resp BP 98.1 F 71 16 157/78 09/04/24 14:45 09/04/24 14:45 09/04/24 14:45 09/04/24 14:45 Bariatric Checklist Checklist: Plan: Checklist: EGD: 1. Hiatal hernia: 2. H. Pylori: HgbA1c: Vitamin D: Smoking: Never smoker Primary care physician referral: swati Dove Psychiatry clearance: Cardiology clearance: Sleep study: Diet journal: VTE risk score: VTE risk level: Rehab needs at discharge:
== END ==
LOC: BARWHC3 14:23
PROVIDERS: ATTEND Surgery Plastic and Reconstructive Surgery
DX: E66.01 Morbid (severe) obesity due to excess calories (principal); Z68.28 Body mass index [BMI] 28.0-28.9, adult; Z88.2 Allergy status to sulfonamides; Z88.5 Allergy status to narcotic agent
CPT/HCPCS: 99211

== ENCOUNTER → 2024-09-13 | Outpatient (CLI) | payer MEDICARE ==
[2024-09-13 10:16] LABS: INR 1.0 (<1.2); Prothrombin Time 10.7 sec (10.0-12.5)
[2024-09-13 10:17] LABS: Partial Thromboplastin Time 22.4 sec (22.0-30.0)
[2024-09-13 15:25] LABS: HCT 37.6 % (37.2-46.3); HGB 11.6 g/dL (12.0-15.0); MCH 24.7 pg (27.0-32.0); MCHC 30.9 g/dL (32.0-37.0); MCV 80.0 FL (80.0-97.0); NRBC Per 100 WBC 0 X 10*3/uL (0.00-0.01); Platelet Count 298 X 10*3/uL (140-440); RBC 4.70 X 10*6/uL (4.10-5.20); RDW 17.2 % (11.5-14.5); WBC 5.71 X 10*3/uL (4.50-10.00)
[2024-09-13 15:42] LABS: Prealbumin 20.8 mg/dL (18.0-42.0)
[2024-09-13 15:57] LABS: ALT 20 U/L (8-44); AST 26 U/L (13-35); Albumin 4.4 g/dL (3.8-4.9); Albumin/Globulin Ratio 1.63 Ratio (1.60-3.17); Alkaline Phosphatase 142 U/L (41-126); Anion Gap 14.10 mmol/L (4.00-12.00); BUN/Creat Ratio 16.38 Ratio (12.00-20.00); Blood Urea Nitrogen 13.1 mg/dL (9.0-27.0); Calcium 9.3 mg/dL (8.7-10.3); Carbon Dioxide 22.9 mmol/L (21.6-31.8); Chloride 105 mmol/L (96-109); Cholesterol 181.00 mg/dL (0.00-200.00); Ferritin 13.1 ng/mL (10.0-291.0); Globulin 2.7 g/dL (1.6-3.3); Glucose 88 mg/dL (70-110); HDL Cholesterol 77.80 mg/dL (40.00-60.00); Iron 63 UG/DL (50-170); LDL Cholesterol,Calculated 92.3 mg/dL (0.0-131.0); Magnesium 2.1 mg/dL (1.5-2.4); Potassium 4.0 mmol/L (3.5-5.5); Sodium 142 mmol/L (135-145); T4, Free (Free Thyroxine) 1.41 ng/dL (0.80-1.80); Total Iron Binding Capacity 472 UG/DL (228-460); Total Protein 7.1 g/dL (6.2-8.2); Triglycerides 54.70 mg/dL (0.00-149.00); VLDL Calculation 10.94 mg/dL (5.00-40.00); Vitamin B12 444.0 pg/mL (200.0-944.0)
== END | disposition home or self-care (01) ==
LOC: LABWHC1 08:52
PROVIDERS: ATTEND Internal Medicine
DX: E03.9 Hypothyroidism, unspecified (principal); E16.2 Hypoglycemia, unspecified; M81.0 Age-related osteoporosis without current pathological fracture; C73 Malignant neoplasm of thyroid gland; E66.01 Morbid (severe) obesity due to excess calories
CPT/HCPCS: 36415; 80053; 80061; 82306; 82525; 82607; 82728; 82746; 83036; 83540; 83550; 83735; 83970; 84100; 84134; 84255; 84425; 84432; 84439; 84443; 84481; 84590; 84630; 85027; 85610; 85730; 86800